=== PATIENT | male | born 1935 | race Caucasian/White ===

== ENCOUNTER 2016-06-22 11:25 | Observation (INO) | payer OTHER, MEDICARE ==
[~2016-06-22] VITALS: Ht 172.7 cm; Wt 83.9 kg
--- NOTE | 2016-06-22 11:28 | ED SYNCOPE COMPLAINT ---
History of Present Illness General Chief Complaint: Syncope and Near-Syncope Stated Complaint: ?SYNCOPE Source: patient Exam Limitations: no limitations Vital Signs & Intake/Output Vital Signs & Intake/Output Vital Signs Date Time Temp Pulse Resp B/P Pulse O2 O2 Flow FiO2 Ox Delivery Rate 06/22 1252 62 18 115/67 99 Room Air 06/22 1133 98.2 78 18 121/88 99 Room Air Allergies Coded Allergies: Penicillins (UNKNOWN 06/22/16) meperidine (From Demerol) (UNKNOWN 06/22/16) Reconcile Medications Aspirin (Ecotrin*) 81 MG TABLET.DR 1 TAB PO DAILY HEART HEALTH (Reported) Furosemide 20 MG TABLET 1 TAB PO DAILY CHF (Reported) Metoprolol Succ XL (Toprol XL) 25 MG TAB 1 TAB PO DAILY A.fib Triage Nurses Notes Reviewed? yes Timing: single episode today Precipitating Factors: SITTING IN CHAIR, DIZZINESS Loss of Consciousness: prolonged (minutes) HPI: This is an 81-year-old male with history of hypertension, A. fib, coronary disease presents to the ER after a syncopal episode while waiting in the room with his . Patient states he started to feel dizzy and then was noted by the family members to be not responding. No history of seizure disorder. He did not eat or drink anything this morning. Patient denies any chest pain or shortness of breath. Finger stick was normal in the room. Patient was ashen, very diaphoretic, left-sided fixed gaze. Past History Travel History Traveled to [place] past 21 day No Medical History Any Pertinent Medical History? see below for history Cardiovascular: AFIB, CAD, hypertension Pneumonia Vaccine: 02/12/10 Surgical History Surgical History: CABG, HERNIA, SB RESECTION Psychosocial History Who do you live with Spouse What is your primary language Albanian Tobacco Use: Never used ETOH Use: denies use Family History Hx Contributory? No Review of Systems Review of Systems Constitutional: Denies: chills, fever. EENTM: Reports: no symptoms. Respiratory: Denies: cough, short of breath. Cardiovascular: Denies: chest pain. GI: Reports: no symptoms. Genitourinary: Reports: no symptoms. Musculoskeletal: Reports: no symptoms. Skin: Reports: see HPI. Neurological/Psychological: Reports: no symptoms. All Other Systems: Reviewed and Negative Physical Exam Physical Exam General Appearance: well developed/nourished, alert, awake, anxious, moderate distress, DIAPHORETIC Head: atraumatic Eyes: Bilateral: PERRL, pale conjunctivae. Ears, Nose, Throat: normal pharynx, normal ENT inspection Neck: normal inspection, supple, full range of motion Respiratory: normal breath sounds, chest non-tender, no respiratory distress Cardiovascular: regular rate/rhythm Gastrointestinal: soft, non-tender Back: normal inspection, normal range of motion Extremities: normal inspection, normal capillary refill, normal range of motion, no edema Psychiatric: awake, alert, oriented x 3 Cranial Nerves: normal hearing, normal speech Motor/Sensory: no motor/sensory deficits Core Measures ACS in differential dx? Yes CVA/TIA Diagnosis: No Severe Sepsis Present: No Septic Shock Present: No Progress Differential Diagnosis: AMI, orthostatic syncope, pulmonary embolus, seizure Plan of Care: Orders Procedure Date/time Status Heart Healthy Diet 06/[address] in observation 06/22 1355 Active Patient Data 06/22 1348 Active Vital Signs 06/22 1308 Active Code Status 06/22 1308 Active MISTAKE 06/22 1127 Active Telemetry/Ciaio Counter Molder 06/22 1127 Active TROPONIN LEVEL 06/22 1127 Complete COMPREHENSIVE METABOLIC PANEL 06/22 1127 Complete CBC WITHOUT DIFFERENTIAL 06/22 1127 Complete EKG 06/22 1126 Active Laboratory Tests 06/22/16 1147: Anion Gap 12, Estimated GFR > 60, BUN/Creatinine Ratio 18.2, Glucose 96, Calcium 9.1, Total Bilirubin 1.3, AST 26, ALT 42, Alkaline Phosphatase 70, Troponin I < 0.01, Total Protein 6.8, Albumin 3.7, Globulin 3.1, Albumin/Globulin Ratio 1.2, CBC w Diff NO MAN DIFF REQ, RBC 5.27, MCV 87.1, MCH 29.1, RDW 13.6, MPV 8.5, Gran % 60.4, Lymphocytes % 26.3, Monocytes % 9.9 H, Eosinophils % 3.1, Basophils % 0.3, Absolute Granulocytes 4.0, Absolute Lymphocytes 1.7, Absolute Monocytes 0.6, Absolute Eosinophils 0.2, Absolute Basophils 0, PUBS MCHC 33.4 EKG, FINGER STICK, TELE MONITOR, FLUID BOLUS. LABS, ORTHOSTATICS ORDERED. PATENT FEELING MUCH BETTER AFTER OXYGEN, IV FLUID ADMINISTRATION. D/W HOSPITALIST AND CARDIOLOGY DR STALEY. WILL PLACE ON TELE FOR OBSERVATION. (JARVIS AHUMADA,DARCY) Diagnostic Imaging: Viewed by Me: Radiology Read. Discussed w/RAD: Radiology Read. CXR Impression: PATIENT: HUY CHAPMAN II PRESENT AGE: 81 PATIENT ACCOUNT NO: [id number] : 35 LOCATION: [facility] ORDERING PHYSICIAN: DARCY CONLEY MD SERVICE DATE: 06/22/16 EXAM TYPE: RAD - XRY -PORTABLE CHEST XRAY EXAMINATION: XR PORTABLE CHEST CLINICAL INFORMATION: Syncopal episodes. COMPARISON: None TECHNIQUE: Portable AP 85 degree upright view of the chest was obtained. FINDINGS: The heart is within normal limits in size. There is a stable tortuous aorta. There is no congestion or focal consolidation. Multiple broken sternal wires are again noted. Severe osteoarthritis of the left glenohumeral joint is redemonstrated. IMPRESSION: Stable chronic findings. No acute cardiopulmonary process. DICTATED BY: ESTEFANI WATSON MD DATE/TIME DICTATED:06/22/161250 MEDICAL DOCTOR:AVELINO DATE/ TIME TRANSCRIBED:06/22/161250 CONFIDENTIAL, DO NOT COPY WITHOUT APPROPRIATE AUTHORIZATION. <Electronically signed in Other Vendor System> SIGNED BY: ESTEFANI WATSON MD 06/22/161255 Initial ED EKG: AFIB Rhythm Strip: atrial fibrillation Departure Departure Time of Disposition: 1355 Disposition: STILL A PATIENT Condition: Stable Clinical Impression Primary Impression: Syncope Referrals: MICHELLE AHUMADA,KENNEDY Gordon (PCP/Family) Departure Forms: Customer Survey General Discharge Information Prescriptions: Current Visit Scripts Metoprolol Succ XL (Toprol XL) 1 TAB PO DAILY #30 TAB Observation Note Spoke With: TEA WHELAN MD Physician Advisor Notified: ELEUTERIO AHUMADA,KENNEDY [facility] Place Patient In: Non-ED OBS Care Area Rationale for Observation: My rational for observation is as follows [TELE MONITOR, SERIAL EKG, SERIAL TROPONIN, CARDIOLOGY EVALUATION, MEDICATION ADJUSTMENT, CONSIDER ECHOCARDIOGRAM] . Critical Care Note Critical Care Note Critical Care Time: 30-74 min
--- NOTE | 2016-06-22 11:31 | NUR ---
CARE OF PATIENT ASSUMED. PT WAS SITTING AT 'S BESIDE WHEN HE BECAUSE UNRESPONSIVE. PT BROUGHT TO ROOM 20, ACCUCHECK 101 MG/DL. PT NOW ALERT AND RESPONDING APPROPRIATELY TO STAFF. NS BOLUS INFUSING. WILL CONTINUE TO MONITOR. DR. CONLEY EVALUATING PATIENT.
--- NOTE | 2016-06-22 11:33 | NUR ---
PT BECAME UNRESPONSIVE. PLACED ON STRETCHER. PT BREATHING, SHAKING. ACCUCHECK- 101 MG/DL PT BROUGHT TO ROOM 20.
[2016-06-22] MEDS ORDERED: FUROSEMIDE20 M1 PO (11:41)
[2016-06-22] MEDS ORDERED: METOPROLOL TART25 M1 PO (11:41)
[2016-06-22] MEDS ORDERED: ASPIRIN EC81 M1 PO (11:42)
--- NOTE | 2016-06-22 11:49 | NUR ---
LABS DRAWN AND SENT BY THIS MST. BLUE,SST,LAV
[2016-06-22 12:10] LABS: ABSOLUTE BASOPHIL COUNT 0 /CUMM (0.0-0.2); ABSOLUTE EOSINOPHIL COUNT 0.2 /CUMM (0.0-0.7); ABSOLUTE LYMPH COUNT 1.7 /CUMM (1.2-3.4); ABSOLUTE MONOCYTE COUNT 0.6 /CUMM (0.10-0.60); BASOPHIL % 0.3 % (0.0-2.0); EOSINOPHIL % 3.1 % (0-5); GRANULOCYTE % 60.4 % (42.2-75.2); HEMATOCRIT 45.9 % (42-52); MEAN CORPUSCULAR HGB 29.1 PG (27.0-31.0); MEAN CORPUSCULAR HGB CONC 33.4 G/DL (33.0-37.0); MEAN CORPUSCULAR VOLUME 87.1 FL (80.0-94.0); MEAN PLATELET VOLUME 8.5 FL (7.4-10.4); PLATELET COUNT 186 /CUMM (130-400); RBC DISTRIBUTION WIDTH 13.6 % (11.5-14.5); RED BLOOD CELL CT 5.27 /CUMM (4.70-6.10); WHITE BLOOD CELL COUNT 6.5 /CUMM (4.8-10.8)
--- NOTE | 2016-06-22 12:54 | NUR ---
PT REPORTS FEELING BETTER. FAMILY AT BEDSIDE. ALERT AND TALKING WITHOUT DIFFICULTY
--- NOTE | 2016-06-22 12:56 | RADIOLOGY REPORT ---
EXAMINATION: XR PORTABLE CHEST CLINICAL INFORMATION: Syncopal episodes. COMPARISON: None TECHNIQUE: Portable AP 85 degree upright view of the chest was obtained. FINDINGS: The heart is within normal limits in size. There is a stable tortuous aorta. There is no congestion or focal consolidation. Multiple broken sternal wires are again noted. Severe osteoarthritis of the left glenohumeral joint is redemonstrated. IMPRESSION: Stable chronic findings. No acute cardiopulmonary process.
--- NOTE | 2016-06-22 14:07 | History & Physical ---
MARY PORRAS MDRIE 06/22/16 1406: General Information and HPI MD Statement: I have seen and personally examined HUY CHAPMAN II and documented this H&P. The patient is a 81 year old M who presented with a patient stated chief complaint of [syncope]. Source of Information: patient, family Exam Limitations: no limitations History of Present Illness: 81-year-old male with PMH atrial fibrillation, CAD sp quadruple bypass 2004, HTN , HLD, had a syncopal episode while accompanying his at the ED for a fall. His family was at bedside. His daughter reports that while in the room, he was not responsive for a few minutes, with twitches, drooling, and urine incontinence. Pt does not remember the episode, the last thing he remembered was feeling "woozy and fuzzy" possibly because he was feeling nervous about his . He also missed breakfast this morning. He reported one similar incidence when he was 6 years old when he cut his thumb. No recent episodes. As per ED note, he was diaphoretic with left sided fixed gaze. Now he reports feeling great. Denies visual changes, chest pain, palpitations, shortness of breath, abdominal pain, nausea, vomiting. He has chronic right leg swelling, which has improved. As per his daughter, he does not like to take prescribed meds. As an example, he took himself off zocor. That might be a reason why he is not on warfarin despite having atrial fibrillation. Pt lives with his , neno, and son-in-law. He sometimes walks with a cane. He denies smoking, alcohol, or drugs. Allergies/Medications Home Med list Aspirin (Ecotrin*) 81 MG TABLET.DR 1 TAB PO DAILY HEART HEALTH (Reported) Furosemide 20 MG TABLET 1 TAB PO DAILY CHF (Reported) Metoprolol Tartrate 25 MG TABLET 1 TAB PO BID AFIB (Reported) Past History Travel History Traveled to [place] past 21 day No Medical History Cardiovascular: AFIB, CAD, hypertension, hyperlipidemia Renal: ENLARGED PROSTATE Pneumonia Vaccine: 02/12/10 Surgical History Surgical History: CABG, HERNIA, SB RESECTION Past Family/Social History Psychosocial History Where do you live? Home Who Do You Live With? spouse, child Services at Home: None Smoking Status: Never Smoked ETOH Use: denies use Illicit Drug Use: denies illicit drug use Functional Ability ADLs Independent: dressing, eating, toileting, bathing. Ambulation: independent, cane Review of Systems Review of Systems Constitutional: Denies: chills, fever, weakness. EENTM: Denies: blurred vision, double vision, visual changes, nasal pain, throat pain. Cardiovascular: Reports: peripheral edema, syncope. Denies: chest pain, orthopena, palpitations. Respiratory: Denies: cough, short of breath, sputum production, wheezing. GI: Denies: abdominal pain, bloating, constipation, diarrhea. Genitourinary: Denies: dysuria. Exam & Diagnostic Data Last 24 Hrs of Vital Signs/I&O Vital Signs Date Time Temp Pulse Resp B/P Pulse O2 O2 Flow FiO2 Ox Delivery Rate 06/22 1530 73 139/81 06/22 1448 98.0 90 18 113/74 99 Room Air 06/22 1252 62 18 115/67 99 Room Air 06/22 1133 98.2 78 18 121/88 99 Room Air Intake & Output 06/22 1600 06/22 0800 06/22 0000 Intake Total 500 Output Total Balance 500 Intake, IV 500 Physical Exam General Appearance Alert, Oriented X3, Cooperative, No Acute Distress Skin chronic venous stasis change HEENT Atraumatic, EOMI, Mucous Membr. moist/pink, Pupils equally round and reactive Neck Supple, +2 Carotid Pulse wo Bruit, No LAD Cardiovascular Normal S1, Normal S2, irregularly irregular Lungs Clear to Auscultation, Normal Air Movement Abdomen Normal Bowel Sounds, Soft, No Tenderness Neurological Normal Speech, Strength at 5/5 X4 Ext, Normal Tone, Sensation Intact, Cranial Nerves 3-12 NL Extremities No Edema, right leg bigger than left, but it is chronic as per pt and his family Vascular Normal Pulses Last 24 Hrs of Labs/Lanre: Laboratory Tests 06/22/16 1147: Anion Gap 12, Estimated GFR > 60, BUN/Creatinine Ratio 18.2, Glucose 96, Calcium 9.1, Total Bilirubin 1.3, AST 26, ALT 42, Alkaline Phosphatase 70, Troponin I < 0.01, Total Protein 6.8, Albumin 3.7, Globulin 3.1, Albumin/Globulin Ratio 1.2, CBC w Diff NO MAN DIFF REQ, RBC 5.27, MCV 87.1, MCH 29.1, RDW 13.6, MPV 8.5, Gran % 60.4, Lymphocytes % 26.3, Monocytes % 9.9 H, Eosinophils % 3.1, Basophils % 0.3, Absolute Granulocytes 4.0, Absolute Lymphocytes 1.7, Absolute Monocytes 0.6, Absolute Eosinophils 0.2, Absolute Basophils 0, PUBS MCHC 33.4 Diagnostic Data EKG Results A fib, rate 78 QTc 481 CXR Results IMPRESSION: Stable chronic findings. No acute cardiopulmonary process. Assessment/Plan Assessment: 81-year-old male with PMH atrial fibrillation, CAD sp quadruple bypass 2004, HTN , HLD, had a syncopal episode (a couple minutes episode of unresponsiveness, with shaky movements, urine incontinence). Labs unremarkable. VS WNL. Pt will be observed on tele for the following problems: # Syncope/ Possible seizure episode/ Valvular heart disease * Seizure precaution * Neuro called - Dr Landaverde supervisor travel information center * Follow up EEG * Follow up head CT * Consider carotid doppler * Follow up repeat EKG and trop at 6pm * Check orthostats * Follow up repeat echocardiogram # Atrial fibrillation - Last echo Jun 2014: Moderate concentric left ventricular hypertrophy. Normal left ventricular ejection fraction visually estimated at >65 %. Mild to moderate right atrial dilatation. Mild to moderate left atrial dilatation. * Continue metoprolol 25 mg BID, aspirin 81mg * Tele monitor * Cardio consult with Dr. Carrera # Chronic right leg swelling * Continue lasix Diet: heart healthy DVT ppx: mech and pharm FULL CODE As Ranked By This Provider Problem List: 1. Syncope Core Measures/Miscellaneous Acute Coronary Syndrome ACS Diagnosis: No Cerebrovascular Accident CVA/TIA Diagnosis: No Congestive Heart Failure CHF Diagnosis: No Venous Thromboembolism VTE Risk Factors: Acute medical illness, Age > 40 VTE Prophylaxis Ordered Inpt: Mech & Pharm No Mech VTE prophylaxis d/t: No contraindications No VTE Pharm Prophylaxis d/t: No contraindications VTE Diagnosis: No VTE Type: NONE VTE Confirmed by (Test): NONE Severe Sepsis Severe Sepsis Present: No Septic Shock Septic Shock Present: No Miscellaneous Documentation Attending Case Discussed With: KOLE SIMPSON M.D Primary Care Physician: KENNEDY MARTINEZ MD Patient sees these Specialists Dr Carrera cardiology Level of Patient Care: Telemetry DICKSON ROB 06/22/161921: Resident Review Statement Resident Statement: examined this patient, discussed with international coordinator, agreed with international coordinator, discussed with family, reviewed EMR data (avail), reviewed images Other Findings: This is an 81-year-old male with PMH significant for A.fib on no AC, CAD s/p quadruple bypass, HTN, HLD who had and LOC earlier today. Per patient, he was accompanying his in the ED when he started feeling "fuzzy" and does not remeber the rest. Per family who were also present at the time of LOC episode, he became unresponsive with drooling, twitching and had urine incontinence. The patient mentions that, he was very nervous about his . He reported that he had similar episode in past whenever he became very nervous(once when he was 6 and once when he was in high school; no further episodes since then). Please see above for further details. VSS, Ph/Ex: AAO x3, NAD, HEENT: NCAT, PERRLA, EOMI, Neck: Supple, no carotid bruits, CV: Irreg. Irreg, no murmur. Lungs: CTABL. Abdomen: NL BS, NT, ND, no organomegaly. Neurology: NL Speech, CN 3-12 intact, [id number] intact, Strength at 5/5 X4 Ext, Normal Tone, Sensation Intact Ext: LE edema more prominent on the right side, pulses symmetrical . Available lab and imaging data reviewed. Problem list: * LOC: syncopal episode vs seizure like activity * A.fib not on AC * Chronic LE edema Plan: * Telemtry monitor * Cardiology and Neurology consult * EEG * Head CT * Trend trop and EKG * Echo * C/W home medications of ASA, Furosemide, metoprolol. * Cardiac diet * DVT PPX at all times. * Full code CALVIN AHUMADA,KOLE 06/22/16 2220: General Information and HPI Allergies/Medications Allergies: Coded Allergies: Penicillins (UNKNOWN 06/22/16) meperidine (From Demerol) (UNKNOWN 06/22/16) Attending MD Review Statement Attending Statement Attending MD Statement: examined this patient, discuss w/resident/PA/HARDBOARD COATING MACHINE OPERATOR, agreed w/resident/PA/HARDBOARD COATING MACHINE OPERATOR, discussed with family, reviewed EMR data (avail), discussed with nursing, amended to note Attending Assessment/Plan: Patient is an 81-year-old male with history of atrial fibrillation and coronary artery disease witha syncope episode while in the emergency room which his was being evaluated following a fall. During the episode with witnesses reported left-sided gaze and mild shaking. He was also incontinent the time. He reports vague similar episodes during his childhood but no other episodes since then. Following the episodes he was hemodynamically stable. Orthostatic vitals were negative. He has no neurologic deficit on examination. Recommendations: -Based on the telemetry service for cardiac monitoring to rule out other underlying the region other than his atrial fibrillation. -Obtain echocardiogram to rule out structural heart disease. -Reported signs raise concern for possible seizure. Obtain head CT and EEG. I agree with neurology consultation. -Continue metoprolol for rate control. Family reported that patient is not on anticoagulation due to compliance issues.
--- NOTE | 2016-06-22 15:18 | NUR ---
PT ASSIGNED ROOM 172
--- NOTE | 2016-06-22 15:29 | NUR ---
ASSUMED CARE OF PT
--- NOTE | 2016-06-22 15:30 | NUR ---
PT STOOD FOR ORTHOSTATICS AND TO VOID. HOSPITALIST IN TO SEE PT
--- NOTE | 2016-06-22 16:23 | NUR ---
REPORT CALLED TO TRACY MO ON TELE UNIT. DR Gayathri PORRAS PAGED TO CLARIFY ORDERS FOR EEG, CT AND ECHO
--- NOTE | 2016-06-22 16:29 | NUR ---
DR PORRAS CONFIRMS THAT PT IS FOR EEG, CT SCAN AND ECHO. PT SENT TO CT SCAN
--- NOTE | 2016-06-22 17:19 | CT SCAN REPORT ---
EXAMINATION: CT HEAD WITHOUT CONTRAST CLINICAL INFORMATION: Left-sided fixed days. Evaluate for stroke or mass. COMPARISON: CT head dated 03/07/2012 TECHNIQUE: Contiguous axial imaging was performed from the skull base to vertex without intravenous administration of contrast. DLP: 600.71 mGy-cm FINDINGS: There is no evidence of acute intracranial hemorrhage or territorial infarction. No abnormal mass effect or midline shift is seen. Soler to white matter differentiation is well preserved. No extra-axial fluid collections are identified. Stable dilatation of bilateral lateral ventricles. Periventricular white matter low-attenuation compatible with microvascular ischemic disease.. No acute loss of soler-white differentiation. Atherosclerotic disease with intimal calcification of the distal bilateral internal carotid arteries. The osseous structures and soft tissues are normal. The mastoid air cells and visualized portions of the paranasal sinuses are well aerated. IMPRESSION: No acute intracranial pathology. Stable chronic changes.
--- NOTE | 2016-06-22 18:00 | NUR ---
EKG AND TROPONINS DONE PRIOR TAKING PT TO TELE UNIT. REPORT CALLED TO TRACY
--- NOTE | 2016-06-22 18:01 | NUR ---
REPEAT TROP DRAWN AND SENT BY THIS MST.
[2016-06-22 18:17] VITALS: BP 150/78
[2016-06-22 21:32] VITALS: BP 136/80
[2016-06-23 08:00] VITALS: BP 150/100
--- NOTE | 2016-06-23 08:33 | PN- Housestaff ---
SABINO AHUMADA,TERRANCE 06/23/16 0832: Subjective Follow-up For: Syncope vs seizure Valvular heart disease Atrial fibrillation Chronic RLE swelling Tele-Events Since Last Visit: Atrial fibrillation/flutter, HR 60s-80s, noted 2-3 second pauses. Subjective: Patient seen and examined at bedside this AM. He previously had the EEG and was resting comfortably in bedside chair. He denies pain, pre-syncope symptoms or any complaint. Review of Systems Constitutional: Denies: chills, fever, malaise. EENTM: Denies: blurred vision, visual changes, hearing changes. Cardiovascular: Denies: chest pain, palpitations. Respiratory: Denies: cough, short of breath. Gastrointestinal: Denies: abdominal pain. Genitourinary: Denies: dysuria. Musculoskeletal: Denies: back pain. Skin: Denies: erythema. Neurological/Psychological: Denies: confusion. Hematologic/Endocrine: Denies: bruising, bleeding. Objective Last 24 Hrs of Vital Signs/I&O Vital Signs Date Time Temp Pulse Resp B/P Pulse O2 O2 Flow FiO2 Ox Delivery Rate 06/23 0927 150/94 06/23 0800 97.5 82 20 150/100 98 Room Air 06/22 2132 98.2 85 20 136/80 20 Room Air 06/22 2052 76 136/80 06/22 1944 Room Air Room Air 06/22 1817 98.1 76 18 150/78 97 Room Air 06/22 1800 98.4 74 18 122/73 98 Room Air 06/22 1530 73 139/81 06/22 1448 98.0 90 18 113/74 99 Room Air 06/22 1252 62 18 115/67 99 Room Air 06/22 1133 98.2 78 18 121/88 99 Room Air Intake & Output 06/23 1600 06/23 0800 06/23 0000 Intake Total 100 480 Output Total 300 400 Balance -200 80 Intake, Oral 100 480 Number 1 Bowel Movements Output, Urine 300 400 Patient 185 lb Weight Physical Exam General Appearance: Alert, Oriented X3, Cooperative, No Acute Distress Skin: No Significant Lesion, Chronic venous stasis changes HEENT: Atraumatic, Mucous Membr. moist/pink Neck: Supple, +2 Carotid Pulse wo Bruit Lymphatic: Cervical nl Cardiovascular: Normal S1, Normal S2, Irregularly irregular Lungs: Clear to Auscultation, Normal Air Movement Abdomen: Normal Bowel Sounds, Soft Neurological: Normal Speech, Normal Tone Extremities: No Clubbing, No Cyanosis, RLE larger than left, noted to be chronic by both patient and son who is in room. Vascular: Pulses Symmetrical Current Medications: Current Medications Sig/Graciela Start time Last Medication Dose Route Stop Time Status Admin Aspirin Buffered 81 MG DAILY 06/23 1000 AC 06/23 PO 926 Furosemide 20 MG DAILY 06/23 1000 AC 06/23 PO 926 Metoprolol Tartrate 25 MG BID 06/22 2200 AC 06/23 PO 926 Sodium Chloride 500 ML BOLUS ONE 06/22 1145 DC 06/22 IV 06/22 1244 1145 Last 24 Hrs of Lab/Lanre Results Last 24 Hrs of Labs/Mics: Laboratory Tests 06/22/16 1758: Troponin I 0.01 06/22/16 1147: Anion Gap 12, Estimated GFR > 60, BUN/Creatinine Ratio 18.2, Glucose 96, Calcium 9.1, Total Bilirubin 1.3, AST 26, ALT 42, Alkaline Phosphatase 70, Troponin I < 0.01, Total Protein 6.8, Albumin 3.7, Globulin 3.1, Albumin/Globulin Ratio 1.2, CBC w Diff NO MAN DIFF REQ, RBC 5.27, MCV 87.1, MCH 29.1, RDW 13.6, MPV 8.5, Gran % 60.4, Lymphocytes % 26.3, Monocytes % 9.9 H, Eosinophils % 3.1, Basophils % 0.3, Absolute Granulocytes 4.0, Absolute Lymphocytes 1.7, Absolute Monocytes 0.6, Absolute Eosinophils 0.2, Absolute Basophils 0, PUBS MCHC 33.4 Assessment/Plan Assessment: Mr. Epps is a pleasant 81-year-old male with PMH atrial fibrillation, CAD s/p quadruple bypass 2004, HTN and HLD who was noted to have a syncopal episode (a couple minutes episode of unresponsiveness, with shaky movements, urine incontinence). On admission, labs unremarkable. VS WNL. Pt will be observed on tele for the following problems: # Syncope/ Possible seizure episode/ Valvular heart disease * By history, consideration for vasovagal syncope * Patient noted to have pauses overnight, cardiology does not believe that this is contributor to syncope * Seizure precaution * Neuro called - Dr Landaverde supervisor bonding, f/u rec's * Follow up EEG * Head CT shows no acute intracranial pathology * Trop/ekg negative for ACS * Orthostats negative * Follow up repeat echocardiogram # Atrial fibrillation - Last echo Jun 2014: Moderate concentric left ventricular hypertrophy. Normal left ventricular ejection fraction visually estimated at >65 %. Mild to moderate right atrial dilatation. Mild to moderate left atrial dilatation. * Continue metoprolol 25 mg BID, aspirin 81mg * Tele monitor * Cardio consult with Dr. Carrera, f/u recs # Chronic right leg swelling * Continue lasix Diet: heart healthy DVT ppx: mech and pharm Problem List: 1. Syncope Pain Ratin Pain Location: n/a Pain Goal: Remain pain free Pain Plan: Mild pain pathway Tomorrow's Labs & Rationales: None. CALVIN AHUMADA,KOLE 06/23/16 0851: Attending MD Review Statement Attending Statement Attending MD Statement: examined this patient, discuss w/resident/PA/PARTICIPANT ADMINISTRATOR, agreed w/resident/PA/PARTICIPANT ADMINISTRATOR, reviewed EMR data (avail), discussed with nursing, discussed with case mgmt, amended to note Attending Assessment/Plan: Patient seen and examined. Resting comfortably and not in any acute distress. Denies any further episodes of dizziness or lightheadedness overnight. Denied chest pain or palpitations. No episodes of loss of consciousness. On telemetry monitoring overnight he had a 3 second pause and a few episodes of 2 second pauses. His rhythm is atrial flutter. He remains hemodynamically stable. On examination he is alert and oriented 3. Lungs are clear bilaterally. Heart sounds are irregular. He has no focal neurologic deficit. Problems: 1. Syncope with head trauma 2. Atrial fibrillation; not on anticoagulation due to poor compliance. 3. Rule out sick sinus syndrome as patient had pauses on telemetry monitoring overnight. 4. Coronary artery disease Plan: -Continue telemetry monitoring. Obtain echocardiogram. -Follow-up with the cardiology service, regarding need for pacemaker implantation if indicated. -Given the current cardiac findings seizure disorder appears less likely as etiology of his syncope. Size noted during the episode of syncope may be related to cerebral hypoperfusion from his arrhythmia if this is indeed the cause of the syncope. -He is on metoprolol for rate control. Follow-up with cardiology service whether the patient should continue on this regimen. -We'll extend Observation for another 24 hours pending further telemetry monitoring and obtaining echocardiogram.
--- NOTE | 2016-06-23 11:09 | Cons- Cardiology ---
General Information and HPI Consulting Request Date of Consult: 06/23/16 Requested By: KOLE SIMPSON M.D Reason for Consult: Syncope in a patient with known ischemic heart disease and chronic atrial fibrillation. Source of Information: patient, old records Exam Limitations: no limitations History of Present Illness: Huy Chapman is an 81-year-old male who I have been following since 2004. At that time, he was referred for an abnormal routine stress test. He had some vague chest discomfort at that time and was referred for cardiac catheterization , which was done on 07/05/2004. This showed severe coronary artery disease with 99% LAD, 95% proximal circumflex, and 50% distal right coronary stenosis. He was referred for bypass surgery which he had by Dr. Skelton, including a first diagonal and LAD with a sequential ALMODOVAR, and saphenous vein graft to the right PDA and first circumflex marginal coronary arteries. Subsequently he has done pretty well from an ischemic standpoint, with negative stress tests. However, he had an asymptomatic episode of atrial flutter in 05/2012 which spontaneously converted to sinus rhythm, and then presented in 12/2013 with atrial fibrillation. When he was initially in atrial flutter we put him on Xarelto but he had some bleeding and some epistaxis and stopped this medication. In fact, Huy has been off of most medications and is just taking a large amount of naturopathic medications. He has basically refused to take any other pharmacologic medications, except that I did convince him to take aspirin on a daily basis in December 2013, which he has continued to do. Subsequently he was seen routinely in May 2014 and was doing well. However, he returned in June 2014 complaining of some edema. At that time, we put him on some Lasix 20 mg daily which he has continued to take. He did have a leg ultrasound which was negative for DVT. He also continues to take the aspirin and a lot of supplements. Huy was seen in November 2015 when he was assessed for lithotripsy treatment which he apparently had. However, sometime later in December he had emergency hernia surgery at [facility] for incarcerated inguinal hernia on the right. According to his daughter he was in the hospital for a couple of weeks and then went to rehab, and is now in assisted living in [place] at [facility]. I did receive a phone call at the time he was in [facility] from a surgical PA or resident telling me that his heart rate was uncontrolled and they needed some Cardiology input, but since I do not have privileges at [facility] anymore they apparently got a Cardiology consult from the staff service there. They eventually put him on metoprolol and he is now on metoprolol 25 mg twice daily. He is also on Lasix, and still on just aspirin for anticoagulation. The patient was in the emergency department yesterday afternoon with his who was the patient. At some point he became dizzy, nauseated and had a segun syncopal episode. Apparently he was incontinent at this time. There was possible brief seizure activity. There was no documented bradycardia when he was evaluated in the emergency department, however he has been mildly bradycardic overnight with a few 2-3 second pauses. This morning he feels very well, has been ambulatory and wants to go home. He has had no chest pain, shortness of breath, palpitations. He has chronic ankle edema especially on the right which is improved. Allergies/Medications Allergies: Coded Allergies: Penicillins (UNKNOWN 06/22/16) meperidine (From Demerol) (UNKNOWN 06/22/16) Home Med List: Aspirin (Ecotrin*) 81 MG TABLET.DR 1 TAB PO DAILY HEART HEALTH (Reported) Furosemide 20 MG TABLET 1 TAB PO DAILY CHF (Reported) Metoprolol Succ XL (Toprol XL) 25 MG TAB 1 TAB PO DAILY A.fib Metoprolol Tartrate 25 MG TABLET 1 TAB PO BID AFIB (Reported) Current Medications: Current Medications Sig/Graciela Start time Last Medication Dose Route Stop Time Status Admin Aspirin Buffered 81 MG DAILY 06/23 1000 AC 06/23 PO 926 Furosemide 20 MG DAILY 06/23 1000 AC 06/23 PO 27 Metoprolol Tartrate 25 MG BID 06/22 2200 AC 06/23 PO 926 Sodium Chloride 500 ML BOLUS ONE 06/22 1145 DC 06/22 IV 06/22 1244 1145 Review of Systems Review of Systems: He has no other complaints in the review of systems at this time. Past History Travel History Traveled to [place] past 21 day No Medical History Blood Transfusion Hx: No Neurological: NONE EENT: NONE Cardiovascular: AFIB, CAD, hypertension, hyperlipidemia, QUAD BIPASS Respiratory: NONE Gastrointestinal: SML BOWEL RESECTION Hepatic: NONE Renal: ENLARGED PROSTATE Musculoskeletal: NONE Psychiatric: NONE Endocrine: NONE Blood Disorders: NONE Cancer(s): NONE INTELLIGENCE INTERN/Reproductive: NONE Surgical History Surgical History: CABG, HERNIA, SB RESECTION Psychosocial History Where Do You Live? Home Who Do You Live With? spouse, child Services at Home: None Smoking Status: Never Smoked ETOH Use: denies use Illicit Drug Use: denies illicit drug use Functional Ability ADLs Independent: dressing, eating, toileting, bathing. Ambulation: independent, cane Exam & Diagnostic Data Vital Signs and I&O Vital Signs Date Time Temp Pulse Resp B/P Pulse O2 O2 Flow FiO2 Ox Delivery Rate 06/23 09 150/94 06/23 08 97.5 82 20 150/100 98 Room Air 06/22 2132 98.2 85 20 136/80 20 Room Air 06/22 2052 76 136/80 06/22 1944 Room Air Room Air 06/22 1817 98.1 76 18 150/78 97 Room Air 06/22 1800 98.4 74 18 122/73 98 Room Air 06/22 1530 73 139/81 06/22 1448 98.0 90 18 113/74 99 Room Air 06/22 1252 62 18 115/67 99 Room Air 06/22 1133 98.2 78 18 121/88 99 Room Air Intake & Output 06/23 1600 06/23 0800 06/23 0000 06/22 1600 06/22 0800 06/22 0000 Intake Total 100 480 500 Output Total 300 400 Balance -200 80 500 Intake, IV 500 Intake, Oral 100 480 Number 1 Bowel Movements Output, Urine 300 400 Patient 185 lb Weight Physical Exam: He is well-developed well-nourished elderly man in no acute distress HEENT exam is normal Neck veins are not distended Carotids are normal Chest is clear Heart reveals irregular rhythm with normal rate and no murmurs Extremities reveal some chronic skin changes and edema especially on the right Labs/Lanre Results: Laboratory Tests 06/22 06/22 1758 1147 Chemistry Sodium (137 - 145 mmol/L) 144 Potassium (3.5 - 5.1 mmol/L) 4.2 Chloride (98 - 107 mmol/L) 108 H Carbon Dioxide (22 - 30 mmol/L) 25 Anion Gap (5 - 16) 12 BUN (9 - 20 mg/dL) 20 Creatinine (0.7 - 1.2 mg/dL) 1.1 Estimated GFR (>60 ml/min) > 60 BUN/Creatinine Ratio (7 - 25 %) 18.2 Glucose (65 - 99 mg/dL) 96 Calcium (8.4 - 10.2 mg/dL) 9.1 Total Bilirubin (0.2 - 1.3 mg/dL) 1.3 AST (17 - 59 U/L) 26 ALT (21 - 72 U/L) 42 Alkaline Phosphatase (< 127 U/L) 70 Troponin I (<0.11 ng/ml) 0.01 < 0.01 Total Protein (6.3 - 8.2 g/dL) 6.8 Albumin (3.5 - 5.0 g/dL) 3.7 Globulin (1.9 - 4.2 gm/dL) 3.1 Albumin/Globulin Ratio (1.1 - 2.2 %) 1.2 Hematology CBC w Diff NO MAN DIFF REQ WBC (4.8 - 10.8 /CUMM) 6.5 RBC (4.70 - 6.10 /CUMM) 5.27 Hgb (14.0 - 18.0 G/DL) 15.3 Hct (42 - 52 %) 45.9 MCV (80.0 - 94.0 FL) 87.1 MCH (27.0 - 31.0 PG) 29.1 RDW (11.5 - 14.5 %) 13.6 Plt Count (130 - 400 /CUMM) 186 MPV (7.4 - 10.4 FL) 8.5 Gran % (42.2 - 75.2 %) 60.4 Lymphocytes % (20.5 - 51.1 %) 26.3 Monocytes % (1.7 - 9.3 %) 9.9 H Eosinophils % (0 - 5 %) 3.1 Basophils % (0.0 - 2.0 %) 0.3 Absolute Granulocytes (1.4 - 6.5 /CUMM) 4.0 Absolute Lymphocytes (1.2 - 3.4 /CUMM) 1.7 Absolute Monocytes (0.10 - 0.60 /CUMM) 0.6 Absolute Eosinophils (0.0 - 0.7 /CUMM) 0.2 Absolute Basophils (0.0 - 0.2 /CUMM) 0 PUBS MCHC (33.0 - 37.0 G/DL) 33.4 Diagnostic Data EKG Results The EKG shows atrial fibrillation at a rate of 81 with an incomplete right bundle branch block pattern. There are some minor ST-T wave abnormalities. CXR Results PATIENT: HUY CHAPMAN II PRESENT AGE: 81 PATIENT ACCOUNT NO: [id number] : 35 LOCATION: [facility] ORDERING PHYSICIAN: DARCY CONLEY MD SERVICE DATE: 06/22/16 EXAM TYPE: RAD - XRY-PORTABLE CHEST XRAY EXAMINATION: XR PORTABLE CHEST CLINICAL INFORMATION: Syncopal episodes. COMPARISON: None TECHNIQUE: Portable AP 85 degree upright view of the chest was obtained. FINDINGS: The heart is within normal limits in size. There is a stable tortuous aorta. There is no congestion or focal consolidation. Multiple broken sternal wires are again noted. Severe osteoarthritis of the left glenohumeral joint is redemonstrated. IMPRESSION: Stable chronic findings. No acute cardiopulmonary process. DICTATED BY: ESTEFANI WATSON MD DATE/TIME DICTATED:06/22/161250 ENERGY SPECIALIST:AVELINO DATE/TIME TRANSCRIBED:06/22/161250 CONFIDENTIAL, DO NOT COPY WITHOUT APPROPRIATE AUTHORIZATION. <Electronically signed in Other Vendor System> SIGNED BY: ESTEFANI WATSON MD 1255 Assessment/Plan Assessment/Plan Huy had a syncopal episode while in the ER. By description this is a classic vasovagal episode. However a seizure is in the differential. He seems fine now. He has had some mild bradycardia overnight. He is on metoprolol. I recommend the patient can be ambulated and if stable and asymptomatic he can be discharged. He is to be evaluated by neurology in addition. I would send him home on 25 mg of long-acting metoprolol only once daily, which is half of his usual dose. If he has any further symptoms as an outpatient I will do a Holter and any further workup at that time. Copies To: MICHELLE AHUMADA,KENNEDY Gordon Consult Acknowledgment - Thank you for your consult request.
--- NOTE | 2016-06-23 11:27 | Patient Discharge Instructions ---
Discharge Instructions General Discharge Information You were seen/treated for: Syncopal episode Watch for these problems: Loss of consciousness or any change in mental status Special Instructions: -Please follow up with your PCP within a week of discharge. -Please follow up with your life scientists, Dr. Carrera within a week of discharge. -Please take your medications as instructed. -Please follow up with Neurologist, Dr. Landaverde within a week of discharge. -Please return to the hospital if your symptoms not improve/worsen. Diet Continue normal diet: Yes Recommended Diet: Heart Healthy Activity Additional ACTIVITY Info: As tolerated Acute Coronary Syndrome Inclusion Criteria At DC or during hospital stay patient has or had the following: ACS DIAGNOSIS No Discharge Core Measures Meds if any: Prescribed or Continued at Discharge Meds if any: NOT Prescribed or Continued at Discharge Congestive Heart Failure Inclusion Criteria At DC or during hospital stay patient has or had the following: CHF DIAGNOSIS No Discharge Core Measures Meds if any: Prescribed or Continued at Discharge Meds if any: NOT Prescribed or Continued at Discharge Cerebrovascular accident Inclusion Criteria At DC or during hospital stay patient has or had the following: CVA/TIA Diagnosis No Discharge Core Measures Meds if any: Prescribed or Continued at Discharge Meds if any: NOT Prescribed or Continued at Discharge Venous thromboembolism Inclusion Criteria VTE Diagnosis No VTE Type NONE VTE Confirmed by (Test) NONE Discharge Core Measures - Per Current guidelines, there needs to be overlap - treatment for the first 5 days of Warfarin therapy. - If discharged on Warfarin prior to 5 days of - overlap therapy, the patient will need to be - assessed for post discharge needs including - *Post discharge parental anticoagulation - *Warfarin and/or parental anticoagulation education - *Follow up date to check INR post discharge At least 5 days overlap therapy as Inpatient No Meds if any: Prescribed or Continued at Discharge Note: Overlap Therapy is Warfarin and Anticoagulant Meds if any: NOT Prescribed or Continued at Discharge
[2016-06-23] MEDS ORDERED: TOPROL XL25 M1 PO (11:36)
--- NOTE | 2016-06-23 15:40 | Cons- Neurology ---
General Information and HPI Consulting Request Date of Consult: 06/23/16 Requested By: KOLE SIMPSON M.D History of Present Illness: 81-year-old male who had an unusual event yesterday prompting admission to hospital He recalls little of the event with the exception that he was probably outside the hospital when he had a sense that he was "fuzzy or loss of focus. He then found himself in the bed in the hospital He believes that he was incontinent. There was no tongue biting and no history of trauma, Per hospital records he had been accompanying his at the emergency room. Hospital records indicate that he was in the emergency room when the episode happened. He was unresponsive for a few minutes and twitches drooling and incontinence. Hospital records also indicate that he reported that he was "woozy and fuzzy". There may have been one similar episode many years ago ED reported that he was diaphoretic and had a left sided fixed gaze. Patient feels asymptomatic at present Allergies/Medications Allergies: Coded Allergies: Penicillins (UNKNOWN 06/22/16) meperidine (From Demerol) (UNKNOWN 06/22/16) Home Med List: Aspirin (Ecotrin*) 81 MG TABLET.DR 1 TAB PO DAILY HEART HEALTH (Reported) Furosemide 20 MG TABLET 1 TAB PO DAILY CHF (Reported) Metoprolol Tartrate 25 MG TABLET 1 TAB PO BID AFIB (Reported) Current Medications: Current Medications Sig/Graciela Start time Last Medication Dose Route Stop Time Status Admin Aspirin Buffered 81 MG DAILY 06/23 1000 AC 06/23 PO 0927 Furosemide 20 MG DAILY 06/23 1000 AC 06/23 PO 0927 Metoprolol Succinate 25 MG DAILY 06/24 1000 AC PO Metoprolol Tartrate 12.5 MG BID 06/23 2200 AC PO 06/23 2201 Metoprolol Tartrate 25 MG BID 06/22 2200 DC 06/23 PO 0927 Review of Systems Review of Systems: Denies headache, vertigo, head trauma, weight loss, chest pain, shortness of breath, vomiting, focal weakness, paresthesia, significant swelling, recurrent falls, fevers, other episodes of incontinence Other systems negative Past History Travel History Traveled to [place] past 21 day No Medical History Blood Transfusion Hx: No Neurological: NONE EENT: NONE Cardiovascular: AFIB, CAD, hypertension, hyperlipidemia, QUAD BIPASS Respiratory: NONE Gastrointestinal: SML BOWEL RESECTION Hepatic: NONE Renal: ENLARGED PROSTATE Musculoskeletal: NONE Psychiatric: NONE Endocrine: NONE Blood Disorders: NONE Cancer(s): NONE 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 Home Who Do You Live With? spouse, child Services at Home: None Smoking Status: Never Smoked ETOH Use: denies use Illicit Drug Use: denies illicit drug use Functional Ability ADLs Independent: dressing, eating, toileting, bathing. Ambulation: independent, cane Exam & Diagnostic Data Vital Signs and I&O Vital Signs Date Time Temp Pulse Resp B/P Pulse O2 O2 Flow FiO2 Ox Delivery Rate 06/23 0927 150/94 06/23 0800 97.5 82 20 150/100 98 Room Air 06/22 2132 98.2 85 20 136/80 20 Room Air 06/22 2052 76 136/80 06/22 1944 Room Air Room Air 06/22 1817 98.1 76 18 150/78 97 Room Air 06/22 1800 98.4 74 18 122/73 98 Room Air Intake & Output 06/23 1600 06/23 0800 06/23 0000 Intake Total 400 100 480 Output Total 300 400 Balance 400 -200 80 Intake, Oral 400 100 480 Number 1 Bowel Movements Output, Urine 300 400 Patient 185 lb Weight Alert, comfortable, fund of knowledge impaired, recall impairment, attention span adequate, no dysarthria Heart sounds normal, no carotid bruit, distal pulses intact Extraocular movements full, pupils equal and reactive, fundi benign, visual plata intact, no facial weakness, palate tongue and shoulders intact, hearing grossly intact Normal tone and strength No sensory loss to light touch and position Deep tendon reflexes 1+ bilateral Coordinative functions intact Minimal imbalance when walking Last 48 Hours of Lab Results: Laboratory Tests 06/22 06/22 1758 1147 Chemistry Sodium (137 - 145 mmol/L) 144 Potassium (3.5 - 5.1 mmol/L) 4.2 Chloride (98 - 107 mmol/L) 108 H Carbon Dioxide (22 - 30 mmol/L) 25 Anion Gap (5 - 16) 12 BUN (9 - 20 mg/dL) 20 Creatinine (0.7 - 1.2 mg/dL) 1.1 Estimated GFR (>60 ml/min) > 60 BUN/Creatinine Ratio (7 - 25 %) 18.2 Glucose (65 - 99 mg/dL) 96 Calcium (8.4 - 10.2 mg/dL) 9.1 Total Bilirubin (0.2 - 1.3 mg/dL) 1.3 AST (17 - 59 U/L) 26 ALT (21 - 72 U/L) 42 Alkaline Phosphatase (< 127 U/L) 70 Troponin I (<0.11 ng/ml) 0.01 < 0.01 Total Protein (6.3 - 8.2 g/dL) 6.8 Albumin (3.5 - 5.0 g/dL) 3.7 Globulin (1.9 - 4.2 gm/dL) 3.1 Albumin/Globulin Ratio (1.1 - 2.2 %) 1.2 Hematology CBC w Diff NO MAN DIFF REQ WBC (4.8 - 10.8 /CUMM) 6.5 RBC (4.70 - 6.10 /CUMM) 5.27 Hgb (14.0 - 18.0 G/DL) 15.3 Hct (42 - 52 %) 45.9 MCV (80.0 - 94.0 FL) 87.1 MCH (27.0 - 31.0 PG) 29.1 RDW (11.5 - 14.5 %) 13.6 Plt Count (130 - 400 /CUMM) 186 MPV (7.4 - 10.4 FL) 8.5 Gran % (42.2 - 75.2 %) 60.4 Lymphocytes % (20.5 - 51.1 %) 26.3 Monocytes % (1.7 - 9.3 %) 9.9 H Eosinophils % (0 - 5 %) 3.1 Basophils % (0.0 - 2.0 %) 0.3 Absolute Granulocytes (1.4 - 6.5 /CUMM) 4.0 Absolute Lymphocytes (1.2 - 3.4 /CUMM) 1.7 Absolute Monocytes (0.10 - 0.60 /CUMM) 0.6 Absolute Eosinophils (0.0 - 0.7 /CUMM) 0.2 Absolute Basophils (0.0 - 0.2 /CUMM) 0 PUBS MCHC (33.0 - 37.0 G/DL) 33.4 CT HEAD FINDINGS: There is no evidence of acute intracranial hemorrhage or territorial infarction. No abnormal mass effect or midline shift is seen. Soler to white matter differentiation is well preserved. No extra-axial fluid collections are identified. Stable dilatation of bilateral lateral ventricles. Periventricular white matter low-attenuation compatible with microvascular ischemic disease.. No acute loss of soler-white differentiation. Atherosclerotic disease with intimal calcification of the distal bilateral internal carotid arteries. The osseous structures and soft tissues are normal. The mastoid air cells and visualized portions of the paranasal sinuses are well aerated. IMPRESSION: No acute intracranial pathology. Stable chronic changes. Assessment/Plan Assessment: Syncope versus seizure Events may have been "convulsive syncope" Recommendations: Check for orthostasis EEG Cardiac monitoring Consult Acknowledgment - Thank you for your consult request.
[2016-06-23 16:24] VITALS: BP 138/92
--- NOTE | 2016-06-23 21:59 | ELECTROENCEPHALOGRAM REPORT ---
Electroencephalogram Report Electroencephalogram Results Date of service: 06/23/16 Attending MD: KOLE SIMPSON M.D Pick Up And Delivery Driver: Silva Herman EEG Number: [id number] Test Utilizes: 21 electrode system Pertinent Hx/Physical/Neuro Findings/Clin Diagnosis: syncope vs seizure Inpatient Medications: Current Medications Sig/Graciela Start time Last Medication Dose Route Stop Time Status Admin Aspirin Buffered 81 MG DAILY 06/23 1000 AC 06/23 PO 926 Furosemide 20 MG DAILY 06/23 1000 AC 06/23 PO 09 Metoprolol Succinate 25 MG DAILY 06/24 1000 AC PO Metoprolol Tartrate 12.5 MG BID 06/23 2200 AC 06/23 PO 06/23 Metoprolol Tartrate 25 MG BID 06/22 220 DC 06/23 PO 926 Interpretation: EEG in wake state Background is 9-10 cps activity Low voltage 20-24 cps activity fronatlly Photic stim: no abnormalities No epileptiform or focal abnormalities. Impression: Normal EEG in wake state
[2016-06-24 00:10] VITALS: BP 188/90
[2016-06-24 08:04] VITALS: BP 158/90
--- NOTE | 2016-06-24 08:48 | PN- Housestaff ---
DICKSON ROB 06/24/16 0848: Subjective Follow-up For: Syncope Valvular heart disease Atrial fibrillation Chronic RLE swelling Tele-Events Since Last Visit: Atrial fibrillation/atrial flutter, rate 71-88, PVCs Subjective: Patient seen and examined. He offers no complaints. Denies chest pain, shortness of breath, nausea, vomiting, dizziness, lightheadedness, abdominal pain, urinary symptoms. No syncopal episode or other events reported. Dose of metoprolol was decreased to 25 daily. EEG done yesterday was normal. Vital signs remains stable. Review of Systems Constitutional: Denies: see HPI. Objective Last 24 Hrs of Vital Signs/I&O Vital Signs Date Time Temp Pulse Resp B/P Pulse O2 O2 Flow FiO2 Ox Delivery Rate 06/24 0925 156/70 06/24 0804 98.2 80 20 158/90 96 Room Air 06/24 0010 98.4 84 20 188/90 95 Room Air 06/23 2029 82 162/90 06/23 1624 98.0 78 20 138/92 96 Room Air Intake & Output 06/24 1600 06/24 0800 06/24 0000 Intake Total 730 Output Total 200 Balance -200 730 Intake, IV 10 Intake, Oral 720 Output, Urine 200 Physical Exam General Appearance: Alert, Oriented X3, Cooperative, No Acute Distress Skin: No Rashes, No Breakdown, No Significant Lesion HEENT: Atraumatic, PERRLA, EOMI, Mucous Membr. moist/pink Neck: Supple, No JVD, No thryomegaly, +2 Carotid Pulse wo Bruit, No LAD Lymphatic: Axillary nl, Cervical nl Cardiovascular: Irregularly irregular, no murmurs Lungs: Clear to Auscultation, Normal Air Movement Abdomen: Normal Bowel Sounds, Soft, No Tenderness, No Hepatospenomegaly, No Masses Neurological: Normal Speech, Strength at 5/5 X4 Ext, Normal Tone, Sensation Intact, Cranial Nerves 3-12 NL, Reflexes 2+ Extremities: LE edema more prominent on the the right side;stable since last Ph/ ex Vascular: Normal Pulses, Pulses Symmetrical Current Medications: Current Medications Sig/Graciela Start time Last Medication Dose Route Stop Time Status Admin Aspirin Buffered 81 MG DAILY 06/23 1000 AC 06/24 PO 923 Furosemide 20 MG DAILY 06/23 1000 AC 06/24 PO 0924 Metoprolol Succinate 25 MG DAILY 06/24 1000 AC 06/24 PO 09 Metoprolol Tartrate 12.5 MG BID 06/23 2199 DC 06/23 PO 06/23 Metoprolol Tartrate 25 MG BID 06/22 2199 DC 06/23 PO 926 Assessment/Plan Assessment: Mr. Epps is a pleasant 81-year-old male with PMH atrial fibrillation, CAD s/p quadruple bypass 2004, HTN and HLD who was noted to have a syncopal episode (a couple minutes episode of unresponsiveness, with shaky movements, urine incontinence). On admission, labs unremarkable. VS WNL. Pt will be observed on tele for the following problems: # Syncope/ Possible seizure episode/ Valvular heart disease * Seizure precaution * Neurology recommendations appreciated, consideration for convulsive syncope * Follow up EEG; wnl * Head CT shows no acute intracranial pathology * Trop/ekg negative for ACS * Orthostats negative * Follow up echocardiogram; discharge plan based on echo results. # Atrial fibrillation - Last echo Jun 2014: Moderate concentric left ventricular hypertrophy. Normal left ventricular ejection fraction visually estimated at >65 %. Mild to moderate right atrial dilatation. Mild to moderate left atrial dilatation. * Continue metoprolol 25 mg BID, aspirin 81mg * Tele monitor * Cardio consult with Dr. Carrera, f/u recs # Chronic right leg swelling * Continue lasix Diet: heart healthy DVT ppx: mech and pharm Problem List: 1. Syncope Pain Ratin Pain Location: NA Pain Goal: Remain pain free Pain Plan: Pt is pain free Tomorrow's Labs & Rationales: None ; possible DC today CALVIN AHUMADA,KOLE 06/24/16 0913: Attending MD Review Statement Attending Statement Attending MD Statement: examined this patient, discuss w/resident/PA/BEEF SPECIALIST, agreed w/resident/PA/BEEF SPECIALIST, reviewed EMR data (avail), discussed with nursing Attending Assessment/Plan: Patient seen and examined. Resting comfortably and not in any acute distress. No issues overnight. On telemetry was in A. fib a flutter with occasional PVCs. No episodes of bradycardia or sinus pauses. He is alert and oriented 3. He denies any dizziness. His EKG shows no evidence of seizures. Cardiology evaluation appreciated. On account of his bradycardia, his metoprolol dose has been decreased. Patient will be discharged home and his regimen with recommendations to follow-up with the cardiology service as an outpatient. His heading matcher and assembler will scheduled the patient for outpatient Holter monitoring. His echocardiogram is being done this morning. After being reviewed by his heading matcher and assembler patient may be discharged home today.
[2016-06-24 09:25] VITALS: BP 156/70
--- NOTE | 2016-06-24 10:23 | PN- Cardiology ---
Subjective Subjective: The patient is feeling fine. He is eager to be discharged. He remains in atrial fibrillation with a controlled ventricular response. He has been seen by neurology who will review his EEG. His echocardiogram has been done. Objective Vital Signs and I&Os Vital Signs Date Time Temp Pulse Resp B/P Pulse O2 O2 Flow FiO2 Ox Delivery Rate 06/24 924 156/70 06/24 0804 98.2 80 20 158/90 96 Room Air 06/24 0010 98.4 84 20 188/90 95 Room Air 06/23 2028 82 162/90 06/23 1624 98.0 78 20 138/92 96 Room Air Intake & Output 06/24 1600 06/24 0800 06/24 0000 06/23 1600 06/23 0800 06/23 0000 Intake Total 730 400 100 480 Output Total 200 300 400 Balance -200 730 400 -200 80 Intake, IV 10 Intake, Oral 720 400 100 480 Number 1 Bowel Movements Output, Urine 200 300 400 Patient 185 lb Weight Physical Exam: HEENT exam is normal Chest is clear Heart reveals a regular rhythm and no murmurs Extremities are unchanged Current Medications: Current Medications Sig/Graciela Start time Last Medication Dose Route Stop Time Status Admin Aspirin Buffered 81 MG DAILY 06/23 1000 AC 06/24 PO 0924 Furosemide 20 MG DAILY 06/23 1000 AC 06/24 PO 0924 Metoprolol Succinate 25 MG DAILY 06/24 1000 AC 06/24 PO 0925 Metoprolol Tartrate 12.5 MG BID 06/23 2199 DC 06/23 PO 06/23 Metoprolol Tartrate 25 MG BID 06/22 220 DC 06/23 PO 09 Results Last 48 Hrs of Labs/Mics: Laboratory Tests 06/22/16 1758: Troponin I 0.01 06/22/16 1147: Anion Gap 12, Estimated GFR > 60, BUN/Creatinine Ratio 18.2, Glucose 96, Calcium 9.1, Total Bilirubin 1.3, AST 26, ALT 42, Alkaline Phosphatase 70, Troponin I < 0.01, Total Protein 6.8, Albumin 3.7, Globulin 3.1, Albumin/Globulin Ratio 1.2, CBC w Diff NO MAN DIFF REQ, RBC 5.27, MCV 87.1, MCH 29.1, RDW 13.6, MPV 8.5, Gran % 60.4, Lymphocytes % 26.3, Monocytes % 9.9 H, Eosinophils % 3.1, Basophils % 0.3, Absolute Granulocytes 4.0, Absolute Lymphocytes 1.7, Absolute Monocytes 0.6, Absolute Eosinophils 0.2, Absolute Basophils 0, PUBS MCHC 33.4 Recent Imaging Studies: CONCLUSIONS Moderate concentric left ventricular hypertrophy. Normal left ventricular ejection fraction visually estimated at >60 Mild right atrial dilatation. Mild to moderate left atrial dilatation. Mild thickening/calcification of the mitral valve leaflets. Mild mitral regurgitation. Diffuse thickening of the aortic valve cusps with mildly reduced excursion. No aortic stenosis. Mild aortic regurgitation. Right ventricular systolic pressure estimated to be at upper limits of normal at 30-35 mmHg. Aortic root is mildly dilated. Rhett Carrera M.D. (Electronically Signed) Final Date: 24 June 2016 13:06 Assessment/Plan Assessment/Plan The patient is stable. He has not had any further episodes of dizziness or syncope. Most likely his episode was vasovagal in nature. His echocardiogram did not show any major abnormalities. He can be discharged to home at this time. Continue telemetry? Not applicable
--- NOTE | 2016-06-24 13:07 | ECHOCARDIOGRAM REPORT ---
HUY CHAPMAN Age: 81 : 1935 Gender: M Exam Date: 06/24/2016 08:46 Exam Location: 1 [address] Ht (in): 68 Wt (lb): 185 BSA: 2.03 BP: 188 / 90 Ordering Physician: NILDA PORRAS MD Referring Physician: Rhett Carrera MD Chief, SoC Technologist: Maida Michel [facility] Room Number: 172 Indications: STRUCTURAL HEART DISEASE Rhythm: Atrial fibrillation Technical Quality: Good FINDINGS Left Ventricle Normal size left ventricle. Moderate concentric left ventricular hypertrophy. Normal left ventricular ejection fraction visually estimated at >60 %. No obvious regional wall motion abnormalities. Right Ventricle The right ventricle is normal in size and function. Right Atrium Mild right atrial dilatation. Left Atrium Mild to moderate left atrial dilatation. Mitral Valve Mild thickening/calcification of the mitral valve leaflets. Mild mitral regurgitation. Aortic Valve Diffuse thickening of the aortic valve cusps with mildly reduced excursion. No aortic stenosis. Mild aortic regurgitation. Tricuspid Valve The tricuspid valve is normal in structure and function. There is mild tricuspid regurgitation. Right ventricular systolic pressure estimated to be at upper limits of normal at 30-35 mmHg. Pulmonic Valve Pulmonic valve not well visualized, grossly normal. Trace pulmonic regurgitation. Pericardium Normal pericardium without effusion. No pleural effusion. Great Vessels Aortic root is mildly dilated. CONCLUSIONS Moderate concentric left ventricular hypertrophy. Normal left ventricular ejection fraction visually estimated at >60 Mild right atrial dilatation. Mild to moderate left atrial dilatation. Mild thickening/calcification of the mitral valve leaflets. Mild mitral regurgitation. Diffuse thickening of the aortic valve cusps with mildly reduced excursion. No aortic stenosis. Mild aortic regurgitation. Right ventricular systolic pressure estimated to be at upper limits of normal at 30-35 mmHg. Aortic root is mildly dilated. Rhett Carrera M.D. (Electronically Signed) Final Date: 24 June 2016 13:06 MEASUREMENTS (Male / Female) Normal Values 2D ECHO LV Diastolic Diameter PLAX 4.2 cm 4.2 - 5.9 / 3.9 - 5.3 cm LV Systolic Diameter PLAX 2.8 cm 2.1 - 4.0 cm LV Fractional Shortening PLAX 33.3 % 25 - 46 % LV Ejection Fraction 2D Teich 62.4 % IVS Diastolic Thickness 1.5 cm LVPW Diastolic Thickness 1.4 cm LV Relative Wall Thickness 0.7 RV Internal Dim ED PLAX 2.9 cm 1.9 - 3.8 cm LVOT Diameter 2.4 cm Aortic Root Diameter 3.8 cm LA Systolic Diameter LX 4.3 cm 3.0 - 4.0 / 2.7 - 3.8 cm LA Volume 62.0 cm 18 - 58 / 22 - 52 cm Ascending Aorta Diameter 3.5 cm DOPPLER AV Peak Velocity 153.0 cm/s AV Peak Gradient 9.4 mmHg AV Mean Velocity 108.0 cm/s AV Mean Gradient 5.0 mmHg AV Velocity Time Integral 27.0 cm LVOT Peak Velocity 104.0 cm/s LVOT Peak Gradient 4.3 mmHg LVOT Mean Velocity 64.4 cm/s LVOT Mean Gradient 2.0 mmHg LVOT Velocity Time Integral 16.8 cm LVOT Stroke Volume 76.0 cm AV Area Cont Eq vti 2.8 cm AV Area Cont Eq pk 3.1 cm MV Peak Velocity 107.0 cm/s MV Peak Gradient 4.6 mmHg MV Mean Velocity 51.0 cm/s MV Mean Gradient 1.0 mmHg Mitral E Point Velocity 92.3 cm/s MV PHT Velocity 112.0 cm/s MV Deceleration Crosby 864.0 cm/s MV Pressure Half Time 38.9 ms MV Area PHT 5.7 cm MV Deceleration Time 195.0 ms TR Peak Velocity 272.0 cm/s TR Peak Gradient 29.6 mmHg Right Atrial Pressure 5.0 mmHg Pulmonary Artery Systolic Pressu 34.6 mmHg Right Ventricular Systolic Press 34.6 mmHg PV Peak Velocity 110.1 cm/s PV Peak Gradient 4.8 mmHg PV Mean Velocity 66.8 cm/s PV Mean Gradient 2.0 mmHg PV Velocity Time Integral 15.9 cm LV E' Lateral Velocity 18.4 cm/s Mitral E to LV E' Lateral Ratio 5.0 LV E' Septal Velocity 6.5 cm/s Mitral E to LV E' Septal Ratio 14.1
--- NOTE | 2016-06-25 04:15 | Discharge Summary ---
Visit Information Visit Dates Admission Date: 06/22/16 Discharge Date: 06/24/16 Hospital Course Course Attending Physician: KOLE SIMPSON M.D Primary Care Physician: RHETT MARTINEZ MD Hospital Course: Mr. Epps is a pleasant 81-year-old male with PMH atrial fibrillation, CAD s/p quadruple bypass 2004, HTN and HLD who was noted to have a syncopal episode (a couple minutes episode of unresponsiveness, with shaky movements, urine incontinence). Pt was stressed out about his being worked up in the ED for a fall. On admission, labs unremarkable. VS WNL. Workup included CT head, EEG, and echocardiogram which was unrevealing. Likely cause of syncope is vasovagal, and he might have experienced "convulsive syncope ". While he was monitored on telemetry, bradycardia was noted, and his metoprolol dose was decreased from 25 mg bid to 25 mg daily. He will follow up with PCP and rules examiner for outpatient holter. Results of workup included below. Allergies: Coded Allergies: Penicillins (UNKNOWN 06/22/16) meperidine (From Demerol) (UNKNOWN 06/22/16) Significant Procedures: EEG Interpretation: EEG in wake state Background is 9-10 cps activity Low voltage 20-24 cps activity fronatlly Photic stim: no abnormalities No epileptiform or focal abnormalities. Impression: Normal EEG in wake state ECHO FINDINGS Left Ventricle Normal size left ventricle. Moderate concentric left ventricular hypertrophy. Normal left ventricular ejection fraction visually estimated at >60 %. No obvious regional wall motion abnormalities. Right Ventricle The right ventricle is normal in size and function. Right Atrium Mild right atrial dilatation. Left Atrium Mild to moderate left atrial dilatation. Mitral Valve Mild thickening/calcification of the mitral valve leaflets. Mild mitral regurgitation. Aortic Valve Diffuse thickening of the aortic valve cusps with mildly reduced excursion. No aortic stenosis. Mild aortic regurgitation. Tricuspid Valve The tricuspid valve is normal in structure and function. There is mild tricuspid regurgitation. Right ventricular systolic pressure estimated to be at upper limits of normal at 30-35 mmHg. Pulmonic Valve Pulmonic valve not well visualized, grossly normal. Trace pulmonic regurgitation. Pericardium Normal pericardium without effusion. No pleural effusion. Great Vessels Aortic root is mildly dilated. CONCLUSIONS Moderate concentric left ventricular hypertrophy. Normal left ventricular ejection fraction visually estimated at >60 Mild right atrial dilatation. Mild to moderate left atrial dilatation. Mild thickening/calcification of the mitral valve leaflets. Mild mitral regurgitation. Diffuse thickening of the aortic valve cusps with mildly reduced excursion. No aortic stenosis. Mild aortic regurgitation. Right ventricular systolic pressure estimated to be at upper limits of normal at 30-35 mmHg. Aortic root is mildly dilated. Rhett Carrera M.D. (Electronically Signed) Final Date: 24 June 2016 13:06 EXAMINATION: CT HEAD WITHOUT CONTRAST CLINICAL INFORMATION: Left-sided fixed days. Evaluate for stroke or mass. COMPARISON: CT head dated 03/07/2012 TECHNIQUE: Contiguous axial imaging was performed from the skull base to vertex without intravenous administration of contrast. DLP: 600.71 mGy-cm FINDINGS: There is no evidence of acute intracranial hemorrhage or territorial infarction. No abnormal mass effect or midline shift is seen. Soler to white matter differentiation is well preserved. No extra-axial fluid collections are identified. Stable dilatation of bilateral lateral ventricles. Periventricular white matter low-attenuation compatible with microvascular ischemic disease.. No acute loss of soler-white differentiation. Atherosclerotic disease with intimal calcification of the distal bilateral internal carotid arteries. The osseous structures and soft tissues are normal. The mastoid air cells and visualized portions of the paranasal sinuses are well aerated. IMPRESSION: No acute intracranial pathology. Stable chronic changes. DICTATED BY: REBECA CULLEN MD DATE/TIME DICTATED:06/22/161700 EXAMINATION: XR PORTABLE CHEST CLINICAL INFORMATION: Syncopal episodes. COMPARISON: None TECHNIQUE: Portable AP 85 degree upright view of the chest was obtained. FINDINGS: The heart is within normal limits in size. There is a stable tortuous aorta. There is no congestion or focal consolidation. Multiple broken sternal wires are again noted. Severe osteoarthritis of the left glenohumeral joint is redemonstrated. IMPRESSION: Stable chronic findings. No acute cardiopulmonary process. DICTATED BY: ESTEFANI WATSON MD DATE/TIME DICTATED:06/22/161250 Disposition Summary Disposition Principal Diagnosis: Vasovagal syncope Additional Diagnosis: Bradycardia, atrial fibrillation Discharge Disposition: home or self care Discharge Instructions General Discharge Information Code Status: Full Code Patient's Diet: Heart healthy Patient's Activity: As tolerated Follow-Up Instructions/Appts: You were seen/treated for: Syncopal episode Watch for these problems: Loss of consciousness or any change in mental status Special Instructions: -Please follow up with your PCP within a week of discharge. -Please follow up with your rules examiner, Dr. Carrera within a week of discharge. -Please take your medications as instructed. -Please follow up with Neurologist, Dr. Landaverde within a week of discharge. -Please return to the hospital if your symptoms not improve/worsen. Medications at Discharge Discharge Medications: Stop taking the following medications: Metoprolol Tartrate (Metoprolol Tartrate) 25 MG TABLET ORAL TWICE DAILY Qty = 180 Continue taking these medications: Furosemide (Furosemide) 20 MG TABLET 1 Tablet ORAL DAILY Qty = 90 Comments: Last Taken:06/24/16 Time:1000 Aspirin (Ecotrin*) 81 MG TABLET.DR 1 Tablet ORAL DAILY Comments: Last Taken:06/24/16 Time:1000 Start taking the following new medications: Metoprolol Succ XL (Toprol XL) 25 MG TAB 1 Tablet ORAL DAILY Qty = 30 No Refills Comments: Last Taken:06/24/16 Time:1000 Copies To: TANIA SIMPSON M.D, MD,PARISH Sepulveda; MICHELLE AHUMADA,RHETT Gordon; LUÍS AHUMADA, RHETT Stephens Attending MD Review Statement Documenting Attending: KOLE SIMPSON M.D Other Findings: I have reviewed the discharge summary
== END 2016-06-24 13:45 ==
LOC: ENRESERVTM → ENRESERVDT → ERH 11:25 → ERHI 13:48 → 1NO 13:48 → ERHI 17:46 → 1NO 18:07
PROVIDERS: Emergency Medicine; ADMIT Internal Medicine
DX: R55 Syncope and collapse (principal); I48.91 Unspecified atrial fibrillation; I25.810 Atherosclerosis of coronary artery bypass graft(s) without angina pectoris; I10 Essential (primary) hypertension; E78.5 Hyperlipidemia, unspecified; R00.1 Bradycardia, unspecified
CPT/HCPCS: 2000; 93005; 93010; 93306; 95816; G0378; J7040

== ENCOUNTER → 2016-11-15 | Day surgery (SDC) | payer OTHER, MEDICARE ==
[~2016-11-15] VITALS: Ht 172.7 cm; Wt 87.5 kg
[~2016-11-15] MED LIST: ASPIRIN EC81 M1 PO; B-12 5,000 MCG1 EACH SL; BETA SITOSTEROL PO; D3-20002000 UNIT PO; FUROSEMIDE20 M1 PO; GINKGO BILOBA60 M1 PO; KEFLEX500 M1 PO; LION'S MANE PO; M.V.I.-1250 ML PO; METOPROLOL TART25 M1 PO; RED YEAST RICE600 M1 PO; STINGING NETTLE PO; TOPROL XL25 M1 PO; VITAMIN C1000 M4 PO; ZOFRAN ODT4 M1 SL
--- NOTE | 2016-11-15 12:32 | Operative Report ---
Operative/Inv Procedure Report Surgery Date: 11/15/16 Name of Procedure: laser TURP Pre-Operative Diagnosis: hematuria-retention: bph Post-Operative Diagnosis: same Estimated Blood Loss: less than 50ml Surgeon/Dump Grounds Checker: LAZARUS LIVINGSTON MD Anesthesia: laryngeal mask airway Drains: 20fr florian Complications: none Operative/Procedure Note Note: The patient was taken to the operating room and placed on the OR table in supine position. Timeout was performed, with the patient awake, in order to confirm the patient's correct identity, procedure, laterality, antibiotics, and other pertinent hermelinda-operative information. After adequate anesthesia and antibiotics , the indwelling florian was removed. The patient was then draped and prepped in the usual surgical fashion. He was positioned comfortably and securely in Yellow-Fin stirrups. A lubricated 22 Khmer cystoscope sheath with 30 angle lens was inserted under direct visualization. On entering the prostatic urethra, the prostate gland was noted to have significantly obstructing bilateral prostate lobes, and a small- moderate sized middle lobe. The veru-montanum was noted to be normal. Upon entering the bladder, through a narrowed bladder neck, the bladder was noted to be trabeculated with multiple cellules. There was no evidence of bladder tumor, nor stones. Both ureteral orifices were noted to be in their orthotopic position with clear reflux bilaterally. The bladder was drained, via the cystoscope, and the cystoscope was removed. A 26 Khmer laser resectoscope sheath was then inserted into the penis, with a 30 angle lens, under direct visualization. Maintaining the cystoscope at the level of the veru-montanum, the diode laser fiber was then inserted through the scope and visualized directly in front of the laser resectoscope sheath, in proper orientation. Photo-vaporization of the left lobe was performed in order to open a wide prostatic urethral channel on the left side. The resection proceeded from the 2-6 o'clock position, obliterating the glandular tissue, but not reaching or penetrating the capsule. Laser TURP was performed in a sweeping manner in order to get good vaporization of the prostate lobe, and good hemostasis. The resection of the left apical lobe was haulted at the level of the vera montanum, so as to preserve the external sphincter. Once the left lobe was resected in a satisfactory manner, the right lobe of the prostate was then photo vaporized in the same manner from the 10:00 to the 6 o'clock position. Once again the resection of the right lobe was haulted at the level of the veru- montanum. The middle lobe was then photo vaporized, with the diode laser, in order to further open the prostatic channel adequately. Once hemostasis and an open channel was confirmed, the resectoscope was then reinserted into the bladder. The bladder was again thoroughly and systematically surveyed in order to confirm no evidence of injury to the bladder or orifices. The bladder was copiously irrigated in order to us to ensure no foreign body was in the bladder. The bladder was left full and the resectoscope was then removed under direct visualization again confirming good hemostasis. The patient was noted to have mild spontaneous drainage upon removal of the resectoscope. All sponge, needle, and instrument count were correct at the end of the case. A 20 Khmer Florian catheter was then inserted and drained clear fluid prior to inflating the 10 mL balloon. The Florian catheter was attached to a drainage bag. The patient tolerated the procedure well and was taken to the recovery room in satisfactory condition, with Rx for antibiotics, and pain-meds. Findings: regrowth of prosate post TURP yrs ago: with friable mucosa Discharge Disposition: PACU CC: LAZARUS LIVINGSTON MD
== END ==
LOC: STS 11-08 07:00
DX: N40.1 Benign prostatic hyperplasia with lower urinary tract symptoms (principal); R33.8 Other retention of urine; R31.9 Hematuria, unspecified; R39.12 Poor urinary stream; N32.89 Other specified disorders of bladder; I25.10 Atherosclerotic heart disease of native coronary artery without angina pectoris; I48.91 Unspecified atrial fibrillation

== ENCOUNTER → 2016-11-27 | Day surgery (SDC) | payer OTHER, MEDICARE ==
[~2016-11-27] VITALS: Ht 172.7 cm; Wt 87.5 kg
--- NOTE | 2016-11-27 11:20 | Operative Report ---
Operative/Inv Procedure Report Surgery Date: 11/27/16 Name of Procedure: LEFT RENAL ESWL: CYSTOSCOPY Pre-Operative Diagnosis: LEFT 9MM UPJ STONE: RETENTION Post-Operative Diagnosis: SAME Estimated Blood Loss: scant Surgeon/Forge Hand: LAZARUS LIVINGSTON MD Anesthesia: moderate sedation Drains: NONE Complications: NONE Operative Indication: left 9mm UPJ stone:retention Operative/Procedure Note Note: The patient was taken to the operating room and placed on the ESWL table in supine position. Timeout was performed, with the patient awake, in order to confirm correct patients identity, procedure, laterality, anesthesia, and other pertinent perioperative information. After adequate anesthesia and antibiotics, the patient was then positioned so that the LEFT Flank was exposed over the ESWL table's cut-out, overlying the dome of the shockwave generator. Fluroscopy, as well as renal US, was used to locate the stone, and LEFT stent. Using fluoroscopy with AP, and oblique views, the position of the left renal stone was confirmed and optimized in the crosshairs. The stone was approximately 9 mm in size, and was faintly visible on fluroscopy. Renal ultrasound was also performed on the left side, confirming the presence of the left stone, and no hydronephrosis, with normal parenchyma, and no solid tumor. Flurosocpy was used in an AP and oblique views to maximize the position of the stone for ESWL. After optimized positioning, ESWL was initiated at low power levels. After noting the patient's tolerance to the shockwaves, the power was maximized. The renal stone was noted to bounce/move with each shockwave with real-time renal US visualization. Toward the end of the procedure, the composition of the left stones had changed significantly, indicating the breaking of the left renal stone. A total of 2500 shockwaves were delivered to the stone. The patient was then placed in a frog-leg position, draped and prepped in the usual surgical fashion. The old 18 Gabonese Yanes catheter was removed without difficulty prior to draping and prepping the patient. A well lubricated, 22 Gabonese cystoscope sheath with 30 angle lens was inserted without difficulty. The prostate was noted to be open. On entering the bladder the bladder was noted to be free of tumor, and free of stone, with moderate trabeculation.. Both ureteral orifices were in their ortotopic positions. It was then drained via the cystoscope, and the cystoscope was removed without difficulty. The patient the procedures well. The patient was awakened, then taken to recovery in satisfactory condition via stretcher. The pt. was dischared with pain meds, diet orders, and intructions to catch fragments with straining the urine. The patient was given requisition to have follow-up renal ultrasound and KUB in 2-4 weeks, prior to follow-up visit in my office. Findings: OPEN PROSTATE: 9mm left renal pelvis stone-poor shattered Discharge Disposition: Same Day Admissions CC: MIKI AHUMADA,LAZARUS
== END ==
LOC: STS 02:11
DX: N20.0 Calculus of kidney (principal); R33.9 Retention of urine, unspecified; N32.89 Other specified disorders of bladder; I48.91 Unspecified atrial fibrillation; Z79.82 Long term (current) use of aspirin; N42.89 Other specified disorders of prostate
CPT/HCPCS: J2405

== ENCOUNTER 2017-06-07 15:38 | Inpatient (IN) | payer OTHER, MEDICARE ==
[~2017-06-07] VITALS: Ht 172.7 cm; Wt 81.2 kg
[~2017-06-07 15:38] MED LIST changes: +OXYBUTYNIN CHLOR5 M2 PO
--- NOTE | 2017-06-07 15:40 | ED MVC/FALL/TRAUMA COMPLAINT ---
History of Present Illness General Chief Complaint: Fall Stated Complaint: FALL WITH HEAD STRIKE Source: patient, old records, EMS Exam Limitations: no limitations Vital Signs & Intake/Output Vital Signs & Intake/Output Vital Signs Date Time Temp Pulse Resp B/P B/P Pulse O2 O2 Flow FiO2 Mean Ox Delivery Rate 06/08 0809 76 114/66 06/08 0726 99.0 100 20 120/80 95 Room Air 06/08 0013 Room Air 06/07 2325 98.4 120 24 140/96 95 06/07 2241 99.3 94 18 100/66 99 Room Air 06/07 2135 98.8 119 18 148/84 95 Room Air 06/07 1827 98.4 117 18 165/97 96 Room Air 06/07 1544 Room Air 06/07 1542 125 18 138/87 97 Room Air ED Intake and Output 06/08 0000 06/07 1200 Intake Total 180 Output Total Balance 180 Intake, Oral 180 Allergies Coded Allergies: Penicillins (HIVES - PER PT'S FAMILY 11/04/16) meperidine (From Demerol) (NAUSEA / VOMITING 11/07/16) Reconcile Medications Ascorbic Acid (Vitamin C) 1,000 MG TABLET 2,000 MG PO BID IMMUNITY (Reported) Aspirin (Ecotrin*) 81 MG TABLET.DR 1 TAB PO DAILY HEART HEALTH (Reported) Cholecalciferol (Vitamin D3) (D3-2000) 2,000 UNIT CAPSULE 5,000 IU PO DAILY SUPPLEMENT (Reported) Cyanocobalamin/Cobamamide (B-12 5,000 Mcg Sublingual Tab) 5,000 MCG-100 MCG TAB.SUBL 5,000 MCG SL BID SUPPLEMENT (Reported) Furosemide 20 MG TABLET 0.5 TAB PO DAILY CHF (Reported) [LION'S NATHALIE] TAB 300 MG PO BID HEALTH SUPPLEMENT (Reported) Metoprolol Succ XL (Toprol XL) 25 MG TAB 1 TAB PO DAILY A.fib Mvi, Adult No.2 Without Vit K (M.v.i.-12) 200-600/10 VIAL 1 TAB PO DAILY VITAMIN SUPPORT (Reported) Oxybutynin Chloride 5 MG TABLET 1 TAB PO BID BLADDER (Reported) Red Yeast Rice 600 MG CAPSULE 2 TAB PO BID HEALTH SUPPLEMENT (Reported) Triage Nurses Notes Reviewed? yes Onset: Abrupt Duration: hour(s): (1), constant Timing: recent history Severity: moderate Severity Numbers: 1 Injuries/Fall Location: head Method of Injury: direct blow, fall Loss of Consciousness: no loss of consciousness No Modifying Factors: none Associated Symptoms: denies HPI: 82-year-old male history of A. fib not on any anticoagulation coronary artery disease presents the ER status post mechanical fall. Patient states that he was attempting to get up off of the toilet when he fell forward striking his head against the molding against the shower. He recalls the entire event there is no loss of consciousness. He denies any prodromal dizziness lightheadedness chest pain palpitation prior to the fall. On arrival patient denies any complaints however noted to have a small hematoma to the right scalp. He denies headache vision changes neck or back pain no arm or leg injury no chest pain abdominal pain nausea vomiting. No modifying factors or associated symptoms otherwise. (Selvin Rangel) Past History Medical History Any Pertinent Medical History? see below for history Neurological: NONE EENT: NONE Cardiovascular: AFIB, CAD, hypertension, hyperlipidemia, syncope, QUAD BIPASS Respiratory: NONE Gastrointestinal: SML BOWEL RESECTION HERNIA Hepatic: NONE Renal: benign prost hyperplasia, hematuria, KIDNEY STONES Musculoskeletal: SCOLIOSIS ARTHRITIS Psychiatric: NONE Endocrine: NONE Blood Disorders: NONE Cancer(s): NONE APPLIQUE SEWER/Reproductive: NONE History of MRSA: No History of VRE: No History of CDIFF: No Surgical History Surgical History: CABG, HERNIA, SB RESECTION Psychosocial History Who do you live with Spouse Services at Home None What is your primary language Tunisian Family History Hx Contributory? No (Selvin Rangel) Review of Systems Review of Systems Constitutional: Reports: see HPI. Comments Review of systems: See HPI, All other systems negative. Constitutional, no chills no fever, HEENT: no sore throat no congestion Cardiovascular: No chest pain Skin: no rashes, no change in skin Respiratory: No dyspnea no cough no sputum GI: No nausea no vomiting, no diarrhea : No dysuria Muscle skeletal: No joint pain, no back pain, no neck pain, Neurologic: headache Psych: No stress Heme/endocrine: No bruising Immunology: No lymphadenopathy (Selvin Rangel) Physical Exam Physical Exam General Appearance: well developed/nourished, alert, awake Comments: Well-developed well-nourished person in no acute distress HEENT: Normal EENT exam; PERRL, EOMI, no nystagmus. small 2cm hematoma note dto the right frontal scalp, skin is intact, no surrounding ecchymosis, no abrasions or laceraations. moist mucous membranes. no entrapment, no periorbital erythema Neck: Supple, nontender normal range of motion Back: Nontender, no CVA tenderness. Full range of motion Cardiovascular: Regular rate and rhythms no murmurs rub Respiratory: Chest nontender.There were no bony deformities, no asymmetry. No respiratory distress. Patient speaking in full complete sentences. Breath sounds clear to auscultation bilaterally: NO W/R/R Abdomen: Soft, nontender nondistended Extremity: No edema, full range of motion of extremities, normal and equal pulses bilaterally, 5 out of 5 strength noted to bilateral upper and lower extremities Neuro: Alert oriented x3, motor sensory normal, cranial nerves II through XII grossly intact. There were no obvious focal neurologic abnormalities. Skin: No appreciable rash on exposed skin, skin is warm and dry. Psych: Mood and affect is normal, memory and judgment is normal. Core Measures ACS in differential dx? No CVA/TIA Diagnosis No Sepsis Present: No Sepsis Focused Exam Completed? No (Sherry OCAMPO,Selvin) Progress Differential Diagnosis: C/T/L spine injury, ext injury, ICH, pelvis injury, spinal cord injury Plan of Care: Orders Procedure Date/time Status Heart Healthy Diet 06/08 L Active Regular Diet 06/08 B Complete TROPONIN LEVEL 06/08 0638 Complete PHOSPHORUS 06/08 0638 Complete MAGNESIUM 06/08 0638 Complete CBC WITHOUT DIFFERENTIAL 06/08 0600 Complete BASIC ELECTROLYTES PLUS BUN&CR 06/08 0600 Complete EKG 06/08 0600 Active PT Evaluate & Treat 06/08 UNK Active Therapeutic Activities 06/08 UNK Complete Therapeutic Exercise 06/08 UNK Complete PT EVAL LOW COMPLEX 20 MIN 06/08 UNK Complete Lab Add-on Test 06/08 UNK Active Occupational Tx Eval & Treat 06/08 UNK Active MISTAKE 06/08 UNK Active Vital Signs 06/07 235 Complete Teach/Educate 06/07 235 Active Pain Treatment and Response 06/07 235 Active Nutritional Intake, Monitor 06/07 235 Active Isolation 06/07 2359 Active Intake & Output 06/07 235 Complete Patient Care Conference 06/07 2359 Active Activity/Ambulation 06/07 2359 Active Intake & Output 02/02 2235 Active Pathway - chart 06/07 2117 Active Patient Data 06/07 2007 Active Misc Message 06/07 1918 Active ED Holding Orders 06/07 1918 Active Admit to inpatient 06/07 1918 Active Vital Signs 06/07 1918 Active Code Status 06/07 1918 Active Add-on Test (ER Only) 06/07 1821 Active CULTURE,URINE 06/07 1800 Active URINALYSIS 06/07 1723 Complete TROPONIN LEVEL 06/07 1723 Complete COMPREHENSIVE METABOLIC PANEL 06/07 1723 Complete CBC WITHOUT DIFFERENTIAL 06/07 1723 Complete EKG 06/07 1723 Active Pathway - chart 06/07 UNK Active House Staff 06/07 UNK Active VTE Mechanical Prophylaxis 06/07 UNK Active Current Medications Sig/Graciela Start time Last Medication Dose Stop Time Status Admin Aspirin Buffered 81 MG DAILY 06/08 1000 AC 06/08 (Ecotrin) 0808 Ceftriaxone Sodium 1,000 MG DAILY 06/08 1000 CAN (Rocephin) Cholecalciferol 2,000 IU DAILY 06/08 1000 AC 06/08 (Vitamin D) 0809 Furosemide 10 MG DAILY 06/08 1000 AC 06/08 (Lasix) 0809 Metoprolol Succinate 25 MG DAILY 06/08 1000 AC 06/08 (Toprol XL) 0809 Multivitamins 1 TAB DAILY 06/08 1000 AC 06/08 (Theragran Vitamins) 0808 Melatonin 5 MG AT BEDTIME 06/08 0130 AC (Melatonin) Oxybutynin Chloride 5 MG BID 06/07 2359 AC 06/08 (Ditropan) 0808 Guaifenesin 10 ML Q4P PRN 06/07 2315 AC 06/08 (Robitussin) 0044 Heparin Sodium 5,000 UNIT Q8 06/07 2200 AC 06/08 (Porcine) 0650 Acetaminophen 650 MG Q6P PRN 06/07 2115 AC (Tylenol) Laboratory Tests 06/08/17 0730: Troponin I Cancelled 06/08/17 0639: CBC w Diff NO MAN DIFF REQ, RBC 4.59 L, MCV 84.8, MCH 28.2, MCHC 33.2, RDW 14.0 , MPV 8.3, Gran % 56.6, Lymphocytes % 26.8, Monocytes % 12.4 H, Eosinophils % 3.8, Basophils % 0.4, Absolute Granulocytes 2.9, Absolute Lymphocytes 1.4, Absolute Monocytes 0.6, Absolute Eosinophils 0.2, Absolute Basophils 0 06/08/17 0638: Anion Gap 13, Estimated GFR > 60, BUN/Creatinine Ratio 16.7, Phosphorus 2.8, Magnesium 1.8, Troponin I < 0.01 06/07/17 1800: Urine Color YEL, Urine Clarity HAZY H, Urine pH 6.0, Ur Specific [place] 1.025, Urine Protein 30 H, Urine Ketones NEG, Urine Nitrite POS H, Urine Bilirubin NEG, Urine Urobilinogen 0.2, Ur Leukocyte Esterase SMALL H, Ur Microscopic SEDIMENT EXAMINED, Urine RBC 3-5, Urine WBC 50-75 H, Ur Epithelial Cells FEW, Hyaline Casts RARE H, Urine Mucus FEW, Urine Hemoglobin TRACE-INTACT H, Urine Glucose NEG 06/07/17 1755: Anion Gap 14, Estimated GFR > 60, BUN/Creatinine Ratio 16.0, Glucose 92, Calcium 9.1, Total Bilirubin 0.8, AST 28, ALT 33, Alkaline Phosphatase 101, Troponin I < 0.01, Total Protein 7.2, Albumin 4.1, Globulin 3.1, Albumin/Globulin Ratio 1.3, CBC w Diff NO MAN DIFF REQ, RBC 5.14, MCV 84.6, MCH 28.0, MCHC 33.1, RDW 13.8, MPV 7.8, Gran % 66.4, Lymphocytes % 19.9 L, Monocytes % 11.5 H, Eosinophils % 2.1, Basophils % 0.1, Absolute Granulocytes 3.5, Absolute Lymphocytes 1.1 L, Absolute Monocytes 0.6, Absolute Eosinophils 0.1, Absolute Basophils 0 Microbiology 06/07 1800 URINE ROUT: Urine Culture - RES CAT scan ordered patient declining anything for pain when offered a repeat evaluation the patient's daughter is now at bedside she states that he is been very unstable with his walker over the past week. He's been having frequent near falls and she does not feel comfortable taking him home he just finished a course of physical therapy at home and was doing better up until 1 physical therapy ended. Patient was attempted to ambulate here in the emergency room and was not successful. Case discussed with dr li who agrees iw plan. i d/w the pt and his family plan of care which they are in agreemenent with admisison for rehab placement Diagnostic Imaging: Viewed by Me: CT Scan. Discussed w/RAD: CT Scan. Radiology Impression: PATIENT: HUY CHAPMAN PRESENT AGE: 82 PATIENT ACCOUNT NO: [id number] : 35 LOCATION: [facility] ORDERING PHYSICIAN: Selvin OCAMPO SERVICE DATE: 06/07/171648 EXAM TYPE: CAT - CT HEAD WO IV CONTRAST EXAMINATION: CT HEAD WITHOUT CONTRAST CLINICAL INFORMATION: Fall and hit head. Assess for intracranial hemorrhage. COMPARISON: CT scan of the head 11/04/2016. TECHNIQUE: Contiguous axial imaging was performed from the skull base to vertex without intravenous administration of contrast. DLP: 644.54 mGy-cm FINDINGS: There is no evidence of acute intracranial hemorrhage or territorial infarction. No abnormal mass effect or midline shift is seen. Soler to white matter differentiation is well preserved. No extra-axial fluid collections are identified. There is commensurate prominence of the ventricles and sulci consistent with moderate to severe diffuse volume loss. There are areas of low attenuation in the periventricular and subcortical white matter, consistent with chronic microvascular ischemic changes. There are relatively extensive atheromatous calcifications of the bilateral cavernous internal carotid arteries. There have been bilateral lens extractions. There are no acute osseous or soft tissue abnormalities. The mastoid air cells are well-aerated. There is relatively extensive mucoperiosteal thickening now seen in the bilateral sphenoid sinuses. IMPRESSION: 1. There are no acute bleeds or territorial infarcts. 2. There is diffuse volume loss and there are chronic microvascular ischemic changes. 3. There is now mucoperiosteal thickening in the ethmoid sinuses bilaterally. DICTATED BY: Oren Molina MD DATE/TIME DICTATED:06/23 LEATHER SCRUBBER:AVELINO DATE/TIME TRANSCRIBED:06/07/171644 CONFIDENTIAL, DO NOT COPY WITHOUT APPROPRIATE AUTHORIZATION. <Electronically signed in Other Vendor System> SIGNED BY: Oren Molina MD 06/07/171651 Initial ED EKG: AFIB, RBBB, no ST T wave changes Prior EKG: unchanged (03/2017) (Sherry OCAMPO,Selvin) Departure Departure Time of Disposition: 1911 Disposition: STILL A PATIENT Condition: Stable Clinical Impression Primary Impression: Gait instability Secondary Impressions: Fall Minor head injury Qualifiers: Encounter type: initial encounter Qualified Code: S00.90XA - Unspecified superficial injury of unspecified part of head, initial encounter Scalp hematoma Qualifiers: Encounter type: initial encounter Qualified Code: S00.03XA - Contusion of scalp, initial encounter Referrals: Pelon AHUMADA,Rhett Gordon (PCP/Family) Additional Instructions: rest, tylenol for pain. ice pack as needed. follow up with your pmd, return with any concerns Departure Forms: Customer Survey General Discharge Information Admission Note Spoke With: Parish Singer MD Documentation of Exam: Documentation of any treatments & extenuating circumstances including Concerns Regarding Discharge (functional status, medication knowledge or non-compliance, living conditions, etc.) that warrant an admission rather than observation: CASE MANAGEMENT, PT CONSULT, PT HAS HAD SEVERAL NEAR FALLS GAIT IS NOT AT BASELINE WITH HIS ROLLING WALKER. PREMATURE DISCHARGE WOULD BE MEDICALLY HARMFUL (Sherry OCAMPO,Selvin) PA/FIELD HANDYMAN Co-Sign Statement Statement: ED Attending supervision documentation- [X] I saw and evaluated the patient. I have also reviewed all the pertinent lab results and diagnostic results. I agree with the findings and the plan of care as documented in the PA's/FIELD HANDYMAN's documentation. [X] I have reviewed the ED Record and agree with the PA's/FIELD HANDYMAN's documentation. [] Additions or exceptions (if any) to the PAs/FIELD HANDYMAN's note and plan are summarized below: [] (Monet AHUMADA,Marlyn)
--- NOTE | 2017-06-07 16:52 | CT SCAN REPORT ---
EXAMINATION: CT HEAD WITHOUT CONTRAST CLINICAL INFORMATION: Fall and hit head. Assess for intracranial hemorrhage. COMPARISON: CT scan of the head 11/04/2016. TECHNIQUE: Contiguous axial imaging was performed from the skull base to vertex without intravenous administration of contrast. DLP: 644.54 mGy-cm FINDINGS: There is no evidence of acute intracranial hemorrhage or territorial infarction. No abnormal mass effect or midline shift is seen. Soler to white matter differentiation is well preserved. No extra-axial fluid collections are identified. There is commensurate prominence of the ventricles and sulci consistent with moderate to severe diffuse volume loss. There are areas of low attenuation in the periventricular and subcortical white matter, consistent with chronic microvascular ischemic changes. There are relatively extensive atheromatous calcifications of the bilateral cavernous internal carotid arteries. There have been bilateral lens extractions. There are no acute osseous or soft tissue abnormalities. The mastoid air cells are well-aerated. There is relatively extensive mucoperiosteal thickening now seen in the bilateral sphenoid sinuses. IMPRESSION: 1. There are no acute bleeds or territorial infarcts. 2. There is diffuse volume loss and there are chronic microvascular ischemic changes. 3. There is now mucoperiosteal thickening in the ethmoid sinuses bilaterally.
[2017-06-07 18:25] LABS: ABSOLUTE BASOPHIL COUNT 0 /CUMM (0.0-0.2); ABSOLUTE EOSINOPHIL COUNT 0.1 /CUMM (0.0-0.7); ABSOLUTE GRANULOCYTE CT 3.5 /CUMM (1.4-6.5); ABSOLUTE LYMPH COUNT 1.1 /CUMM (1.2-3.4); ABSOLUTE MONOCYTE COUNT 0.6 /CUMM (0.10-0.60); BASOPHIL % 0.1 % (0.0-2.0); EOSINOPHIL % 2.1 % (0-5); GRANULOCYTE % 66.4 % (42.2-75.2); HEMATOCRIT 43.5 % (42-52); MEAN CORPUSCULAR HGB CONC 33.1 G/DL (33.0-37.0); MEAN CORPUSCULAR VOLUME 84.6 FL (80.0-94.0); MEAN PLATELET VOLUME 7.8 FL (7.4-10.4); PLATELET COUNT 232 /CUMM (130-400); RBC DISTRIBUTION WIDTH 13.8 % (11.5-14.5); RED BLOOD CELL CT 5.14 /CUMM (4.70-6.10); WHITE BLOOD CELL COUNT 5.3 /CUMM (4.8-10.8)
--- NOTE | 2017-06-07 21:25 | History & Physical ---
General Information and HPI Allergies/Medications Allergies: Coded Allergies: Penicillins (HIVES - PER PT'S FAMILY 11/04/16) meperidine (From Demerol) (NAUSEA / VOMITING 11/07/16) Home Med list Ascorbic Acid (Vitamin C) 1,000 MG TABLET 2,000 MG PO BID IMMUNITY (Reported) Aspirin (Ecotrin*) 81 MG TABLET.DR 1 TAB PO DAILY HEART HEALTH (Reported) Cholecalciferol (Vitamin D3) (D3-2000) 2,000 UNIT CAPSULE 5,000 IU PO DAILY SUPPLEMENT (Reported) Cyanocobalamin/Cobamamide (B-12 5,000 Mcg Sublingual Tab) 5,000 MCG-100 MCG TAB.SUBL 5,000 MCG SL BID SUPPLEMENT (Reported) Furosemide 20 MG TABLET 0.5 TAB PO DAILY CHF (Reported) [LION'S NATHALIE] TAB 300 MG PO BID HEALTH SUPPLEMENT (Reported) Metoprolol Succ XL (Toprol XL) 25 MG TAB 1 TAB PO DAILY A.fib Mvi, Adult No.2 Without Vit K (M.v.i.-12) 200-600/10 VIAL 1 TAB PO DAILY VITAMIN SUPPORT (Reported) Oxybutynin Chloride 5 MG TABLET 1 TAB PO BID BLADDER (Reported) Red Yeast Rice 600 MG CAPSULE 2 TAB PO BID HEALTH SUPPLEMENT (Reported) Past History Travel History Traveled to [place] past 21 day No Medical History Neurological: NONE EENT: NONE Cardiovascular: AFIB, CAD, hypertension, hyperlipidemia, syncope, QUAD BIPASS Respiratory: NONE Gastrointestinal: SML BOWEL RESECTION HERNIA Hepatic: NONE Renal: benign prost hyperplasia, hematuria, KIDNEY STONES Musculoskeletal: SCOLIOSIS ARTHRITIS Psychiatric: NONE Endocrine: NONE Blood Disorders: NONE Cancer(s): NONE 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 spouse, child Services at Home: None ETOH Use: occasional use Functional Ability ADLs Independent: dressing, eating, toileting, bathing. Ambulation: independent, cane Core Measures/Misc (01/20) Cerebrovascular Accident CVA/TIA Diagnosis: No Sepsis (View protocol) Sepsis Present: No
--- NOTE | 2017-06-07 23:04 | History & Physical ---
Chico Figueroa MD 06/07/17 8996: General Information and HPI MD Statement: I have seen and personally examined HUY CHAPMAN and documented this H&P. The patient is a 82 year old M who presented with a patient stated chief complaint of [mechanical fall]. Source of Information: patient, family Exam Limitations: no limitations History of Present Illness: Patient is an 82-year-old male with a PMH significant for A. fib not on anticoagulation, HTN, HLD, syncope, recurrent falls, CAD status post CABG who presented to the ED after a mechanical fall after attempting to stand up from the commode. Patient states that his right leg gave out, he has had issues with falls since March when he fell and believes he injured his right leg. He hit his head but did not lose consciousness. He currently reports a mild headache but this began after the head strike. Patient endorses a mild nonproductive cough and has multiple sick contacts at home. Patient denies any associated chest pain, shortness of breath, lightheadedness, palpitations, diaphoresis. Patient normally walks with a walker, he stated that he did not while standing up from the commode. Allergies/Medications Allergies: Coded Allergies: Penicillins (HIVES - PER PT'S FAMILY 11/04/16) meperidine (From Demerol) (NAUSEA / VOMITING 11/07/16) Home Med list Ascorbic Acid (Vitamin C) 1,000 MG TABLET 2,000 MG PO BID IMMUNITY (Reported) Aspirin (Ecotrin*) 81 MG TABLET.DR 1 TAB PO DAILY HEART HEALTH (Reported) Cholecalciferol (Vitamin D3) (D3-2000) 2,000 UNIT CAPSULE 5,000 IU PO DAILY SUPPLEMENT (Reported) Cyanocobalamin/Cobamamide (B-12 5,000 Mcg Sublingual Tab) 5,000 MCG-100 MCG TAB.SUBL 5,000 MCG SL BID SUPPLEMENT (Reported) Furosemide 20 MG TABLET 0.5 TAB PO DAILY CHF (Reported) [LION'S NATHALIE] TAB 300 MG PO BID HEALTH SUPPLEMENT (Reported) Metoprolol Succ XL (Toprol XL) 25 MG TAB 1 TAB PO DAILY A.fib Mvi, Adult No.2 Without Vit K (M.v.i.-12) 200-600/10 VIAL 1 TAB PO DAILY VITAMIN SUPPORT (Reported) Oxybutynin Chloride 5 MG TABLET 1 TAB PO BID BLADDER (Reported) Red Yeast Rice 600 MG CAPSULE 2 TAB PO BID HEALTH SUPPLEMENT (Reported) Past History Travel History Traveled to [place] past 21 day No Medical History Neurological: NONE EENT: NONE Cardiovascular: AFIB, CAD, hypertension, hyperlipidemia, syncope, QUAD BIPASS Respiratory: NONE Gastrointestinal: SML BOWEL RESECTION HERNIA Hepatic: NONE Renal: benign prost hyperplasia, hematuria, KIDNEY STONES Musculoskeletal: SCOLIOSIS ARTHRITIS Psychiatric: NONE Endocrine: NONE Blood Disorders: NONE Cancer(s): NONE 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 spouse, child Services at Home: None Primary Language: Estonian Smoking Status: Never Smoked ETOH Use: occasional use Illicit Drug Use: denies illicit drug use Functional Ability ADLs Independent: dressing, eating, toileting, bathing. Ambulation: cane, walker Review of Systems Review of Systems Constitutional: Denies: chills, diaphoresis, fever. EENTM: Denies: blurred vision, double vision, visual changes. Cardiovascular: Denies: chest pain, orthopena, palpitations. Respiratory: Reports: cough. GI: Reports: no symptoms. Genitourinary: Reports: no symptoms. Musculoskeletal: Reports: no symptoms. Skin: Reports: no symptoms. Neurological/Psychological: Reports: headache. Exam & Diagnostic Data Last 24 Hrs of Vital Signs/I&O Vital Signs Date Time Temp Pulse Resp B/P B/P Pulse O2 O2 Flow FiO2 Mean Ox Delivery Rate 06/08 0809 76 114/66 06/08 0726 99.0 100 20 120/80 95 Room Air 06/08 0013 Room Air 06/07 2325 98.4 120 24 140/96 95 06/07 2241 99.3 94 18 100/66 99 Room Air 06/07 2135 98.8 119 18 148/84 95 Room Air 06/07 1827 98.4 117 18 165/97 96 Room Air 06/07 1544 Room Air 06/07 1542 125 18 138/87 97 Room Air Intake & Output 06/08 1600 / 0800 06/08 0000 Intake Total 50 180 Output Total 400 Balance -350 180 Intake, IV 0 Intake, Oral 50 180 Output, Urine 400 Patient 179 lb Weight Weight Reported by Patient Measurement Method Physical Exam General Appearance Alert, Oriented X3, Cooperative, No Acute Distress Skin Temp/Moisture Exam: Warm/Dry HEENT ecchyhmosis on the R lateral forehead with mild swelling, no active bleeding Neck Supple, No JVD Cardiovascular Normal S1, Normal S2, irregularly irregular rhythm Lungs Clear to Auscultation, Normal Air Movement Abdomen Normal Bowel Sounds, Soft, No Tenderness Neurological Normal Speech, Strength at 5/5 X4 Ext, Normal Tone, Sensation Intact, Cranial Nerves 3-12 NL Extremities No Clubbing, No Cyanosis, No Edema Last 24 Hrs of Labs/Lanre: Laboratory Tests 06/08/17 0730: Troponin I Cancelled 06/08/17 0639: CBC w Diff NO MAN DIFF REQ, RBC 4.59 L, MCV 84.8, MCH 28.2, MCHC 33.2, RDW 14.0 , MPV 8.3, Gran % 56.6, Lymphocytes % 26.8, Monocytes % 12.4 H, Eosinophils % 3.8, Basophils % 0.4, Absolute Granulocytes 2.9, Absolute Lymphocytes 1.4, Absolute Monocytes 0.6, Absolute Eosinophils 0.2, Absolute Basophils 0 06/08/17 0638: Anion Gap 13, Estimated GFR > 60, BUN/Creatinine Ratio 16.7, Troponin I < 0.01 06/07/17 1800: Urine Color YEL, Urine Clarity HAZY H, Urine pH 6.0, Ur Specific [place] 1.025, Urine Protein 30 H, Urine Ketones NEG, Urine Nitrite POS H, Urine Bilirubin NEG, Urine Urobilinogen 0.2, Ur Leukocyte Esterase SMALL H, Ur Microscopic SEDIMENT EXAMINED, Urine RBC 3-5, Urine WBC 50-75 H, Ur Epithelial Cells FEW, Hyaline Casts RARE H, Urine Mucus FEW, Urine Hemoglobin TRACE-INTACT H, Urine Glucose NEG 06/07/17 1755: Anion Gap 14, Estimated GFR > 60, BUN/Creatinine Ratio 16.0, Glucose 92, Calcium 9.1, Total Bilirubin 0.8, AST 28, ALT 33, Alkaline Phosphatase 101, Troponin I < 0.01, Total Protein 7.2, Albumin 4.1, Globulin 3.1, Albumin/Globulin Ratio 1.3, CBC w Diff NO MAN DIFF REQ, RBC 5.14, MCV 84.6, MCH 28.0, MCHC 33.1, RDW 13.8, MPV 7.8, Gran % 66.4, Lymphocytes % 19.9 L, Monocytes % 11.5 H, Eosinophils % 2.1, Basophils % 0.1, Absolute Granulocytes 3.5, Absolute Lymphocytes 1.1 L, Absolute Monocytes 0.6, Absolute Eosinophils 0.1, Absolute Basophils 0 Microbiology 06/07 1800 URINE ROUT: Urine Culture - RES Diagnostic Data EKG Results afib Other Results CT head 1. There are no acute bleeds or territorial infarcts. 2. There is diffuse volume loss and there are chronic microvascular ischemic changes. 3. There is now mucoperiosteal thickening in the ethmoid sinuses bilaterally. Assessment/Plan Assessment: Patient is an 82-year-old male with a PMH significant for A. fib not on anticoagulation, HTN, HLD, syncope, recurrent falls, CAD status post CABG who presented to the ED after a mechanical fall after attempting to stand up from the commode. He denies any assocated symptoms and states that his right leg simply gave out. He had a head strike with no loss of consciousness and no subsequent neurological symptoms. Problem list #Status post mechanical fall #History of A. fib, HTN, CAD, HLD Plan -Admit to telemetry -Continuous telemetry monitoring -Follow-up orthostatic vital signs -Trend troponin EKG -Cardiology consult -PT and OT consultation to assess safety of discharge plan -Mucinex for cough -Continue home medications including metoprolol succinate, Lasix, aspirin, oxybutynin As Ranked By This Provider Problem List: 1. Fall 2. Gait instability Core Measures/Misc (01/20) Acute Coronary Syndrome ACS Diagnosis: No Congestive Heart Failure Congestive Heart Failure Diagnosis No Cerebrovascular Accident CVA/TIA Diagnosis: No VTE (View Protocol) VTE Risk Factors Age>40 No Mechanical VTE Prophylaxis d/t N/A MechProphylax Ordered No VTE Pharm Prophylaxis d/t NA PharmProphylax ordered Sepsis (View protocol) Sepsis Present: No Anastasia Wolfe MD 06/07/17 4645: Resident Review Statement Resident Statement: examined this patient, discussed with paralegal internship, agreed with paralegal internship, discussed with family, reviewed EMR data (avail), reviewed images, amended to note Other Findings: Patient is a 82-year-old male with a past medical history of recurrent falls, atrial fibrillation not on anticoagulation likely due to recurrent falls, CAD, hypertension, who presents with status post mechanical fall while attempting to get off the toilet. Patient says his right knee gave out and he fell forward striking his head against the molding of the shower. He usually walks with a walker but was not using it at the time. She denies any loss of consciousness, dizziness lightheadedness chest pain palpitations or blurry vision prior to after the fall. A small hematoma was noticed on the right scalp in the ED but patient denies bleeding from any orifice. He does report a cough for the past week with positive sick contacts but no fever or chills. His siderographist is Dr. Rhett Carrera. Caxwix03.4, pulse rate 117, respiratory rate 18, blood pressure 165/97, saturating 96% on room air LabsWBC 5.3, hemoglobin 14.4, hematocrit 43.5, platelets 232, sodium 143, potassium 4.1, BUN 10, creatinine 1.0, glucose 92 UA positive nitrite and leukocyte esterase Head CTno acute bleeds or infarct, diffuse volume loss and chronic microvascular ischemic changes, mucoperiosteal thickening in the ethmoid sinus bilaterally EKGatrial flutter rate 89, QTc 458, no ST changes. Examsmall bump on the right frontal scalp, no carotid bruit, heart rate irregularly irregular, no murmurs, or lung sounds diminished throughout, no focal neurological deficits, strength 5/5 in all extremities, no edema, gait not assessed Assessment 1. Mechanical fall 2. Atrial flutter not on anticoagulation 3. History of recurrent falls 4. Hypertension 5. Possible deconditioning 6. Chronic bacteriuria 7. Sinus congestion Plan Admit to the telemetry unit Cardiology evaluation in the morning Trend EKG and troponins Physical therapy Adequate pain control Mucinex Heart healthy diet FC DVT ppx with heparin Parish Singer 06/08/17 0610: Attending MD Review Statement Attending Statement Attending MD Statement: examined this patient, discuss w/resident/PA/BEHAVIORAL CONSULTANT, agreed w/resident/PA/BEHAVIORAL CONSULTANT, discussed with family, reviewed EMR data (avail), reviewed images, amended to note Attending Assessment/Plan: CC: Fall PMH: A. fib, CAD S/P CABG, HLD, history of syncope Patient was brought in ER through EMS after a fall at home and bathroom. According to patient he was getting off from toilet, right leg gave out and he toppled and fell. He hit his head on the right side, denies loss of consciousness. Patient did not notice any dizziness, presyncopal episodes, palpitations, chest pain before or after the fall, no seizure-like activity, no neurological weakness after the fall. He was in his 8 week of home physical therapy, has been working on more upper body exercises according to the patient. According to family patient has been more slow and sluggish for the therapy in last few days. Approximately 5 days back patient had upper respiratory infection with nasal congestion, cold, currently improving, no fever or chills, no cough or congestion, no chest pain. Family is concerned about his safety at home given his unsteady gait. Vitals: Temperature 98.4, pulse 125, RR 18, blood pressure 138/87, saturating 97 % on room air On exam: A O 3, cooperative, no acute distress, neck supple, JVD normal, no lymphadenopathy, mucosa moist, no focal neurological deficit, no dependent edema , no obvious skin rashes or inflammation, small bruise on right congregational, CVS: S1- S2, is regular. RS: Clear to auscultate bilaterally. Abdomen: Soft, NT, ND, bowel sounds present. Labs: CBC, BMP, LFT, troponin unremarkable UA positive for protein nitrites and small leukocyte esterase CT head: 1. There are no acute bleeds or territorial infarcts. 2. There is diffuse volume loss and there are chronic microvascular ischemic changes. 3. There is now mucoperiosteal thickening in the ethmoid sinuses bilaterally. ECG: ? Flutter Assessment and plan 82-year-old male with multiple comorbidities and multiple falls in the past with unsteady gait, currently on physical therapy at home presented in ER after what appears to be mechanical fall in his right lower extremity gave out. Right leg has been problematic for him. He has similar complaints in March for which he was admitted and then discharged [facility]. Currently examination unremarkable but patient could not ambulate in ER. His unsafe to discharge, secondary to gait instability. He needs further PT evaluation and probable short-term rehabilitation for recurrent falls and unsteady gait. At the same time patient uses oxybutynin which might be one of the causes. ECG shows a flutter, rate controlled, we will monitor on telemetry for short duration, obtain cardiology opinion. Even though UA shows leukocyte Estrace and nitrites positive, patient does not have any symptoms. We will watch off antibiotics. + Mechanical fall + ? A flutter + History of A. fib, CAD S/P CABG, HLD, history of syncope - Admit to telemetry - Continuous telemetry monitoring - Orthostatic vitals - Cardiology consult in the a.m. - OT PT evaluation - Continue vitamin D supplementation - Continue rest of his home medications
[2017-06-07 23:25] VITALS: BP 140/96
--- NOTE | 2017-06-08 06:11 | Admission Certification ---
Admission Certification Certification Statement - As attending physician, I certify that at the time of - admission, based on clinical presentation, severity of - symptoms, need for further diagnostic testing and - therapeutic interventions, and risk of adverse outcomes - without in-hospital treatment, in my clinical assessment, - this patient requires an acute hospital stay for a minimum - of two nights or longer. I have also considered psychsocial - factors such as support system, advanced age, financial - issues, cognitive issues, and failed out-patient treatments, - past re-admission history, safety of patient, and lack of - compliance as applicable. Specific rationale supporting this admission is: Accidental fall, physical deconditioning, gait instability
--- NOTE | 2017-06-08 06:34 | PN- Housestaff ---
See Addendum Subjective Follow-up For: Mechanical fall, Aflutter, recurrent falls, deconditioning Complaints: no complaints Tele-Events Since Last Visit: [id number] Subjective: Pt seen and examined Review of Systems Constitutional: Reports: no symptoms. Objective Last 24 Hrs of Vital Signs/I&O Vital Signs Date Time Temp Pulse Resp B/P B/P Pulse O2 O2 Flow FiO2 Mean Ox Delivery Rate 06/08 0809 76 114/66 06/08 0726 99.0 100 20 120/80 95 Room Air 06/08 0013 Room Air 06/07 2325 98.4 120 24 140/96 95 06/07 2241 99.3 94 18 100/66 99 Room Air 06/07 2135 98.8 119 18 148/84 95 Room Air 06/07 1827 98.4 117 18 165/97 96 Room Air 06/07 1544 Room Air 06/07 1542 125 18 138/87 97 Room Air Intake & Output 06/08 1600 06/08 0800 06/08 0000 Intake Total 50 180 Output Total 400 Balance -350 180 Intake, IV 0 Intake, Oral 50 180 Output, Urine 400 Patient 179 lb Weight Weight Reported by Patient Measurement Method Physical Exam General Appearance: Alert, Oriented X3, Cooperative, No Acute Distress HEENT: PERRLA, EOMI, Mucous Membr. moist/pink Cardiovascular: irregularly irregular HR Lungs: diminished lung sounds Abdomen: Soft, No Tenderness Extremities: No Edema, Normal Pulses Current Medications: Current Medications Sig/Graciela Start time Last Medication Dose Route Stop Time Status Admin Acetaminophen 650 MG Q6P PRN 06/07 2115 AC PO Aspirin Buffered 81 MG DAILY 06/08 1000 AC 06/08 PO 0808 Ceftriaxone Sodium 1,000 MG DAILY 06/08 1000 CAN IV Cholecalciferol 2,000 IU DAILY 06/08 1000 AC 06/08 PO 0809 Furosemide 10 MG DAILY 06/08 1000 AC 06/08 PO 0809 Guaifenesin 10 ML .STK-MED ONE 06/08 0042 DC PO 06/08 0043 Guaifenesin 10 ML Q4P PRN 06/07 2315 AC 06/08 PO 0044 Heparin Sodium 5,000 UNIT Q8 06/07 2200 AC 06/08 (Porcine) SC 0650 Melatonin 5 MG AT BEDTIME 06/08 2199 DC PO Melatonin 5 MG AT BEDTIME 06/08 0130 AC PO Metoprolol Succinate 25 MG DAILY 06/08 1000 AC 06/08 PO 0809 Multivitamins 1 TAB DAILY 06/08 1000 AC 06/08 PO 0808 Oxybutynin Chloride 5 MG BID 06/07 2359 06/08 PO 0808 Last 24 Hrs of Lab/Alnre Results Last 24 Hrs of Labs/Mics: Laboratory Tests 06/08/17 0730: Troponin I Cancelled 06/08/17 0639: CBC w Diff NO MAN DIFF REQ, RBC 4.59 L, MCV 84.8, MCH 28.2, MCHC 33.2, RDW 14.0 , MPV 8.3, Gran % 56.6, Lymphocytes % 26.8, Monocytes % 12.4 H, Eosinophils % 3.8, Basophils % 0.4, Absolute Granulocytes 2.9, Absolute Lymphocytes 1.4, Absolute Monocytes 0.6, Absolute Eosinophils 0.2, Absolute Basophils 0 06/08/17 0638: Anion Gap 13, Estimated GFR > 60, BUN/Creatinine Ratio 16.7, Troponin I < 0.01 06/07/17 1800: Urine Color YEL, Urine Clarity HAZY H, Urine pH 6.0, Ur Specific [place] 1.025, Urine Protein 30 H, Urine Ketones NEG, Urine Nitrite POS H, Urine Bilirubin NEG, Urine Urobilinogen 0.2, Ur Leukocyte Esterase SMALL H, Ur Microscopic SEDIMENT EXAMINED, Urine RBC 3-5, Urine WBC 50-75 H, Ur Epithelial Cells FEW, Hyaline Casts RARE H, Urine Mucus FEW, Urine Hemoglobin TRACE-INTACT H, Urine Glucose NEG 06/07/17 1755: Anion Gap 14, Estimated GFR > 60, BUN/Creatinine Ratio 16.0, Glucose 92, Calcium 9.1, Total Bilirubin 0.8, AST 28, ALT 33, Alkaline Phosphatase 101, Troponin I < 0.01, Total Protein 7.2, Albumin 4.1, Globulin 3.1, Albumin/Globulin Ratio 1.3, CBC w Diff NO MAN DIFF REQ, RBC 5.14, MCV 84.6, MCH 28.0, MCHC 33.1, RDW 13.8, MPV 7.8, Gran % 66.4, Lymphocytes % 19.9 L, Monocytes % 11.5 H, Eosinophils % 2.1, Basophils % 0.1, Absolute Granulocytes 3.5, Absolute Lymphocytes 1.1 L, Absolute Monocytes 0.6, Absolute Eosinophils 0.1, Absolute Basophils 0 Microbiology 06/07 1800 URINE ROUT: Urine Culture - RES Lines/Diet/Fluids Lines: peripheral lines Assessment/Plan Assessment: Patient is a 82-year-old male with a past medical history of recurrent falls, atrial fibrillation not on anticoagulation likely due to recurrent falls, CAD, hypertension, who presents with status post mechanical fall while attempting to get off the toilet. Patient says his right knee gave out and he fell forward striking his head against the molding of the shower. He usually walks with a walker but was not using it at the time. She denies any loss of consciousness, dizziness lightheadedness chest pain palpitations or blurry vision prior to after the fall. A small hematoma was noticed on the right scalp in the ED but patient denies bleeding from any orifice. He does report a cough for the past week with positive sick contacts but no fever or chills. His temperature regulator is Dr. Rhett Carrera. Assessment 1. Mechanical fall 2. Atrial flutter not on anticoagulation likely due to recurrent falls 3. History of recurrent falls 4. Hypertension 5. Possible deconditioning 6. Chronic bacteriuria 7. Sinus congestion Plan Continue to monitor on the telemetry unit F/u Cardiology note EKG and troponins neg x 2 Physical therapy ordered F/u orthostats, mag, phos Adequate pain control Mucinex for cough Heart healthy diet FC DVT ppx with heparin/ALPS Problem List: 1. Fall 2. Minor head injury Pain Ratin Pain Location: head Pain Goal: Remain pain free Pain Plan: curent plan Tomorrow's Labs & Rationales: cbc, bep DVT/Prophylaxis: pharmacological
[2017-06-08 07:26] VITALS: BP 120/80
[2017-06-08 08:44] LABS: ABSOLUTE BASOPHIL COUNT 0 /CUMM (0.0-0.2); ABSOLUTE EOSINOPHIL COUNT 0.2 /CUMM (0.0-0.7); ABSOLUTE GRANULOCYTE CT 2.9 /CUMM (1.4-6.5); ABSOLUTE LYMPH COUNT 1.4 /CUMM (1.2-3.4); ABSOLUTE MONOCYTE COUNT 0.6 /CUMM (0.10-0.60); BASOPHIL % 0.4 % (0.0-2.0); EOSINOPHIL % 3.8 % (0-5); GRANULOCYTE % 56.6 % (42.2-75.2); HEMATOCRIT 38.9 % (42-52); MEAN CORPUSCULAR HGB 28.2 PG (27.0-31.0); MEAN CORPUSCULAR HGB CONC 33.2 G/DL (33.0-37.0); MEAN CORPUSCULAR VOLUME 84.8 FL (80.0-94.0); MEAN PLATELET VOLUME 8.3 FL (7.4-10.4); PLATELET COUNT 210 /CUMM (130-400); RED BLOOD CELL CT 4.59 /CUMM (4.70-6.10); WHITE BLOOD CELL COUNT 5.1 /CUMM (4.8-10.8)
--- NOTE | 2017-06-08 09:51 | Cons- Cardiology ---
General Information and HPI Consulting Request Date of Consult: 06/08/17 Requested By: Parish Singer MD History of Present Illness: This patient is an 82 year old male with history of hypertension, coronary artery disease, atrial fibrillation and multiple falls. Yesterday, the patient was arising from the toilet when his right leg gave way under him and he fell striking his right head against the shower. The patient denies any pre-monitory symptoms of lightheadedness or palpitations. He claims to have been alert through the whole event. He also denies chest pain, pressure, tightness, shortness of breath or lightheadedness at any other time. He typically walks with a walker. It should be noted that this patient is not on chronic anticoagulation for his atrial fibrillation due to multiple prior falls. The patient has noted a cough and his urinalysis is nitrite and leukocyte esterase positive with copious white cells. Allergies/Medications Allergies: Coded Allergies: Penicillins (HIVES - PER PT'S FAMILY 11/04/16) meperidine (From Demerol) (NAUSEA / VOMITING 11/07/16) Home Med List: Ascorbic Acid (Vitamin C) 1,000 MG TABLET 2,000 MG PO BID IMMUNITY (Reported) Aspirin (Ecotrin*) 81 MG TABLET.DR 1 TAB PO DAILY HEART HEALTH (Reported) Cholecalciferol (Vitamin D3) (D3-2000) 2,000 UNIT CAPSULE 5,000 IU PO DAILY SUPPLEMENT (Reported) Cyanocobalamin/Cobamamide (B-12 5,000 Mcg Sublingual Tab) 5,000 MCG-100 MCG TAB.SUBL 5,000 MCG SL BID SUPPLEMENT (Reported) Furosemide 20 MG TABLET 0.5 TAB PO DAILY CHF (Reported) [LION'S NATHALIE] TAB 300 MG PO BID HEALTH SUPPLEMENT (Reported) Metoprolol Succ XL (Toprol XL) 25 MG TAB 1 TAB PO DAILY A.fib Mvi, Adult No.2 Without Vit K (M.v.i.-12) 200-600/10 VIAL 1 TAB PO DAILY VITAMIN SUPPORT (Reported) Oxybutynin Chloride 5 MG TABLET 1 TAB PO BID BLADDER (Reported) Red Yeast Rice 600 MG CAPSULE 2 TAB PO BID HEALTH SUPPLEMENT (Reported) Review of Systems Review of Systems: cough Past History Travel History Traveled to [place] past 21 day No Medical History Neurological: NONE EENT: NONE Cardiovascular: AFIB, CAD, hypertension, hyperlipidemia, syncope, QUAD BIPASS Respiratory: NONE Gastrointestinal: SML BOWEL RESECTION HERNIA Hepatic: NONE Renal: benign prost hyperplasia, hematuria, KIDNEY STONES Musculoskeletal: SCOLIOSIS ARTHRITIS Psychiatric: NONE Endocrine: NONE Blood Disorders: NONE Cancer(s): NONE STONER HAND/Reproductive: NONE Surgical History Surgical History: CABG, HERNIA, SB RESECTION Psychosocial History Where Do You Live? Home Who Do You Live With? spouse, child Services at Home: None Smoking Status: Never Smoked ETOH Use: occasional use Functional Ability ADLs Independent: dressing, eating, toileting, bathing. Ambulation: independent, cane Exam & Diagnostic Data Vital Signs and I&O Vital Signs Date Time Temp Pulse Resp B/P B/P Pulse O2 O2 Flow FiO2 Mean Ox Delivery Rate 06/08 0809 76 114/66 06/08 0726 99.0 100 20 120/80 95 Room Air 06/08 0013 Room Air 06/07 2325 98.4 120 24 140/96 95 06/07 2241 99.3 94 18 100/66 99 Room Air 06/07 2135 98.8 119 18 148/84 95 Room Air 06/07 1827 98.4 117 18 165/97 96 Room Air 06/07 1544 Room Air 06/07 1542 125 18 138/87 97 Room Air Intake & Output 06/08 1600 06/08 0800 06/08 0000 06/07 1600 06/07 0800 06/07 0000 Intake Total 50 180 Output Total 400 Balance -350 180 Intake, IV 0 Intake, Oral 50 180 Output, Urine 400 Patient 179 lb Weight Weight Reported by Patient Measurement Method Physical Exam: General: WD/WN male in NAD; alert and oriented x 3 HEENT: small hematoma of the right scalp, PERRL, EOMI Neck: no JVD, no carotid bruit Heart: irregularly irregular Lungs: clear bilaterally Abdomen: soft, NT, +ve bowel sounds Extremities: no edema Assessment/Plan Assessment/Plan * This patient appears to have had a mechanical fall verses a fall elicited by weakness and lightheadedness upon arising. The patient does not appear clinically dry and was not orthostatic and therefore I suspect that his fall was related to weakness in the setting of a UTI. I have a low suspicion of any malignant dysrhythmia. * This patient has atrial flutter with controlled heart rate. Stop Lasix and continue Metoprolol. This patient is not a good candidate for chronic anticoagulation but continuing aspirin is reasonable. Consult Acknowledgment - Thank you for your consult request.
[2017-06-08 14:15] VITALS: BP 122/62
[2017-06-08 23:13] VITALS: BP 122/80
[2017-06-09 06:34] VITALS: BP 128/68
[2017-06-09 07:55] LABS: ABSOLUTE BASOPHIL COUNT 0 /CUMM (0.0-0.2); ABSOLUTE EOSINOPHIL COUNT 0.2 /CUMM (0.0-0.7); ABSOLUTE GRANULOCYTE CT 3.9 /CUMM (1.4-6.5); ABSOLUTE LYMPH COUNT 1.9 /CUMM (1.2-3.4); ABSOLUTE MONOCYTE COUNT 0.6 /CUMM (0.10-0.60); BASOPHIL % 0.5 % (0.0-2.0); EOSINOPHIL % 3.2 % (0-5); GRANULOCYTE % 59.2 % (42.2-75.2); HEMATOCRIT 40.5 % (42-52); MEAN CORPUSCULAR HGB 28.2 PG (27.0-31.0); MEAN CORPUSCULAR HGB CONC 33.2 G/DL (33.0-37.0); MEAN CORPUSCULAR VOLUME 84.9 FL (80.0-94.0); MEAN PLATELET VOLUME 8.3 FL (7.4-10.4); PLATELET COUNT 233 /CUMM (130-400); RBC DISTRIBUTION WIDTH 13.7 % (11.5-14.5); RED BLOOD CELL CT 4.77 /CUMM (4.70-6.10); WHITE BLOOD CELL COUNT 6.6 /CUMM (4.8-10.8)
--- NOTE | 2017-06-09 10:12 | PN- Cardiology ---
Subjective Subjective: * Patient feels tired today from poor sleep last evening. No chest discomfort, shortness of breath, lightheadedness or palpitations. * atrial flutter with controlled heart rate. Objective Vital Signs and I&Os Vital Signs Date Time Temp Pulse Resp B/P B/P Pulse O2 O2 Flow FiO2 Mean Ox Delivery Rate 06/09 0802 88 128/68 02/ 0634 97.9 88 18 128/68 98 Room Air 06/08 2313 98.8 97 18 122/80 95 Room Air 06/08 1415 98.4 87 20 122/62 96 Room Air Intake & Output 06/09 1600 06/09 0800 06/09 0000 06/08 1600 06/08 0800 06/08 0000 Intake Total 60 30 600 50 180 Output Total 275 175 425 400 Balance -215 -145 175 -350 180 Intake, IV 0 Intake, Oral 60 30 600 50 180 Output, Urine 275 175 425 400 Patient 179 lb Weight Weight Reported by Patient Measurement Method Physical Exam: General: WD/WN male in NAD; alert and oriented x 3 HEENT: small hematoma of the right scalp, PERRL, EOMI Neck: no JVD, no carotid bruit Heart: irregularly irregular Lungs: clear bilaterally Abdomen: soft, NT, +ve bowel sounds Extremities: no edema Assessment/Plan Assessment/Plan * This patient appears to have had a mechanical fall verses a fall elicited by weakness and lightheadedness upon arising. The patient does not appear clinically dry and was not orthostatic and therefore I suspect that his fall was related to weakness in the setting of a UTI. I have a low suspicion of any malignant dysrhythmia and none noted on telemetry. * This patient has atrial flutter with controlled heart rate. Lasix has been stopped. Continue Metoprolol. This patient is not a good candidate for chronic anticoagulation but continuing aspirin is reasonable. Continue telemetry? Yes
[2017-06-09 14:50] VITALS: BP 130/67
--- NOTE | 2017-06-09 15:18 | PN- Att Addend ---
Attending Addendum Attending Brief Note Patient seen and examined. Resting comfortably and not in acute distress. No issues overnight. No events on telemetry monitoring. He is in atrial fibrillation with controlled ventricular response. He denies chest pain or shortness of breath. Denies palpitations. He reports unsteady gait when ambulating attributed to lower extremity weakness. Vital Signs Date Time Temp Pulse Resp B/P B/P Pulse O2 O2 Flow FiO2 Mean Ox Delivery Rate 06/09 1450 99.3 79 20 130/67 95 Room Air 06/09 0802 88 128/68 02/ 0634 97.9 88 18 128/68 98 Room Air 06/08 2313 98.8 97 18 122/80 95 Room Air General appearance: Not in acute distress. Heart: S1-S2 regular Lungs: Clear bilaterally Abdomen: Soft, nontender with normal bowel sounds Extremities: No pedal edema Skin: Intact with no rashes. Neurologic: Power is 5/5 bilateral upper extremity and 4/5 bilateral lower extremities. Problems: 1. Fall; likely mechanical. Patient has history of recurrent falls. 2. Chronic atrial fibrillation: Not on anticoagulation. 3. Hypertension. Plan: -PT follow-up for safe discharge planning. Patient will likely benefit from short-term rehabilitation. He is currently declining this. Recommend reevaluation by the physical therapy service. -His diuretic therapy was discontinued by the cardiology service. Blood pressure is stable. Continue to monitor this. Please reconcile this with his discharge medication list.
[2017-06-09 18:56] VITALS: BP 106/64
[2017-06-09 22:07] VITALS: BP 108/70
[2017-06-10 06:29] VITALS: BP 120/74
--- NOTE | 2017-06-10 07:37 | PN- Housestaff ---
Carri AHUMADA,Aster 06/10/17 0737: Subjective Follow-up For: Mechanical fall Complaints: no complaints Tele-Events Since Last Visit: Atrial fibrillation Subjective: Patient was seen and examined at bedside. He was lying in his bed comfortably. No overnight events. Patient was evaluated with physical therapy and suggested STR but the patient wishes to go home. Explained him the risk of recurrent fall and why he needs a short-term rehabilitation. Patient is frustrated about the plan. Denies chest pain, chest pressure, nausea, vomiting, dizziness. Review of Systems Constitutional: Reports: no symptoms. Cardiovascular: Reports: no symptoms. Respiratory: Reports: no symptoms. Gastrointestinal: Reports: no symptoms. Genitourinary: Reports: no symptoms. Musculoskeletal: Reports: no symptoms. Objective Last 24 Hrs of Vital Signs/I&O Vital Signs Date Time Temp Pulse Resp B/P B/P Pulse O2 O2 Flow FiO2 Mean Ox Delivery Rate 06/10 1359 98.5 64 20 112/70 99 Room Air 06/10 1047 Room Air 06/10 0820 59 120/74 06/10 0629 98.0 59 12 120/74 99 Room Air / 0000 Room Air 06/09 2207 98.3 58 18 108/70 97 /04 1856 108 106/64 02/ 1450 99.3 79 20 130/67 95 Room Air Intake & Output 06/10 1600 06/10 0800 06/10 0000 Intake Total 110 720 Output Total 250 350 Balance -140 370 Intake, IV 10 Intake, Oral 100 720 Number 1 0 Bowel Movements Output, Urine 250 350 Physical Exam General Appearance: Alert, Oriented X3, Cooperative, No Acute Distress Cardiovascular: Normal S1, Normal S2, No Murmurs Lungs: Normal Air Movement Abdomen: Soft, No Tenderness, No Hepatospenomegaly Neurological: STRENGTH 4 X 5 IN ALL 4 LIMBS. Extremities: No Edema Current Medications: Current Medications Sig/Graciela Start time Last Medication Dose Route Stop Time Status Admin Acetaminophen 650 MG Q6P PRN 06/07 2114 AC PO Aspirin Buffered 81 MG DAILY 06/08 1000 AC 06/10 PO 0820 Budesonide/ 2 PUF BID 06/09 1445 CAN Formoterol Fumarate INH Cholecalciferol 2,000 IU DAILY 06/08 1000 AC 06/10 PO 0820 Guaifenesin 10 ML Q4P PRN 06/07 2315 AC 06/08 PO 0044 Heparin Sodium 5,000 UNIT Q8 06/07 2200 AC 06/10 (Porcine) SC 0551 Melatonin 5 MG AT BEDTIME 06/08 0130 AC 06/09 PO 205 Metoprolol Succinate 25 MG DAILY 06/08 1000 AC 06/10 PO 0820 Multivitamins 1 TAB DAILY 06/08 1000 AC 06/10 PO 0821 Oxybutynin Chloride 5 MG BID 06/07 2359 AC 06/10 PO 0820 Assessment/Plan Assessment: Patient is a 82-year-old male with a past medical history of recurrent falls, atrial fibrillation not on anticoagulation likely due to recurrent falls, CAD, hypertension, who presents with status post mechanical fall while attempting to get off the toilet. Patient says his right knee gave out and he fell forward striking his head against the molding of the shower. He usually walks with a walker but was not using it at the time. She denies any loss of consciousness, dizziness lightheadedness chest pain palpitations or blurry vision prior to after the fall. A small hematoma was noticed on the right scalp in the ED but patient denies bleeding from any orifice. He does report a cough for the past week with positive sick contacts but no fever or chills. His encephalographer is Dr. Rhett Carrera. Assessment 1. Mechanical fall 2. Atrial flutter not on anticoagulation likely due to recurrent falls 3. History of recurrent falls 4. Hypertension 5. Possible deconditioning 6. Chronic bacteriuria 7. Sinus congestion Plan Patient was admitted for mechanical fall. Head CT on admission negative. Patient has atrial flutter not on any anticoagulation due to recurrent falls in the past. Patient was evaluated by physical therapy and suggested short-term rehabilitation. Though the patient is not happy about the decision he agreed to go to short-term rehabilitation today. Patient urine grows gram-positive cocci which is coagulase staph most likely contaminant. He is also asymptomatic. Continue to monitor on the telemetry unit, and for possible discharge today. Heart healthy diet FC DVT ppx with heparin/ALPS Problem List: 1. Gait instability 2. Fall Pain Ratin Pain Location: NONE Pain Goal: Remain pain free Pain Plan: TYLENOL Tomorrow's Labs & Rationales: NONE Salena Weinstein MD 06/10/17 1433: Attending MD Review Statement Attending Statement Attending MD Statement: examined this patient, discuss w/resident/PA/GRAIN TRIMMER, agreed w/resident/PA/GRAIN TRIMMER, reviewed EMR data (avail), discussed with nursing, discussed with case mgmt, amended to note Attending Assessment/Plan: Patient seen and examined. Resting comfortably and not in acute distress. No issues overnight. He was seen by physical therapy service and recommendations are for [facility]. Patient is now agreeable with this plan. He will be discharged today once a bed is available. The cardiology service is recommending holding the steroid therapy for now. He is clinically euvolemic. Should be monitored closely at the [facility]entiary facility to determine if he will require this medication in the future.
--- NOTE | 2017-06-10 09:51 | Patient Discharge Instructions ---
Discharge Instructions General Discharge Information You were seen/treated for: Mechanical fall Watch for these problems: in case of chest pain, chest pressure, fall, loss of consciousness, altered sensation please go to the nearest ER Special Instructions: Please follow-up with your primary care provider within 1-2 weeks of discharge Please follow-up with the fast food supervisor within 1-2 weeks of discharge. We have stopped your Lasix medication. Please follow-up with your primary care provider regarding restarting Lasix and checking your vitamin B12 level and also vitamin B12 dosage. Please check your daily weight, respiratory rate To restart your Lasix medication. Diet Continue normal diet: No Recommended Diet: Heart Healthy Activity Full Activity/No Limits: No Activity Self Limited: Yes Acute Coronary Syndrome Inclusion Criteria At DC or during hospital stay patient has or had the following: ACS DIAGNOSIS No Discharge Core Measures Meds if any: Prescribed or Continued at Discharge Meds if any: NOT Prescribed or Continued at Discharge Congestive Heart Failure Inclusion Criteria At DC or during hospital stay patient has or had the following: CHF DIAGNOSIS No Discharge Core Measures Meds if any: Prescribed or Continued at Discharge Meds if any: NOT Prescribed or Continued at Discharge Cerebrovascular accident Inclusion Criteria At DC or during hospital stay patient has or had the following: CVA/TIA Diagnosis No Discharge Core Measures Meds if any: Prescribed or Continued at Discharge Meds if any: NOT Prescribed or Continued at Discharge Venous thromboembolism Inclusion Criteria VTE Diagnosis No VTE Type NONE VTE Confirmed by (Test) NONE Discharge Core Measures - Per Current guidelines, there needs to be overlap - treatment for the first 5 days of Warfarin therapy. - If discharged on Warfarin prior to 5 days of - overlap therapy, the patient will need to be - assessed for post discharge needs including - *Post discharge parental anticoagulation - *Warfarin and/or parental anticoagulation education - *Follow up date to check INR post discharge At least 5 days overlap therapy as Inpatient No Meds if any: Prescribed or Continued at Discharge Note: Overlap Therapy is Warfarin and Anticoagulant Meds if any: NOT Prescribed or Continued at Discharge
--- NOTE | 2017-06-10 12:42 | Discharge Summary ---
Visit Information Visit Dates Admission Date: 06/07/17 Discharge Date: 06/10/17 Hospital Course Course Attending Physician: Salena Weinstein MD Primary Care Physician: Rhett Bird MD Hospital Course: 82-year-old male with past medical history of atrial fibrillation not on anti- correlation, hypertension, hyperlipidemia, recurrent falls, coronary artery disease status post CABG, who presented to the emergency department after sustaining a mechanical fall and his sour inclusive. He also sustained a head injury on the right side during the incident, but did not lose his consciousness. Prior to the incident, he denies having any chest pain, palpitation, weakness, drowsiness, nausea, vomiting, straining, and no confusion after the incident/head injury either. He did not have any abnormal movement of his limbs, urinary or bowel incontinence, numbness/tingling/weakness of any part of his body after the incident. His head CT scan was negative for any bleed or acute pathology, and he was admitted in the telemetry floor for further monitoring. He did not show any signs of focal neurologic deficit since his admission. He worked with physical therapist, and was suggested to be discharged to a short-term rehabilitation requiring further physical therapy. The patient does have asymptomatic bacteriuria, but does not appear to be septic or any other reasons that needs antibiotic therapy. Of orthostatic status vitals were negative in the hospital. He has been eating and drinking well. His fall is likely due to mechanical reasons, as opposed to any cardiac/neurologic/ UTI. His diuretic medication has been helpful upon discharge, and this needs to be followed up with his calcine furnace loader/PCP after discharge. Allergies: Coded Allergies: Penicillins (HIVES - PER PT'S FAMILY 11/04/16) meperidine (From Demerol) (NAUSEA / VOMITING 11/07/16) Significant Procedures: CAT scan of the head done on 06/07/2017: FINDINGS: There is no evidence of acute intracranial hemorrhage or territorial infarction. No abnormal mass effect or midline shift is seen. Soler to white matter differentiation is well preserved. No extra-axial fluid collections are identified. There is commensurate prominence of the ventricles and sulci consistent with moderate to severe diffuse volume loss. There are areas of low attenuation in the periventricular and subcortical white matter, consistent with chronic microvascular ischemic changes. There are relatively extensive atheromatous calcifications of the bilateral cavernous internal carotid arteries. There have been bilateral lens extractions. There are no acute osseous or soft tissue abnormalities. The mastoid air cells are well-aerated. There is relatively extensive mucoperiosteal thickening now seen in the bilateral sphenoid sinuses. IMPRESSION: 1. There are no acute bleeds or territorial infarcts. 2. There is diffuse volume loss and there are chronic microvascular ischemic changes. 3. There is now mucoperiosteal thickening in the ethmoid sinuses bilaterally. DICTATED BY: Oren Molina MD DATE/TIME DICTATED:06/07/171644 INSPECTOR RAW QUARTZ:AVELINO DATE/TIME TRANSCRIBED:06/07/171644 Disposition Summary Disposition Principal Diagnosis: Mechanical fall injury Additional Diagnosis: atrial fibrillation not on anti-correlation, hypertension, hyperlipidemia, recurrent falls, coronary artery disease status post CABG Discharge Disposition: SNF Discharge Instructions General Discharge Information Code Status: Full Code Patient's Diet: Heart healthy diet. Patient's Activity: As tolerated, will require further physical therapy. Follow-Up Instructions/Appts: Please follow-up with your primary care provider within 1-2 weeks of discharge Please follow-up with the calcine furnace loader within 1-2 weeks of discharge. We have stopped your Lasix medication. Please follow-up with your primary care provider/calcine furnace loader regarding restarting Lasix and checking your vitamin B12 level and also vitamin B12 supplementation dosage. Medications at Discharge Discharge Medications: Stop taking the following medications: Furosemide (Furosemide) 20 MG TABLET ORAL DAILY Qty = 90 Continue taking these medications: Aspirin (Ecotrin*) 81 MG TABLET. 1 Tablet ORAL DAILY Comments: Last Taken: 03/12/17 Time: 10AM Metoprolol Succ XL (Toprol XL) 25 MG TAB 1 Tablet ORAL DAILY Qty = 30 Comments: Last Taken: 03/12/17 Time: 1000 Ascorbic Acid (Vitamin C) 1,000 MG TABLET 2,000 Milligram ORAL TWICE DAILY Comments: Last Taken: 03/12/17 Time: 10AM Cyanocobalamin/Cobamamide (B-12 5,000 Mcg Sublingual Tab) 5,000 MCG-100 MCG TAB.SUBL 5,000 Microgram SUBLINGUAL TWICE DAILY Comments: NOT GIVEN IN HOSPITAL Cholecalciferol (Vitamin D3) (D3) 2,000 UNIT CAPSULE 5,000 International Unit ORAL DAILY Comments: Last Taken: 03/12/17 Time: 10AM [ON'S NATHALIE] TAB 300 Milligram ORAL TWICE DAILY Comments: NOT GIVEN IN HOSPITAL Mvi, Adult No.2 Without Vit K (M.v.i.-12) 200-600/10 VIAL 1 Tablet ORAL DAILY Comments: Last Taken: 03/12/17 Time: 10AM Red Yeast Rice (Red Yeast Rice) 600 MG CAPSULE 2 Tablet ORAL TWICE DAILY Comments: NOT GIVEN IN HOSPITAL Oxybutynin Chloride (Oxybutynin Chloride) 5 MG TABLET 1 Tablet ORAL TWICE DAILY Qty = 180 Comments: Last Taken: 03/12/17 Time: 10AM Copies To: Pelon AHUMADA,Rhett Fuentes MD PHD,Rhett Gama
[2017-06-10 13:59] VITALS: BP 112/70
[2017-06-10 14:33] VITALS: BP 112/70
== END 2017-06-10 15:48 | DRG 92 ==
LOC: ERH 15:38 → 1NO 19:19 → ERHI 19:19 → ENRESERV 22:12 → ENTRNSPT 22:43 → 1NO 22:59 → CMPTRNSPT 06-08 07:09 → 1NO 06-08 07:09
PROVIDERS: Physician Assistant Medical; Student in an Organized Health Care Education/Training Program
DX: R26.81 Unsteadiness on feet (principal); I48.92 Unspecified atrial flutter; I48.2 Chronic atrial fibrillation; R82.71 Bacteriuria; Z95.1 Presence of aortocoronary bypass graft; E78.5 Hyperlipidemia, unspecified; I10 Essential (primary) hypertension; I25.10 Atherosclerotic heart disease of native coronary artery without angina pectoris; Z91.81 History of falling; W19.XXXA Unspecified fall, initial encounter; N40.0 Benign prostatic hyperplasia without lower urinary tract symptoms; S00.03XA Contusion of scalp, initial encounter
CPT/HCPCS: 1NSP; 87184; 36415; 81001; 82436; 87086; 87147; 93005; 93010; 97110-GO; 97116-GO; 97161-GP; 97165-GO; 97530-GO; J1644

== ENCOUNTER 2017-07-05 20:19 | Inpatient (IN) | payer OTHER, MEDICARE ==
[~2017-07-05] VITALS: Ht 170.2 cm; Wt 85.5 kg
--- NOTE | 2017-07-05 20:28 | ED AMS/SEIZURE/WEAK/DIZZY ---
History of Present Illness General Chief Complaint: General Adult Stated Complaint: CONFUSION/UTI S/S Source: patient, old records Exam Limitations: no limitations Vital Signs & Intake/Output Vital Signs & Intake/Output Vital Signs Date Time Temp Pulse Resp B/P B/P Pulse O2 O2 Flow FiO2 Mean Ox Delivery Rate 07/08 0956 148/70 07/08 0630 98.5 69 20 140/68 96 / 2217 98.3 62 20 116/72 97 03/ 1426 97.7 64 18 114/56 98 Room Air ED Intake and Output 07/08 0000 07/07 1200 Intake Total 950 Output Total 1100 250 Balance -150 -250 Intake, IV 270 Intake, Oral 680 Output, Urine 1100 250 Patient 85.077 kg 83.603 kg Weight Weight Bed scale Measurement Method Allergies Coded Allergies: Penicillins (HIVES - PER PT'S FAMILY 11/04/16) meperidine (From Demerol) (NAUSEA / VOMITING 11/07/16) Reconcile Medications Ascorbic Acid (Vitamin C) 1,000 MG TABLET 2,000 MG PO BID IMMUNITY (Reported) Aspirin (Ecotrin*) 81 MG TABLET.DR 1 TAB PO DAILY HEART HEALTH (Reported) Cholecalciferol (Vitamin D3) (Vitamin D) 5,000 UNIT TABLET 1 TAB PO DAILY SUPPLEMENT (Reported) Cyanocobalamin/Cobamamide (B-12 5,000 Mcg Sublingual Tab) 5,000 MCG-100 MCG TAB.SUBL 5,000 MCG SL DAILY SUPPLEMENT (Reported) Fesoterodine Fumarate (Toviaz) 8 MG TAB.ER.24H 1 TAB PO DAILY BLADDER ( Reported) Furosemide 20 MG TABLET 0.5 TAB PO EOD DIURETIC (Reported) [LION'S NATHALIE] TAB 300 MG PO BID HEALTH SUPPLEMENT (Reported) Metoprolol Succ XL (Toprol XL) 25 MG TAB 1 TAB PO DAILY A.fib Mvi, Adult No.2 Without Vit K (M.v.i.-12) 200-600/10 VIAL 1 TAB PO DAILY VITAMIN SUPPORT (Reported) Nitrofurantoin Monohyd/M-Cryst (Nitrofurantoin Armstrong-Mcr 100 MG) (Unknown Strength) CAPSULE (Unknown Dose) PO BID UNKNOWN (Reported) Oxybutynin Chloride 5 MG TABLET 1 TAB PO BID BLADDER (Reported) Red Yeast Rice 600 MG CAPSULE 1 TAB PO BID HEALTH SUPPLEMENT (Reported) Triage Nurses Notes Reviewed? yes HPI: 82M PMH A. fib not on anticoagulation, HTN, HLD, syncope, recurrent falls, CAD status post CABG sent in by family for altered mental status. At baseline patient is usually conversant, alert, and cooperative. Today he is confused, giving one word answers, with psychomotor retardation. He gives minimal history and is holding his arms out. No family at bedside. No other complaints. Past History Travel History Traveled to [place] past 21 day No Medical History Any Pertinent Medical History? 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 No Review of Systems Review of Systems Constitutional: Reports: no symptoms. EENTM: Reports: no symptoms. Respiratory: Reports: no symptoms. Cardiovascular: Reports: no symptoms. GI: Reports: no symptoms. Genitourinary: Reports: no symptoms. Musculoskeletal: Reports: no symptoms. Skin: Reports: no symptoms. Neurological/Psychological: Reports: no symptoms. Hematologic/Endocrine: Reports: no symptoms. Immunologic/Allergic: Reports: no symptoms. All Other Systems: Reviewed and Negative Physical Exam Physical Exam General Appearance: well developed/nourished, lethargic Head: atraumatic, normal appearance Eyes: Bilateral: normal appearance, PERRL, EOMI. Ears, Nose, Throat: normal pharynx, hearing grossly normal Neck: normal inspection, supple, full range of motion Respiratory: normal breath sounds, chest non-tender, no respiratory distress Cardiovascular: regular rate/rhythm Gastrointestinal: soft, non-tender Back: normal inspection, normal range of motion Extremities: normal range of motion Neurologic/Psych: awake, alert, oriented x 3, normal mood/affect Skin: intact, normal color, warm/dry Core Measures ACS in differential dx? No CVA/TIA Diagnosis No Sepsis Present: No Sepsis Focused Exam Completed? No Progress Differential Diagnosis: arrythmia, alcohol intoxication, anemia, benign positional vertigo, CVA/stroke, dehydration, drug intoxication, encephalitis, electrolyte imbalance, GI bleed, hypoglycemia, hypoxia, intracranial Hem., intracranial mass/tumor, labrynthitis, meningitis, Meniere's disease, migraine DE DIOS, multiple sclerosis, pneumonia, postural hypotension, presyncope, post- traumatic vertigo, sepsis, seizure disorder, subarachnoid Hem., UTI/pyelo, vertebrobasilar insuff Plan of Care: Orders Procedure Date/time Status Change service to 07/08 722 Active MRI-RT HIP W/O & W JAVIER 07/08 06 Active MAGNESIUM 07/08 06 Complete CBC WITHOUT DIFFERENTIAL 07/08 599 Complete BASIC ELECTROLYTES PLUS BUN&CR 07/08 06 Complete Yanes, Insertion/Removal/Asses 07/08 0333 Active BLOOD CULTURE 07/08 0025 Active MISSING MEDICATION FORM 07/08 UNK Active ECHOCARDIOGRAM 07/08 UNK Active Regular Diet 07/07 L Active BLOOD CULTURE 07/07 1858 Active Drains/Tubes 07/07 1344 Active URINE COLLECTION FROM OR 07/07 1000 Active MISSING MEDICATION FORM 07/07 UNK Active Current Medications Sig/Graciela Start time Last Medication Dose Stop Time Status Admin Ceftriaxone Sodium 1,000 MG DAILY 07/06 1000 AC 07/08 (Rocephin) 0956 Cholecalciferol 1,000 IU DAILY 07/06 1000 AC 07/08 (Vitamin D) 0956 Furosemide 10 MG Q48 07/06 1000 AC 07/08 (Lasix) 0956 Metoprolol Succinate 25 MG DAILY 07/06 1000 AC 07/08 (Toprol XL) 0956 Multivitamins 1 TAB DAILY 07/06 1000 AC 07/08 (Theragran Vitamins) 0956 Oxybutynin Chloride 5 MG BID 07/06 0400 AC 07/08 (Ditropan) 0956 Acetaminophen 650 MG Q6P PRN 07/06 0245 AC (Tylenol) Laboratory Tests 07/08/17 0620: Anion Gap 10, Estimated GFR > 60, BUN/Creatinine Ratio 16.4, Magnesium 1.7, CBC w Diff NO MAN DIFF REQ, RBC 4.17 L, MCV 86.4, MCH 28.9, MCHC 33.4, RDW 14.0, MPV 8.7, Gran % 76.6 H, Lymphocytes % 12.0 L, Monocytes % 9.5 H, Eosinophils % 1.6, Basophils % 0.3, Absolute Granulocytes 7.3 H, Absolute Lymphocytes 1.1 L, Absolute Monocytes 0.9 H, Absolute Eosinophils 0.2, Absolute Basophils 0 Microbiology 07/08 0010 BLOOD: Blood Culture - RECD 07/07 1934 BLOOD: Blood Culture - RECD 07/07 1857 BLOOD: Blood Culture - CAN Cancelled: Cancelled via OE: Error Initial ED EKG: NSR, inverted T-waves in lateral leads Departure Departure Disposition: STILL A PATIENT Condition: Stable Clinical Impression Primary Impression: UTI (urinary tract infection) Secondary Impressions: ADRYAN (acute kidney injury), Metabolic encephalopathy Referrals: Pelon AHUMADA,Rhett Gordon (PCP/Family) Departure Forms: Customer Survey General Discharge Information Admission Note Spoke With: Parish Singer MD Documentation of Exam: Documentation of any treatments & extenuating circumstances including Concerns Regarding Discharge (functional status, medication knowledge or non-compliance, living conditions, etc.) that warrant an admission rather than observation: UTI with encephalopathy and ADRYAN, will require IV antibiotics, cultures, urology consult, IV hydration
[2017-07-05 21:23] LABS: ABSOLUTE BASOPHIL COUNT 0.1 /CUMM (0.0-0.2); ABSOLUTE EOSINOPHIL COUNT 0 /CUMM (0.0-0.7); ABSOLUTE GRANULOCYTE CT 11.9 /CUMM (1.4-6.5); ABSOLUTE MONOCYTE COUNT 1.4 /CUMM (0.10-0.60); BASOPHIL % 0.5 % (0.0-2.0); EOSINOPHIL % 0.3 % (0-5); HEMATOCRIT 41.5 % (42-52); MEAN CORPUSCULAR HGB 27.8 PG (27.0-31.0); MEAN CORPUSCULAR HGB CONC 32.3 G/DL (33.0-37.0); MEAN CORPUSCULAR VOLUME 86.1 FL (80.0-94.0); PLATELET COUNT 222 /CUMM (130-400); RBC DISTRIBUTION WIDTH 14.3 % (11.5-14.5); RED BLOOD CELL CT 4.82 /CUMM (4.70-6.10); WHITE BLOOD CELL COUNT 14.4 /CUMM (4.8-10.8)
[2017-07-05] MEDS ORDERED: VITAMIN D5000 UNIT PO (21:40)
[2017-07-05] MEDS ORDERED: TOVIAZ8 M1 PO (21:41)
[2017-07-05] MEDS ORDERED: NITROFURANTOIN100 M6 PO (21:42)
[2017-07-05] MEDS ORDERED: FUROSEMIDE20 M1 PO (21:43)
--- NOTE | 2017-07-05 21:52 | CT SCAN REPORT ---
EXAMINATION: CT HEAD WITHOUT CONTRAST CLINICAL INFORMATION: Acute confusion. Altered mental status. COMPARISON: 06/07/2017. TECHNIQUE: Contiguous axial images of the brain were obtained without IV contrast. DLP: 621 mGy-cm. FINDINGS: There are no pathologic extra-axial fluid collections. The lateral, third, fourth ventricles are markedly dilated, though stable and concordant with the appearance of the sulci. There is no evidence for acute intraparenchymal hemorrhage or infarct. There is neither mass nor mass effect. There is no shift of midline structures. The paranasal sinuses and mastoid air cells are clear. There are no osseous lesions. IMPRESSION: No evidence for acute intracranial injury. Stable ventriculomegaly indicative of cerebral atrophy.
--- NOTE | 2017-07-05 23:04 | History & Physical ---
[facility] 8944: General Information and HPI MD Statement: I have seen and personally examined HUY CHAPMAN and documented this H&P. The patient is a 82 year old M who presented with a patient stated chief complaint of [disorientation]. Source of Information: patient, family Exam Limitations: poor historian History of Present Illness: 82-year-old gentleman with past medical history of hypertension, A. fib not on anticoagulation, HLD, syncope, recurrent falls, CAD status post CABG came to [facility] with complaints of confusion since this afternoon. Patient is a poor historian and collateral information was obtained from his daughter over the phone. According to her he was in his usual state of health until yesterday afternoon following which he was appearing more confused and there was periods of hallucination. She called his primary care physician who suggested to bring her to [facility] ER. Patient denies dysuria, fever, chills, abdominal pain, groin pain, CVA tenderness, chest pain, shortness of breath, palpitation, fall, loss of consciousness. He endorses blood in urine. Apparently patient saw his primary care physician yesterday as a follow-up [patient was recently admitted in June for fall] and complained of dysuria and hence was started on nitrofurantoin. Patient saw his urologist last week who did a renal ultrasound and found to have moderate left-sided hydroureteronephrosis obstructing 0.9 cm calcification in the proximal left ureter. Dr. Paige has planned lithotripsy next Saturday. Hence his aspirin was stopped since yesterday. Also, his primary care physician changed Lasix 10 mg daily to 10 mg every other day. Patient didn't have his Lasix today. Patient has been seen by Dr. Paige for hematuria since 2015. He underwent TURP, lithotripsy in November 2016. Patient also has history of nephrolithiasis. Patient says he was recently treated for UTI in March 2017. Patient has grown coag negative staph aureus which is sensitive only to vancomycin, nitrofurantoin. Allergies/Medications Allergies: Coded Allergies: Penicillins (HIVES - PER PT'S FAMILY 11/04/16) meperidine (From Demerol) (NAUSEA / VOMITING 11/07/16) Home Med list Ascorbic Acid (Vitamin C) 1,000 MG TABLET 2,000 MG PO BID IMMUNITY (Reported) Aspirin (Ecotrin*) 81 MG TABLET.DR 1 TAB PO DAILY HEART HEALTH (Reported) Cholecalciferol (Vitamin D3) (Vitamin D) 5,000 UNIT TABLET 1 TAB PO DAILY SUPPLEMENT (Reported) Cyanocobalamin/Cobamamide (B-12 5,000 Mcg Sublingual Tab) 5,000 MCG-100 MCG TAB.SUBL 5,000 MCG SL DAILY SUPPLEMENT (Reported) Fesoterodine Fumarate (Toviaz) 8 MG TAB.ER.24H 1 TAB PO DAILY BLADDER ( Reported) Furosemide 20 MG TABLET 0.5 TAB PO EOD DIURETIC (Reported) [LION'S NATHALIE] TAB 300 MG PO BID HEALTH SUPPLEMENT (Reported) Metoprolol Succ XL (Toprol XL) 25 MG TAB 1 TAB PO DAILY A.fib Mvi, Adult No.2 Without Vit K (M.v.i.-12) 200-600/10 VIAL 1 TAB PO DAILY VITAMIN SUPPORT (Reported) Nitrofurantoin Monohyd/M-Cryst (Nitrofurantoin [place]-Mcr 100 MG) (Unknown Strength) CAPSULE (Unknown Dose) PO BID UNKNOWN (Reported) Oxybutynin Chloride 5 MG TABLET 1 TAB PO BID BLADDER (Reported) Red Yeast Rice 600 MG CAPSULE 1 TAB PO BID HEALTH SUPPLEMENT (Reported) Compliance With Home Meds: GOOD Past History Travel History Traveled to [place] past 21 day No Medical History Neurological: NONE EENT: NONE Cardiovascular: AFIB, CAD, hypertension, hyperlipidemia, syncope, QUAD BIPASS Respiratory: NONE Gastrointestinal: SML BOWEL RESECTION HERNIA Hepatic: NONE Renal: benign prost hyperplasia, hematuria, KIDNEY STONES Musculoskeletal: SCOLIOSIS ARTHRITIS Psychiatric: NONE Endocrine: NONE Blood Disorders: NONE Cancer(s): NONE 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 Home Who Do You Live With? spouse, child Services at Home: None Primary Language: Dutch Smoking Status: Never Smoked ETOH Use: occasional use Illicit Drug Use: denies illicit drug use Functional Ability ADLs Independent: dressing, eating, toileting, bathing. Ambulation: cane, walker IADLs Needs Assist: shopping, housework, finances, food prep, telephone, transportation, medication admin. Review of Systems Review of Systems Constitutional: Reports: no symptoms. Cardiovascular: Reports: no symptoms. Respiratory: Reports: no symptoms. GI: Reports: no symptoms. Genitourinary: Reports: no symptoms, dysuria. Musculoskeletal: Reports: no symptoms. Skin: Reports: no symptoms. Exam & Diagnostic Data Last 24 Hrs of Vital Signs/I&O Vital Signs Date Time Temp Pulse Resp B/P B/P Pulse O2 O2 Flow FiO2 Mean Ox Delivery Rate 07/06 0017 100.1 118 20 116/82 94 07/05 2358 Room Air 07/05 2248 100.5 118 18 157/89 95 Room Air Room Air 07/05 202 99.9 119 18 146/86 96 Room Air Intake & Output 07/06 0800 07/06 0000 07/05 1600 Intake Total Output Total Balance Patient 180 lb Weight Weight Reported by Patient Measurement Method Physical Exam General Appearance Alert, Oriented X3, Cooperative, No Acute Distress Skin No Rashes, No Breakdown HEENT Atraumatic, PERRLA, EOMI Cardiovascular Regular Rate, Normal S1, Normal S2, No Murmurs Lungs Clear to Auscultation, Normal Air Movement Abdomen Normal Bowel Sounds, Soft, No Tenderness, No Hepatospenomegaly Neurological Normal Gait, Normal Speech, Strength at 5/5 X4 Ext, Normal Tone Extremities No Edema, Normal Pulses, No Tenderness/Swelling Vascular Normal Pulses, Pulses Symmetrical Last 24 Hrs of Labs/Lanre: Laboratory Tests 07/05/172113: Anion Gap 11, Estimated GFR 45 L, BUN/Creatinine Ratio 16.7, Glucose 110 H, Lactic Acid 1.4, Calcium 9.3, Total Bilirubin 1.2, AST 15 L, ALT 19 L, Alkaline Phosphatase 71, Troponin I < 0.01, Total Protein 6.7, Albumin 3.6, Globulin 3.1, Albumin/Globulin Ratio 1.2, CBC w Diff NO MAN DIFF REQ, RBC 4.82, MCV 86.1, MCH 27.8, MCHC 32.3 L, RDW 14.3, MPV 8.0, Gran % 83.0 H, Lymphocytes % 6.8 L, Monocytes % 9.4 H, Eosinophils % 0.3, Basophils % 0.5, Absolute Granulocytes 11.9 H, Absolute Lymphocytes 1.0 L, Absolute Monocytes 1.4 H, Absolute Eosinophils 0, Absolute Basophils 0.1 07/05/172037: Urine Color YEL, Urine Clarity TURBD H, Urine pH 6.0, Ur Specific [place] >= 1.030, Urine Protein 100 H, Urine Ketones NEG, Urine Nitrite POS H, Urine Bilirubin NEG, Urine Urobilinogen 0.2, Ur Leukocyte Esterase LARGE H, Ur Microscopic SEDIMENT EXAMINED, Urine RBC >75 H, Urine WBC PACKD H, Ur Epithelial Cells FEW, Urine Bacteria FEW H, Urine Mucus FEW, Urine Hemoglobin LARGE H, Urine Glucose NEG Microbiology 07/05 2236 NASOPHARYN: Influenza Virus A & B Rapid Smear - COMP 07/05 2208 BLOOD: Blood Culture - RECD 07/05 2113 BLOOD: Blood Culture - RECD 07/05 2037 URINE ROUT: Urine Culture - RECD Diagnostic Data EKG Results T wave inversion V4 V5 V6 which is new compared to the previous EKG. Normal sinus rhythm heart rate [address] IMPRESSION: No evidence for acute intracranial injury. Stable ventriculomegaly indicative of cerebral atrophy. Assessment/Plan Assessment: Patient is an 82-year-old male with a PMH significant for A. fib not on anticoagulation, HTN, HLD, syncope, recurrent falls, CAD status post CABG who presented to the ED with complaints of confusion and hallucinations since this afternoon. Patient is admitted to telemetry due to EKG changes. Admission vitals Temperature 97.9, pulse rate 119, respiratory rate 18, blood pressure 146/86, saturating at 96 room at Admission labs WBC 14.4, hemoglobin 13.4, platelet count 222, sodium 139, potassium 4, BUN 25, creatinine 1.5, glucose 110, lactic acid 1.4 Urine analysis-nitrate positive, leuko esterase large with packed WBC Head CT Negative Renal ultrasound-June 2017 1. Interval development of moderate left-sided hydroureteronephrosis. In reviewing prior KUB, findings are likely related to an obstructing 0.9 cm calcification in the proximal left ureter. 2. Nonobstructing lower pole left renal calcification. 3. No definite right renal calculi. 4. Enlarged bladder with large post void residual. This is most likely related to an enlarged heterogeneous prostate gland with prominent median lobe extension into the bladder base. However, close clinical correlation is requested. Cystoscopic correlation may be warranted to exclude a bladder mass CT abdomen and pelvis ED treatment Ceftriaxone, acetaminophen Assessment and plan 1. Confusion-patient sudden onset confusion associated with positive UA and renal ultrasound done a week ago showing left-sided hydroureteronephrosis with obstructing 0.9 cm renal calculi, so this confusion can be a secondary due to urinary tract infection. We will take, CT abdomen and pelvis to rule out any persistent hydronephrosis/obstructive nephrolithiasis. Other differentials of confusion- CVA/medication use. Head CT was negative for any intracranial bleed. Patient meets sepsis criteria. We will treat the patient with ceftriaxone and vancomycin [patient had coagulase-negative staph infection in the past which was sensitive to vancomycin, nitrofurantoin]. Gentle IV hydration. Patient has multiple history of hematuria/renal stones in the past. Apparently patient was seen by Dr. Paige last week who did a renal ultrasound which showed obstructive left renal stone and left hydroureteronephrosis and has planned for lithotripsy next Saturday. We will send blood and urine culture. Patient has been admitted in telemetry because of EKG changes. Troponins are negative. We will get cardiology and urology consult in a.m. bladder scan in the a.m. to rule out any obstruction secondary to renal stone/prostate. 2. Acute kidney injury This looks most likely secondary due to dehydration [prerenal]. We will treat with gentle IV hydration. 3. Chronic medical condition-hypertension, hyperlipidemia, atrial fibrillation, coronary artery disease-patient is off aspirin secondary due to lithotripsy planned next Saturday. We will continue the same and touch base with Dr. Paige in the a.m. We will continue metoprolol, Toviaz. Code-full code Diet-heart healthy diet DVT prophylaxis-heparin subcutaneous As Ranked By This Provider Problem List: 1. ADRYAN (acute kidney injury) 2. UTI (urinary tract infection) Core Measures/Misc (01/20) Acute Coronary Syndrome ACS Diagnosis: No Congestive Heart Failure Congestive Heart Failure Diagnosis No Cerebrovascular Accident CVA/TIA Diagnosis: No VTE (View Protocol) VTE Risk Factors Age>40 No Mechanical VTE Prophylaxis d/t Other No VTE Pharm Prophylaxis d/t Other Sepsis (View protocol) Sepsis Present: Yes Alka AHUMADA,Ange 07/06/17 0105: Resident Review Statement Resident Statement: examined this patient, discussed with senior insight manager international, agreed with senior insight manager international, discussed with family, reviewed EMR data (avail), discussed with nursing , discussed with case mgmt, reviewed images, amended to note Other Findings: Patient is a 82 YO M with PMH significant Nephrolithiasis, BPH s/p TURP, Lithotripsy follows , Asymptomatic pyuria, A.fib not on anticoagulation due to recurrent falls, gait instability, HFpEF, HTN, HLD sent to the ER after found to be confused with elevated temparature. Patient has extensive history of multiple admissions in the past due to nephrolithiasis, BPH requiring TURP, multiple falls. Last admission with Dr. Paige being February 2017 for removal of the catheter after lithotripsy for ureteral stone. Last week patient came to ER with gross hematuria, seen by Dr. Paige. He underwent ultrasound with evidence of recurrent nephrolithiasis and residual in bladder scan. He was scheduled for a procedure next week for removal of the stones for which is aspirin was held. He went to PCP yesterday for a follow-up. He was given Lasix every other day 10 mg and probably nitrofurantoin. He was found to be tachycardic in the clinic visit. During the interview in the ER patient is alert oriented 3. Reports he had some hematuria this morning. Denies any burning, pain with urination. They do report that he had fever and he had decreased input of fluid. Vital signs at presentation MAXIMUM TEMPERATURE 100.5, heart rate 118, blood pressure 140/80 mmHg, on room air Physical examination Alert oriented 3, no acute distress, HEENT PERRLA, dry mucous membranes. Chest bibasilar fine crackles.. Heart blunt S1, normal S2, abdomen normal bowel sounds nontender, no CVA tenderness, lower extremities 1-2+ edema right greater than left, pulses 2+, chronic venous stasis changes on the right side, strength episode in all 4 extremities. Labs White count of 14, H&H 13/41, sodium 139, BUN/creatinine 21/1.5, glucose 110, lactic acid 1.4, troponin less than 0.01 UA is positive with leukocyte esterase white count greater than 75. Imaging Head CT No acute intracranial pathology. Stable ventriculomegaly with cerebral atrophy CT abdomen and pelvis without IV contrast EKG Sinus tachycardia with heart rate 120, diffuse precordial T-wave inversions which could correlate with a early repolarization versus ACS Assessment Patient is a 82-year-old male with significant past history of multiple episodes of nephrolithiasis, BPH status post TURP, asymptomatic pyuria, recent evidence of recurrent nephrolithiasis presented with abrupt change in mental status with elevated temperature. Vital signs at admission it show elevation in temperature 100.5, tachycardia of 120, saturating well on room air. Labs consistent with white count of 14 point, creatinine 1.5, normal lactic acid levels. Physcial exam is significant for crackles on ausculatation, leg edmea, blunt S1. UA is showing evidence on 5 white count and leukocyte esterase positive. Imaging studies pending. EKG did show T-wave inversions (possibly rate related). At this point it is more consistent with acute urinary tract infection resulting in altered mentation, tachycardia, positive UA correlating with recurrent nephrolithiasis as possible source. Plan Admit to telemetry floor Possible Pylenonephritis in the setting of left ureterohydronephrosis Patient grew coag negative staph.aureus which was resistant to many organisms. Started on IV ceftriaxone with a single dose of vancomycin. follow up cultures. Hold aspirin for anticipated procedure by . CT abdomen and pelvis without IV contrast pending. Ultrasound did show left sided ureterohydronephrosis. ADRYAN Cr 1.5 (normal baseline 0.9). Could be secondary to infection and dehydration. Continue IV hydration and recheck BMP Chronic medical conditions A. fib, CAD S/P CABG, HLD - continue home medications DVT prophylaxis heparin SC Code status full code aPrish Singer 07/06/17 0228: Attending MD Review Statement Attending Statement Attending MD Statement: examined this patient, discuss w/resident/PA/COUNSELING AIDE, agreed w/resident/PA/COUNSELING AIDE, reviewed EMR data (avail), reviewed images, amended to note Attending Assessment/Plan: CC: confusion PMH: A. fib, CAD S/P CABG, HLD, history of syncope, BPH, s/p TURP Patient was brought in ER from home through EMS for confusion and hallucination. According to patient's daughter patient was hallucinating, picking things that were not there. Similar symptoms happened to him recently when he had UTI. According to patient's daughter it was apparently all right until yesterday, was seen by primary care physician yesterday when he had heart rate of 120s otherwise no symptoms and exam unremarkable. Last week patient followed up with Dr. Paige who obtained renal ultrasound which showed stone for which he planed procedure on Saturday. Today patient complains of small hematuria otherwise denies any urinary burning, irritation, flank pain, suprapubic pain, fever or chills at home. It's unclear why patient saw urologist last week, whether it was secondary to symptoms or regular follow-up. Also his Lasix dose was decreased for dehydration and aspirin on hold for expected procedure. Vitals: T max 100.5, pulse 118, RR 18, blood pressure 157/89, saturating 95% on room air On exam: A O 3, cooperative, no acute distress, neck supple, JVD normal, no lymphadenopathy, mucosa dry, no focal neurological deficit, trace leg edema, no obvious skin rashes or inflammation CVS: S1-S2, irregular. RS: Fine basilar crackles. Abdomen: Soft, NT, ND, bowel sounds present, no CVA tenderness. CT head: No evidence for acute intracranial injury. Stable ventriculomegaly indicative of cerebral atrophy. Assessment and plan 82-year-old male with recurrent falls, A. fib, CAD S/P CABG, HLD, BPH S/P TURP, history of nephrolithiasis presented in ER for hallucination and confusion for one day duration. Patient also had hematuria today. Recently he was investigated with renal ultrasound on July 03 which showed moderate sized hydroureteronephrosis, obstructing 0.9 cm left ureteric calculus. He also had enlarged bladder with large post void residual urine, cystoscopy correlation warranted for bladder mass. According to claims history patient was also prescribed antibiotics today (unclear who prescribed). On exam patient appears dehydrated otherwise unremarkable. He is found to have significant leukocytosis with left shift, creatinine increased from 0.9 to 1.5 as compared to June 08. urine shows nitrites and leukocyte esterase. He appears to have UTI which may be precipitating confusion and hallucination in this elderly gentleman. Pyelonephritis should be ruled out with CT scan. He is also found to have T-wave inversions in V4 to V6, probably related to related changes. He does not have any chest pain, palpitations but has tachycardia. + Cystitis , rule out pyelonephritis, left hydroureternephrosis. + ADRYAN : Probably secondary to dehydration and sepsis but obstruction should be ruled out as previous renal ultrasound shows distended bladder + T wave inversion in lateral leads: probably repolarization abnormality Secondary to tachycardia + Hx of A. fib, CAD S/P CABG, HLD, history of syncope, BPH, s/p TURP - Admit to telemetry - Continuous telemetry monitoring - Serial troponin ECGs - Continue IV ceftriaxone - give 1 dose of IV vancomycin - CT abdomen and pelvis without IV contrast - Continue IV fluids - Consult urology - Repeat labs in a.m. - Bladder scan to rule out obstruction - Cardiology consult in a.m. - Hold asp for now for expected urological procedure
[2017-07-06 00:17] VITALS: BP 116/82
--- NOTE | 2017-07-06 02:31 | Admission Certification ---
Admission Certification Certification Statement - As attending physician, I certify that at the time of - admission, based on clinical presentation, severity of - symptoms, need for further diagnostic testing and - therapeutic interventions, and risk of adverse outcomes - without in-hospital treatment, in my clinical assessment, - this patient requires an acute hospital stay for a minimum - of two nights or longer. I have also considered psychsocial - factors such as support system, advanced age, financial - issues, cognitive issues, and failed out-patient treatments, - past re-admission history, safety of patient, and lack of - compliance as applicable. Specific rationale supporting this admission is: Hallucination, confusion, UTI, left hydronephrosis
--- NOTE | 2017-07-06 03:22 | PN- Housestaff ---
Subjective Follow-up For: Left ureterohydronephrosis Tele-Events Since Last Visit: Remianed in high 115's - sinus tachycardia Subjective: Seen and examined Patient remians in his bed, trying to pull his socks off telling that he wants to shower. He denies any acute chest pain, reports he feels fine however very poor historian. Review of Systems Constitutional: Reports: see HPI. Objective Last 24 Hrs of Vital Signs/I&O Vital Signs Date Time Temp Pulse Resp B/P B/P Pulse O2 O2 Flow FiO2 Mean Ox Delivery Rate 07/06 0017 100.1 118 20 116/82 94 07/05 2358 Room Air 07/05 2248 100.5 118 18 157/89 95 Room Air Room Air 07/06 2023 99.9 119 18 146/86 96 Room Air Intake & Output 07/06 0800 07/06 0000 07/05 1600 Intake Total Output Total Balance Patient 81.647 kg Weight Weight Reported by Patient Measurement Method Physical Exam General Appearance: Alert, Oriented X3, Cooperative Skin: No Rashes Skin Temp/Moisture Exam: Warm/Dry HEENT: Atraumatic, PERRLA, EOMI Neck: Supple, mild JVD Cardiovascular: Normal S2, muffled S1 Lungs: Normal Air Movement, crackles bilaterally Abdomen: Normal Bowel Sounds, Soft, No Tenderness Neurological: Strength at 5/5 X4 Ext, Normal Tone Extremities: No Clubbing, No Cyanosis, 2+ edema present Vascular: Normal Pulses Current Medications: Current Medications Sig/Graciela Start time Last Medication Dose Route Stop Time Status Admin Acetaminophen 650 MG Q6P PRN 07/06 0245 AC PO Acetaminophen 0 .STK-MED ONE 07/05 2319 DC IV Acetaminophen 1,000 MG ONCE ONE 07/05 2315 DC 07/05 N/A 1 UNIT IV 07/05 2329 2324 Ceftriaxone Sodium 1,000 MG DAILY 07/06 1000 AC IV Ceftriaxone Sodium 0 .STK-MED ONE 07/058 DC .ROUTE Ceftriaxone Sodium 1,000 MG ONCE ONE 07/05 2129 DC 07/05 IV 07/05 2130 221 Cholecalciferol 1,000 IU DAILY 07/06 1000 AC PO Furosemide 10 MG Q48 07/06 1000 AC PO Heparin Sodium 5,000 UNIT Q8 07/06 0400 AC (Porcine) SC Ketorolac 15 MG Q6P PRN 07/06 0245 AC Tromethamine IV 07/11 0244 Metoprolol Succinate 25 MG DAILY 07/06 1000 AC PO Multivitamins 1 TAB DAILY 07/06 1000 AC PO Oxybutynin Chloride 5 MG BID 07/06 0400 AC 07/06 PO 0320 Sodium Chloride 1,000 ML Q13H 07/06 0115 AC 07/06 IV 07/07 0014 0145 Vancomycin HCl 1,000 MG ONCE ONE 07/06 0100 DC 07/06 Dextrose/Water 250 ML IV 07/06 0159 0320 Last 24 Hrs of Lab/Lanre Results Last 24 Hrs of Labs/Mics: Laboratory Tests 07/06/17 0140: Lactic Acid 1.9 07/05/172113: Anion Gap 11, Estimated GFR 45 L, BUN/Creatinine Ratio 16.7, Glucose 110 H, Lactic Acid 1.4, Calcium 9.3, Total Bilirubin 1.2, AST 15 L, ALT 19 L, Alkaline Phosphatase 71, Troponin I < 0.01, Total Protein 6.7, Albumin 3.6, Globulin 3.1, Albumin/Globulin Ratio 1.2, CBC w Diff NO MAN DIFF REQ, RBC 4.82, MCV 86.1, MCH 27.8, MCHC 32.3 L, RDW 14.3, MPV 8.0, Gran % 83.0 H, Lymphocytes % 6.8 L, Monocytes % 9.4 H, Eosinophils % 0.3, Basophils % 0.5, Absolute Granulocytes 11.9 H, Absolute Lymphocytes 1.0 L, Absolute Monocytes 1.4 H, Absolute Eosinophils 0, Absolute Basophils 0.1 07/05/172037: Urine Color YEL, Urine Clarity TURBD H, Urine pH 6.0, Ur Specific [place] >= 1.030, Urine Protein 100 H, Urine Ketones NEG, Urine Nitrite POS H, Urine Bilirubin NEG, Urine Urobilinogen 0.2, Ur Leukocyte Esterase LARGE H, Ur Microscopic SEDIMENT EXAMINED, Urine RBC >75 H, Urine WBC PACKD H, Ur Epithelial Cells FEW, Urine Bacteria FEW H, Urine Mucus FEW, Urine Hemoglobin LARGE H, Urine Glucose NEG Microbiology 07/05 2236 NASOPHARYN: Influenza Virus A & B Rapid Smear - COMP 07/05 2208 BLOOD: Blood Culture - RECD 07/05 2113 BLOOD: Blood Culture - RECD 07/05 2037 URINE ROUT: Urine Culture - RECD Orders Radiology Findings: Renal ultrasound 07/03/17 IMPRESSION: 1. Interval development of moderate left-sided hydroureteronephrosis. In reviewing prior KUB, findings are likely related to an obstructing 0.9 cm calcification in the proximal left ureter. 2. Nonobstructing lower pole left renal calcification. 3. No definite right renal calculi. 4. Enlarged bladder with large post void residual. This is most likely related to an enlarged heterogeneous prostate gland with prominent median lobe extension into the bladder base. However, close clinical correlation is requested. Cystoscopic correlation may be warranted to exclude a bladder mass. Assessment/Plan Assessment: Patient is a 82-year-old male with significant past history of multiple episodes of nephrolithiasis, BPH status post TURP, asymptomatic pyuria, recent evidence of recurrent nephrolithiasis presented with abrupt change in mental status with elevated temperature. Vital signs at admission it show elevation in temperature 100.5, tachycardia of 120, saturating well on room air. Labs consistent with white count of 14 point, creatinine 1.5, normal lactic acid levels. UA is showing evidence on 5 white count and leukocyte esterase positive. Imaging studies pending. EKG did show T-wave inversions (possibly rate related). Renal ultrasound on 07/03/17 consistent with left ureterohydronephrosis with 0.9cm calcification. Nonobstructing lower pole renal calcification. Post voidal residual volume. At this point it is more consistent with acute urinary tract infection resulting in altered mentation, tachycardia, positive UA correlating with recurrent nephrolithiasis as possible source. Plan Admit to telemetry floor Possible Pylenonephritis in the setting of left ureterohydronephrosis Patient grew coag negative staph.aureus which was resistant to many organisms. Started on IV ceftriaxone with a single dose of vancomycin. follow up cultures. Hold aspirin for anticipated procedure by . CT abdomen and pelvis without IV contrast pending. Ultrasound did show left sided ureterohydronephrosis. Bladder scan to measure postvoidal residual volume. ADRYAN Cr 1.5 (normal baseline 0.9). Could be secondary to infection and dehydration. Continue IV hydration and recheck BMP Chronic medical conditions A. fib, CAD S/P CABG, HLD - continue home medications DVT prophylaxis heparin SC Code status full code Problem List: 1. ADRYAN (acute kidney injury) 2. Gait instability 3. Hematuria 4. UTI (urinary tract infection) Pain Ratin Pain Location: abdomen Pain Goal: Pain 4 or less Pain Plan: tylenol prn Tomorrow's Labs & Rationales: cbc to monitor white count bep to monitor Cr level.
[2017-07-06 06:55] VITALS: BP 112/64
[2017-07-06 08:49] LABS: ABSOLUTE BASOPHIL COUNT 0 /CUMM (0.0-0.2); ABSOLUTE EOSINOPHIL COUNT 0 /CUMM (0.0-0.7); ABSOLUTE GRANULOCYTE CT 12.8 /CUMM (1.4-6.5); ABSOLUTE MONOCYTE COUNT 1.6 /CUMM (0.10-0.60); BASOPHIL % 0 % (0.0-2.0); EOSINOPHIL % 0.1 % (0-5); HEMATOCRIT 37.9 % (42-52); MEAN CORPUSCULAR HGB 28.7 PG (27.0-31.0); MEAN CORPUSCULAR HGB CONC 33.2 G/DL (33.0-37.0); MEAN CORPUSCULAR VOLUME 86.3 FL (80.0-94.0); MEAN PLATELET VOLUME 8.9 FL (7.4-10.4); PLATELET COUNT 191 /CUMM (130-400); RBC DISTRIBUTION WIDTH 14.4 % (11.5-14.5); WHITE BLOOD CELL COUNT 15.4 /CUMM (4.8-10.8)
--- NOTE | 2017-07-06 10:09 | PN- Att Addend ---
Attending Addendum Attending Brief Note Patient seen and examined. Lying comfortably in bed and not in any acute distress. Denies shortness of breath or chest pain. Does admit to productive cough. T-max of 100.5 overnight. Vital Signs Date Time Temp Pulse Resp B/P B/P Pulse O2 O2 Flow FiO2 Mean Ox Delivery Rate 07/06 0655 99.0 118 18 112/64 96 Room Air 07/06 0636 118 116/82 07/06 0017 100.1 118 20 116/82 94 07/05 2358 Room Air 07/05 2248 100.5 118 18 157/89 95 Room Air Room Air 07/06 2023 99.9 119 18 146/86 96 Room Air General appearance: Not in any distress. Alert and oriented 3 conversant appropriately Heart: S1-S2 irregular Lungs: Adequate entry bilaterally, no added sounds. Abdomen: Soft, nontender with normal bowel sounds Extremities: No pedal edema Skin: Intact with no rashes. Laboratory Tests 07/06/17 0610: Anion Gap 11, Estimated GFR 49 L, BUN/Creatinine Ratio 17.9, Lactic Acid 1.9, CBC w Diff Pending, WBC Pending, RBC Pending, Hgb Pending, Hct Pending, MCV Pending, MCH Pending, MCHC Pending, RDW Pending, Plt Count Pending, MPV Pending, Gran % Pending, Lymphocytes % Pending, Monocytes % Pending, Eosinophils % Pending, Basophils % Pending, Absolute Granulocytes Pending, Absolute Lymphocytes Pending, Absolute Monocytes Pending, Absolute Eosinophils Pending, Absolute Basophils Pending 07/06/17 0140: Lactic Acid 1.9 07/05/17 2114: Anion Gap 11, Estimated GFR 45 L, BUN/Creatinine Ratio 16.7, Glucose 110 H, Lactic Acid 1.4, Calcium 9.3, Total Bilirubin 1.2, AST 15 L, ALT 19 L, Alkaline Phosphatase 71, Troponin I < 0.01, Total Protein 6.7, Albumin 3.6, Globulin 3.1, Albumin/Globulin Ratio 1.2, CBC w Diff NO MAN DIFF REQ, RBC 4.82, MCV 86.1, MCH 27.8, MCHC 32.3 L, RDW 14.3, MPV 8.0, Gran % 83.0 H, Lymphocytes % 6.8 L, Monocytes % 9.4 H, Eosinophils % 0.3, Basophils % 0.5, Absolute Granulocytes 11.9 H, Absolute Lymphocytes 1.0 L, Absolute Monocytes 1.4 H, Absolute Eosinophils 0, Absolute Basophils 0.1 07/05/172037: Urine Color YEL, Urine Clarity TURBD H, Urine pH 6.0, Ur Specific [place] >= 1.030, Urine Protein 100 H, Urine Ketones NEG, Urine Nitrite POS H, Urine Bilirubin NEG, Urine Urobilinogen 0.2, Ur Leukocyte Esterase LARGE H, Ur Microscopic SEDIMENT EXAMINED, Urine RBC >75 H, Urine WBC PACKD H, Ur Epithelial Cells FEW, Urine Bacteria FEW H, Urine Mucus FEW, Urine Hemoglobin LARGE H, Urine Glucose NEG Microbiology 07/05 2236 NASOPHARYN: Influenza Virus A & B Rapid Smear - COMP 07/05 2208 BLOOD: Blood Culture - RECD 07/05 2113 BLOOD: Blood Culture - RECD 07/05 2037 URINE ROUT: Urine Culture - RECD Problems: 1. Urinary tract infection. 2. Abnormal EKG. 3. Atrial fibrillation. 4. Coronary artery disease Plan: -Continue antibiotic therapy with ceftriaxone. He grew coagulase-negative staph aureus back in June. He was also given a dose of vancomycin on admission. Recommend ID consultation for antibiotic stewardship. -Given his recent history of nephrolithiasis it is prudent to obtain a CT scan to rule out obstructive disease and pyelonephritis. -Obtain cardiology consultation on account of his abnormal EKG. Currently he denies any cardiac symptoms. He is hemodynamically stable. Repeat EKG this morning. Check second set of cardiac enzymes. -During his last admission his diuretic was discontinued. It appears this has been resumed in the outpatient setting and also dose of 10 mg every other day.
[2017-07-06 10:42] LABS: GRANULOCYTE % 83.1 % (42.2-75.2)
[2017-07-06 15:26] VITALS: BP 118/70
--- NOTE | 2017-07-06 16:18 | Cons- Infect Disease ---
General Information and HPI Consulting Request Date of Consult: 07/06/17 Requested By: Parish Singer MD Reason for Consult: abx advice Source of Information: patient, family, primary team Exam Limitations: clinical condition History of Present Illness: 82-year-old gentleman with past medical history of hypertension, A. fib not on anticoagulation, HLD, syncope, recurrent falls, CAD status post CABG, nephrolithiasis presented to [facility] on 07/05 with difficulty voiding and blood in the urine; noted by the family to have increased confusion. Patient denies dysuria, fever, chills, abdominal pain, groin pain, CVA tenderness, chest pain, shortness of breath, palpitation, fall, loss of consciousness. Per patient he voided only once previous day. Dry cough reported. Patient saw his urologist last week who did a renal ultrasound and found to have moderate left-sided hydroureteronephrosis obstructing 0.9 cm calcification in the proximal left ureter. Dr. Paige has planned lithotripsy next Saturday. Hence his aspirin was stopped since yesterday. Patient has been seen by Dr. Paige for hematuria since 2015. He underwent TURP, lithotripsy in November 2016. Patient was treated for UTI in March 2017. Allergies/Medications Allergies: Coded Allergies: Penicillins (HIVES - PER PT'S FAMILY 11/04/16) meperidine (From Demerol) (NAUSEA / VOMITING 11/07/16) Home Med List: Ascorbic Acid (Vitamin C) 1,000 MG TABLET 2,000 MG PO BID IMMUNITY (Reported) Aspirin (Ecotrin*) 81 MG TABLET.DR 1 TAB PO DAILY HEART HEALTH (Reported) Cholecalciferol (Vitamin D3) (Vitamin D) 5,000 UNIT TABLET 1 TAB PO DAILY SUPPLEMENT (Reported) Cyanocobalamin/Cobamamide (B-12 5,000 Mcg Sublingual Tab) 5,000 MCG-100 MCG TAB.SUBL 5,000 MCG SL DAILY SUPPLEMENT (Reported) Fesoterodine Fumarate (Toviaz) 8 MG TAB.ER.24H 1 TAB PO DAILY BLADDER ( Reported) Furosemide 20 MG TABLET 0.5 TAB PO EOD DIURETIC (Reported) [LION'S NATHALIE] TAB 300 MG PO BID HEALTH SUPPLEMENT (Reported) Metoprolol Succ XL (Toprol XL) 25 MG TAB 1 TAB PO DAILY A.fib Mvi, Adult No.2 Without Vit K (M.v.i.-12) 200-600/10 VIAL 1 TAB PO DAILY VITAMIN SUPPORT (Reported) Nitrofurantoin Monohyd/M-Cryst (Nitrofurantoin [place]-Mcr 100 MG) (Unknown Strength) CAPSULE (Unknown Dose) PO BID UNKNOWN (Reported) Oxybutynin Chloride 5 MG TABLET 1 TAB PO BID BLADDER (Reported) Red Yeast Rice 600 MG CAPSULE 1 TAB PO BID HEALTH SUPPLEMENT (Reported) Current Medications: Current Medications Sig/Graciela Start time Last Medication Dose Route Stop Time Status Admin Acetaminophen 650 MG Q6P PRN 07/06 0245 AC PO Acetaminophen 0 .STK-MED ONE 07/05 2319 DC IV Acetaminophen 1,000 MG ONCE ONE 07/05 2315 DC 07/05 N/A 1 UNIT IV 07/05 2329 2324 Ceftriaxone Sodium 1,000 MG DAILY 07/06 1000 AC 07/06 IV 0804 Ceftriaxone Sodium 0 .STK-MED ONE 07/05 2208 DC .ROUTE Ceftriaxone Sodium 1,000 MG ONCE ONE 07/05 2130 DC 07/05 IV 07/05 2131 2217 Cholecalciferol 1,000 IU DAILY 07/06 1000 AC 07/06 PO 0804 Furosemide 10 MG Q48 07/06 1000 AC 07/06 PO 0804 Heparin Sodium 5,000 UNIT Q8 07/06 0400 AC 07/06 (Porcine) SC 1446 Ketorolac 15 MG Q6P PRN 07/06 0245 AC Tromethamine IV 07/11 0244 Metoprolol Succinate 25 MG DAILY 07/06 1000 AC 07/06 PO 0636 Multivitamins 1 TAB DAILY 07/06 1000 AC 07/06 PO 0804 Oxybutynin Chloride 5 MG BID 07/06 0400 AC 07/06 PO 0320 Sodium Chloride 1,000 ML Q13H 07/06 0115 AC 07/06 IV 07/07 0014 1151 Vancomycin HCl 1,000 MG ONCE ONE 07/06 0100 DC 07/06 Dextrose/Water 250 ML IV 07/06 0159 0320 Past History Travel History Traveled to [place] past 21 day No Medical History Blood Transfusion Hx: No Neurological: NONE EENT: NONE Cardiovascular: AFIB, CAD, hypertension, hyperlipidemia, syncope, QUAD BIPASS Respiratory: NONE Gastrointestinal: SML BOWEL RESECTION HERNIA Hepatic: NONE Renal: benign prost hyperplasia, hematuria, KIDNEY STONES Musculoskeletal: SCOLIOSIS ARTHRITIS Psychiatric: NONE Endocrine: NONE Blood Disorders: NONE Cancer(s): NONE 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 Home Who Do You Live With? spouse, child Services at Home: Home Health Aide Primary Language: Uzbek Smoking Status: Never Smoked ETOH Use: occasional use Illicit Drug Use: denies illicit drug use Functional Ability ADLs Independent: dressing, eating, toileting, bathing. Ambulation: cane, walker IADLs Needs Assist: shopping, housework, finances, food prep, telephone, transportation, medication admin. ECHO Results (as available) EF% 60 Review of Systems Comments 12 points reviewed as noted, otherwise negative. Exam & Diagnostic Data Last 24 Hrs of Vital Signs/I&O Vital Signs Date Time Temp Pulse Resp B/P B/P Pulse O2 O2 Flow FiO2 Mean Ox Delivery Rate 07/06 1526 98.7 64 18 118/70 93 07/06 0655 99.0 118 18 112/64 96 Room Air 07/06 0636 118 116/82 07/06 0017 100.1 118 20 116/82 94 / 2358 Room Air 07/05 2248 100.5 118 18 157/89 95 Room Air Room Air 07/05 2024 99.9 119 18 146/86 96 Room Air Intake & Output 07/06 1600 07/06 0800 07/06 0000 Intake Total 1100 850 Output Total 400 350 Balance 700 500 Intake, IV 800 650 Intake, Oral 300 200 Output, Urine 400 350 Patient 172 lb 180 lb Weight Weight Bed scale Reported by Patient Measurement Method Physical Exam Other Physical Findings: General appearance: Not in any distress. T max 100.5F Neuro: Alert and oriented 3 conversant appropriately Heart: S1-S2 irregular Lungs: Adequate entry bilaterally, no added sounds. Abdomen: Soft, nontender with normal bowel sounds Extremities: No pedal edema Skin: Intact with no rashes. Last 24 Hours of Lab Results: Laboratory Tests 07/06 07/06 07/06 1430 0610 0140 Chemistry Sodium (137 - 145 mmol/L) 140 Potassium (3.5 - 5.1 mmol/L) 3.8 Chloride (98 - 107 mmol/L) 107 Carbon Dioxide (22 - 30 mmol/L) 23 Anion Gap (5 - 16) 11 BUN (9 - 20 mg/dL) 25 H Creatinine (0.7 - 1.2 mg/dL) 1.4 H Estimated GFR (>60 ml/min) 49 L BUN/Creatinine Ratio (7 - 25 %) 17.9 Lactic Acid (0.7 - 2.1 mmol/L) 1.9 1.9 Troponin I Pending Hematology CBC w Diff NO MAN DIFF REQ WBC (4.8 - 10.8 /CUMM) 15.4 H RBC (4.70 - 6.10 /CUMM) 4.40 L Hgb (14.0 - 18.0 G/DL) 12.6 L Hct (42 - 52 %) 37.9 L MCV (80.0 - 94.0 FL) 86.3 MCH (27.0 - 31.0 PG) 28.7 MCHC (33.0 - 37.0 G/DL) 33.2 RDW (11.5 - 14.5 %) 14.4 Plt Count (130 - 400 /CUMM) 191 MPV (7.4 - 10.4 FL) 8.9 Gran % (42.2 - 75.2 %) 83.1 H Lymphocytes % (20.5 - 51.1 %) 6.6 L Monocytes % (1.7 - 9.3 %) 10.2 H Eosinophils % (0 - 5 %) 0.1 Basophils % (0.0 - 2.0 %) 0 Absolute Granulocytes (1.4 - 6.5 /CUMM) 12.8 H Absolute Lymphocytes (1.2 - 3.4 /CUMM) 1.0 L Absolute Monocytes (0.10 - 0.60 /CUMM) 1.6 H Absolute Eosinophils (0.0 - 0.7 /CUMM) 0 Absolute Basophils (0.0 - 0.2 /CUMM) 0 07/05 Chemistry Sodium (137 - 145 mmol/L) 139 Potassium (3.5 - 5.1 mmol/L) 4.0 Chloride (98 - 107 mmol/L) 106 Carbon Dioxide (22 - 30 mmol/L) 22 Anion Gap (5 - 16) 11 BUN (9 - 20 mg/dL) 25 H Creatinine (0.7 - 1.2 mg/dL) 1.5 H Estimated GFR (>60 ml/min) 45 L BUN/Creatinine Ratio (7 - 25 %) 16.7 Glucose (65 - 99 mg/dL) 110 H Lactic Acid (0.7 - 2.1 mmol/L) 1.4 Calcium (8.4 - 10.2 mg/dL) 9.3 Total Bilirubin (0.2 - 1.3 mg/dL) 1.2 AST (17 - 59 U/L) 15 L ALT (21 - 72 U/L) 19 L Alkaline Phosphatase (< 127 U/L) 71 Troponin I (<0.11 ng/ml) < 0.01 Total Protein (6.3 - 8.2 g/dL) 6.7 Albumin (3.5 - 5.0 g/dL) 3.6 Globulin (1.9 - 4.2 gm/dL) 3.1 Albumin/Globulin Ratio (1.1 - 2.2 %) 1.2 Hematology CBC w Diff NO MAN DIFF REQ WBC (4.8 - 10.8 /CUMM) 14.4 H RBC (4.70 - 6.10 /CUMM) 4.82 Hgb (14.0 - 18.0 G/DL) 13.4 L Hct (42 - 52 %) 41.5 L MCV (80.0 - 94.0 FL) 86.1 MCH (27.0 - 31.0 PG) 27.8 MCHC (33.0 - 37.0 G/DL) 32.3 L RDW (11.5 - 14.5 %) 14.3 Plt Count (130 - 400 /CUMM) 222 MPV (7.4 - 10.4 FL) 8.0 Gran % (42.2 - 75.2 %) 83.0 H Lymphocytes % (20.5 - 51.1 %) 6.8 L Monocytes % (1.7 - 9.3 %) 9.4 H Eosinophils % (0 - 5 %) 0.3 Basophils % (0.0 - 2.0 %) 0.5 Absolute Granulocytes (1.4 - 6.5 /CUMM) 11.9 H Absolute Lymphocytes (1.2 - 3.4 /CUMM) 1.0 L Absolute Monocytes (0.10 - 0.60 /CUMM) 1.4 H Absolute Eosinophils (0.0 - 0.7 /CUMM) 0 Absolute Basophils (0.0 - 0.2 /CUMM) 0.1 Urines Urine Color (YEL,AMB,STR) YEL Urine Clarity (CLEAR) TURBD H Urine pH (5.0 - 8.0) 6.0 Ur Specific [place] (1.001 - 1.035) >= 1.030 Urine Protein (NEG,<30 MG/DL) 100 H Urine Ketones (NEG) NEG Urine Nitrite (NEG) POS H Urine Bilirubin (NEG) NEG Urine Urobilinogen (0.1 - 1.0 EU/dl) 0.2 Ur Leukocyte Esterase (NEG) LARGE H Ur Microscopic SEDIMENT EXAMINED Urine RBC (0 - 5 /HPF) >75 H Urine WBC (0 - 2 /HPF) PACKD H Ur Epithelial Cells (NONE,FEW) FEW Urine Bacteria (NEG/NONE) FEW H Urine Mucus (FEW,NONE) FEW Urine Hemoglobin (NEG) LARGE H Urine Glucose (N MG/DL) NEG Last 24 Hours of Lanre Results: SPEC #: [id number] REYES: 07/05/17 STATUS: RES RECD: 07/05/[address]: Ino AHUMADA,Siddhartha SOURCE: URINE ROUT ENTR: 07/05/[address]: Pelon AHUMADA,Rhett Gordon SPDESC: URIN CLEAN ORDERED: URINE CULTURE Procedure Result > URINE CULTURE Preliminary 07/06/17 NO GROWTH AFTER 1 DAY Diagnostic Data Recent Imaging Findings: SERVICE DATE: 07/05/17 EXAM TYPE: CAT - CT HEAD WO IV CONTRAST EXAMINATION: CT HEAD WITHOUT CONTRAST CLINICAL INFORMATION: Acute confusion. Altered mental status. COMPARISON: 06/07/2017. TECHNIQUE: Contiguous axial images of the brain were obtained without IV contrast. DLP: 621 mGy-cm. FINDINGS: There are no pathologic extra-axial fluid collections. The lateral, third, fourth ventricles are markedly dilated, though stable and concordant with the appearance of the sulci. There is no evidence for acute intraparenchymal hemorrhage or infarct. There is neither mass nor mass effect. There is no shift of midline structures. The paranasal sinuses and mastoid air cells are clear. There are no osseous lesions. IMPRESSION: No evidence for acute intracranial injury. Stable ventriculomegaly indicative of cerebral atrophy. DICTATED BY: Jonathan Phillips MD DATE/TIME DICTATED:07/05/172146 [employer]HA[employer] EMISSIONS INSPECTOR:AVELINO DATE/TIME TRANSCRIBED:07/05/172146 CONFIDENTIAL, DO NOT COPY WITHOUT APPROPRIATE AUTHORIZATION. COMPARISON: KUB 07/03/2017. CT abdomen and pelvis 08/14/2015. TECHNIQUE: Real-time imaging of the kidneys and bladder. FINDINGS: RIGHT KIDNEY: 10.5 x 5.0 x 4.8 cm (SAG x AP x TRV). The kidney is normal in size, contour, and echogenicity. Renal cortical thickness is normal. No calculi or focal parenchymal lesions. No hydronephrosis. LEFT KIDNEY: 11.7 x 6.7 x 5.6 cm (SAG x AP x TRV). The kidney is normal in size, contour, and echogenicity. Renal cortical thickness is normal. No focal parenchymal lesions. There is moderate hydronephrosis seen with dilatation of the calyces and the renal pelvis. In addition, in the lower pole of the left kidney, a 0.7 x 0.5 x 0.4 cm echogenic shadowing calcification is seen. This is found to be radiopaque on prior KUB from 07/03/2017. In addition, a 0.9 cm calcification is seen on prior KUB at the level of the left L3 transverse process, suspicious for an obstructing proximal left ureteral calcification. BLADDER: Well distended and normal. Bilateral ureteral jets are demonstrated. Prevoid bladder volume is 628 mL. Postvoid bladder volume is 436 mL. ADDITIONAL FINDINGS: Prostate gland is enlarged and only seen in outline, measuring approximately 6.0 x 5.9 x 7.5 cm. In region of the median lobe of the prostate gland, a 2.3 x 1.9 x 2.8 cm lobulated masslike area is also seen impressing upon the bladder base, most likely representing prostatic hypertrophy. A bladder mass is felt to be less likely. Noncontrast enhanced CT of the abdomen and pelvis from 08/14/2015 had also shown a markedly enlarged prostate gland. IMPRESSION: 1. Interval development of moderate left-sided hydroureteronephrosis. In reviewing prior KUB, findings are likely related to an obstructing 0.9 cm calcification in the proximal left ureter. 2. Nonobstructing lower pole left renal calcification. 3. No definite right renal calculi. 4. Enlarged bladder with large post void residual. This is most likely related to an enlarged heterogeneous prostate gland with prominent median lobe extension into the bladder base. However, close clinical correlation is requested. Cystoscopic correlation may be warranted to exclude a bladder mass. DICTATED BY: Rosalia Costa MD DATE/TIME DICTATED:07/04/17733 EXHAUST EMISSIONS INSPECTOR:AVELINO DATE/TIME TRANSCRIBED:07/04/17733 Assessment/Plan Assessment/Plan Impression: 82-year-old gentleman with past medical history of hypertension, A. fib not on anticoagulation, HLD, syncope, recurrent falls, CAD status post CABG came to [facility] on 07/05 w/ MSC. Eval UTI; UC NGTD, UA w/ significant pyuria; BC pnd Eval urinary retention; BPH/question bladder mass Recent US reveakled moderate left-sided hydroureteronephrosis. []related to an obstructing 0.9 cm calcification in the proximal left ureter. Leukocytosis Suggestion: 1. F/U urology recom; consider Yanes cath if PVR elevated. repeat UA/UC in am. 2. Ceftriaxone 1 gm daily empirically. Call if spiking fever 3. CXR eval pneumonia if resp sx. 4. Trend BMP/CBC. Consult Acknowledgment - Thank you for your consult request.
--- NOTE | 2017-07-06 16:19 | CT SCAN REPORT ---
EXAMINATION: CT ABDOMEN AND PELVIS WITHOUT CONTRAST CLINICAL INFORMATION: Rule out pyelonephrosis/hydronephrosis. Acute kidney injury. COMPARISON: CT abdomen 08/14/2015. TECHNIQUE: Multidetector volumetric imaging was performed from the superior aspect of the liver through the pubic symphysis. Sagittal and coronal reformatted images were obtained on the technologist's workstation. DLP: 918 mGy-cm FINDINGS: LUNG BASES: Mild subsegmental atelectasis at the lung bases. No pleural effusion. LIVER, GALLBLADDER, AND BILIARY TREE: The liver is normal in size, shape, and attenuation. No focal hepatic lesion or biliary ductal dilatation is present. Cholelithiasis without evidence of cholecystitis. PANCREAS: Unremarkable. SPLEEN: Unremarkable. ADRENAL GLANDS: Unremarkable. KIDNEYS AND URETERS: There is left-sided hydronephrosis extending to a 1 cm ureteral calculus at the L3-L4 level. The calculus measures 1400 Hounsfield units, and is not consistent with a uric acid composition. There are a couple other subcentimeter nonobstructing left renal calculi. No suspicious renal mass. Asymmetric left perinephric stranding. BLADDER: Unremarkable. GASTROINTESTINAL TRACT: Bowel gas pattern is nonobstructive. No evidence of acute bowel inflammation. The appendix is normal. There are a few scattered clonic diverticula. ABDOMINAL WALL: Surgical materials in the left inguinal region. LYMPH NODES: No adenopathy. VASCULAR: Diffuse atherosclerotic calcification including coronary artery calcification. PELVIC VISCERA: Prominent prostatomegaly. Seminal vesicles are unremarkable. No free pelvic fluid. OSSEOUS STRUCTURES: There is an age-indeterminate nondisplaced fracture of the right femoral neck. Multilevel degenerative changes of the spine, including grade 2 anterolisthesis of L4 on L5. Convex leftward lumbar scoliosis. Sternotomy wires. IMPRESSION: 1. An obstructing left ureteral 1 cm calculus at the L3-L4 level with proximal hydroureteronephrosis. Cannot exclude an infected obstructed left genitourinary system. Please correlate with urinalysis. 2. A couple other subcentimeter nonobstructing calculi in the left kidney. 3. Age-indeterminate nondisplaced right femoral neck fracture. Please correlate for any corresponding clinical symptoms. 4. Significant prostatomegaly. 5. Other findings as above.
--- NOTE | 2017-07-06 18:39 | Event Note ---
Event Note Event Note: S: Findings from: CAT - CT ABD & PELVIS W/O IV CONTRAST An obstructing left ureteral 1 cm calculus at the L3-L4 level with proximal hydroureteronephrosis. B: Patient is a 82-year-old male with significant past history of multiple episodes of nephrolithiasis, BPH status post TURP, asymptomatic pyuria, recent evidence of recurrent nephrolithiasis presented with abrupt change in mental status, currently on telemetry being treated for acute UTI. A/R: Urology was consulted this morning and recommended imaging studies. Upon confirmation of findings (mentioned above) it was recommended by Dr Peter that the patient is to be taken to the OR. This was to place a stent at approximately 5 PM. Patient was updated and daughter updated. 6.40 PM: Spoke with Dr Peter, who mentioned that the placement of a was not successful due to BPH. He recommends IR guided nephrostomy. States that this can wait till the a.m. and keep a close eye on the patient overnight. Will sign out to the PM team. Attending notified.
--- NOTE | 2017-07-06 19:04 | Operative Report ---
Operative/Inv Procedure Report Surgery Date: 07/06/17 Name of Procedure: Cystoscopy and attempted left ureteral stent placement Pre-Operative Diagnosis: UTI, left [place], left ureteral calculus, suspected urosepsis. Post-Operative Diagnosis: Same Estimated Blood Loss: scant Surgeon/Shadowgraph Scale Operator: Parish Singer MD Anesthesia: moderate sedation Drains: 20 Grenadian Yanes catheter with 10 mL in the balloon Operative Indication: Patient presented with altered mental status. Was found to have an elevated white count and significant pyuria. CT scan revealed left hydronephrosis with a 1 cm proximal left ureteral calculus. I reviewed options at length with the patient, and he was agreeable undergo left double-J stent placement. He was made aware of the complications/indications thereof including but not inclusive of , heart attack, stroke, hemorrhage requiring transfusion, definite need for further procedures, as this will not resolve the stone. He is aware the plan is to unobstruct the left kidney allow normal function, and resolution of his suspected urinary tract infection. Patient was agreeable to undergo the procedure. Operative/Procedure Note Note: After uneventful administration of intravenous sedation with close anesthetic monitoring patient was placed in the lithotomy position and prepped and draped in a sterile fashion. At this point a 22 Grenadian cystoscope was passed per urethra and into the bladder urethra was noted to be normal. The prostate showed evidence of previous resection, with nodular regrowth. I was able to get into the bladder. Thorough inspection of the bladder did not reveal any mucosal lesions or stones. The left orifice was identified and was cannulated with an open-ended catheter. I was unable to pass a guidewire up into the kidney. There appeared to be significant J hooking likely related to his BPH. Despite various attempts at maneuvers, I was unable to pass a guidewire up into the ureter. And was never able to approach the left ureteral calculus. At this point the procedure was terminated, and a 20 Gren[place] Yanes catheter was passed per urethra and into the bladder. 10 mL were placed in the balloon. The patient was awakened and returned to recovery room in good condition. I discussed the situation with the house resident, and recommended the patient undergo a left nephrostomy placement shortly. Findings: J hooking of his distal left ureter, preventing passage of a Glidewire for attempted stenting. He is large proximal left ureteral calculus was evident on fluoroscopy, but was never approached. Discharge Disposition: PACU CC: Lucrecia AHUMADA,Juan A Paige MD,Esa
--- NOTE | 2017-07-06 21:07 | Cons- Urology ---
General Information and HPI Consulting Request Date of Consult: 07/06/17 Requested By: Parish Singer MD Reason for Consult: Left hydronephrosis from left ureteral calculus, with urosepsis. Source of Information: patient, family, old records Exam Limitations: no limitations History of Present Illness: Patient is an 83-year-old gentleman with a history of kidney stones and BPH. He is known to Dr. Paige, having been seen recently and found to have left hydronephrosis from a 1 cm proximal left ureteral calculus. He presented to the emergency room yesterday complaining of disorientation. Denies any flank pain or fever/chills at the time. He had recently had dysuria, and started on nitrofurantoin by his primary physician. Upon presentation to the emergency room, he was found to have an elevated white count with significant pyuria. CT scan confirmed left hydronephrosis from a large proximal left ureteral calculus. Therefore, I was consulted. Allergies/Medications Allergies: Coded Allergies: Penicillins (HIVES - PER PT'S FAMILY 11/04/16) meperidine (From Demerol) (NAUSEA / VOMITING 11/07/16) Home Med List: Ascorbic Acid (Vitamin C) 1,000 MG TABLET 2,000 MG PO BID IMMUNITY (Reported) Aspirin (Ecotrin*) 81 MG TABLET.DR 1 TAB PO DAILY HEART HEALTH (Reported) Cholecalciferol (Vitamin D3) (Vitamin D) 5,000 UNIT TABLET 1 TAB PO DAILY SUPPLEMENT (Reported) Cyanocobalamin/Cobamamide (B-12 5,000 Mcg Sublingual Tab) 5,000 MCG-100 MCG TAB.SUBL 5,000 MCG SL DAILY SUPPLEMENT (Reported) Fesoterodine Fumarate (Toviaz) 8 MG TAB.ER.24H 1 TAB PO DAILY BLADDER ( Reported) Furosemide 20 MG TABLET 0.5 TAB PO EOD DIURETIC (Reported) [LION'S NATHALIE] TAB 300 MG PO BID HEALTH SUPPLEMENT (Reported) Metoprolol Succ XL (Toprol XL) 25 MG TAB 1 TAB PO DAILY A.fib Mvi, Adult No.2 Without Vit K (M.v.i.-12) 200-600/10 VIAL 1 TAB PO DAILY VITAMIN SUPPORT (Reported) Nitrofurantoin Monohyd/M-Cryst (Nitrofurantoin [place]-Mcr 100 MG) (Unknown Strength) CAPSULE (Unknown Dose) PO BID UNKNOWN (Reported) Oxybutynin Chloride 5 MG TABLET 1 TAB PO BID BLADDER (Reported) Red Yeast Rice 600 MG CAPSULE 1 TAB PO BID HEALTH SUPPLEMENT (Reported) Current Medications: Current Medications Sig/Graciela Start time Last Medication Dose Route Stop Time Status Admin Acetaminophen 650 MG Q6P PRN 07/06 0245 AC PO Acetaminophen 0 .STK-MED ONE 07/05 2319 DC IV Acetaminophen 1,000 MG ONCE ONE 07/05 2315 DC 07/05 N/A 1 UNIT IV 07/05 2329 2324 Ceftriaxone Sodium 1,000 MG DAILY 07/06 1000 AC 07/06 IV 0804 Ceftriaxone Sodium 0 .STK-MED ONE 07/05 2208 DC .ROUTE Ceftriaxone Sodium 1,000 MG ONCE ONE 07/05 2130 DC 07/05 IV 07/05 2131 2217 Cholecalciferol 1,000 IU DAILY 07/06 1000 AC 07/06 PO 0804 Furosemide 10 MG Q48 07/06 1000 AC 07/06 PO 0804 Heparin Sodium 5,000 UNIT Q8 07/06 0400 AC 07/06 (Porcine) SC 1446 Ketorolac 15 MG Q6P PRN 07/06 0245 AC Tromethamine IV 07/11 0244 Metoprolol Succinate 25 MG DAILY 07/06 1000 AC 07/06 PO 0636 Multivitamins 1 TAB DAILY 07/06 1000 AC 07/06 PO 0804 Oxybutynin Chloride 5 MG BID 07/06 0400 AC 07/06 PO 0320 Sodium Chloride 1,000 ML Q13H 07/06 0115 AC 07/06 IV 07/07 0014 1151 Vancomycin HCl 1,000 MG ONCE ONE 07/06 0100 DC 07/06 Dextrose/Water 250 ML IV 07/06 0159 0320 Past History Medical History Blood Transfusion Hx: No Neurological: NONE EENT: NONE Cardiovascular: AFIB, CAD, hypertension, hyperlipidemia, syncope, QUAD BIPASS Respiratory: NONE Gastrointestinal: SML BOWEL RESECTION HERNIA Hepatic: NONE Renal: benign prost hyperplasia, hematuria, KIDNEY STONES Musculoskeletal: SCOLIOSIS ARTHRITIS Psychiatric: NONE Endocrine: NONE Blood Disorders: NONE Cancer(s): NONE GRIPS/Reproductive: NONE Surgical History Pertinent Surgical History: CABG, HERNIA, SB RESECTION Family History Relations & Conditions If Any: Relation not specified for: *No pertinent family history Psychosocial History Where Do You Live? Home Who Do You Live With? spouse, child Services at Home: Home Health Aide Primary Language: Berm[place]ian Smoking Status: Never Smoked ETOH Use: occasional use Illicit Drug Use: denies illicit drug use Functional Ability ADLs Independent: dressing, eating, toileting, bathing. Ambulation: cane, walker IADLs Needs Assist: shopping, housework, finances, food prep, telephone, transportation, medication admin. Review of Systems Review of Systems: See HPI Review of Systems Constitutional: Denies: no symptoms. EENTM: Denies: no symptoms. Genitourinary: Reports: dysuria. Exam & Diagnostic Data Vital Signs and I&O Vital Signs Date Time Temp Pulse Resp B/P B/P Pulse O2 O2 Flow FiO2 Mean Ox Delivery Rate 07/06 1526 98.7 64 18 118/70 93 07/06 0655 99.0 118 18 112/64 96 Room Air 07/06 0636 118 116/82 07/06 0017 100.1 118 20 116/82 94 /02 2358 Room Air 07/05 2248 100.5 118 18 157/89 95 Room Air Room Air Intake & Output 07/06 1600 07/06 0800 07/06 0000 07/05 1600 07/05 0800 07/05 0000 Intake Total 1100 850 Output Total 400 350 Balance 700 500 Intake, IV 800 650 Intake, Oral 300 200 Output, Urine 400 350 Patient 172 lb 180 lb Weight Weight Bed scale Reported by Patient Measurement Method Physical Exam General Appearance: well developed/nourished, no apparent distress, alert, awake , comfortable Head: normal appearance Other Physical Findings: On exam, his abdomen is soft and nontender. No palpable masses. No CVA tenderness. His bladder is not distended. Last 24 Hours of Labs: Laboratory Tests 07/06 07/06 07/06 1430 0610 0140 Chemistry Sodium (137 - 145 mmol/L) 140 Potassium (3.5 - 5.1 mmol/L) 3.8 Chloride (98 - 107 mmol/L) 107 Carbon Dioxide (22 - 30 mmol/L) 23 Anion Gap (5 - 16) 11 BUN (9 - 20 mg/dL) 25 H Creatinine (0.7 - 1.2 mg/dL) 1.4 H Estimated GFR (>60 ml/min) 49 L BUN/Creatinine Ratio (7 - 25 %) 17.9 Lactic Acid (0.7 - 2.1 mmol/L) 1.9 1.9 Troponin I (<0.11 ng/ml) < 0.01 Hematology CBC w Diff NO MAN DIFF REQ WBC (4.8 - 10.8 /CUMM) 15.4 H RBC (4.70 - 6.10 /CUMM) 4.40 L Hgb (14.0 - 18.0 G/DL) 12.6 L Hct (42 - 52 %) 37.9 L MCV (80.0 - 94.0 FL) 86.3 MCH (27.0 - 31.0 PG) 28.7 MCHC (33.0 - 37.0 G/DL) 33.2 RDW (11.5 - 14.5 %) 14.4 Plt Count (130 - 400 /CUMM) 191 MPV (7.4 - 10.4 FL) 8.9 Gran % (42.2 - 75.2 %) 83.1 H Lymphocytes % (20.5 - 51.1 %) 6.6 L Monocytes % (1.7 - 9.3 %) 10.2 H Eosinophils % (0 - 5 %) 0.1 Basophils % (0.0 - 2.0 %) 0 Absolute Granulocytes (1.4 - 6.5 /CUMM) 12.8 H Absolute Lymphocytes (1.2 - 3.4 /CUMM) 1.0 L Absolute Monocytes (0.10 - 0.60 /CUMM) 1.6 H Absolute Eosinophils (0.0 - 0.7 /CUMM) 0 Absolute Basophils (0.0 - 0.2 /CUMM) 0 03/02 2114 Chemistry Sodium (137 - 145 mmol/L) 139 Potassium (3.5 - 5.1 mmol/L) 4.0 Chloride (98 - 107 mmol/L) 106 Carbon Dioxide (22 - 30 mmol/L) 22 Anion Gap (5 - 16) 11 BUN (9 - 20 mg/dL) 25 H Creatinine (0.7 - 1.2 mg/dL) 1.5 H Estimated GFR (>60 ml/min) 45 L BUN/Creatinine Ratio (7 - 25 %) 16.7 Glucose (65 - 99 mg/dL) 110 H Lactic Acid (0.7 - 2.1 mmol/L) 1.4 Calcium (8.4 - 10.2 mg/dL) 9.3 Total Bilirubin (0.2 - 1.3 mg/dL) 1.2 AST (17 - 59 U/L) 15 L ALT (21 - 72 U/L) 19 L Alkaline Phosphatase (< 127 U/L) 71 Troponin I (<0.11 ng/ml) < 0.01 Total Protein (6.3 - 8.2 g/dL) 6.7 Albumin (3.5 - 5.0 g/dL) 3.6 Globulin (1.9 - 4.2 gm/dL) 3.1 Albumin/Globulin Ratio (1.1 - 2.2 %) 1.2 Hematology CBC w Diff NO MAN DIFF REQ WBC (4.8 - 10.8 /CUMM) 14.4 H RBC (4.70 - 6.10 /CUMM) 4.82 Hgb (14.0 - 18.0 G/DL) 13.4 L Hct (42 - 52 %) 41.5 L MCV (80.0 - 94.0 FL) 86.1 MCH (27.0 - 31.0 PG) 27.8 MCHC (33.0 - 37.0 G/DL) 32.3 L RDW (11.5 - 14.5 %) 14.3 Plt Count (130 - 400 /CUMM) 222 MPV (7.4 - 10.4 FL) 8.0 Gran % (42.2 - 75.2 %) 83.0 H Lymphocytes % (20.5 - 51.1 %) 6.8 L Monocytes % (1.7 - 9.3 %) 9.4 H Eosinophils % (0 - 5 %) 0.3 Basophils % (0.0 - 2.0 %) 0.5 Absolute Granulocytes (1.4 - 6.5 /CUMM) 11.9 H Absolute Lymphocytes (1.2 - 3.4 /CUMM) 1.0 L Absolute Monocytes (0.10 - 0.60 /CUMM) 1.4 H Absolute Eosinophils (0.0 - 0.7 /CUMM) 0 Absolute Basophils (0.0 - 0.2 /CUMM) 0.[address] scan, which reveals left hydronephrosis secondary to a large left proximal ureteral calculus. Assessment/Plan Assessment/Plan I discussed the situation at length with the patient, and with the house staff. He appears to have urosepsis with significant pyuria and a large left proximal ureteral calculus. Reviewed the alternatives, and I recommended he undergo stent placement. We reviewed the risks/benefits thereof and the certain need for further procedures to resolve his stone. He is aware that the procedure today will only unobstruct the kidney, allowing his hydronephrosis and urinary tract infection to resolve. He will need further procedures to take care of his stone. We reviewed this at length, and he verbalized good understanding of the situation, prior to signing consent. Consult Acknowledgment - Thank you for your consult request.
--- NOTE | 2017-07-06 22:42 | RADIOLOGY REPORT ---
EXAMINATION: XR ABDOMEN CLINICAL INDICATION: Intraoperative fluoroscopic image Findings and impression: Single intraoperative fluoroscopic images submitted.
[2017-07-06 23:00] VITALS: BP 114/62
[2017-07-07 06:00] VITALS: BP 136/78
[2017-07-07 08:26] LABS: PT 12.6 SEC (9.4-12.5); PTT 28 SEC (25-37)
--- NOTE | 2017-07-07 08:38 | PN- Housestaff ---
Subjective Follow-up For: Sepsis of urologic origin s/p nephrostomy tube ADRYAN Subjective: No complaints or acute events overnight. He denies right hip pain, SOB, palpitations, CP Review of Systems Constitutional: Reports: see HPI. Objective Last 24 Hrs of Vital Signs/I&O Vital Signs Date Time Temp Pulse Resp B/P B/P Pulse O2 O2 Flow FiO2 Mean Ox Delivery Rate 07/07 0814 58 136/78 07/07 0600 98.3 58 20 136/78 96 07/06 2300 97.9 70 20 114/62 96 07/06 1526 98.7 64 18 118/70 93 Intake & Output 07/07 1600 07/07 0800 07/07 0000 Intake Total 400 Output Total 250 100 Balance -250 300 Intake, IV 200 Intake, Oral 200 Output, Urine 250 100 Patient 184 lb 187 lb Weight Weight Bed scale Bed scale Measurement Method Physical Exam General Appearance: Alert, Oriented X3, Cooperative, No Acute Distress Cardiovascular: Regular Rate, Normal S1, Normal S2, No Murmurs Lungs: Clear to Auscultation, Normal Air Movement Abdomen: Normal Bowel Sounds, Soft, No Tenderness Extremities: No Edema, full ROM of RLE at hip and knee Current Medications: Current Medications Sig/Graciela Start time Last Medication Dose Route Stop Time Status Admin Acetaminophen 650 MG Q6P PRN 07/06 0245 AC PO Ceftriaxone Sodium 1,000 MG DAILY 07/06 1000 AC 07/07 IV 0814 Cholecalciferol 1,000 IU DAILY 07/06 1000 AC 07/06 PO 0804 Fentanyl Citrate 0 .STK-MED ONE 07/07 0831 DC .ROUTE Fentanyl Citrate 100 MCG .STK-MED ONE 07/06 1732 DC IM 07/06 1733 Furosemide 10 MG Q48 07/06 1000 AC 07/06 PO 0804 Heparin Sodium 5,000 UNIT Q8 07/06 0400 DC 07/06 (Porcine) SC 07/07 0005 2143 Ketorolac 15 MG Q6P PRN 07/06 0245 DC Tromethamine IV 07/11 0244 Lidocaine 0 .STK-MED ONE 07/07 0853 DC .ROUTE Metoprolol Succinate 25 MG DAILY 07/06 1000 AC 07/07 PO 0814 Midazolam HCl 0 .STK-MED ONE 07/07 0931 DC .ROUTE Multivitamins 1 TAB DAILY 07/06 1000 AC 07/06 PO 0804 Oxybutynin Chloride 5 MG BID 07/06 0400 AC 07/07 PO 0814 Sodium Chloride 1,000 ML Q13H 07/06 0115 DC 07/06 IV 07/07 0014 1151 Vancomycin HCl 1,250 MG ONCE ONE 07/07 0500 DC 07/07 Dextrose/Water 250 ML IV 07/07 0559 0648 Last 24 Hrs of Lab/Lanre Results Last 24 Hrs of Labs/Mics: Laboratory Tests 07/07/17 0640: Anion Gap 12, Estimated GFR 58 L, BUN/Creatinine Ratio 20.8, PT 12.6 H, INR 1.15, APTT 28, CBC w Diff NO MAN DIFF REQ, RBC 3.96 L, MCV 85.5, MCH 28.7, MCHC 33.6, RDW 14.4, MPV 9.3, Gran % 81.3 H, Lymphocytes % 9.3 L, Monocytes % 8.3, Eosinophils % 1.1, Basophils % 0, Absolute Granulocytes 9.9 H, Absolute Lymphocytes 1.1 L, Absolute Monocytes 1.0 H, Absolute Eosinophils 0.1, Absolute Basophils 0 07/07/17 0230: Random Vancomycin < 5.0 07/06/17 1430: Troponin I < 0.01 Microbiology 07/07 1000 URINE OR: Urine Culture - RECD 07/07 1000 URINE ROUT: Urine Culture - CAN Cancelled: STEAM HAND ERROR 07/06 1830 URINE ROUT: Urine Culture - RES Assessment/Plan Assessment: 82-year-old male with significant past history of multiple episodes of nephrolithiasis, BPH status post TURP, asymptomatic pyuria, recent evidence of recurrent nephrolithiasis presented with abrupt change in mental status with elevated temperature Problem list: ADRYAN Sepsis of urologic origin s/p nephrostomy tube POD 0 Right femoral fracture Patient reported he had a fall back in June and receives weekly home physical therapy. He reports he was picking something up off the floor and fell on his right side. He denies LOC, SOB, CP, pain. He normally ambulates with a rollator and able to perform ADLs. He lives at home with his sister. Plan: * Ortho recommendations appreciated * Urology recommendations appreciated * Cardiology recommendations appreciated * ID recommendations appreciated * Monitor renal function * Monitor and replete potassium as needed * Gram-positive cocci in clusters 2 * Repeat blood cultures 2 * Administer vancomycin 1.5 gm x 1 dose * Urine cultures sent from OR * Keep tube open to gravity bag * Ortho consulted-Dr. Euceda * X-ray hip-3 views: AP neutral, lateral rotation R hip, cross table-R lateral * MRI R hip Problem List: 1. UTI (urinary tract infection) 2. ADRYAN (acute kidney injury) Pain Ratin Pain Location: NA Pain Goal: Remain pain free Pain Plan: NA Tomorrow's Labs & Rationales: CBC for white count BEP for renal function and potassium
[2017-07-07 08:51] LABS: ABSOLUTE BASOPHIL COUNT 0 /CUMM (0.0-0.2); ABSOLUTE EOSINOPHIL COUNT 0.1 /CUMM (0.0-0.7); ABSOLUTE GRANULOCYTE CT 9.9 /CUMM (1.4-6.5); ABSOLUTE LYMPH COUNT 1.1 /CUMM (1.2-3.4); BASOPHIL % 0 % (0.0-2.0); EOSINOPHIL % 1.1 % (0-5); GRANULOCYTE % 81.3 % (42.2-75.2); HEMATOCRIT 33.9 % (42-52); MEAN CORPUSCULAR HGB 28.7 PG (27.0-31.0); MEAN CORPUSCULAR HGB CONC 33.6 G/DL (33.0-37.0); MEAN CORPUSCULAR VOLUME 85.5 FL (80.0-94.0); MEAN PLATELET VOLUME 9.3 FL (7.4-10.4); RBC DISTRIBUTION WIDTH 14.4 % (11.5-14.5); RED BLOOD CELL CT 3.96 /CUMM (4.70-6.10); WHITE BLOOD CELL COUNT 12.2 /CUMM (4.8-10.8)
--- NOTE | 2017-07-07 09:31 | Event Note ---
Event Note Event Note: Lab called for blood culture positive for gram-positive cocci in cluster x3 tubes. Vancomycin random level was obtained which was less than 5. Patient received 1 dose of vancomycin 1 g yesterday. Will dose vancomycin 1250 mg based on pharmacy recommendation. Patient is scheduled for IR stent placement today. Spoke with Dr. Estevez overnight who recommended keeping patient nothing by mouth after midnight, discontinue antiplatelet, NSAIDs and heparin subcutaneous. All of the orders were placed by the morning team. Patient was evaluated by myself, he is alert oriented 3, consentable, able to have the procedure on prone position if needed. Confirmed orders with the nurse. We'll sign off to the morning team. We'll continue to follow. Mara Anderson MD was made aware.
[2017-07-07 10:05] LABS: PLATELET COUNT 165 /CUMM (130-400)
--- NOTE | 2017-07-07 10:34 | PN- Att Addend ---
Attending Addendum Attending Brief Note Patient seen and examined. Lying comfortably in bed and not in any acute distress. Events from yesterday noted. Ureteral stent placement by the neurology service was unsuccessful and have recommended place nephrostomy tube today. I did discuss this with the patient this morning. I did explain the need for the procedure as recommended by the urology service. He verbalized understanding. He is scheduled to undergo nephrostomy tube placement today by the IR service. He has been afebrile. T-max yesterday was 100.1 in the very early hours. White cell count is trending downwards. Blood pressure is stable. On telemetry he remains in atrial fibrillation with no overnight events. Vital Signs Date Time Temp Pulse Resp B/P B/P Pulse O2 O2 Flow FiO2 Mean Ox Delivery Rate 07/07 0814 58 136/78 07/07 0600 98.3 58 20 136/78 96 07/06 2300 97.9 70 20 114/62 96 07/06 1526 98.7 64 18 118/70 93 General appearance: Not in any acute distress. Heart: S1-S2 irregular Lungs: Clear to auscultation bilaterally. Abdomen: Nondistended, soft, nontender with normal bowel sounds. Extremities: No pedal edema. Neurologic: Alert and oriented 3 with no focal deficits. Laboratory Tests 07/07/17 0640: Anion Gap 12, Estimated GFR 58 L, BUN/Creatinine Ratio 20.8, PT 12.6 H, INR 1.15, APTT 28, CBC w Diff NO MAN DIFF REQ, RBC 3.96 L, MCV 85.5, MCH 28.7, MCHC 33.6, RDW 14.4, MPV 9.3, Gran % 81.3 H, Lymphocytes % 9.3 L, Monocytes % 8.3, Eosinophils % 1.1, Basophils % 0, Absolute Granulocytes 9.9 H, Absolute Lymphocytes 1.1 L, Absolute Monocytes 1.0 H, Absolute Eosinophils 0.1, Absolute Basophils 0 07/07/17 0230: Random Vancomycin < 5.0 07/06/17 1430: Troponin I < 0.01 Microbiology 07/07 1025 URINE ROUT: Urine Culture - ORD 07/06 1830 URINE ROUT: Urine Culture - RES Problems: 1. Sepsis secondary to gram-positive cocci bacteremia. 2. Acute kidney injury secondary to obstructive uropathy obstructing left ureteral calculus. Failed placement of ureteral stent yesterday. 3. Atrial fibrillation. 4. Abnormal EKG on presentation 5. Coronary artery disease. 6. Age-indeterminate right femoral neck fracture noted on CT scan on admission. Plan: -Continue antibiotic therapy with vancomycin. Follow-up culture identification and sensitivity. Patient is currently afebrile. White cell count is trending down. Patient is also ceftriaxone. Urine cultures are showing no growth. Follow-up with the ID service regarding need to continue ceftriaxone. -Left nephrostomy tube is been placed by urology service. interventional radiology service today as recommended by the on-call urology service. -Awaiting cardiology consultation. Please notify the on-call service. -Continue metoprolol for rate control. -Continue Lasix every other day to prevent volume overload. -Follow-up with the orthopedic service regarding the significance of the age- indeterminate right femoral neck fracture noted incidentally on CT of the abdomen. Patient denies any right hip pain. He has no tenderness with motion actively or passively. He denies any falls.
--- NOTE | 2017-07-07 11:41 | ULTRASOUND REPORT ---
EXAMINATION: Ultrasound and fluoroscopic guided placement of left-sided nephrostomy tube. CLINICAL INFORMATION: 82-year-old male with obstructing calculus within the proximal left ureter. There is resulting hydronephrosis of the left kidney. Unsuccessful ureteral stent placement yesterday. Request made for left-sided percutaneous nephrostomy tube. COMPARISON: CT abdomen pelvis 07/05/2017 and renal ultrasound 07/03/2017 INTERVENTIONAL RADIOLOGIST: Shubham Estevez M.D. SEDATION: During the procedure, divided doses of fentanyl and versed were administered by a dedicated radiology nurse under my direct supervision. A total dose of 0.5 mg Versed and 50 mcg fentanyl was utilized. Total sedation time was 30 minutes. 1% local lidocaine was also administered. FLUOROSCOPY TIME: 2.5 minutes DOSE AREA PRODUCT: 10.1 Gy-cm2 (fernandes-centimeter squared) Contrast: 10 mL Omnipaque TECHNIQUE: Informed consent was obtained from the patient prior to the procedure. During this process, the procedure and potential alternatives were explained along with the intended outcome and benefits. The risks of the procedure including the possibility of an unsuccessful procedure, as well as the risk of not doing the procedure were discussed. The patient was given the opportunity to ask questions regarding the procedure and appear competent he decisions. A signed consent form was document this discussion was placed in the medical record. Following informed consent, the patient was placed prone on the fluoroscopic table. A time out procedure was performed. The back and flank were prepped and draped in usual sterile fashion. The skin was anesthetized with 1% lidocaine. Under direct sonographic guidance, a posterior lower-pole calyx was accessed using a Greb set needle. Urine flowed out of the needle. Contrast injection verified proper positioning. Microwire was advanced through the needle and coiled within the proximal ureter. The coaxial catheter was advanced over the microwire and the wire and inner portion of the catheter removed. Contrast injection once again verified positioning. An 035 wire was advanced through the catheter and into the proximal ureter, just proximal to the stone. The catheter was removed and an 8.5 Martiniquais pigtail nephrostomy tube was advanced over the wire after serial dilatation. The pigtail was properly positioned within the renal pelvis. Contrast injection verified optimal positioning. The drainage catheter was flushed with normal saline and sutured to the skin. A StatLock device and sterile dressing were placed. The nephrostomy tube was attached to a bag for drainage via gravity. The patient tolerated the procedure well and was discharged from the department in good condition with instructions. There were no complications. FINDINGS: 1. Initial image demonstrated the approximately 1 cm calculus within the proximal left ureter, just lateral to the third lumbar vertebral body. 2. Moderate hydronephrosis of the left kidney and proximal left ureter. 3. Contrast injection at the level of the ureteral calculus allowed for some flow of contrast distal to the calculus. The distal left ureter is normal in caliber. Contrast flowed into the bladder without delay. IMPRESSION: Successful placement of 8.5 Martiniquais pigtail catheter into the left kidney via a posterior lower pole calyx. Sign out given to Dr. Jorge Marx
--- NOTE | 2017-07-07 14:02 | PN- Infect Dx ---
Subjective Subjective: No fever; resting comfortable; nausea post large lunch. Yanes patent. Mildly hematuric cloudy urine L PCN. Review of Systems Comments: 12 points reviewed as noted, otherwise negative. Objective Last 24 Hrs of Vital Signs/I&O Vital Signs Date Time Temp Pulse Resp B/P B/P Pulse O2 O2 Flow FiO2 Mean Ox Delivery Rate 07/07 0814 58 136/78 07/07 0600 98.3 58 20 136/78 96 07/06 2300 97.9 70 20 114/62 96 07/06 1526 98.7 64 18 118/70 93 Intake & Output 07/07 1600 07/07 0800 07/07 0000 Intake Total 400 Output Total 250 100 Balance -250 300 Intake, IV 200 Intake, Oral 200 Output, Urine 250 100 Patient 184 lb 187 lb Weight Weight Bed scale Bed scale Measurement Method Physical Exam Other Physical Findings: General appearance: Not in any distress. T max 100.5F Neuro: Alert and oriented 3 conversant appropriately Heart: S1-S2 irregular Lungs: Adequate entry bilaterally, no added sounds. Abdomen: Soft, nontender with normal bowel sounds Extremities: No pedal edema Skin: Intact with no rashes. Results Last 24 Hours of Lab Results: Laboratory Tests 07/07 07/07 07/06 0640 0230 1430 Chemistry Sodium (137 - 145 mmol/L) 143 Potassium (3.5 - 5.1 mmol/L) 3.8 Chloride (98 - 107 mmol/L) 113 H Carbon Dioxide (22 - 30 mmol/L) 18 L Anion Gap (5 - 16) 12 BUN (9 - 20 mg/dL) 25 H Creatinine (0.7 - 1.2 mg/dL) 1.2 Estimated GFR (>60 ml/min) 58 L BUN/Creatinine Ratio (7 - 25 %) 20.8 Troponin I (<0.11 ng/ml) < 0.01 Coagulation PT (9.4 - 12.5 SEC) 12.6 H INR (0.90 - 1.17) 1.15 APTT (25 - 37 SEC) 28 Hematology CBC w Diff NO MAN DIFF REQ WBC (4.8 - 10.8 /CUMM) 12.2 H RBC (4.70 - 6.10 /CUMM) 3.96 L Hgb (14.0 - 18.0 G/DL) 11.4 L Hct (42 - 52 %) 33.9 L MCV (80.0 - 94.0 FL) 85.5 MCH (27.0 - 31.0 PG) 28.7 MCHC (33.0 - 37.0 G/DL) 33.6 RDW (11.5 - 14.5 %) 14.4 Plt Count (130 - 400 /CUMM) 165 MPV (7.4 - 10.4 FL) 9.3 Gran % (42.2 - 75.2 %) 81.3 H Lymphocytes % (20.5 - 51.1 %) 9.3 L Monocytes % (1.7 - 9.3 %) 8.3 Eosinophils % (0 - 5 %) 1.1 Basophils % (0.0 - 2.0 %) 0 Absolute Granulocytes (1.4 - 6.5 /CUMM) 9.9 H Absolute Lymphocytes (1.2 - 3.4 /CUMM) 1.1 L Absolute Monocytes (0.10 - 0.60 /CUMM) 1.0 H Absolute Eosinophils (0.0 - 0.7 /CUMM) 0.1 Absolute Basophils (0.0 - 0.2 /CUMM) 0 Toxicology Random Vancomycin (ug/ml) < 5.0 Last 24 Hours of Lanre Results: SPEC #: [id number] REYES: 07/05/17 STATUS: RES RECD: 07/05/[address]: Siddhartha Mckinnon MD SOURCE: BLOOD ENTR: 07/05/[address] [facility] DR: Pelon AHUMADA,Rhett Gordon SPDESC: 1ST/VENOUS ORDERED: BLOOD CULTURE Procedure Result > BLOOD CULTURE REPORT Preliminary 07/07/17 GRAM STAIN SUGGESTIVE OF: GRAM POSITIVE COCCI IN CLUSTERS Called to/Readback by NEY AT 2331 07/06/17 LAB.SHANNON by LAB.SVCY 07/07/1721 Recent Imaging Studies: IR note today IMPRESSION: Successful placement of 8.5 Danish pigtail catheter into the left kidney via a posterior lower pole calyx. Sign out given to Dr. Jorge Marx DICTATED BY: Shubham Estevez MD DATE/TIME DICTATED:07/07/171123 Assessment/Plan ID Impression: 82-year-old gentleman with past medical history of hypertension, A. fib not on anticoagulation, HLD, syncope, recurrent falls, CAD status post CABG came to [place] [facility] on 07/05 w/ MSC. Eval UTI; UC NGTD, UA w/ significant pyuria; BC 2x2 GPC in clusters (S. aureus vs SCN) Eval urinary retention; BPH/question bladder mass Recent US reveakled moderate left-sided hydroureteronephrosis. []related to an obstructing 0.9 cm calcification in the proximal left ureter; now s/p L PCN tube placement Leukocytosis; WBC trending down Suggestion: 1. F/U urology recom; obtain UA/UC from L PCN tube. 2. Ceftriaxone 1 gm daily empirically D #2. 3. BC x2 today; then give vancomycin 1.5 gm x 1 pending BC results. 4. Trend BMP/CBC.
[2017-07-07 14:26] VITALS: BP 114/56
--- NOTE | 2017-07-07 16:59 | RADIOLOGY REPORT ---
EXAMINATION: XR HIP, RIGHT CLINICAL INFORMATION: Suspicion for a fracture COMPARISON: None TECHNIQUE: Frontal oblique and axial views of the right hip. FINDINGS: Radiodense line through the femoral head, raising concern for possible subtle incomplete fracture versus bony overlap. Femoral trochanters are intact. Adjacent pubic rami are normal, mild degenerative arthritis of the acetabulum. IMPRESSION: 1. Subtle radiodense line through the RIGHT femoral head raise concern for possible incomplete mild compression fracture, correlate with the area of tenderness, MRI could be utilized for confirmation, alternatively follow-up x-ray in 3 days. 2. Underlying DJD.
--- NOTE | 2017-07-07 19:00 | Cons- Orthopedic ---
General Information and HPI Consulting Request Date of Consult: 07/07/17 Requested By: Parish Singer MD Reason for Consult: Right femoral neck fracture. Source of Information: patient, medical records. Exam Limitations: no limitations History of Present Illness: I was asked to evaluate this 82-year-old male for a possible right femoral neck fracture. The patient to my understanding has been admitted for pyelonephritis. He underwent an abdominal CT scan I believe last week which made no comment of any osseous abnormalities. He underwent another abdominal CT scan as part of placement of a nephrostomy tube. The radiologist commented that there was an age indeterminant right femoral neck fracture. This prompted a call for orthopedic consultation. The patient reports that he did sustain a trip and fall in March,. He ordinarily uses a walker for assistance with ambulation. He indicates that he did have right hip and thigh pain for about 1 month after that fall and that the pain eventually resolved. He states that he has not had any right hip or thigh or groin or buttocks pain in quite some time. He never sought medical attention for these symptoms. The patient states that currently that at the current time there is no pain. Patient denies any prior significant injuries or symptoms or problems otherwise involving the right hip in the past. Allergies/Medications Allergies: Coded Allergies: Penicillins (HIVES - PER PT'S FAMILY 11/04/16) meperidine (From Demerol) (NAUSEA / VOMITING 11/07/16) Home Med List: Ascorbic Acid (Vitamin C) 1,000 MG TABLET 2,000 MG PO BID IMMUNITY (Reported) Aspirin (Ecotrin*) 81 MG TABLET.DR 1 TAB PO DAILY HEART HEALTH (Reported) Cholecalciferol (Vitamin D3) (Vitamin D) 5,000 UNIT TABLET 1 TAB PO DAILY SUPPLEMENT (Reported) Cyanocobalamin/Cobamamide (B-12 5,000 Mcg Sublingual Tab) 5,000 MCG-100 MCG TAB.SUBL 5,000 MCG SL DAILY SUPPLEMENT (Reported) Fesoterodine Fumarate (Toviaz) 8 MG TAB.ER.24H 1 TAB PO DAILY BLADDER ( Reported) Furosemide 20 MG TABLET 0.5 TAB PO EOD DIURETIC (Reported) [LION'S NATHALIE] TAB 300 MG PO BID HEALTH SUPPLEMENT (Reported) Metoprolol Succ XL (Toprol XL) 25 MG TAB 1 TAB PO DAILY A.fib Mvi, Adult No.2 Without Vit K (M.v.i.-12) 200-600/10 VIAL 1 TAB PO DAILY VITAMIN SUPPORT (Reported) Nitrofurantoin Monohyd/M-Cryst (Nitrofurantoin [place]-Mcr 100 MG) (Unknown Strength) CAPSULE (Unknown Dose) PO BID UNKNOWN (Reported) Oxybutynin Chloride 5 MG TABLET 1 TAB PO BID BLADDER (Reported) Red Yeast Rice 600 MG CAPSULE 1 TAB PO BID HEALTH SUPPLEMENT (Reported) Current Medications: Current Medications Sig/Graciela Start time Last Medication Dose Route Stop Time Status Admin Acetaminophen 650 MG Q6P PRN 07/06 0245 AC PO Ceftriaxone Sodium 1,000 MG DAILY 07/06 1000 AC 07/07 IV 0814 Cholecalciferol 1,000 IU DAILY 07/06 1000 AC 07/06 PO 0804 Fentanyl Citrate 0 .STK-MED ONE 07/07 0931 DC .ROUTE Furosemide 10 MG Q48 07/06 1000 AC 07/06 PO 0804 Heparin Sodium 5,000 UNIT Q8 07/06 0400 DC 07/06 (Porcine) SC 07/07 0005 2143 Ketorolac 15 MG Q6P PRN 07/06 0245 DC Tromethamine IV 07/11 0244 Lidocaine 0 .STK-MED ONE 07/07 0853 DC .ROUTE Metoprolol Succinate 25 MG DAILY 07/06 1000 AC 07/07 PO 0814 Midazolam HCl 0 .STK-MED ONE 07/07 0931 DC .ROUTE Multivitamins 1 TAB DAILY 07/06 1000 AC 07/06 PO 0804 Oxybutynin Chloride 5 MG BID 07/06 0400 AC 07/07 PO 0814 Sodium Chloride 1,000 ML Q13H 07/06 0115 DC 07/06 IV 07/07 0014 1151 Vancomycin HCl 1,250 MG ONCE ONE 07/07 0500 DC 07/07 Dextrose/Water 250 ML IV 07/07 0559 0623 Past History Medical History Blood Transfusion Hx: No Neurological: NONE EENT: NONE Cardiovascular: AFIB, CAD, hypertension, hyperlipidemia, syncope, QUAD BIPASS Respiratory: NONE Gastrointestinal: SML BOWEL RESECTION HERNIA Hepatic: NONE Renal: benign prost hyperplasia, hematuria, KIDNEY STONES Musculoskeletal: SCOLIOSIS ARTHRITIS Psychiatric: NONE Endocrine: NONE Blood Disorders: NONE Cancer(s): NONE 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 Home Who Do You Live With? spouse, child Services at Home: Home Health Aide Primary Language: Welsh Smoking Status: Never Smoked ETOH Use: occasional use Illicit Drug Use: denies illicit drug use Functional Ability ADLs Independent: dressing, eating, toileting, bathing. Ambulation: cane, walker IADLs Needs Assist: shopping, housework, finances, food prep, telephone, transportation, medication admin. Exam & Diagnostic Data Vital Signs and I&O Vital Signs Date Time Temp Pulse Resp B/P B/P Pulse O2 O2 Flow FiO2 Mean Ox Delivery Rate 07/07 1426 97.7 64 18 114/56 98 Room Air 07/07 0814 58 136/78 07/07 0600 98.3 58 20 136/78 96 07/06 2300 97.9 70 20 114/62 96 Intake & Output 07/07 1600 07/07 0800 / 0000 07/06 1600 07/06 0800 07/06 0000 Intake Total 620 228 5411 850 Output Total 650 250 100 400 350 Balance -110 -250 300 700 500 Intake, IV 200 800 650 Intake, Oral 540 200 300 200 Output, Urine 650 250 100 400 350 Patient 184 lb 187 lb 172 lb 180 lb Weight Weight Bed scale Bed scale Bed scale Reported by Patient Measurement Method Physical Exam: The patient is a pleasant, cooperative, seemingly well-nourished well-developed healthy-appearing white male looking his reported age in no apparent distress lying comfortably in an upright position in his bed. He seems to be awake and alert and oriented 3. Speech is normal. Affect is appropriate. Gait is not assessed today. The patient is assessed in his bed. He is returned to a lying position fully supine. Visualization of the bilateral lower extremities shows no rotational deformity of the right lower extremity. I appreciated no meaningful right lower extremity shortening either. Visual inspection of the right hip girdle and thigh and buttocks shows no areas of swelling or ecchymosis or erythema or muscle atrophy or gross deformity. The skin is intact and in good condition. No tenderness to palpation about the right hip girdle and upper thigh and buttocks. Motion in the right hip is quite good and without pain actively or passively for hip flexion and extension and rotation of the hip in both flexion and in extension and also for hip abduction and adduction. No crepitus felt with right hip motion. Further distally motion from the knee to the toes is well maintained and without pain or crepitus or instability. Motor and sensory function are grossly intact distally. DP and PT pulses 1+. Capillary refill is brisk. Last 24 Hours of Labs: Laboratory Tests 07/07 07/07 0640 0230 Chemistry Sodium (137 - 145 mmol/L) 143 Potassium (3.5 - 5.1 mmol/L) 3.8 Chloride (98 - 107 mmol/L) 113 H Carbon Dioxide (22 - 30 mmol/L) 18 L Anion Gap (5 - 16) 12 BUN (9 - 20 mg/dL) 25 H Creatinine (0.7 - 1.2 mg/dL) 1.2 Estimated GFR (>60 ml/min) 58 L BUN/Creatinine Ratio (7 - 25 %) 20.8 Coagulation PT (9.4 - 12.5 SEC) 12.6 H INR (0.90 - 1.17) 1.15 APTT (25 - 37 SEC) 28 Hematology CBC w Diff NO MAN DIFF REQ WBC (4.8 - 10.8 /CUMM) 12.2 H RBC (4.70 - 6.10 /CUMM) 3.96 L Hgb (14.0 - 18.0 G/DL) 11.4 L Hct (42 - 52 %) 33.9 L MCV (80.0 - 94.0 FL) 85.5 MCH (27.0 - 31.0 PG) 28.7 MCHC (33.0 - 37.0 G/DL) 33.6 RDW (11.5 - 14.5 %) 14.4 Plt Count (130 - 400 /CUMM) 165 MPV (7.4 - 10.4 FL) 9.3 Gran % (42.2 - 75.2 %) 81.3 H Lymphocytes % (20.5 - 51.1 %) 9.3 L Monocytes % (1.7 - 9.3 %) 8.3 Eosinophils % (0 - 5 %) 1.1 Basophils % (0.0 - 2.0 %) 0 Absolute Granulocytes (1.4 - 6.5 /CUMM) 9.9 H Absolute Lymphocytes (1.2 - 3.4 /CUMM) 1.1 L Absolute Monocytes (0.10 - 0.60 /CUMM) 1.0 H Absolute Eosinophils (0.0 - 0.7 /CUMM) 0.1 Absolute Basophils (0.0 - 0.2 /CUMM) 0 Toxicology Random Vancomycin (ug/ml) < 5.0 Imaging Results: Review of the patient's CT scans over the past week do show irregularity of the femoral neck. There does appear to be an age indeterminate fracture running across the femoral neck but this is not certain. Review of subsequent x-rays of the patient's right hip ordered by myself earlier today (AP view in neutral, AP view in internal rotation, cross table lateral view) are also suspicious for a possible femoral neck fracture. A fracture line seems to be very barely visible. There does appear to be some callus formation and irregularity noted at the superior femoral neck. My overall impression for the x-ray is that of a likely healed or nearly completely healed femoral neck fracture. No osteonecrosis of the femoral head identified. Assessment/Plan Assessment/Plan Assessment: Subacute stable right femoral neck fracture without any residual clinical symptoms. X-rays suggestive for a likely nearly completely healed nondisplaced stable right femoral neck fracture. Plan: For definitive decision making I did recommend that we get an MRI of the right hip to confirm my suspicion of a nearly completely healed nondisplaced right femoral neck fracture. I believe that this can be performed tomorrow as the MRI unit is expected to be here. We will determine definitive weightbearing status recommendations after the MRI though I do suspect that the patient will be allowed to weight-bear as tolerated on the right lower extremity continuing to use his walker for assistance with ambulation. Consult Acknowledgment - Thank you for your consult request.
--- NOTE | 2017-07-07 20:44 | Cons- Cardiology ---
General Information and HPI Consulting Request Date of Consult: 07/07/17 Requested By: Parish Singer MD Reason for Consult: Atrial flutter History of Present Illness: The patient is an 82-year-old male with history of hypertension, coronary artery disease, atrial fibrillation/flutter, and multiple falls. He is not anticoagulated because of frequent falls. He presented to the emergency department with complaint of confusion and dysuria. He was found to have urosepsis with large left proximal ureteral calculus. He underwent cystoscopy and an unsuccessful attempt at left ureteral stent placement. Blood culture was positive for gram-positive cocci. He is noted to have an age-indeterminate right femoral neck fracture. His infrastructure security architect is Dr. Rhett Carrera. No chest pain. No shortness of breath. No palpitations. No syncope. No orthopnea. I am consulted for assistance with cardiac management. Allergies/Medications Allergies: Coded Allergies: Penicillins (HIVES - PER PT'S FAMILY 11/04/16) meperidine (From Demerol) (NAUSEA / VOMITING 11/07/16) Home Med List: Ascorbic Acid (Vitamin C) 1,000 MG TABLET 2,000 MG PO BID IMMUNITY (Reported) Aspirin (Ecotrin*) 81 MG TABLET.DR 1 TAB PO DAILY HEART HEALTH (Reported) Cholecalciferol (Vitamin D3) (Vitamin D) 5,000 UNIT TABLET 1 TAB PO DAILY SUPPLEMENT (Reported) Cyanocobalamin/Cobamamide (B-12 5,000 Mcg Sublingual Tab) 5,000 MCG-100 MCG TAB.SUBL 5,000 MCG SL DAILY SUPPLEMENT (Reported) Fesoterodine Fumarate (Toviaz) 8 MG TAB.ER.24H 1 TAB PO DAILY BLADDER ( Reported) Furosemide 20 MG TABLET 0.5 TAB PO EOD DIURETIC (Reported) [LION'S NATHALIE] TAB 300 MG PO BID HEALTH SUPPLEMENT (Reported) Metoprolol Succ XL (Toprol XL) 25 MG TAB 1 TAB PO DAILY A.fib Mvi, Adult No.2 Without Vit K (M.v.i.-12) 200-600/10 VIAL 1 TAB PO DAILY VITAMIN SUPPORT (Reported) Nitrofurantoin Monohyd/M-Cryst (Nitrofurantoin [place]-Mcr 100 MG) (Unknown Strength) CAPSULE (Unknown Dose) PO BID UNKNOWN (Reported) Oxybutynin Chloride 5 MG TABLET 1 TAB PO BID BLADDER (Reported) Red Yeast Rice 600 MG CAPSULE 1 TAB PO BID HEALTH SUPPLEMENT (Reported) Current Medications: Current Medications Sig/Graciela Start time Last Medication Dose Route Stop Time Status Admin Acetaminophen 650 MG Q6P PRN 07/06 0245 AC PO Ceftriaxone Sodium 1,000 MG DAILY 07/06 1000 AC 07/07 IV 0814 Cholecalciferol 1,000 IU DAILY 07/06 1000 AC 07/06 PO 0804 Fentanyl Citrate 0 .STK-MED ONE 07/07 0931 DC .ROUTE Furosemide 10 MG Q48 07/06 1000 AC 07/06 PO 0804 Heparin Sodium 5,000 UNIT Q8 07/06 0400 DC 07/06 (Porcine) SC 07/07 0005 2143 Lidocaine 0 .STK-MED ONE 07/07 0853 DC .ROUTE Metoprolol Succinate 25 MG DAILY 07/06 1000 AC 07/07 PO 0814 Midazolam HCl 0 .STK-MED ONE 07/07 0931 DC .ROUTE Multivitamins 1 TAB DAILY 07/06 1000 AC 07/06 PO 0804 Oxybutynin Chloride 5 MG BID 07/06 0400 AC 07/07 PO 2038 Sodium Chloride 1,000 ML Q13H 07/06 0115 DC 07/06 IV / 0014 1151 Vancomycin HCl 250 MG ONCE ONE 07/07 1900 DC 07/07 Dextrose/Water 100 ML IV 07/07 1959 2059 Vancomycin HCl 1,250 MG ONCE ONE 07/07 0500 DC 07/07 Dextrose/Water 250 ML IV 07/07 0559 0623 Review of Systems Review of Systems: No rash. No tremor. No melena. No hemoptysis. All other systems were reviewed, and were noted to be negative. 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 Home Who Do You Live With? spouse, child Services at Home: Home Health Aide Primary Language: Irish Smoking Status: Never Smoked ETOH Use: occasional use Illicit Drug Use: denies illicit drug use Functional Ability ADLs Independent: dressing, eating, toileting, bathing. Ambulation: cane, walker IADLs Needs Assist: shopping, housework, finances, food prep, telephone, transportation, medication admin. ECHO Results (as available) EF% 60 Exam & Diagnostic Data Vital Signs and I&O Vital Signs Date Time Temp Pulse Resp B/P B/P Pulse O2 O2 Flow FiO2 Mean Ox Delivery Rate 07/07 1426 97.7 64 18 114/56 98 Room Air 07/07 0814 58 136/78 07/07 0600 98.3 58 20 136/78 96 07/06 2300 97.9 70 20 114/62 96 Intake & Output 07/07 1600 07/07 0800 07/07 0000 07/06 1600 07/06 0800 07/06 0000 Intake Total 264 206 8851 850 Output Total 650 250 100 400 350 Balance -110 -250 300 700 500 Intake, IV 200 800 650 Intake, Oral 540 200 300 200 Output, Urine 650 250 100 400 350 Patient 184 lb 187 lb 172 lb 180 lb Weight Weight Bed scale Bed scale Bed scale Reported by Patient Measurement Method Physical Exam: Gen: The patient is in no acute distress HEENT: Normal nose, ears, and oropharynx. Pupils equal bilaterally. Conjunctiva normal. Neck: Supple with no JVD, no masses, and no thyromegaly Lungs: Clear to auscultation with normal respiratory effort Heart: irreg irreg, S1, S2, 1/6 systolic murmur. No peripheral edema, 2+ pulses in the lower extremities bilaterally Abdomen: Soft, nontender, no masses. No hepatomegaly. No splenomegaly Extremities: No clubbing or cyanosis. Normal muscle strength in the upper and lower extremities Skin: Normal skin turgor with no skin ulcers or lesions noted. Neuro: Cranial nerves intact. Sensation intact Psych: Alert and oriented x 3 with appropriate affect Labs/Lanre Results: Laboratory Tests 07/07 07/07 07/06 0640 0230 1430 Chemistry Sodium (137 - 145 mmol/L) 143 Potassium (3.5 - 5.1 mmol/L) 3.8 Chloride (98 - 107 mmol/L) 113 H Carbon Dioxide (22 - 30 mmol/L) 18 L Anion Gap (5 - 16) 12 BUN (9 - 20 mg/dL) 25 H Creatinine (0.7 - 1.2 mg/dL) 1.2 Estimated GFR (>60 ml/min) 58 L BUN/Creatinine Ratio (7 - 25 %) 20.8 Troponin I (<0.11 ng/ml) < 0.01 Coagulation PT (9.4 - 12.5 SEC) 12.6 H INR (0.90 - 1.17) 1.15 APTT (25 - 37 SEC) 28 Hematology CBC w Diff NO MAN DIFF REQ WBC (4.8 - 10.8 /CUMM) 12.2 H RBC (4.70 - 6.10 /CUMM) 3.96 L Hgb (14.0 - 18.0 G/DL) 11.4 L Hct (42 - 52 %) 33.9 L MCV (80.0 - 94.0 FL) 85.5 MCH (27.0 - 31.0 PG) 28.7 MCHC (33.0 - 37.0 G/DL) 33.6 RDW (11.5 - 14.5 %) 14.4 Plt Count (130 - 400 /CUMM) 165 MPV (7.4 - 10.4 FL) 9.3 Gran % (42.2 - 75.2 %) 81.3 H Lymphocytes % (20.5 - 51.1 %) 9.3 L Monocytes % (1.7 - 9.3 %) 8.3 Eosinophils % (0 - 5 %) 1.1 Basophils % (0.0 - 2.0 %) 0 Absolute Granulocytes (1.4 - 6.5 /CUMM) 9.9 H Absolute Lymphocytes (1.2 - 3.4 /CUMM) 1.1 L Absolute Monocytes (0.10 - 0.60 /CUMM) 1.0 H Absolute Eosinophils (0.0 - 0.7 /CUMM) 0.1 Absolute Basophils (0.0 - 0.2 /CUMM) 0 Toxicology Random Vancomycin (ug/ml) < 5.0 07/06 03/ 0610 0140 Chemistry Sodium (137 - 145 mmol/L) 140 Potassium (3.5 - 5.1 mmol/L) 3.8 Chloride (98 - 107 mmol/L) 107 Carbon Dioxide (22 - 30 mmol/L) 23 Anion Gap (5 - 16) 11 BUN (9 - 20 mg/dL) 25 H Creatinine (0.7 - 1.2 mg/dL) 1.4 H Estimated GFR (>60 ml/min) 49 L BUN/Creatinine Ratio (7 - 25 %) 17.9 Lactic Acid (0.7 - 2.1 mmol/L) 1.9 1.9 Hematology CBC w Diff NO MAN DIFF REQ WBC (4.8 - 10.8 /CUMM) 15.4 H RBC (4.70 - 6.10 /CUMM) 4.40 L Hgb (14.0 - 18.0 G/DL) 12.6 L Hct (42 - 52 %) 37.9 L MCV (80.0 - 94.0 FL) 86.3 MCH (27.0 - 31.0 PG) 28.7 MCHC (33.0 - 37.0 G/DL) 33.2 RDW (11.5 - 14.5 %) 14.4 Plt Count (130 - 400 /CUMM) 191 MPV (7.4 - 10.4 FL) 8.9 Gran % (42.2 - 75.2 %) 83.1 H Lymphocytes % (20.5 - 51.1 %) 6.6 L Monocytes % (1.7 - 9.3 %) 10.2 H Eosinophils % (0 - 5 %) 0.1 Basophils % (0.0 - 2.0 %) 0 Absolute Granulocytes (1.4 - 6.5 /CUMM) 12.8 H Absolute Lymphocytes (1.2 - 3.4 /CUMM) 1.0 L Absolute Monocytes (0.10 - 0.60 /CUMM) 1.6 H Absolute Eosinophils (0.0 - 0.7 /CUMM) 0 Absolute Basophils (0.0 - 0.2 /CUMM) 0 Diagnostic Data EKG Results EKG tracing is independently reviewed, and reveals atrial flutter with 4-1 block. Ventricular rate 61. Right bundle branch block Other Results CT scan of the abdomen and pelvis 07/06/17: 1. An obstructing left ureteral 1 cm calculus at the L3-L4 level with proximal hydroureteronephrosis. Cannot exclude an infected obstructed left genitourinary system. Please correlate with urinalysis. 2. A couple other subcentimeter nonobstructing calculi in the left kidney. 3. Age-indeterminate nondisplaced right femoral neck fracture. Please correlate for any corresponding clinical symptoms. 4. Significant prostatomegaly. 5. Other findings as above. Echocardiogram 06/24/16: Moderate concentric left ventricular hypertrophy. Normal left ventricular ejection fraction visually estimated at >60 Mild right atrial dilatation. Mild to moderate left atrial dilatation. Mild thickening/calcification of the mitral valve leaflets. Mild mitral regurgitation. Diffuse thickening of the aortic valve cusps with mildly reduced excursion. No aortic stenosis. Mild aortic regurgitation. Right ventricular systolic pressure estimated to be at upper limits of normal at 30-35 mmHg. Aortic root is mildly dilated. Assessment/Plan Assessment/Plan 82-year-old male with history of coronary artery disease, hypertension, atrial flutter, and multiple falls presenting with sepsis of urinary origin secondary to ureteral calculus. He is status post unsuccessful ureteral stent placement followed by nephrostomy tube placement. He is noted to have an age- indeterminate right femoral neck fracture. Blood cultures positive for gram- positive cocci in clusters. He is currently in atrial flutter with rate under control. Recommendations: * Continue metoprolol for rate control * Continue current dose of Lasix, 10 mg every 48 hours * Antibiotics as per ID * Echocardiogram Consult Acknowledgment - Thank you for your consult request.
[2017-07-07 22:17] VITALS: BP 116/72
[2017-07-08 06:30] VITALS: BP 140/68
--- NOTE | 2017-07-08 06:57 | PN- Housestaff ---
Oscar AHUMADA,Jaimie 07/08/17 0657: Subjective Follow-up For: Sepsis of urologic origin s/p nephrostomy tube ADRYAN Tele-Events Since Last Visit: Atrial flutter 6163, QRS 0.08, no acute events Subjective: The patient was seen and examined at bedside, afebrile and he denies any complaints including hip pain, shortness of breath, fever, chills, dysuria Review of Systems Constitutional: Reports: chills, fever, malaise, weakness. Cardiovascular: Reports: chest pain, edema, orthopena, palpitations, syncope. Respiratory: Reports: cough, hemoptysis, orthopnea, short of breath, sputum production. Gastrointestinal: Reports: bloating, constipation, diarrhea, nausea, vomiting. Genitourinary: Reports: frequency, hematuria, hesitation, nocturia. Musculoskeletal: Denies: no symptoms. Objective Last 24 Hrs of Vital Signs/I&O Vital Signs Date Time Temp Pulse Resp B/P B/P Pulse O2 O2 Flow FiO2 Mean Ox Delivery Rate 07/08 1409 99.0 68 20 134/72 96 Room Air 07/08 0956 148/70 07/08 0630 98.5 69 20 140/68 96 03/04 2217 98.3 62 20 116/72 97 Intake & Output / 1600 /05 0800 / 0000 Intake Total 0 410 Output Total 550 600 450 Balance -550 -600 -40 Intake, IV 0 270 Intake, Oral 0 140 Output, Urine 550 600 450 Patient 188 lb Weight Physical Exam General Appearance: Alert, Cooperative, oriented X2 HEENT: Atraumatic, PERRLA, EOMI, Mucous Membr. moist/pink Neck: Supple, No JVD Cardiovascular: Normal S1, Normal S2, No Murmurs Lungs: Clear to Auscultation Abdomen: Normal Bowel Sounds, Soft, No Tenderness, nephrostomy tube in place, no discharge or tenderness, skin around is normal Neurological: Normal Speech, Strength at 5/5 X4 Ext, Normal Tone, Sensation Intact Extremities: No Clubbing, No Cyanosis, No Edema Assessment/Plan Assessment: 82-year-old male with significant past history of multiple episodes of nephrolithiasis, BPH status post TURP, asymptomatic pyuria, recent evidence of recurrent nephrolithiasis presented with abrupt change in mental status with elevated temperature Problem list: ADRYAN Sepsis of urologic origin s/p nephrostomy tube POD 1 Acute nondisplaced fracture of the right femoral neck Prostate enlargment Patient reported he had a fall back in June and receives weekly home physical therapy. He reports he was picking something up off the floor and fell on his right side. He denies LOC, SOB, CP, pain. He normally ambulates with a rollator and able to perform ADLs. He lives at home with his sister. Urine culture from the nephrostomy tube on 0 30 4 grew gram-positive cocci for further identification Urine culture through the Yanes from on 0 3/0 3 grew coagulase-negative staph for further identification of the sensitivity and susceptibility Plan: * Continue to monitor on telemetry * Follow-up on pending blood culture * Monitor renal function * Monitor and replete potassium as needed * Was given vancomycin 1.5 gm x 1 dose yesterday, will follow ID recommendation regarding antibiotics * Keep tube open to gravity bag * Follow-up on MRI R hip: Acute, nondisplaced fracture of the right femoral neck.Mild right hip osteoarthritis with small joint effusion. Prostatomegaly * Urology, cardiology, ID, orho recommendations appreciated Full code DVT prophylaxis with subcutaneous heparin Regular diet Problem List: 1. ADRYAN (acute kidney injury) 2. 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 - "Acute, nondisplaced fracture of the right femoral neck. " Will f/u on orhto recommendations.
[2017-07-08 08:11] LABS: ABSOLUTE BASOPHIL COUNT 0 /CUMM (0.0-0.2); ABSOLUTE EOSINOPHIL COUNT 0.2 /CUMM (0.0-0.7); ABSOLUTE GRANULOCYTE CT 7.3 /CUMM (1.4-6.5); ABSOLUTE LYMPH COUNT 1.1 /CUMM (1.2-3.4); ABSOLUTE MONOCYTE COUNT 0.9 /CUMM (0.10-0.60); BASOPHIL % 0.3 % (0.0-2.0); EOSINOPHIL % 1.6 % (0-5); GRANULOCYTE % 76.6 % (42.2-75.2); MEAN CORPUSCULAR HGB 28.9 PG (27.0-31.0); MEAN CORPUSCULAR HGB CONC 33.4 G/DL (33.0-37.0); MEAN CORPUSCULAR VOLUME 86.4 FL (80.0-94.0); MEAN PLATELET VOLUME 8.7 FL (7.4-10.4); PLATELET COUNT 200 /CUMM (130-400); RED BLOOD CELL CT 4.17 /CUMM (4.70-6.10); WHITE BLOOD CELL COUNT 9.5 /CUMM (4.8-10.8)
[2017-07-08 14:09] VITALS: BP 134/72
--- NOTE | 2017-07-08 14:27 | MRI REPORT ---
EXAMINATION: MR HIP WITHOUT CONTRAST, RIGHT CLINICAL INFORMATION: Subacute right femoral head fracture. COMPARISON: CT abdomen/pelvis 07/05/2017. CT images of the hip from 03/09/2017. TECHNIQUE: MRI of the hip without contrast was obtained using routine sequences. FINDINGS: ACETABULAR LABRUM: Limited evaluation of the labrum due to patient motion. ARTICULAR CARTILAGE/BONE: There is a nondisplaced, subcapital fracture of the right femoral neck with surrounding bone marrow edema. This fracture is new compared to CT images through the hip obtained on 03/09/2017. Motion artifact limits evaluation of articular cartilage. There is apparent chondral thinning of the femoroacetabular joint, and findings including chondral loss and subchondral edema along the superior rim of the acetabulum. No acetabular fracture. MUSCLES/TENDONS: Mild soft tissue edema both superficial and deep to the iliotibial band. The iliopsoas, proximal hamstring and gluteus tendons are intact. JOINT FLUID/BURSA: Small right hip joint effusion. No trochanteric bursitis. INTRAPELVIC STRUCTURES: The prostate is markedly enlarged and heterogenous. Urinary bladder is decompressed by a Yanes catheter. No pelvic free fluid. Multilevel disc degeneration and facet arthropathy of the visualized lumbosacral spine, better visualized on prior CT of the abdomen/pelvis from 07/05/2017. Mild soft tissue edema and fat within the right inguinal canal. IMPRESSION: 1. Acute, nondisplaced fracture of the right femoral neck. 2. Mild right hip osteoarthritis with small joint effusion. 3. Prostatomegaly. Tiburcio Soto M.D. Fellow, Musculoskeletal Radiology I personally reviewed the images and, if necessary, edited the report. I agree with report as now presented. -Wyatt Ayala M.D.
--- NOTE | 2017-07-08 15:59 | PN- Infect Dx ---
Subjective Subjective: Afebrile without complaints Objective Last 24 Hrs of Vital Signs/I&O Vital Signs Date Time Temp Pulse Resp B/P B/P Pulse O2 O2 Flow FiO2 Mean Ox Delivery Rate 07/08 1409 99.0 68 20 134/72 96 Room Air 07/08 0956 148/70 07/08 0630 98.5 69 20 140/68 96 07/07 2217 98.3 62 20 116/72 97 Intake & Output 07/08 1600 07/08 0800 07/08 0000 Intake Total 0 410 Output Total 550 600 450 Balance -550 -600 -40 Intake, IV 0 270 Intake, Oral 0 140 Output, Urine 550 600 450 Patient 188 lb Weight Physical Exam Other Physical Findings: He is awake and alert, mildly confused, but in no acute distress Lungs are clear Heart regular rhythm with no murmur Back no CVA tenderness; left percutaneous nephrostomy in place Yanes catheter remains in place Results Last 24 Hours of Lab Results: Laboratory Tests 07/09 619 Chemistry Sodium (137 - 145 mmol/L) 143 Potassium (3.5 - 5.1 mmol/L) 3.5 Chloride (98 - 107 mmol/L) 111 H Carbon Dioxide (22 - 30 mmol/L) 23 Anion Gap (5 - 16) 10 BUN (9 - 20 mg/dL) 18 Creatinine (0.7 - 1.2 mg/dL) 1.1 Estimated GFR (>60 ml/min) > 60 BUN/Creatinine Ratio (7 - 25 %) 16.4 Magnesium (1.6 - 2.3 mg/dL) 1.7 Hematology CBC w Diff NO MAN DIFF REQ WBC (4.8 - 10.8 /CUMM) 9.5 RBC (4.70 - 6.10 /CUMM) 4.17 L Hgb (14.0 - 18.0 G/DL) 12.1 L Hct (42 - 52 %) 36.0 L MCV (80.0 - 94.0 FL) 86.4 MCH (27.0 - 31.0 PG) 28.9 MCHC (33.0 - 37.0 G/DL) 33.4 RDW (11.5 - 14.5 %) 14.0 Plt Count (130 - 400 /CUMM) 200 MPV (7.4 - 10.4 FL) 8.7 Gran % (42.2 - 75.2 %) 76.6 H Lymphocytes % (20.5 - 51.1 %) 12.0 L Monocytes % (1.7 - 9.3 %) 9.5 H Eosinophils % (0 - 5 %) 1.6 Basophils % (0.0 - 2.0 %) 0.3 Absolute Granulocytes (1.4 - 6.5 /CUMM) 7.3 H Absolute Lymphocytes (1.2 - 3.4 /CUMM) 1.1 L Absolute Monocytes (0.10 - 0.60 /CUMM) 0.9 H Absolute Eosinophils (0.0 - 0.7 /CUMM) 0.2 Absolute Basophils (0.0 - 0.2 /CUMM) 0 Last 24 Hours of Lanre Results: Blood cultures July 05 positive for coag-negative Staph Urine culture July 06 approximately 20,000 colonies of coag-negative Staph Urine culture from the left kidney from the left nephrostomy July 07 light growth of gram-positive cocci Recent Imaging Studies: MRI of the right hip July 08 reveals an acute, nondisplaced fracture of the right femoral neck Assessment/Plan ID Impression: Stable, with temperatures and white blood cell count now normal, on Vancomycin and Ceftriaxone Day 3 of treatment for presumed sepsis of urologic origin, with coag-negative Staph isolated from both blood cultures and the urine culture, status post percutaneous left nephrostomy yesterday, after an unsuccessful attempt at left ureteral stent placement, for an obstructing left ureteral calculus with proximal hydroureteronephrosis. The right hip fracture is confirmed on MRI and he has been evaluated by Orthopedics. Suggestion: 1. Remove Yanes catheter if okay with Urology 2. Discontinue Ceftriaxone 3. Continue Vancomycin 1 g IV every 24 hours
--- NOTE | 2017-07-08 17:56 | PN- Cardiology ---
Subjective Subjective: Feeling well. No chest pain. No palpitations. No diaphoresis. No nausea or vomiting. No lightheadedness or dizziness. Objective Vital Signs and I&Os Vital Signs Date Time Temp Pulse Resp B/P B/P Pulse O2 O2 Flow FiO2 Mean Ox Delivery Rate 07/08 1409 99.0 68 20 134/72 96 Room Air 07/08 0956 148/70 03/ 0630 98.5 69 20 140/68 96 07/07 2217 98.3 62 20 116/72 97 Intake & Output 07/08 1600 07/08 0800 07/08 0000 07/07 1600 07/07 0800 07/07 0000 Intake Total 0 410 540 400 Output Total 550 600 450 650 250 100 Balance -550 -600 -40 -110 -250 300 Intake, IV 0 270 200 Intake, Oral 0 140 540 200 Output, Urine 550 600 450 650 250 100 Patient 188 lb 184 lb 187 lb Weight Weight Bed scale Bed scale Measurement Method Physical Exam: Gen: The patient is in no acute distress HEENT: Normal nose, ears, and oropharynx. Pupils equal bilaterally. Conjunctiva normal. Neck: Supple with no JVD, no masses, and no thyromegaly Lungs: Clear to auscultation with normal respiratory effort Heart: irreg irreg, S1, S2, 1/6 systolic murmur. No peripheral edema, 2+ pulses in the lower extremities bilaterally Abdomen: Soft, nontender, no masses. No hepatomegaly. No splenomegaly Extremities: No clubbing or cyanosis. Normal muscle strength in the upper and lower extremities Skin: Normal skin turgor with no skin ulcers or lesions noted. Neuro: Cranial nerves intact. Sensation intact Current Medications: Current Medications Sig/Graciela Start time Last Medication Dose Route Stop Time Status Admin Acetaminophen 650 MG Q6P PRN 07/06 0245 AC PO Ceftriaxone Sodium 1,000 MG DAILY 07/06 1000 DC 07/08 IV 0956 Cholecalciferol 1,000 IU DAILY 07/06 1000 AC 07/08 PO 0956 Furosemide 10 MG Q48 07/06 1000 AC 07/08 PO 0956 Metoprolol Succinate 25 MG DAILY 07/06 1000 AC 07/08 PO 0956 Multivitamins 1 TAB DAILY 07/06 1000 AC 07/08 PO 0956 Oxybutynin Chloride 5 MG BID 07/06 0400 AC 07/08 PO 0956 Patient Medication 1 ED ONE ONE 07/08 1415 DC Teaching ED 07/08 1416 Vancomycin HCl 1,000 MG 1700 07/08 1700 AC 07/08 Dextrose/Water 250 ML IV 1745 Vancomycin HCl 250 MG ONCE ONE 07/07 190 DC 07/07 Dextrose/Water 100 ML IV 07/07 Results Last 48 Hrs of Labs/Mics: Laboratory Tests 07/08/17 0620: Anion Gap 10, Estimated GFR > 60, BUN/Creatinine Ratio 16.4, Magnesium 1.7, CBC w Diff NO MAN DIFF REQ, RBC 4.17 L, MCV 86.4, MCH 28.9, MCHC 33.4, RDW 14.0, MPV 8.7, Gran % 76.6 H, Lymphocytes % 12.0 L, Monocytes % 9.5 H, Eosinophils % 1.6, Basophils % 0.3, Absolute Granulocytes 7.3 H, Absolute Lymphocytes 1.1 L, Absolute Monocytes 0.9 H, Absolute Eosinophils 0.2, Absolute Basophils 0 07/07/17 0640: Anion Gap 12, Estimated GFR 58 L, BUN/Creatinine Ratio 20.8, PT 12.6 H, INR 1.15, APTT 28, CBC w Diff NO MAN DIFF REQ, RBC 3.96 L, MCV 85.5, MCH 28.7, MCHC 33.6, RDW 14.4, MPV 9.3, Gran % 81.3 H, Lymphocytes % 9.3 L, Monocytes % 8.3, Eosinophils % 1.1, Basophils % 0, Absolute Granulocytes 9.9 H, Absolute Lymphocytes 1.1 L, Absolute Monocytes 1.0 H, Absolute Eosinophils 0.1, Absolute Basophils 0 07/07/17 0230: Random Vancomycin < 5.0 Assessment/Plan Assessment/Plan Assessment: 1. Coronary artery disease 2. Hypertension 3. Atrial flutter 4. Sepsis of urological origin, with blood cultures positive for coag negative staph 5. Right femoral neck fracture Plan: * Echocardiogram pending * Continue metoprolol * Antibiotics as per ID Continue telemetry? Yes
--- NOTE | 2017-07-08 18:55 | PN- Orthopedic ---
Surgical Brief Attending Note Brief Attending Note: Patient orthopedically clinically unchanged. No complaints of pain. Clinical examination and bed unremarkable for the right hip. The patient underwent an MRI of the right hip today which shows a new nondisplaced subcapital femoral neck fracture as compared to a prior CT scan of the abdomen including pelvis and hips study in early March,. Impression: subacute; likely at least mid staged to advanced staged healing right femoral neck fracture. I would not characterize this as an acute fracture, even though the radiologist has characterized this as an acute fracture referencing the fact that this was not present on a CT scan visualizing the hip in early March, when the injury reported by the patient resulting in right hip pain following a fall occurred in late March,. It is my impression that the patient did sustain a fracture in late March, and is clinically improving with a healing fracture that has remained stable over the past couple of months. Plan: The patient should be mobilized out of bed with physical therapy using a walker, toe-touch weightbearing on the right lower extremity. He does not require any other therapy for the right hip other than gait training for protected weightbearing on the right lower extremity. He should follow-up with Dr. Euceda in 1 month to undergo repeat x-rays of the right hip to check on his gait ability and to check on his right hip symptoms and motion and function and to check on fracture healing activity at his nondisplaced right femoral neck fracture with additional time.
--- NOTE | 2017-07-08 19:12 | ECHOCARDIOGRAM REPORT ---
HUY CHAPMAN Age: 82 : 1935 Gender: M Exam Date: 07/08/2017 09:57 Exam Location: [address] Ht (in): 67 Wt (lb): 187 BSA: 2.03 BP: 140 / 68 Ordering Physician: Lenny Phelps MD Referring Physician: Lenny Phelps MD Technologist: Roque Zeng [facility] Room Number: [id number] Indications: SVT Rhythm: Atrial flutter Technical Quality: Fair FINDINGS Left Ventricle Normal size left ventricle. Mild concentric left ventricular hypertrophy. Normal left ventricular ejection fraction visually estimated at >55%. Normal left ventricular wall motion. Right Ventricle Normal right ventricular size and function. Right Atrium Normal right atrial size. Left Atrium Normal left atrial size. Mitral Valve Mitral valve thickened. Aortic Valve Diffuse thickening (sclerosis) of the aortic valve cusps without reduced excursion. Mild aortic regurgitation. No aortic stenosis. Tricuspid Valve Tricuspid valve not well visualized, grossly normal. Mild tricuspid regurgitation. Right ventricular systolic pressure estimated to be elevated at 46 mmHg. Pulmonic Valve Pulmonic valve not well visualized, grossly normal. Trace pulmonic regurgitation. Pericardium No pericardial effusion. Great Vessels Normal size aortic root. Calcified plaque is noted in the ascending aorta. CONCLUSIONS Normal size left ventricle. Mild concentric left ventricular hypertrophy. Normal left ventricular ejection fraction visually estimated at > 55%. Mild aortic regurgitation. Mild tricuspid regurgitation. Right ventricular systolic pressure estimated to be elevated at 46 mmHg. Trace pulmonic regurgitation. Alexander Maza M.D. (Electronically Signed) Final Date: 08 July 2017 19:11 MEASUREMENTS (Male / Female) Normal Values 2D ECHO LV Diastolic Diameter PLAX 4.8 cm 4.2 - 5.9 / 3.9 - 5.3 cm LV Systolic Diameter PLAX 3.3 cm 2.1 - 4.0 cm LV Fractional Shortening PLAX 31.3 % 25 - 46 % LV Ejection Fraction 2D Teich 59.0 % IVS Diastolic Thickness 1.3 cm LVPW Diastolic Thickness 1.3 cm LV Relative Wall Thickness 0.5 RV Internal Dim ED PLAX 3.6 cm 1.9 - 3.8 cm LVOT Diameter 2.4 cm Aortic Root Diameter 3.7 cm LA Systolic Diameter LX 3.4 cm 3.0 - 4.0 / 2.7 - 3.8 cm LA Volume 48.0 cm 18 - 58 / 22 - 52 cm Ascending Aorta Diameter 3.3 cm DOPPLER AV Peak Velocity 160.0 cm/s AV Peak Gradient 10.2 mmHg AV Mean Velocity 107.0 cm/s AV Mean Gradient 5.0 mmHg AV Velocity Time Integral 33.6 cm AI Deceleration [place] 110.0 cm/s AI Peak Velocity 321.0 cm/s AI Pressure Half Time 854.0 ms AI Peak Gradient 41.2 mmHg LVOT Peak Velocity 70.7 cm/s LVOT Peak Gradient 2.0 mmHg LVOT Mean Velocity 48.5 cm/s LVOT Mean Gradient 1.0 mmHg LVOT Velocity Time Integral 15.7 cm LVOT Stroke Volume 71.0 cm AV Area Cont Eq vti 2.1 cm AV Area Cont Eq pk 2.0 cm MV Peak Velocity 128.0 cm/s MV Peak Gradient 6.6 mmHg MV Mean Velocity 68.1 cm/s MV Mean Gradient 2.0 mmHg Mitral E Point Velocity 111.0 cm/s Mitral A Point Velocity 51.8 cm/s Mitral E to A Ratio 2.1 MV PHT Velocity 132.0 cm/s MV Deceleration [place] 1181.0 cm/s MV Pressure Half Time 33.5 ms MV Area PHT 6.6 cm MV Deceleration Time 194.0 ms TR Peak Velocity 303.0 cm/s TR Peak Gradient 36.7 mmHg Right Atrial Pressure 10.0 mmHg Pulmonary Artery Systolic Pressu 46.7 mmHg Right Ventricular Systolic Press 46.7 mmHg PV Peak Velocity 97.9 cm/s PV Peak Gradient 3.8 mmHg PV Mean Velocity 68.0 cm/s PV Mean Gradient 2.0 mmHg PV Velocity Time Integral 20.3 cm LV E' Lateral Velocity 19.4 cm/s Mitral E to LV E' Lateral Ratio 5.7 LV E' Septal Velocity 10.1 cm/s Mitral E to LV E' Septal Ratio 11.0
[2017-07-08 22:03] VITALS: BP 138/70
[2017-07-09 06:00] VITALS: BP 148/78
--- NOTE | 2017-07-09 07:14 | PN- Housestaff ---
Oscar AHUMADA,Jaimie 07/09/17 0714: Subjective Follow-up For: Sepsis of urologic origin s/p nephrostomy tube ADRYAN Tele-Events Since Last Visit: Atrial flutter, 6993, QRS 0.08, PVC no acute Subjective: Patient was seen and examined at bedside, he is afebrile and denies any complaints, Yanes catheter still in place with DC'd tomorrow at 6 AM as per urology recommendation Review of Systems Constitutional: Reports: no symptoms. Cardiovascular: Reports: no symptoms. Respiratory: Reports: no symptoms. Gastrointestinal: Reports: no symptoms. Genitourinary: Reports: no symptoms. Musculoskeletal: Reports: no symptoms. Skin: Reports: no symptoms. Objective Last 24 Hrs of Vital Signs/I&O Vital Signs Date Time Temp Pulse Resp B/P B/P Pulse O2 O2 Flow FiO2 Mean Ox Delivery Rate 07/09 06 98.6 69 20 148/78 97 / 2203 98.9 91 20 138/70 96 / 1409 99.0 68 20 134/72 96 Room Air Intake & Output 07/09 1600 07/09 0800 03/ 0000 Intake Total 400 930 Output Total 1025 1475 Balance -625 -545 Intake, IV 280 Intake, Oral 400 650 Number 1 Bowel Movements Output, Urine 1025 1475 Patient 184 lb Weight Physical Exam General Appearance: Alert, Cooperative, No Acute Distress HEENT: Atraumatic, PERRLA, EOMI, Mucous Membr. moist/pink Neck: Supple, No JVD Cardiovascular: Normal S1, Normal S2, No Murmurs Lungs: Clear to Auscultation Abdomen: Normal Bowel Sounds, Soft, No Tenderness Neurological: Normal Speech, Strength at 5/5 X4 Ext, Normal Tone, Sensation Intact Extremities: No Clubbing, No Cyanosis, No Edema Vascular: Normal Pulses Assessment/Plan Assessment: 82-year-old male with significant past history of multiple episodes of nephrolithiasis, BPH status post TURP, asymptomatic pyuria, recent evidence of recurrent nephrolithiasis presented with abrupt change in mental status with elevated temperature Problem list: ADRYAN Sepsis of urologic origin s/p nephrostomy tube POD 1 Acute nondisplaced fracture of the right femoral neck Prostate enlargment Plan * Discontinue telemetry * blood culture grew coag negative staph, same as urine culture from nephrostomy tube * Monitor renal function * Monitor and replete potassium as needed * Continue vancomycin 1 g daily (day 3) * Continue metoprolol XL 25 mg daily * Keep tube open to gravity bag * MRI showed healing femoral neck fracture, * Mobilize with PT with walker * Follow-up with Dr. Tinsley in 1 month * Start finasteride 5 mg p.o. daily * Start Flomax 0.4 mg daily * Will DC the Yanes catheter tomorrow morning as per urology recommendation * Urology, cardiology, ID, orho recommendations appreciated Full code DVT prophylaxis with subcutaneous heparin Regular diet Problem List: 1. UTI (urinary tract infection) Pain Ratin Pain Location: N/A Pain Goal: Remain pain free Pain Plan: per pathway Tomorrow's Labs & Rationales: cbc bep DVT/Prophylaxis: mechanical, pharmacological Eldon Randall 07/09/17 1352: Attending MD Review Statement Attending Statement Attending MD Statement: examined this patient, discuss w/resident/PA/NICKER, agreed w/resident/PA/NICKER, reviewed EMR data (avail), discussed with nursing, discussed with case mgmt Attending Assessment/Plan: Will d/w urology about BPH and starting meds for it. d/w pt the care plan. reviewed blood cultures and urine cultures - DRY TRANSFER MAN- will cont on abx per ID.
--- NOTE | 2017-07-09 08:00 | Patient Discharge Instructions ---
See Addendum Discharge Instructions General Discharge Information Special Instructions: follow-up with Dr. Euceda in 1 month to undergo repeat x-rays of the right hip to check on his gait ability and to check on his right hip symptoms and motion and function and to check on fracture healing activity at his nondisplaced right femoral neck fracture with additional time. Acute Coronary Syndrome Inclusion Criteria At DC or during hospital stay patient has or had the following: ACS DIAGNOSIS No Discharge Core Measures Meds if any: Prescribed or Continued at Discharge Meds if any: NOT Prescribed or Continued at Discharge Congestive Heart Failure Inclusion Criteria At DC or during hospital stay patient has or had the following: CHF DIAGNOSIS No Discharge Core Measures Meds if any: Prescribed or Continued at Discharge Meds if any: NOT Prescribed or Continued at Discharge Cerebrovascular accident Inclusion Criteria At DC or during hospital stay patient has or had the following: CVA/TIA Diagnosis No Discharge Core Measures Meds if any: Prescribed or Continued at Discharge Meds if any: NOT Prescribed or Continued at Discharge Venous thromboembolism Inclusion Criteria VTE Diagnosis No VTE Type NONE VTE Confirmed by (Test) NONE Discharge Core Measures - Per Current guidelines, there needs to be overlap - treatment for the first 5 days of Warfarin therapy. - If discharged on Warfarin prior to 5 days of - overlap therapy, the patient will need to be - assessed for post discharge needs including - *Post discharge parental anticoagulation - *Warfarin and/or parental anticoagulation education - *Follow up date to check INR post discharge At least 5 days overlap therapy as Inpatient No Meds if any: Prescribed or Continued at Discharge Note: Overlap Therapy is Warfarin and Anticoagulant Meds if any: NOT Prescribed or Continued at Discharge
[2017-07-09 10:28] LABS: ABSOLUTE BASOPHIL COUNT 0 /CUMM (0.0-0.2); ABSOLUTE EOSINOPHIL COUNT 0.2 /CUMM (0.0-0.7); ABSOLUTE GRANULOCYTE CT 7.3 /CUMM (1.4-6.5); ABSOLUTE LYMPH COUNT 1.2 /CUMM (1.2-3.4); ABSOLUTE MONOCYTE COUNT 0.8 /CUMM (0.10-0.60); BASOPHIL % 0.3 % (0.0-2.0); EOSINOPHIL % 1.8 % (0-5); GRANULOCYTE % 77.5 % (42.2-75.2); HEMATOCRIT 38.5 % (42-52); MEAN CORPUSCULAR HGB 28.2 PG (27.0-31.0); MEAN CORPUSCULAR HGB CONC 32.5 G/DL (33.0-37.0); MEAN CORPUSCULAR VOLUME 86.6 FL (80.0-94.0); MEAN PLATELET VOLUME 8.4 FL (7.4-10.4); PLATELET COUNT 255 /CUMM (130-400); RBC DISTRIBUTION WIDTH 14.1 % (11.5-14.5); RED BLOOD CELL CT 4.45 /CUMM (4.70-6.10); WHITE BLOOD CELL COUNT 9.4 /CUMM (4.8-10.8)
--- NOTE | 2017-07-09 11:13 | RADIOLOGY REPORT ---
EXAMINATION: XR MODIFIED BARIUM SWALLOW CLINICAL INFORMATION: Choking while eating. Presumptive diagnosis of aspiration risk. COMPARISON: None. TECHNIQUE: A modified barium swallow was performed with speech pathologist in attendance. Pur?e, honey thick, nectar thick, thin, bread, and cracker consistencies were given to the patient and the swallowing mechanism was observed fluoroscopically with several spot films taken using the last image hold feature. FLUOROSCOPY TIME: 2 minutes and 17 seconds. FINDINGS: With all consistencies, the oropharyngeal phase of swallowing is normal. Mildly disordered with premature passage of contrast into the hypopharynx prior to the initiation of a swallow. There is prominent pooling of contrast in the valleculae noted with puree consistency and smaller degree of pooling with honey and nectar, solid and cracker consistency boluses. With thin liquid barium, transient silent penetration of contrast is seen without segun aspiration. IMPRESSION: 1. Mildly disordered oropharyngeal phase of swallowing with premature spillage of contrast into the hypopharynx. 2. Pooling of contrast noted in the valleculae with multiple substances, most prominent with puree consistency. 3. Transient silent penetration of contrast is seen with thin liquid barium. No segun aspiration noted. 4. Speech pathologist assessment issued separately.
--- NOTE | 2017-07-09 12:21 | PN- Infect Dx ---
Subjective Subjective: Afebrile without complaints Objective Last 24 Hrs of Vital Signs/I&O Vital Signs Date Time Temp Pulse Resp B/P B/P Pulse O2 O2 Flow FiO2 Mean Ox Delivery Rate 07/09 06 98.6 69 20 148/78 97 07/08 2203 98.9 91 20 138/70 96 /05 1409 99.0 68 20 134/72 96 Room Air Intake & Output 07/09 1600 07/09 0800 07/09 0000 Intake Total 400 930 Output Total 1025 1475 Balance -625 -545 Intake, IV 280 Intake, Oral 400 650 Number 1 Bowel Movements Output, Urine 1025 1475 Patient 184 lb Weight Physical Exam Other Physical Findings: He appears comfortable in no acute distress Lungs are clear Heart regular rhythm with no murmur Back no CVA tenderness; left percutaneous nephrostomy tube in place with 925 mL output yesterday and 625 mL overnight Results Last 24 Hours of Lab Results: Laboratory Tests 07/09 07/09 0859 0645 Chemistry Sodium (137 - 145 mmol/L) 142 Potassium (3.5 - 5.1 mmol/L) 3.4 L Chloride (98 - 107 mmol/L) 109 H Carbon Dioxide (22 - 30 mmol/L) 22 Anion Gap (5 - 16) 11 BUN (9 - 20 mg/dL) 17 Creatinine (0.7 - 1.2 mg/dL) 0.9 Estimated GFR (>60 ml/min) > 60 BUN/Creatinine Ratio (7 - 25 %) 18.9 Hematology CBC w Diff NO MAN DIFF REQ WBC (4.8 - 10.8 /CUMM) 9.4 RBC (4.70 - 6.10 /CUMM) 4.45 L Hgb (14.0 - 18.0 G/DL) 12.5 L Hct (42 - 52 %) 38.5 L MCV (80.0 - 94.0 FL) 86.6 MCH (27.0 - 31.0 PG) 28.2 MCHC (33.0 - 37.0 G/DL) 32.5 L RDW (11.5 - 14.5 %) 14.1 Plt Count (130 - 400 /CUMM) 255 MPV (7.4 - 10.4 FL) 8.4 Gran % (42.2 - 75.2 %) 77.5 H Lymphocytes % (20.5 - 51.1 %) 12.3 L Monocytes % (1.7 - 9.3 %) 8.1 Eosinophils % (0 - 5 %) 1.8 Basophils % (0.0 - 2.0 %) 0.3 Absolute Granulocytes (1.4 - 6.5 /CUMM) 7.3 H Absolute Lymphocytes (1.2 - 3.4 /CUMM) 1.2 Absolute Monocytes (0.10 - 0.60 /CUMM) 0.8 H Absolute Eosinophils (0.0 - 0.7 /CUMM) 0.2 Absolute Basophils (0.0 - 0.2 /CUMM) 0 Last 24 Hours of [place] Results: Urine culture July 07 from the OR positive for possibly 2 types of coag-negative Staph Urine culture July 06 approximately 20,000 colonies of coag-negative Staph to Tetracycline, Nitrofurantoin and Vancomycin Blood cultures July 07 and July 08 negative Recent Imaging Studies: Modified barium swallow July 09 reveals a mildly disordered oropharyngeal phase of swallowing, with premature spillage of contrast into the hypopharynx Assessment/Plan ID Impression: Stable, with temperatures and white blood cell count remaining normal, on Vancomycin Day 4 of treatment for presumed sepsis of urologic origin, with coag- negative Staph isolated from both blood cultures and urine cultures, status post percutaneous left nephrostomy 2 days ago, after an unsuccessful attempt at left ureteral stent placement, for an obstructing left ureteral calculus with proximal hydroureteronephrosis. Suggestion: 1. Remove Yanes catheter per Urology 2. Urology follow-up regarding further management of his stone 3. Continue Vancomycin until discharge, at which point can change to Doxycycline 100 mg po every 12 hours to complete a 2 week course of treatment
--- NOTE | 2017-07-09 12:55 | PN- Cardiology ---
Subjective Subjective: Feeling well. No chest pain. No palpitations. No diaphoresis. No nausea or vomiting. No lightheadedness or dizziness. Objective Vital Signs and I&Os Vital Signs Date Time Temp Pulse Resp B/P B/P Pulse O2 O2 Flow FiO2 Mean Ox Delivery Rate 07/09 1223 138/76 07/09 0600 98.6 69 20 148/78 97 / 2203 98.9 91 20 138/70 96 03/ 1409 99.0 68 20 134/72 96 Room Air Intake & Output 07/09 1600 07/09 0800 07/09 0000 07/08 1600 07/08 0800 07/08 0000 Intake Total 400 930 0 410 Output Total 1025 1475 550 600 450 Balance -625 -545 -550 -600 -40 Intake, IV 280 0 270 Intake, Oral 400 650 0 140 Number 1 Bowel Movements Output, Urine 1025 1475 550 600 450 Patient 184 lb 188 lb Weight Physical Exam: Gen: The patient is in no acute distress HEENT: Normal nose, ears, and oropharynx. Pupils equal bilaterally. Conjunctiva normal. Neck: Supple with no JVD, no masses, and no thyromegaly Lungs: Clear to auscultation with normal respiratory effort Heart: irreg irreg, S1, S2, 1/6 systolic murmur. No peripheral edema, 2+ pulses in the lower extremities bilaterally Abdomen: Soft, nontender, no masses. No hepatomegaly. No splenomegaly Extremities: No clubbing or cyanosis. Normal muscle strength in the upper and lower extremities Skin: Normal skin turgor with no skin ulcers or lesions noted. Neuro: Cranial nerves intact. Sensation intact Current Medications: Current Medications Sig/Graciela Start time Last Medication Dose Route Stop Time Status Admin Acetaminophen 650 MG Q6P PRN 07/06 0245 AC PO Ceftriaxone Sodium 1,000 MG DAILY 07/06 1000 DC 07/08 IV 0956 Cholecalciferol 1,000 IU DAILY 07/06 1000 AC 07/09 PO 0847 Finasteride 5 MG DAILY 07/09 1045 AC 07/09 PO 1223 Furosemide 10 MG Q48 07/06 1000 AC 07/08 PO 0956 Metoprolol Succinate 25 MG DAILY 07/06 1000 AC 07/09 PO 0849 Multivitamins 1 TAB DAILY 07/06 1000 AC 07/09 PO 0847 Oxybutynin Chloride 5 MG BID 07/06 0400 AC 07/09 PO 0815 Patient Medication 1 ED ONE ONE 07/08 1415 PR Teaching ED 07/08 1416 Tamsulosin HCl 0.4 MG DAILY 07/09 1045 07/09 PO 1223 Vancomycin HCl 1,000 MG 1700 07/08 1700 07/08 Dextrose/Water 250 ML IV 1745 Results Last 48 Hrs of Labs/Mics: Laboratory Tests 07/09/17 0859: CBC w Diff NO MAN DIFF REQ, RBC 4.45 L, MCV 86.6, MCH 28.2, MCHC 32.5 L, RDW 14.1, MPV 8.4, Gran % 77.5 H, Lymphocytes % 12.3 L, Monocytes % 8.1, Eosinophils % 1.8, Basophils % 0.3, Absolute Granulocytes 7.3 H, Absolute Lymphocytes 1.2, Absolute Monocytes 0.8 H, Absolute Eosinophils 0.2, Absolute Basophils 0 07/09/17 0645: Anion Gap 11, Estimated GFR > 60, BUN/Creatinine Ratio 18.9 07/08/17 0620: Anion Gap 10, Estimated GFR > 60, BUN/Creatinine Ratio 16.4, Magnesium 1.7, CBC w Diff NO MAN DIFF REQ, RBC 4.17 L, MCV 86.4, MCH 28.9, MCHC 33.4, RDW 14.0, MPV 8.7, Gran % 76.6 H, Lymphocytes % 12.0 L, Monocytes % 9.5 H, Eosinophils % 1.6, Basophils % 0.3, Absolute Granulocytes 7.3 H, Absolute Lymphocytes 1.1 L, Absolute Monocytes 0.9 H, Absolute Eosinophils 0.2, Absolute Basophils 0 Recent Imaging Studies: Echocardiogram: Normal size left ventricle. Mild concentric left ventricular hypertrophy. Normal left ventricular ejection fraction visually estimated at > 55%. Mild aortic regurgitation. Mild tricuspid regurgitation. Right ventricular systolic pressure estimated to be elevated at 46 mmHg. Trace pulmonic regurgitation. Assessment/Plan Assessment/Plan Assessment: 1. Coronary artery disease 2. Hypertension 3. Atrial flutter 4. Sepsis of urological origin, with blood cultures positive for coag negative staph 5. Right femoral neck fracture Plan: * Echocardiogram reveals normal left ventricular function with mild pulmonary hypertension * Continue metoprolol for rate control * The patient is off anticoagulants because of frequent falls * Antibiotics as per ID Continue telemetry? No
[2017-07-09 14:12] VITALS: BP 134/80
--- NOTE | 2017-07-09 15:52 | Discharge Summary ---
Visit Information Visit Dates Admission Date: 07/05/17 Discharge Date: 07/12/17 Hospital Course Course Attending Physician: Prakash AHUMADA,Eldon Gama Primary Care Physician: Rhett Bird MD Hospital Course: 82-year-old gentleman with past medical history of hypertension, A. fib not on anticoagulation, HLD, syncope, recurrent falls, CAD status post CABG came to [facility] with complaints of confusion since this afternoon. Patient is a poor historian and collateral information was obtained from his daughter over the phone. According to her he was in his usual state of health until the day before admission when he was appearing more confused and there was periods of hallucination. She called his primary care physician who suggested to bring him to [facility]. -Of note Patient saw his urologist last week who did a renal ultrasound and found to have moderate left-sided hydroureteronephrosis obstructing 0.9 cm calcification in the proximal left ureter. Dr. Paige has planned lithotripsy next Saturday. Hence his aspirin was stopped since yesterday. Also, his primary care physician changed Lasix 10 mg daily to 10 mg every other day -Patient has been seen by Dr. Paige for hematuria since 2015. He underwent TURP, lithotripsy in November 2016. Patient also has history of nephrolithiasis. Patient says he was recently treated for UTI in March 2017. Patient has grown coag negative staph aureus which is sensitive only to vancomycin, nitrofurantoin. ED course: -Admission vitals:Temperature 97.9, pulse rate 119, respiratory rate 18, blood pressure 146/86, saturating at 96 room -Admission labs:WBC 14.4, hemoglobin 13.4, platelet count 222, sodium 139, potassium 4, BUN 25, creatinine 1.5, glucose 110, lactic acid 1.4 -Urine analysis-nitrate positive, leuko esterase large with packed WBC -Head CT:Negative Renal ultrasound-June 2017 1. Interval development of moderate left-sided hydroureteronephrosis. In reviewing prior KUB, findings are likely related to an obstructing 0.9 cm calcification in the proximal left ureter. 2. Nonobstructing lower pole left renal calcification. 3. No definite right renal calculi. 4. Enlarged bladder with large post void residual. This is most likely related to an enlarged heterogeneous prostate gland with prominent median lobe extension into the bladder base. However, close clinical correlation is requested. Cystoscopic correlation may be warranted to exclude a bladder mass CT abdomen and pelvis: 1. An obstructing left ureteral 1 cm calculus at the L3-L4 level with proximal hydroureteronephrosis. Cannot exclude an infected obstructed left genitourinary system. Please correlate with urinalysis. 2. A couple other subcentimeter nonobstructing calculi in the left kidney. 3. Age-indeterminate nondisplaced right femoral neck fracture. Please correlate for any corresponding clinical symptoms. 4. Significant prostatomegaly. 5. Other findings as above. Right hip MRI: 1. Acute, nondisplaced fracture of the right femoral neck. 2. Mild right hip osteoarthritis with small joint effusion. 3. Prostatomegaly ED treatment Ceftriaxone, acetaminophen Patient was admitted to telemetry unit for treatment of Sepsis of urologic origin: The patient was found to have an obstructing 0.9 cm left ureteral stone, on 07/21 there was an attempt to place a stent however it failed and the patient had to be taken on 07/07/17 to have IR guided nephrostomy. Blood culture and urine culture from nephrostomy grew coag negative staph. Patient was initially treated with IV ceftriaxone and vancomycin and then subsequently IV ceftriaxone was discontinued after 3 days. On 07/11 patient was taken back to OR and had a succesful left ureter sotne removal with stent placement and nephrostomy removal. Urology reccomended the patient to keep the florian for 2-3 more days in order to keep the bladder decompressed. Infectious disease final reccomendation was that on discharge day, the ABX should be switched from Vanco to to Doxycycline 100 mg po bid to complete a 14 days course. Acute nondisplaced fracture of the right femoral neck: It was accidentally discovered in CT abdomen and pelvis, the patient denied any complaints MRI showed:Acute, nondisplaced fracture of the right femoral neck Ortho consult recommended that The patient should be mobilized out of bed with physical therapy using a walker, toe-touch weightbearing on the right lower extremity. He does not require any other therapy for the right hip other than gait training for protected weightbearing on the right lower extremity. He should follow-up with Dr. Euceda in 1 month to undergo repeat x-rays of the right hip to check on his gait ability and to check on his right hip symptoms and motion and function and to check on fracture healing activity at his nondisplaced right femoral neck fracture with additional time. ADRYAN: Admission his creatinine was 1.5, BUN 25, most likely was due to obstructing ureteral stone Improved, creatinine on the day of discharge was 0.9, BUN 17 Prostate enlargment: CT abdomen and pelvis showed:Significant prostatomegaly. The patient was started on finasteride 5 mg p.o. daily and Tamsulosin 0.4 mg daily as per urology recommendation. Will need to follow-up outpatient with his urologist Chronic medical conditions: Patient was kept on his home meds Full code DVT prophylaxis with subcutaneous heparin Regular diet Allergies: Coded Allergies: Penicillins (HIVES - PER PT'S FAMILY 11/04/16) meperidine (From Demerol) (NAUSEA / VOMITING 11/07/16) Disposition Summary Disposition Principal Diagnosis: Sepsis of urological origin Obstructing left ureteral stone Additional Diagnosis: Acute nondisplaced fracture of the right femoral neck Discharge Disposition: SNF Discharge Instructions General Discharge Information Code Status: Full Code Patient's Diet: heart healthy diet Patient's Activity: As tolerated Follow-Up Instructions/Appts: Please follow-up with the PCP within a week of discharge Please follow-up with urologist within a week of discharge Please follow-up with orthopedic in 1 months of discharge Please take the medication as advised Medications at Discharge Discharge Medications: Continue taking these medications: Aspirin (Ecotrin*) 81 MG TABLET. 1 Tablet ORAL DAILY Comments: Last Taken: 06/10/17 Time: 10AM Metoprolol Succ XL (Toprol XL) 25 MG TAB 1 Tablet ORAL DAILY Qty = 30 Comments: Last Taken: 06/10/17 Time: 1000 Ascorbic Acid (Vitamin C) 1,000 MG TABLET 2,000 Milligram ORAL TWICE DAILY Comments: NOT TAKEN Cyanocobalamin/Cobamamide (B-12 5,000 Mcg Sublingual Tab) 5,000 MCG-100 MCG TAB.SUBL 5,000 Microgram SUBLINGUAL DAILY Comments: NOT GIVEN IN HOSPITAL [[facility]] TAB 300 Milligram ORAL TWICE DAILY Comments: NOT GIVEN IN HOSPITAL Mvi, Adult No.2 Without Vit K (M.v.i.-12) 200-600/10 VIAL 1 Tablet ORAL DAILY Comments: Last Taken: 06/10/17 Time: 10AM Red Yeast Rice (Red Yeast Rice) 600 MG CAPSULE 1 Tablet ORAL TWICE DAILY Comments: NOT GIVEN IN HOSPITAL Oxybutynin Chloride (Oxybutynin Chloride) 5 MG TABLET 1 Tablet ORAL TWICE DAILY Qty = 180 Comments: Last Taken: 06/10/17 Time: 10AM Cholecalciferol (Vitamin D3) (Vitamin D) 5,000 UNIT TABLET 1 Tablet ORAL DAILY Fesoterodine Fumarate (Toviaz) 8 MG TAB.ER.24H 1 Tablet ORAL DAILY Nitrofurantoin Monohyd/M-Cryst (Nitrofurantoin Wythe-Mcr 100 MG) (Unknown Strength) CAPSULE Unknown Dose ORAL TWICE DAILY Qty = 14 Furosemide (Furosemide) 20 MG TABLET 0.5 Tablet ORAL Every other day Qty = 90 Start taking the following new medications: Tamsulosin HCl (Flomax) 0.4 MG CAP.ER.24H 0.4 Milligram ORAL DAILY Qty = 30 No Refills Finasteride (Finasteride) 5 MG TABLET 5 Milligram ORAL DAILY Qty = 30 No Refills Doxycycline Hyclate (Doxycycline Hyclate) 100 MG TABLET 1 Tablet ORAL TWICE DAILY Qty = 14 No Refills Copies To: Pelon AHUMADA,Rhett Gordon Attending MD Review Statement Documenting Attending: Prakash AHUMADA,Eldon Gama
[2017-07-09] MEDS ORDERED: FLOMAX0.4 M1 PO (16:29)
[2017-07-09] MEDS ORDERED: FINASTERIDE5 M1 PO (16:31)
[2017-07-09 22:25] VITALS: BP 126/72
[2017-07-10 07:15] VITALS: BP 154/84
[2017-07-10 08:10] LABS: ABSOLUTE BASOPHIL COUNT 0 /CUMM (0.0-0.2); ABSOLUTE EOSINOPHIL COUNT 0.3 /CUMM (0.0-0.7); ABSOLUTE GRANULOCYTE CT 8.9 /CUMM (1.4-6.5); ABSOLUTE LYMPH COUNT 1.4 /CUMM (1.2-3.4); BASOPHIL % 0.3 % (0.0-2.0); EOSINOPHIL % 2.4 % (0-5); GRANULOCYTE % 76.8 % (42.2-75.2); HEMATOCRIT 38.8 % (42-52); MEAN CORPUSCULAR HGB 28.5 PG (27.0-31.0); MEAN CORPUSCULAR HGB CONC 32.8 G/DL (33.0-37.0); MEAN CORPUSCULAR VOLUME 86.8 FL (80.0-94.0); MEAN PLATELET VOLUME 8.7 FL (7.4-10.4); PLATELET COUNT 241 /CUMM (130-400); RBC DISTRIBUTION WIDTH 13.6 % (11.5-14.5); RED BLOOD CELL CT 4.47 /CUMM (4.70-6.10); WHITE BLOOD CELL COUNT 11.6 /CUMM (4.8-10.8)
--- NOTE | 2017-07-10 09:56 | PN- Housestaff ---
Oscar AHUMADA,Jaimie 07/10/17 0956: Subjective Follow-up For: Sepsis of urologic origin s/p nephrostomy tube ADRYAN Tele-Events Since Last Visit: off Telemetry Subjective: Patient was seen and examined at bedside, he is afebrile and denies any complaints, Florian catheter was discontinued in the morning as per urology recommendation, patient does not report any difficulty voiding, hesitancy or dysuria Review of Systems Constitutional: Reports: see HPI. Objective Last 24 Hrs of Vital Signs/I&O Vital Signs Date Time Temp Pulse Resp B/P B/P Pulse O2 O2 Flow FiO2 Mean Ox Delivery Rate 07/10 1442 99.8 68 20 122/62 94 Room Air 07/10 0950 99.6 74 22 154/84 07/10 0800 98 Room Air Room Air 07/10 0715 99.6 74 22 154/84 93 / 2225 98.5 90 22 126/72 97 Intake & Output 07/10 1600 07/10 0800 07/10 0000 Intake Total 500 100 320 Output Total 850 400 600 Balance -350 -300 -280 Intake, Oral 500 100 320 Number 2 Bowel Movements Output, Urine 850 400 600 Patient 186 lb 186 lb Weight Physical Exam General Appearance: Alert, Cooperative, No Acute Distress HEENT: Atraumatic, PERRLA, EOMI, Mucous Membr. moist/pink Cardiovascular: Normal S1, Normal S2, No Murmurs Lungs: Clear to Auscultation Abdomen: Normal Bowel Sounds, Soft, No Tenderness, nephrostomy tube in place , normal skin surrounding it Neurological: Normal Speech, Strength at 5/5 X4 Ext, Normal Tone, Sensation Intact, Cranial Nerves 3-12 NL Extremities: No Clubbing, No Cyanosis, No Edema, Normal Pulses Assessment/Plan Assessment: 82-year-old male with significant past history of multiple episodes of nephrolithiasis, BPH status post TURP, asymptomatic pyuria, recent evidence of recurrent nephrolithiasis presented with abrupt change in mental status with elevated temperature Problem list: ADRYAN Sepsis of urologic origin s/p nephrostomy tube POD 1 Acute nondisplaced fracture of the right femoral neck Prostate enlargment Plan * Discontinue telemetry * blood culture grew coag negative staph, same as urine culture from nephrostomy tube * Monitor renal function * Monitor and replete potassium as needed * Continue vancomycin 1 g daily (day 4) * Continue metoprolol XL 25 mg daily * Keep tube open to gravity bag * MRI showed healing femoral neck fracture, * Mobilize with PT with walker * Follow-up with Dr. Tinsley in 1 month * Continue finasteride 5 mg p.o. daily * Continue Flomax 0.4 mg daily * Florian catheter was DC'D this morning as per urology recommendation * Patient will be made n.p.o. at midnight for another trial in the morning to remove the stone by Dr. Paige * Urology, cardiology, ID, orho recommendations appreciated Full code DVT prophylaxis with subcutaneous heparin Regular diet Problem List: 1. ADRYAN (acute kidney injury) 2. Kidney stone Pain Ratin Pain Location: n/a Pain Goal: Remain pain free Pain Plan: pathway Tomorrow's Labs & Rationales: cbc bep DVT/Prophylaxis: mechanical, pharmacological Eldon Randall 07/10/17 1521: Attending MD Review Statement Attending Statement Attending MD Statement: examined this patient, discuss w/resident/PA/FIRER KILN, agreed w/resident/PA/FIRER KILN, reviewed EMR data (avail), discussed with nursing, discussed with case mgmt Attending Assessment/Plan: d/w pt the care plan . pts florian was removed and he was able to urinate by himself and we will cont to check for residual . Dr Paige planning to take pt to OR tomorrow to address the stone.
[2017-07-10 14:42] VITALS: BP 122/62
[2017-07-10 22:47] VITALS: BP 122/80
--- NOTE | 2017-07-11 07:15 | PN- Housestaff ---
Oscar AHUMADA,Jaimie 07/11/17 0715: Subjective Follow-up For: Sepsis of urologic origin s/p nephrostomy tube ADRYAN Tele-Events Since Last Visit: off tele Subjective: Patient was seen and examined at bedside, afebrile and he denies any complaints except for dry mouth because he is n.p.o. for surgery Review of Systems Constitutional: Reports: see HPI. Objective Last 24 Hrs of Vital Signs/I&O Vital Signs Date Time Temp Pulse Resp B/P B/P Pulse O2 O2 Flow FiO2 Mean Ox Delivery Rate 07/11 0848 69 128/76 07/11 0848 69 128/76 07/11 0742 99.2 69 18 128/76 96 Room Air 07/10 2247 99.8 98 20 122/80 93 07/10 1442 99.8 68 20 122/62 94 Room Air Intake & Output 07/11 1600 07/11 0800 07/11 0000 Intake Total 540 Output Total 100 100 Balance -100 440 Intake, Oral 540 Output, Urine 100 100 Patient 180 lb 182 lb Weight Physical Exam General Appearance: Alert, Cooperative, No Acute Distress HEENT: Atraumatic, PERRLA, EOMI, Mucous Membr. moist/pink Neck: Supple, No JVD Cardiovascular: Normal S1, Normal S2, No Murmurs Lungs: Clear to Auscultation Abdomen: Normal Bowel Sounds, Soft, No Tenderness, nephrostomy tube inplace , no leakage, normal skin around it Neurological: Normal Speech, Strength at 5/5 X4 Ext, Normal Tone, Sensation Intact Extremities: No Clubbing, No Cyanosis, No Edema Assessment/Plan Assessment: 82-year-old male with significant past history of multiple episodes of nephrolithiasis, BPH status post TURP, asymptomatic pyuria, recent evidence of recurrent nephrolithiasis presented with abrupt change in mental status with elevated temperature Problem list: ADRYAN Sepsis of urologic origin s/p nephrostomy tube POD 4 Acute nondisplaced fracture of the right femoral neck Prostate enlargment Plan * Discontinue telemetry * blood culture grew coag negative staph, same as urine culture from nephrostomy tube * Monitor renal function * Monitor and replete potassium as needed * Continue vancomycin 1 g daily (day 5) * Continue metoprolol XL 25 mg daily * Keep tube open to gravity bag * MRI showed healing femoral neck fracture, no rule for surgery as per ortho * Mobilize with PT with walker * Follow-up with Dr. Tinsley in 1 month * Continue finasteride 5 mg p.o. daily * Continue Flomax 0.4 mg daily * Patient will be going today for second trial to remove ureteral stone * Urology, cardiology, ID, orho recommendations appreciated Full code DVT prophylaxis with subcutaneous heparin Regular diet Problem List: 1. Kidney stone 2. ADRYAN (acute kidney injury) Pain Ratin Pain Location: N/A Pain Goal: Remain pain free Pain Plan: Pathway Tomorrow's Labs & Rationales: CBC BEP DVT/Prophylaxis: mechanical, pharmacological Jonathan Hernadez MD 07/11/17 2213: Attending MD Review Statement Attending Statement Attending MD Statement: examined this patient, discuss w/resident/PA/NET UI DEVELOPER, agreed w/resident/PA/NET UI DEVELOPER, reviewed EMR data (avail), discussed with case mgmt, amended to note Attending Assessment/Plan: The patient was seen and discussed with house staff. Went to OR today for stone extraction by Dr. Paige (await operative note). Transferred to [facility]. Cardiology/Urology/ID input appreciated. Continuing on Vanco.
[2017-07-11 07:42] VITALS: BP 128/76
--- NOTE | 2017-07-11 12:02 | PN- Cardiology ---
Subjective Subjective: The patient complains of dry mouth secondary to being n.p.o. No chest pain. No shortness of breath. No diaphoresis. No palpitations. No nausea or vomiting. Objective Vital Signs and I&Os Vital Signs Date Time Temp Pulse Resp B/P B/P Pulse O2 O2 Flow FiO2 Mean Ox Delivery Rate 07/12 847 69 128/76 07/11 0848 69 128/76 07/11 0742 99.2 69 18 128/76 96 Room Air 07/10 2247 99.8 98 20 122/80 93 07/10 1442 99.8 68 20 122/62 94 Room Air Intake & Output 07/11 1600 07/11 0800 07/11 0000 07/10 1600 07/10 0807/10 0000 Intake Total 540 500 100 320 Output Total 100 100 850 400 600 Balance -100 440 -350 -300 -280 Intake, Oral 540 500 100 320 Number 2 Bowel Movements Output, Urine 100 100 850 400 600 Patient 180 lb 182 lb 186 lb 186 lb Weight Physical Exam: Gen: The patient is in no acute distress HEENT: Normal nose, ears, and oropharynx. Pupils equal bilaterally. Conjunctiva normal. Neck: Supple with no JVD, no masses, and no thyromegaly Lungs: Clear to auscultation with normal respiratory effort Heart: irreg irreg, S1, S2, 1/6 systolic murmur. No peripheral edema, 2+ pulses in the lower extremities bilaterally Abdomen: Soft, nontender, no masses. No hepatomegaly. No splenomegaly Extremities: No clubbing or cyanosis. Normal muscle strength in the upper and lower extremities Skin: Normal skin turgor with no skin ulcers or lesions noted. Current Medications: Current Medications Sig/Graciela Start time Last Medication Dose Route Stop Time Status Admin Acetaminophen 650 MG Q6P PRN 07/06 0245 AC PO Cholecalciferol 1,000 IU DAILY 07/06 1000 AC 07/10 PO 0950 Finasteride 5 MG DAILY 07/09 1045 AC 07/11 PO 0848 Furosemide 10 MG Q48 07/06 1000 AC 07/10 PO 0950 Heparin Sodium 5,000 UNIT Q8 07/09 1400 AC 07/11 (Porcine) SC 0602 Metoprolol Succinate 25 MG DAILY 07/06 1000 AC 07/11 PO 0848 Multivitamins 1 TAB DAILY 07/06 1000 AC 07/10 PO 0950 Oxybutynin Chloride 5 MG BID 07/06 0400 AC 07/11 PO 0847 Tamsulosin HCl 0.4 MG DAILY 07/09 1045 AC 07/11 PO 0848 Vancomycin HCl 1,000 MG 1700 07/08 1700 07/10 Dextrose/Water 250 ML IV 1745 Results Last 48 Hrs of Labs/Mics: Laboratory Tests 07/10/17 0707: Anion Gap 10, Estimated GFR > 60, BUN/Creatinine Ratio 16.3, CBC w Diff NO MAN DIFF REQ, RBC 4.47 L, MCV 86.8, MCH 28.5, MCHC 32.8 L, RDW 13.6, MPV 8.7, Gran % 76.8 H, Lymphocytes % 11.8 L, Monocytes % 8.7, Eosinophils % 2.4, Basophils % 0.3, Absolute Granulocytes 8.9 H, Absolute Lymphocytes 1.4, Absolute Monocytes 1.0 H, Absolute Eosinophils 0.3, Absolute Basophils 0 Assessment/Plan Assessment/Plan Assessment: 1. Coronary artery disease 2. Hypertension 3. Atrial flutter 4. Sepsis of urological origin, with blood cultures positive for coag negative staph 5. Right femoral neck fracture 6. Normal left LV function on echocardiogram Plan: * Continue metoprolol * Antibiotics as per the medical service * Going to OR today for removal of ureteral stone Continue telemetry? Yes
[2017-07-11 15:22] VITALS: BP 104/60
--- NOTE | 2017-07-11 16:55 | RADIOLOGY REPORT ---
EXAMINATION: INTRAOPERATIVE FLUOROSCOPY DURING LEFT URETEROSCOPY CLINICAL INDICATION: Obstructing calculus in the proximal left ureter. TECHNIQUE: The procedure was performed by Dr. Paige in the operating room. FLUOROSCOPY TIME: 6 minutes 14 seconds. Number of images: 3 FINDINGS: Contrast material seen throughout the colon. There is a partially imaged left nephrostomy catheter. Fluoroscopic images demonstrate placement of a wire followed by a ureteral stent. IMPRESSION: Intraoperative fluoroscopy was utilized by Dr. Paige during left ureteroscopy. Please refer to the operative report for a detailed description of the procedure and the real-time findings made and acted upon by the surgeon.
[2017-07-11 22:46] VITALS: BP 121/69
[2017-07-12 06:40] VITALS: BP 116/62
--- NOTE | 2017-07-12 07:11 | PN- Housestaff ---
Chiki AHUMADA,[facility] 07/12/17 0710: Subjective Follow-up For: Sepsis of urologic origin s/p nephrostomy tube ADRYAN Subjective: Patient was seen and examined at bedside. He is comfortable, offers no complaints. No active issues overnight. Review of Systems Constitutional: Reports: no symptoms. Objective Last 24 Hrs of Vital Signs/I&O Vital Signs Date Time Temp Pulse Resp B/P B/P Pulse O2 O2 Flow FiO2 Mean Ox Delivery Rate 07/12 1444 98.9 61 18 114/68 94 Room Air 07/12 1002 84 112/62 07/12 1001 84 112/62 07/12 0640 98.2 56 20 116/62 96 07/11 2246 98.4 74 20 121/69 95 Room Air 07/11 1633 97 Room Air Intake & Output 07/12 1600 07/12 0800 07/12 0000 Intake Total 720 890 Output Total 700 700 275 Balance 20 -700 615 Intake, IV 290 Intake, Oral 720 600 Number 1 1 Bowel Movements Output, Urine 700 700 275 Patient 189 lb Weight Physical Exam General Appearance: Alert, Oriented X3, Cooperative, No Acute Distress Skin: No Rashes, No Breakdown Skin Temp/Moisture Exam: Warm/Dry Sepsis Skin Exam (color): Normal for Ethnicity HEENT: Atraumatic Cardiovascular: Normal S1, Normal S2, No Murmurs Lungs: Clear to Auscultation, Normal Air Movement Abdomen: Soft, No Tenderness Neurological: Normal Speech Extremities: No Edema Assessment/Plan Assessment: 82-year-old male with significant past history of multiple episodes of nephrolithiasis, BPH status post TURP, asymptomatic pyuria, recent evidence of recurrent nephrolithiasis presented with abrupt change in mental status with elevated temperature Problem list: ADRYAN - resolved Sepsis of urologic origin Acute nondisplaced fracture of the right femoral neck Plan * blood culture grew coag negative staph, same as urine culture from nephrostomy tube * discontinue vancomycin. He is stable to be discharged. He can be switched to PO Doxycycline to complete a total course of 2 weeks. * Continue metoprolol XL 25 mg daily * He went repeat surgery with Dr Paige. Had a successful stent placement and removal of the nephrostomy tube. * MRI showed healing femoral neck fracture, no rule for surgery as per ortho * Mobilize with PT with walker * Follow-up with Dr. Tinsley in 1 month * Continue finasteride 5 mg p.o. daily * Continue Flomax 0.4 mg daily * Urology, cardiology, ID, orho recommendations appreciated Full code DVT prophylaxis with subcutaneous heparin Regular diet Problem List: 1. UTI (urinary tract infection) Pain Ratin Pain Location: none Pain Goal: Remain pain free Pain Plan: none Tomorrow's Labs & Rationales: none Nerissa Prasad 07/12/17 1116: Attending MD Review Statement Attending Statement Attending MD Statement: examined this patient, discuss w/resident/PA/SAND FILLER, agreed w/resident/PA/SAND FILLER, discussed with family, reviewed EMR data (avail), discussed with nursing, discussed with case mgmt, reviewed images, amended to note Attending Assessment/Plan: Patient seen/examined bedside. Patient denes any new complaints. Patient had urteral stent placed with removal of nephrostomy tube. Patinet is on antibiotic regime as per ID. PT recomend STR. Patient can be discharged if ok with urology. Cardiology followed. gi/dvt prophyalxis
[2017-07-12 08:10] LABS: ABSOLUTE BASOPHIL COUNT 0 /CUMM (0.0-0.2); ABSOLUTE EOSINOPHIL COUNT 0.2 /CUMM (0.0-0.7); ABSOLUTE LYMPH COUNT 1.3 /CUMM (1.2-3.4); BASOPHIL % 0.3 % (0.0-2.0); EOSINOPHIL % 2.1 % (0-5); RBC DISTRIBUTION WIDTH 13.9 % (11.5-14.5)
[2017-07-12 08:36] LABS: ABSOLUTE GRANULOCYTE CT 7.7 /CUMM (1.4-6.5); ABSOLUTE MONOCYTE COUNT 0.7 /CUMM (0.10-0.60); GRANULOCYTE % 77.4 % (42.2-75.2); HEMATOCRIT 34.5 % (42-52); MEAN CORPUSCULAR HGB 27.8 PG (27.0-31.0); MEAN CORPUSCULAR HGB CONC 31.9 G/DL (33.0-37.0); MEAN CORPUSCULAR VOLUME 87.2 FL (80.0-94.0); MEAN PLATELET VOLUME 8.2 FL (7.4-10.4); PLATELET COUNT 307 /CUMM (130-400); RED BLOOD CELL CT 3.96 /CUMM (4.70-6.10)
[2017-07-12 14:44] VITALS: BP 114/68
[2017-07-12] MEDS ORDERED: DOXYCYCLINE HY100 M4 PO (14:56)
--- NOTE | 2017-07-12 15:26 | PN- Infect Dx ---
Subjective Subjective: Afebrile without complaints Objective Last 24 Hrs of Vital Signs/I&O Vital Signs Date Time Temp Pulse Resp B/P B/P Pulse O2 O2 Flow FiO2 Mean Ox Delivery Rate 07/12 1444 98.9 61 18 114/68 94 Room Air 07/12 1002 84 112/62 07/12 1001 84 112/62 07/12 0640 98.2 56 20 116/62 96 07/11 2246 98.4 74 20 121/69 95 Room Air 07/11 1633 97 Room Air 07/11 1522 98.8 60 18 104/60 98 Nasal 2.0L Cannula Intake & Output 07/12 1600 07/12 0800 07/12 0000 Intake Total 890 Output Total 700 700 275 Balance -700 -700 615 Intake, IV 290 Intake, Oral 600 Number 1 1 Bowel Movements Output, Urine 700 700 275 Patient 189 lb Weight Physical Exam Other Physical Findings: He appears comfortable in no acute distress Lungs are clear Heart regular rhythm with no murmur Back no CVA tenderness Yanes catheter in place Results Last 24 Hours of Lab Results: Laboratory Tests 07/12 06 Chemistry Sodium (137 - 145 mmol/L) 141 Potassium (3.5 - 5.1 mmol/L) 4.0 Chloride (98 - 107 mmol/L) 106 Carbon Dioxide (22 - 30 mmol/L) 26 Anion Gap (5 - 16) 9 BUN (9 - 20 mg/dL) 17 Creatinine (0.7 - 1.2 mg/dL) 0.9 Estimated GFR (>60 ml/min) > 60 BUN/Creatinine Ratio (7 - 25 %) 18.9 Hematology CBC w Diff NO MAN DIFF REQ WBC (4.8 - 10.8 /CUMM) 10.0 RBC (4.70 - 6.10 /CUMM) 3.96 L Hgb (14.0 - 18.0 G/DL) 11.0 L Hct (42 - 52 %) 34.5 L MCV (80.0 - 94.0 FL) 87.2 MCH (27.0 - 31.0 PG) 27.8 MCHC (33.0 - 37.0 G/DL) 31.9 L RDW (11.5 - 14.5 %) 13.9 Plt Count (130 - 400 /CUMM) 307 MPV (7.4 - 10.4 FL) 8.2 Gran % (42.2 - 75.2 %) 77.4 H Lymphocytes % (20.5 - 51.1 %) 12.8 L Monocytes % (1.7 - 9.3 %) 7.4 Eosinophils % (0 - 5 %) 2.1 Basophils % (0.0 - 2.0 %) 0.3 Absolute Granulocytes (1.4 - 6.5 /CUMM) 7.7 H Absolute Lymphocytes (1.2 - 3.4 /CUMM) 1.3 Absolute Monocytes (0.10 - 0.60 /CUMM) 0.7 H Absolute Eosinophils (0.0 - 0.7 /CUMM) 0.2 Absolute Basophils (0.0 - 0.2 /CUMM) 0 Last 24 Hours of Lanre Results: No new cultures Assessment/Plan ID Impression: Stable, status post presumed cystoscopy, removal of the left ureteral stone and placement of a left ureteral stent, with removal of the left percutaneous nephrostomy, yesterday. He remains afebrile with white blood cell count normal on Vancomycin Day 7 of treatment for presumed sepsis of urologic origin, with coag-negative Staph isolated from both the blood and urine cultures. Suggestion: 1. Further management with regard to his Yanes catheter per Urology 2. Continue Vancomycin, with change to Doxycycline 100 mg po every 12 hours upon discharge to complete a 2 week course of antibiotics
[2017-07-12 16:26] VITALS: BP 114/68
== END 2017-07-12 17:13 | DRG 853 ==
LOC: ERH 20:19 → 1NO 22:18 → ERHI 22:18 → 1NO 23:51 → ENTRNSPT 07-06 19:24 → EDTRNSPTSTS 07-06 19:40 → EDTRNSPT 07-06 19:40 → CMPTRNSPT 07-06 20:03 → 1NO 07-08 08:20 → 2NB 07-11 12:16 → ENTRNSPT 07-11 14:40 → EDTRNSPTSTS 07-11 14:53 → CMPTRNSPT 07-11 15:27 → 2NB 07-12 07:37
PROVIDERS: Internal Medicine; Internal Medicine Adolescent Medicine; Student in an Organized Health Care Education/Training Program
PROC: 0TJB8ZZ Inspection of Bladder, Via Natural or Artificial Opening Endoscopic (ICD-10-PCS; principal; 2017-07-06)
PROC: 0T9130Z Drainage of Left Kidney with Drainage Device, Percutaneous Approach (ICD-10-PCS; 2017-07-07)
PROC: BT1FZZZ Fluoroscopy of Left Kidney, Ureter and Bladder (ICD-10-PCS; 2017-07-11)
PROC: 0T778DZ Dilation of Left Ureter with Intraluminal Device, Via Natural or Artificial Opening Endoscopic (ICD-10-PCS; 2017-07-11)
PROC: 0TP5X0Z Removal of Drainage Device from Kidney, External Approach (ICD-10-PCS; 2017-07-11)
PROC: 0TC78ZZ Extirpation of Matter from Left Ureter, Via Natural or Artificial Opening Endoscopic (ICD-10-PCS; 2017-07-11)
DX: A41.1 Sepsis due to other specified staphylococcus (principal); S72.001A Fracture of unspecified part of neck of right femur, initial encounter for closed fracture; N17.9 Acute kidney failure, unspecified; I11.0 Hypertensive heart disease with heart failure; I50.32 Chronic diastolic (congestive) heart failure; I48.92 Unspecified atrial flutter; N13.6 Pyonephrosis; N13.8 Other obstructive and reflux uropathy; I27.20 Pulmonary hypertension, unspecified; I48.2 Chronic atrial fibrillation; E86.0 Dehydration; M41.9 Scoliosis, unspecified; Z95.1 Presence of aortocoronary bypass graft; I25.10 Atherosclerotic heart disease of native coronary artery without angina pectoris; E78.5 Hyperlipidemia, unspecified; N40.1 Benign prostatic hyperplasia with lower urinary tract symptoms; R33.8 Other retention of urine; W19.XXXA Unspecified fall, initial encounter; Z91.81 History of falling
CPT/HCPCS: 1NSP; 2NBP; 75615; 87184; 36415; 36592; 70140; 73502-RT; 74018; 74176; 74230; 76775; 81001; 82436; 87040; 87086; 87147; 87804; 87804-59; 93005; 93010; 93306; 96374; 97110-GO; 97116-GO; 97161-GP; 97530-GO; C1769; C2617; J0131; J0696; J1644; J3370; J7060; Q9968

== ENCOUNTER 2017-07-19 09:26 | Inpatient (IN) | payer OTHER, MEDICARE ==
[~2017-07-19] VITALS: Ht 167.6 cm; Wt 80.0 kg
[~2017-07-19 09:26] MED LIST changes: +DOXYCYCLINE HY100 M4 PO; +FINASTERIDE5 M1 PO; +FLOMAX0.4 M1 PO; +NITROFURANTOIN100 M6 PO; +TOVIAZ8 M1 PO; +VITAMIN D5000 UNIT PO
--- NOTE | 2017-07-19 09:33 | ED GI/GU/ABDOMINAL COMPLAINT ---
History of Present Illness General Chief Complaint: Male Genitourinary Problems Stated Complaint: BIBA FOR HEMATURIA Source: patient Exam Limitations: no limitations Vital Signs & Intake/Output Vital Signs & Intake/Output Vital Signs Date Time Temp Pulse Resp B/P B/P Pulse O2 O2 Flow FiO2 Mean Ox Delivery Rate 07/19 1703 116 07/19 1448 97.9 114 20 130/70 95 Room Air 07/19 1406 97.5 116 20 131/81 96 07/19 1220 112 20 156/91 96 Room Air 07/19 1025 97.1 119 20 131/87 96 Room Air 07/19 0929 96.8 115 20 138/79 96 Room Air Allergies Coded Allergies: Penicillins (HIVES - PER PT'S FAMILY 11/04/16) meperidine (From Demerol) (NAUSEA / VOMITING 11/07/16) Reconcile Medications Ascorbic Acid (Vitamin C) 1,000 MG TABLET 2,000 MG PO BID IMMUNITY (Reported) Aspirin (Ecotrin*) 81 MG TABLET.DR 1 TAB PO DAILY HEART HEALTH (Reported) Cholecalciferol (Vitamin D3) (Vitamin D) 5,000 UNIT TABLET 1 TAB PO DAILY SUPPLEMENT (Reported) Cyanocobalamin/Cobamamide (B-12 5,000 Mcg Sublingual Tab) 5,000 MCG-100 MCG TAB.SUBL 5,000 MCG SL DAILY SUPPLEMENT (Reported) Doxycycline Hyclate 100 MG TABLET 1 TAB PO BID UTI Fesoterodine Fumarate (Toviaz) 8 MG TAB.ER.24H 1 TAB PO DAILY BLADDER ( Reported) Finasteride 5 MG TABLET 5 MG PO DAILY BPH Furosemide 20 MG TABLET 0.5 TAB PO EOD DIURETIC (Reported) [LION'S NATHALIE] TAB 300 MG PO BID HEALTH SUPPLEMENT (Reported) Metoprolol Succ XL (Toprol XL) 25 MG TAB 1 TAB PO DAILY A.fib Mvi, Adult No.2 Without Vit K (M.v.i.-12) 200-600/10 VIAL 1 TAB PO DAILY VITAMIN SUPPORT (Reported) Nitrofurantoin Monohyd/M-Cryst (Nitrofurantoin [place]-Mcr 100 MG) (Unknown Strength) CAPSULE (Unknown Dose) PO BID UNKNOWN (Reported) Oxybutynin Chloride 5 MG TABLET 1 TAB PO BID BLADDER (Reported) Red Yeast Rice 600 MG CAPSULE 1 TAB PO BID HEALTH SUPPLEMENT (Reported) Tamsulosin HCl (Flomax) 0.4 MG CAP.ER.24H 0.4 MG PO DAILY BPH Triage Nurses Notes Reviewed? yes Onset: Abrupt Duration: unknown duration Timing: recent history No Modifying Factors: none HPI: 82-year-old male comes into the emergency room with blood in Yanes catheter. Patient is coming from assisted. Patient has some gross blood in his Yanes catheter. He has no complaints. Some baseline dementia. There was report that the patient had a low blood pressure at the facility however his blood pressure was normal with ambulance and normal here in the emergency room. (Kojo Prajapati) Past History Travel History Traveled to [place] past 21 day No Medical History Any Pertinent Medical History? 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 No (Kojo Prajapati) Review of Systems Review of Systems Constitutional: Reports: no symptoms. EENTM: Reports: no symptoms. Respiratory: Reports: no symptoms. Cardiovascular: Reports: no symptoms. GI: Reports: no symptoms. Genitourinary: Reports: see HPI. Musculoskeletal: Reports: no symptoms. Skin: Reports: no symptoms. Neurological/Psychological: Reports: no symptoms. Hematologic/Endocrine: Reports: see HPI. Immunologic/Allergic: Reports: no symptoms. All Other Systems: Reviewed and Negative (Kojo Prajapati) Physical Exam Physical Exam General Appearance: well developed/nourished, alert, awake Head: atraumatic Eyes: Bilateral: normal appearance. Ears, Nose, Throat, Mouth: hearing grossly normal, moist mucous membrane Neck: normal inspection Respiratory: no respiratory distress Gastrointestinal: soft Male Genitals: blood in Yanes bag, no clots, Back: normal inspection Extremities: normal range of motion Neurologic/Psych: awake, oriented x 3 Skin: intact, normal color Core Measures ACS in differential dx? No Sepsis Present: Yes Sepsis Focused Exam Completed? No (Kojo Prajapati) ED Sepsis Exam Date of Focused Sepsis Exam: 07/19/17 Time of Focused Sepsis Exam: 1100 Sepsis Cardiac Exam: Tachycardia Sepsis Resp Exam: CTA Sepsis Cap Refill Exam: <2 Sec Sepsis Peripheral Pulse Exam: Normal Sepsis Peripheral Pulse Location: Radial Sepsis Skin Color Exam: Pale Skin Temp/Moisture Exam: Warm/Dry (Kojo Prajapati) Progress Differential Diagnosis: pyelonephritis, ureterolithiasis, urinary retention, urethritis, UTI/pyelo, sepsis Plan of Care: Orders Procedure Date/time Status CBC WITHOUT DIFFERENTIAL 07/20 0600 Active BASIC ELECTROLYTES PLUS BUN&CR 07/20 0600 Active Heart Healthy Diet 07/19 D Active Weight 07/19 1458 Active Vital Signs 07/19 1458 Active Teach/Educate 07/19 1458 Active Pain Treatment and Response 07/19 1458 Active Nutritional Intake, Monitor 07/19 1458 Active Isolation 07/19 1458 Active Intake & Output 07/19 1458 Active Patient Care Conference 07/19 1458 Active Activity/Ambulation 07/19 1458 Active Yanes, Insertion/Removal/Asses 07/19 1358 Active Pathway - chart 07/19 1328 Active House Staff 07/19 1328 Active Patient Data 07/19 1328 Active Code Status 07/19 1328 Active ED- NURSING MISC 07/19 1250 Active LACTIC ACID 07/19 1143 Complete Patient Data 07/19 1142 Active ED Holding Orders 07/19 1136 Active Admit to inpatient 07/19 1136 Active Vital Signs 07/19 1136 Active Code Status 07/19 1136 Complete CULTURE,URINE 07/19 1046 Active URINALYSIS 07/19 1046 Complete Add-on Test (ER Only) 07/19 1014 Active BLOOD CULTURE 07/19 1014 Active EKG 07/19 1014 Active Intake & Output 07/19 0942 Active TROPONIN LEVEL 07/19 0940 Complete LACTIC ACID 07/19 0940 Complete PARTIAL THROMBOPLASTIN TIME 07/19 0931 Complete PROTHROMBIN TIME 07/19 0931 Complete COMPREHENSIVE METABOLIC PANEL 07/19 0931 Complete CBC WITHOUT DIFFERENTIAL 07/19 0931 Complete VTE Mechanical Prophylaxis 07/19 UNK Active Telemetry/Lumber Planer 07/19 UNK Active Current Medications Sig/Graciela Start time Last Medication Dose Stop Time Status Admin Ceftriaxone Sodium 1,000 MG DAILY 07/20 1000 AC (Rocephin) Finasteride 5 MG DAILY 07/20 1000 AC (Proscar) Tamsulosin HCl 0.4 MG DAILY 07/20 1000 AC (Flomax) Oxybutynin Chloride 5 MG BID 07/19 2200 AC (Ditropan) Metoprolol Succinate 25 MG DAILY 07/19 1439 AC 07/19 (Toprol XL) 1703 Sodium Chloride 1,000 ML Q13H 07/19 1330 AC 07/19 (Normal Saline 0.9%) 1703 Laboratory Tests 07/19/17 1530: Lactic Acid 1.0 07/19/17 1230: Urine Color JAMISON, Urine Clarity CLDY H, Urine pH 5.5, Ur Specific [place] 1.025, Urine Protein 100 H, Urine Ketones NEG, Urine Nitrite NEG, Urine Bilirubin NEG@ICTO, Urine Urobilinogen 0.2, Ur Leukocyte Esterase MOD H, Ur Microscopic SEDIMENT EXAMINED, Urine RBC >75 H, Urine WBC > 75 H, Ur Epithelial Cells FEW, Urine Bacteria FEW H, Urine Hemoglobin LARGE H, Urine Glucose NEG 07/19/17 0940: Anion Gap 13, Estimated GFR 53 L, BUN/Creatinine Ratio 17.7, Glucose 136 H, Lactic Acid 2.2 H, Calcium 9.7, Total Bilirubin 1.7 H, AST 20, ALT 25, Alkaline Phosphatase 99, Troponin I < 0.01, Total Protein 7.1, Albumin 3.7, Globulin 3.4, Albumin/Globulin Ratio 1.1, PT 13.8 H, INR 1.26 H, APTT 26, CBC w Diff MAN DIFF ORDERED, RBC 4.67 L, MCV 87.1, MCH 28.7, MCHC 33.0, RDW 14.1, MPV 6.9 L, Gran % 91.8 H, Lymphocytes % 3.1 L, Monocytes % 4.8, Eosinophils % 0.1, Basophils % 0.2, Absolute Granulocytes 19.8 H, Absolute Lymphocytes 0.7 L , Absolute Monocytes 1.0 H, Absolute Eosinophils 0, Absolute Basophils 0, Normocytic RBCs VERIFIED, Normochromic RBCs VERIFIED Microbiology 07/19 1230 URINE ROUT: Urine Culture - RECD 07/19 1150 BLOOD: Blood Culture - RECD 07/19 1040 BLOOD: Blood Culture - RECD Initial ED EKG: none (Kojo Prajapati) Departure Departure Disposition: STILL A PATIENT Condition: Stable Clinical Impression Primary Impression: Sepsis Secondary Impressions: Acute kidney injury Referrals: Pelon AHUMADA,Rhett Gordon (PCP/Family) Departure Forms: Customer Survey General Discharge Information Admission Note Spoke With: Siddhartha Mckinnon MD Documentation of Exam: Documentation of any treatments & extenuating circumstances including Concerns Regarding Discharge (functional status, medication knowledge or non-compliance, living conditions, etc.) that warrant an admission rather than observation: Patient require IV fluids. IV antibiotics. Repeat lab work. His therapy consultation. White blood cell count increased from 10-21,000. He was reportedly hypotensive at the assisted. Medically not safe for discharge. He will require more than 3 days here in the hospital. (Kojo Prajapati) PA/NIGHT CLUB MANAGER Co-Sign Statement Statement: ED Attending supervision documentation- [X] I saw and evaluated the patient. I have also reviewed all the pertinent lab results and diagnostic results. I agree with the findings and the plan of care as documented in the PA's/NIGHT CLUB MANAGER's documentation. [] I have reviewed the ED Record and agree with the PA's/NIGHT CLUB MANAGER's documentation. [] Additions or exceptions (if any) to the PAs/NIGHT CLUB MANAGER's note and plan are summarized below: [] 82-year-old male with likely sepsis. On my evaluation the patient is confused. (Antonio Lujan DO)
[2017-07-19 09:47] LABS: ABSOLUTE BASOPHIL COUNT 0 /CUMM (0.0-0.2); ABSOLUTE EOSINOPHIL COUNT 0 /CUMM (0.0-0.7); ABSOLUTE GRANULOCYTE CT 19.8 /CUMM (1.4-6.5); ABSOLUTE LYMPH COUNT 0.7 /CUMM (1.2-3.4); BASOPHIL % 0.2 % (0.0-2.0); EOSINOPHIL % 0.1 % (0-5); GRANULOCYTE % 91.8 % (42.2-75.2); HEMATOCRIT 40.7 % (42-52); MEAN CORPUSCULAR HGB 28.7 PG (27.0-31.0); MEAN CORPUSCULAR VOLUME 87.1 FL (80.0-94.0); MEAN PLATELET VOLUME 6.9 FL (7.4-10.4); PLATELET COUNT 472 /CUMM (130-400); RBC DISTRIBUTION WIDTH 14.1 % (11.5-14.5); RED BLOOD CELL CT 4.67 /CUMM (4.70-6.10); WHITE BLOOD CELL COUNT 21.6 /CUMM (4.8-10.8)
[2017-07-19 09:59] LABS: PT 13.8 SEC (9.4-12.5); PTT 26 SEC (25-37)
--- NOTE | 2017-07-19 11:18 | RADIOLOGY REPORT ---
EXAMINATION: XR PORTABLE CHEST CLINICAL INFORMATION: Elevated WBC level. Hypotension. COMPARISON: 06/22/2016 TECHNIQUE: Portable frontal view of the chest was obtained. FINDINGS: The lungs are symmetrically expanded. The left costophrenic sulcus is excluded from the omsel-sm-pvpo. Linear opacities of minimal atelectasis in the lung bases. No evidence of pulmonary edema, focal consolidation or pleural effusion. Cardiomegaly and surgical changes from prior coronary artery bypass grafting. Multiple sternotomy wires are chronically disrupted. The atherosclerotic descending thoracic aorta is tortuous. The visualized bones are intact. IMPRESSION: 1. No evidence of pneumonia. 2. Cardiomegaly.
--- NOTE | 2017-07-19 13:25 | History & Physical ---
Jayjay Reilly MD 07/19/17 1323: General Information and HPI MD Statement: I have seen and personally examined HUY CHAPMAN and documented this H&P. The patient is a 82 year old M who presented with a patient stated chief complaint of [HEMATURIA]. Source of Information: patient, family, old records Exam Limitations: no limitations History of Present Illness: 82-year-old gentleman with past medical history of hypertension, A. fib not on anticoagulation, HLD, syncope, recurrent falls, CAD status post CABG, history of TURP (November 2016 ) history of nephrolithiasishistory of hematuria,recently admitted to the [facility](07/05/2017 -07/12/2017) and treated for hydronephrosis left-sided secondary to 1 cm stone in proximal ureter, by left- sided nephrostomy tube and later lithotripsy and stenting. He was sent from [facility] secondary to decreased urine output, weakness and lethargy, and hematuria. Most of the history is taken from Teresa the nurse taking care of patient at [facility]. According to her patient was relatively all right till saturday. His urine output since last 3 days was in the range of 500-700 cc per day. Since yesterday he started having mild hematuria. today in morning the urine was thick and having gross blood and it. It was around 100 -150 cc bloody urine per hour. Patient was also feeling lethargic, weak and according to her she was more. His vitals were blood pressure was 80/50, temperature was 99.1 and he was saturating well. She tried to hydrate him and gave around 600 cc of oral drinks, and transfer the patient to [facility] for further management. According to the nurse, there was no any history of nausea, vomiting, chills, chest pain, abdominal pain, constipation, change in the medication. Patient was continuously on doxycycline and left with only 2 pills for total duration of medication. He is due for follow-up with Dr. Paige. Past medical history Atrial fibrillation, coronary artery disease, CABG 4, hypertension, hyperlipidemia, history of syncope, history of small bowel resection, BPH, TURP 2017, nephrolithiasis, Family history -noncontributory Allergies/Medications Allergies: Coded Allergies: Penicillins (HIVES - PER PT'S FAMILY 11/04/16) meperidine (From Demerol) (NAUSEA / VOMITING 11/07/16) Home Med list Ascorbic Acid (Vitamin C) 1,000 MG TABLET 2,000 MG PO BID IMMUNITY (Reported) Aspirin (Ecotrin*) 81 MG TABLET.DR 1 TAB PO DAILY HEART HEALTH (Reported) Cholecalciferol (Vitamin D3) (Vitamin D) 5,000 UNIT TABLET 1 TAB PO DAILY SUPPLEMENT (Reported) Cyanocobalamin/Cobamamide (B-12 5,000 Mcg Sublingual Tab) 5,000 MCG-100 MCG TAB.SUBL 5,000 MCG SL DAILY SUPPLEMENT (Reported) Doxycycline Hyclate 100 MG TABLET 1 TAB PO BID UTI Fesoterodine Fumarate (Toviaz) 8 MG TAB.ER.24H 1 TAB PO DAILY BLADDER ( Reported) Finasteride 5 MG TABLET 5 MG PO DAILY BPH Furosemide 20 MG TABLET 0.5 TAB PO EOD DIURETIC (Reported) [LION'S NATHALIE] TAB 300 MG PO BID HEALTH SUPPLEMENT (Reported) Metoprolol Succ XL (Toprol XL) 25 MG TAB 1 TAB PO DAILY A.fib Mvi, Adult No.2 Without Vit K (M.v.i.-12) 200-600/10 VIAL 1 TAB PO DAILY VITAMIN SUPPORT (Reported) Nitrofurantoin Monohyd/M-Cryst (Nitrofurantoin [place]-Mcr 100 MG) (Unknown Strength) CAPSULE (Unknown Dose) PO BID UNKNOWN (Reported) Oxybutynin Chloride 5 MG TABLET 1 TAB PO BID BLADDER (Reported) Red Yeast Rice 600 MG CAPSULE 1 TAB PO BID HEALTH SUPPLEMENT (Reported) Tamsulosin HCl (Flomax) 0.4 MG CAP.ER.24H 0.4 MG PO DAILY BPH Vancomycin HCl 1 GRAM VIAL 1 GM IV DAILY UTI Past History Travel History Traveled to [place] past 21 day No Medical History Neurological: NONE EENT: NONE Cardiovascular: AFIB, CAD, hypertension, hyperlipidemia, syncope, QUAD BIPASS Respiratory: NONE Gastrointestinal: SML BOWEL RESECTION HERNIA Hepatic: NONE Renal: benign prost hyperplasia, hematuria, KIDNEY STONES Musculoskeletal: SCOLIOSIS ARTHRITIS Psychiatric: NONE Endocrine: NONE Blood Disorders: NONE Cancer(s): NONE 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 spouse, child Services at Home: Home Health Aide Primary Language: Prydeinig ETOH Use: occasional use Illicit Drug Use: denies illicit drug use Functional Ability ADLs Independent: dressing, eating, toileting, bathing. Ambulation: cane, walker IADLs Needs Assist: shopping, housework, finances, food prep, telephone, transportation, medication admin. Review of Systems Review of Systems Constitutional: Reports: no symptoms (dryness of mouth). GI: Reports: abdominal pain. Exam & Diagnostic Data Last 24 Hrs of Vital Signs/I&O Vital Signs Date Time Temp Pulse Resp B/P B/P Pulse O2 O2 Flow FiO2 Mean Ox Delivery Rate 07/19 1406 97.5 116 20 131/81 96 07/19 1220 112 20 156/91 96 Room Air 07/19 1025 97.1 119 20 131/87 96 Room Air 07/19 0929 96.8 115 20 138/79 96 Room Air Intake & Output 07/19 1600 07/19 0800 07/19 0000 Intake Total Output Total 250 Balance -250 Output, Urine 250 Patient 81.647 kg Weight Weight Reported by Patient Measurement Method Physical Exam General Appearance Alert, Oriented X3, Cooperative, No Acute Distress Skin No Rashes, No Breakdown, pale HEENT Atraumatic, PERRLA, EOMI Neck No JVD Cardiovascular Normal S1, Normal S2, irregular heart rate Lungs Clear to Auscultation, Normal Air Movement Abdomen Soft, mild tender in left sided flank,bladder is palpable, Neurological Normal Speech Extremities No Clubbing, No Cyanosis, No Edema, Normal Pulses Vascular Normal Pulses, Pulses Symmetrical Assessment/Plan Assessment: 82-year-old gentleman with past medical history of hypertension, A. fib not on anticoagulation, HLD, syncope, recurrent falls, CAD status post CABG, history of TURP (November 2016 ) history of nephrolithiasishistory of hematuria,recently admitted to the [facility](07/05/2017 -07/12/2017) and treated for hydronephrosis left-sided secondary to 1 cm stone in proximal ureter, by left- sided nephrostomy tube and later lithotripsy and stenting. He was sent from [place] facility secondary to decreased urine output, weakness and lethargy, and hematuria. ED course - Vital signs -temperature 96.8, pulse 115, respiratory 20, blood pressure 130/79, SPO2 96% on room air. EKG was showing -atrial flutter, with heart rate of 119, no new ST-T wave changes blood workup showed WBC 21.6, hemoglobin 13.4, hematocrit 40.7 platelet count 472, sodium 140, potassium 4.5, chloride 104, carbon DEXA 23, anion gap 13, BUN 23, creatinine 1.3, GFR 53, glucose 136, lactic acid 2.2, calcium 9.7, total bilirubin 1.7, AST 20, ALT 25, alkaline phosphatase 99, troponin less than 0.01, albumin 3.7, PT/INR 13.8/1.26, APTT 26, urinalysis showed cloudy urine, urine protein 100, leukocyte esterase moderate, RBC more than 75, WBC more than 75, hemoglobin large.2 sets of blood cultures and urine cultures were already sent she was given 1 L of normal saline and injection ceftazidime and vancomycin. Sepsis of urological origin - leading to hemoconcentration, lactic acidosis, ADRYAN ,leucocytosis * We will start patient on injection ceftriaxone IV 1 g daily * We will follow blood culture * We will follow urine culture * We will follow ultrasound of the kidney to rule out hydronephrosis * ID recommendation if needed in the future * We will continue IV fluids normal saline 75 cc per hour * Strict intake output charting Urinary retention secondary to Florian catheter blockage - * Florian catheter has been changed * Follow urology recommendation hematuria -Possibly secondary to trauma * We will hold aspirin * Watch for the hematuria * We will treat conservatively Hypertension - * We will hold antihypertensive for now but restart as patient become stabilized BPH/Hx of TURP * We will continue finasteride, oxybutynin, tamsulosin CODE STATUS -full code DVT prophylaxis-ALPS Diet -heart healthy diet As Ranked By This Provider Problem List: 1. Sepsis 2. ADRYAN (acute kidney injury) Core Measures/Misc (01/20) Acute Coronary Syndrome ACS Diagnosis: No Congestive Heart Failure Congestive Heart Failure Diagnosis No Cerebrovascular Accident CVA/TIA Diagnosis: No VTE (View Protocol) VTE Risk Factors Age>40 No Mechanical VTE Prophylaxis d/t N/A MechProphylax Ordered No VTE Pharm Prophylaxis d/t Bleeding (Active) Sepsis (View protocol) Sepsis Present: Yes Eldon Randall 07/19/17 1448: Attending MD Review Statement Attending Statement Attending MD Statement: examined this patient, discuss w/resident/PA/BELL TIER, agreed w/resident/PA/BELL TIER, discussed with family, reviewed EMR data (avail), discussed with nursing, discussed with case mgmt Attending Assessment/Plan: 82 yr old male send to ER from facility for hematuria and low bp. Pt was recently dced from [place] and on previous admission had needed nephrostomy done due to stone and later had stone removed by urology. On presentation in ER he was found to be hypotensive with high wbc and left shift. Pt was given broad spectrum abx in Er and was given if fluids. Sepsis secondary to UTI- on exam pt was found to have suprapubic distention which was thought to be secondary to urinary retention. Pt had florian replaced and had 1200cc output after that. Will start him on ceftriaxone. will f/u with culture results. will get urology input. will get renal ultrasound. d/w pts family at bedside the care plan.
[2017-07-19 14:48] VITALS: BP 130/70
--- NOTE | 2017-07-19 14:48 | Admission Certification ---
Admission Certification Certification Statement - As attending physician, I certify that at the time of - admission, based on clinical presentation, severity of - symptoms, need for further diagnostic testing and - therapeutic interventions, and risk of adverse outcomes - without in-hospital treatment, in my clinical assessment, - this patient requires an acute hospital stay for a minimum - of two nights or longer. I have also considered psychsocial - factors such as support system, advanced age, financial - issues, cognitive issues, and failed out-patient treatments, - past re-admission history, safety of patient, and lack of - compliance as applicable. Specific rationale supporting this admission is: sepsis secondary to UTI secondary to urinary retention.
--- NOTE | 2017-07-19 17:39 | ULTRASOUND REPORT ---
EXAMINATION: US RETROPERITONEAL COMPLETE (RENAL) CLINICAL INFORMATION: Abdominal distention.. COMPARISON: Renal ultrasound 07/03/2017. CT abdomen pelvis 07/05/2017 TECHNIQUE: Real-time imaging of the kidneys and bladder. Color Doppler exam was used. FINDINGS: RIGHT KIDNEY: 8.9 x 5.5 x 4.7 cm (SAG x AP x TRV). The kidney is normal in size, contour, and echogenicity. Renal cortical thickness is normal. No calculi or focal parenchymal lesions. No hydronephrosis. LEFT KIDNEY: 11.1 x 6.3 x 4.9 cm (SAG x AP x TRV). The kidney is normal in size, contour, and echogenicity. Renal cortical thickness is normal. There is a 0.8 cm nonobstructive stone lower pole left kidney. There is no hydronephrosis. BLADDER: The bladder is empty. Yanes catheter in place. The ureteral jets are not demonstrated bilaterally. Incidental note made of multiple small gallstones within the dependent gallbladder IMPRESSION: Nonobstructive 8 mm stone in lower pole left kidney. There is no hydronephrosis..
[2017-07-19 17:46] VITALS: BP 142/84
[2017-07-19 22:52] VITALS: BP 112/68
[2017-07-20 06:00] VITALS: BP 112/68
--- NOTE | 2017-07-20 08:37 | PN- Housestaff ---
See Addendum Subjective Follow-up For: #Sepsis of urological origin - leading to hemoconcentration, lactic acidosis, ADRYAN,lecocytosis #Urinary retention secondary to Florian catheter blockage #hematuria -Possibly secondary to trauma #Hypertension #BPH/Hx of TURP Tele-Events Since Last Visit: Kunal-patsy [id number] Subjective: No overnight event/. patient stated that he slept well overnight without feeling of CP/Fever/urinary discomforts. Florian bag clear yellow urine output. No other specific complaint. Review of Systems Constitutional: Reports: see HPI. Objective Last 24 Hrs of Vital Signs/I&O Vital Signs Date Time Temp Pulse Resp B/P B/P Pulse O2 O2 Flow FiO2 Mean Ox Delivery Rate 07/20 0821 112/64 07/20 0821 112/64 07/20 0600 99.7 102 18 112/68 93 07/20 0000 Room Air 07/19 2252 98.5 116 20 112/68 95 07/19 1746 97.8 113 20 142/84 93 07/19 1703 116 07/19 1448 97.9 114 20 130/70 95 Room Air 07/19 1406 97.5 116 20 131/81 96 07/19 1220 112 20 156/91 96 Room Air 07/19 1025 97.1 119 20 131/87 96 Room Air Intake & Output 07/20 1600 07/20 0800 07/20 0000 Intake Total 0 420 Output Total 750 1300 Balance -750 -880 Intake, IV 300 Intake, Oral 0 120 Number 0 0 Bowel Movements Output, Urine 750 1300 Patient 82.299 kg Weight Weight Bed scale Measurement Method Physical Exam General Appearance: Alert, Oriented X3, Cooperative, No Acute Distress Cardiovascular: Regular Rate Lungs: Clear to Auscultation, Normal Air Movement Abdomen: Normal Bowel Sounds, Soft, No Tenderness Neurological: Normal Speech Extremities: No Edema, Normal Pulses Current Medications: Current Medications Sig/Graciela Start time Last Medication Dose Route Stop Time Status Admin Ceftazidime 0 .STK-MED ONE 07/19 1111 DC .ROUTE Ceftazidime 1,000 MG ONCE ONE 07/19 1100 DC 07/19 IV 07/19 1101 1230 Ceftriaxone Sodium 1,000 MG DAILY 07/20 1000 AC 07/20 IV 0821 Finasteride 5 MG DAILY 07/20 1000 AC 07/20 PO 0821 Metoprolol Succinate 25 MG DAILY 07/19 1439 AC 07/20 PO 0821 Oxybutynin Chloride 5 MG BID 07/19 2200 AC 07/20 PO 0821 Sodium Chloride 1,000 ML Q13H 07/19 1330 DC 07/19 IV 1703 Sodium Chloride 1,000 ML BOLUS ONE 07/19 1300 DC 07/19 IV 07/19 1359 1254 Sodium Chloride 2,449.41 ML ONCE ONE 07/19 1100 DC 07/19 IV 07/19 1101 1030 Sodium Chloride 1,000 ML ONCE ONE 07/19 1015 DC 07/19 IV 07/19 1654 1042 Tamsulosin HCl 0.4 MG DAILY 07/20 1000 AC 07/20 PO 0821 Vancomycin HCl 0 .STK-MED ONE 07/19 1111 DC .ROUTE Vancomycin HCl 1,000 MG ONCE ONE 07/19 1100 DC 07/19 Dextrose/Water 250 ML IV 07/19 1159 1257 Last 24 Hrs of Lab/Lanre Results Last 24 Hrs of Labs/Mics: Laboratory Tests 07/20/17 0623: Sodium Pending, Potassium Pending, Chloride Pending, Carbon Dioxide Pending, Anion Gap Pending, BUN Pending, Creatinine Pending, BUN/Creatinine Ratio Pending , CBC w Diff Pending, WBC Pending, RBC Pending, Hgb Pending, Hct Pending, MCV Pending, MCH Pending, MCHC Pending, RDW Pending, Plt Count Pending, MPV Pending 07/19/17 1530: Lactic Acid 1.0 07/19/17 1230: Urine Color JAMISON, Urine Clarity CLDY H, Urine pH 5.5, Ur Specific [place] 1.025, Urine Protein 100 H, Urine Ketones NEG, Urine Nitrite NEG, Urine Bilirubin NEG@ICTO, Urine Urobilinogen 0.2, Ur Leukocyte Esterase MOD H, Ur Microscopic SEDIMENT EXAMINED, Urine RBC >75 H, Urine WBC > 75 H, Ur Epithelial Cells FEW, Urine Bacteria FEW H, Urine Hemoglobin LARGE H, Urine Glucose NEG Microbiology 07/19 1230 URINE ROUT: Urine Culture - RECD 07/19 1150 BLOOD: Blood Culture - RECD 07/19 1040 BLOOD: Blood Culture - RECD Assessment/Plan Assessment: 82-year-old gentleman with past medical history of hypertension, A. fib not on anticoagulation, HLD, syncope, recurrent falls, CAD status post CABG, history of TURP (November 2016 ) history of nephrolithiasishistory of hematuria,recently admitted to the [facility](07/05/2017 -07/12/2017) and treated for hydronephrosis left-sided secondary to 1 cm stone in proximal ureter, by left- sided nephrostomy tube and later lithotripsy and stenting. He was sent from [facility] secondary to decreased urine output, weakness and lethargy, and hematuria. ED course - Vital signs -temperature 96.8, pulse 115, respiratory 20, blood pressure 130/79, SPO2 96% on room air. EKG was showing -atrial flutter, with heart rate of 119, no new ST-T wave changes blood workup showed WBC 21.6, hemoglobin 13.4, hematocrit 40.7 platelet count 472, sodium 140, potassium 4.5, chloride 104, carbon DEXA 23, anion gap 13, BUN 23, creatinine 1.3, GFR 53, glucose 136, lactic acid 2.2, calcium 9.7, total bilirubin 1.7, AST 20, ALT 25, alkaline phosphatase 99, troponin less than 0.01, albumin 3.7, PT/INR 13.8/1.26, APTT 26, urinalysis showed cloudy urine, urine protein 100, leukocyte esterase moderate, RBC more than 75, WBC more than 75, hemoglobin large.2 sets of blood cultures and urine cultures were already sent she was given 1 L of normal saline and injection ceftazidime and vancomycin. Sepsis of urological origin - leading to hemoconcentration, lactic acidosis, ADRYAN ,lecocytosis * Per ID consult, DCed ceftriaxone and switched to Vancomycin 1g q24hr for coverage of MRSA/Enterococcus/or Coag-ve staph * Pending final blood/urine culture * Renal US showed Nonobstructive 8 mm stone in lower pole left kidney. There is no hydronephrosis. * Strict intake output charting Urinary retention secondary to Florian catheter blockage - * Florian catheter has been changed * Appreciated urology - Pending KUB - Dced oxybutinin hematuria -Possibly secondary to trauma * We will hold aspirin * Watch for the hematuria, currently output had been clear yellow urine in florian collection bag. * We will treat conservatively Hypertension - * We will hold antihypertensive for now but restart as patient become stabilized BPH/Hx of TURP * We will continue finasteride, tamsulosin. Oxybutinin held. CODE STATUS -full code DVT prophylaxis-ALPS Diet -heart healthy diet Problem List: 1. Sepsis Pain Ratin Pain Location: NA Pain Goal: Remain pain free Pain Plan: see AP Tomorrow's Labs & Rationales: CBC/BEP
[2017-07-20 09:23] LABS: ABSOLUTE BASOPHIL COUNT 0 /CUMM (0.0-0.2); ABSOLUTE EOSINOPHIL COUNT 0.4 /CUMM (0.0-0.7); ABSOLUTE GRANULOCYTE CT 10.3 /CUMM (1.4-6.5); ABSOLUTE LYMPH COUNT 1.1 /CUMM (1.2-3.4); ABSOLUTE MONOCYTE COUNT 0.9 /CUMM (0.10-0.60); BASOPHIL % 0.3 % (0.0-2.0); MEAN CORPUSCULAR HGB 28.8 PG (27.0-31.0); MEAN CORPUSCULAR HGB CONC 33.1 G/DL (33.0-37.0); MEAN PLATELET VOLUME 7.5 FL (7.4-10.4); PLATELET COUNT 377 /CUMM (130-400); RBC DISTRIBUTION WIDTH 14.1 % (11.5-14.5); RED BLOOD CELL CT 3.82 /CUMM (4.70-6.10); WHITE BLOOD CELL COUNT 12.7 /CUMM (4.8-10.8)
--- NOTE | 2017-07-20 09:59 | Cons- Urology ---
General Information and HPI Consulting Request Date of Consult: 07/20/17 Requested By: Eldon Randall MD Reason for Consult: Gross hematuria and UTI Source of Information: patient, old records Exam Limitations: no limitations History of Present Illness: This patient is followed by Dr Paige. He was admitted earlier this month with urosepsis due to a 1 cm obstructing L proximal ureteral stone. A ureteral stent was attempted but could not be placed. He then underwent L perc nephrostomy and subsequent L ureteroscopy and laser litho with L ureteral stent insertion. The L nephrostomy tube has since been removed. On 07/18/17 he was found to be in urinary retention and a florian could not be placed. Dr Paige placed the florian in the ER with cystoscopy. Residual urine was about 2 liters He was admitted yesterday with weakness, lethargy and gross hematuria. He was felt to have a UTI and has been started on abx with improvement. Cultures are pending. He does have a hx of urinary stones in the past. He also underwent a laser TURP in 11/2016 Allergies/Medications Allergies: Coded Allergies: Penicillins (HIVES - PER PT'S FAMILY 11/04/16) meperidine (From Demerol) (NAUSEA / VOMITING 11/07/16) Home Med List: Ascorbic Acid (Vitamin C) 1,000 MG TABLET 2,000 MG PO BID IMMUNITY (Reported) Aspirin (Ecotrin*) 81 MG TABLET.DR 1 TAB PO DAILY HEART HEALTH (Reported) Cholecalciferol (Vitamin D3) (Vitamin D) 5,000 UNIT TABLET 1 TAB PO DAILY SUPPLEMENT (Reported) Cyanocobalamin/Cobamamide (B-12 5,000 Mcg Sublingual Tab) 5,000 MCG-100 MCG TAB.SUBL 5,000 MCG SL DAILY SUPPLEMENT (Reported) Doxycycline Hyclate 100 MG TABLET 1 TAB PO BID UTI Fesoterodine Fumarate (Toviaz) 8 MG TAB.ER.24H 1 TAB PO DAILY BLADDER ( Reported) Finasteride 5 MG TABLET 5 MG PO DAILY BPH Furosemide 20 MG TABLET 0.5 TAB PO EOD DIURETIC (Reported) [LION'S NATHALIE] TAB 300 MG PO BID HEALTH SUPPLEMENT (Reported) Metoprolol Succ XL (Toprol XL) 25 MG TAB 1 TAB PO DAILY A.fib Mvi, Adult No.2 Without Vit K (M.v.i.-12) 200-600/10 VIAL 1 TAB PO DAILY VITAMIN SUPPORT (Reported) Nitrofurantoin Monohyd/M-Cryst (Nitrofurantoin Williamson-Mcr 100 MG) (Unknown Strength) CAPSULE (Unknown Dose) PO BID UNKNOWN (Reported) Oxybutynin Chloride 5 MG TABLET 1 TAB PO BID BLADDER (Reported) Red Yeast Rice 600 MG CAPSULE 1 TAB PO BID HEALTH SUPPLEMENT (Reported) Tamsulosin HCl (Flomax) 0.4 MG CAP.ER.24H 0.4 MG PO DAILY BPH Current Medications: Current Medications Sig/Graciela Start time Last Medication Dose Route Stop Time Status Admin Ceftazidime 0 .STK-MED ONE 07/19 1111 DC .ROUTE Ceftazidime 1,000 MG ONCE ONE 07/19 1100 DC 07/19 IV 07/19 1101 1230 Ceftriaxone Sodium 1,000 MG DAILY 07/20 1000 AC 07/20 IV 0821 Finasteride 5 MG DAILY 07/20 1000 AC 07/20 PO 0821 Metoprolol Succinate 25 MG DAILY 07/19 1439 AC 07/20 PO 0821 Oxybutynin Chloride 5 MG BID 07/19 2200 AC 07/20 PO 0821 Sodium Chloride 1,000 ML Q13H 07/19 1330 DC 07/19 IV 1703 Sodium Chloride 1,000 ML BOLUS ONE 07/19 1300 DC 07/19 IV 07/19 1359 1254 Sodium Chloride 2,449.41 ML ONCE ONE 07/19 1100 DC 07/19 IV 07/19 1101 1030 Sodium Chloride 1,000 ML ONCE ONE 07/19 1015 DC 07/19 IV 07/19 1654 1042 Tamsulosin HCl 0.4 MG DAILY 07/20 1000 AC 07/20 PO 0821 Vancomycin HCl 0 .STK-MED ONE 07/19 1111 DC .ROUTE Vancomycin HCl 1,000 MG ONCE ONE 07/19 1100 DC 07/19 Dextrose/Water 250 ML IV 07/19 1159 1257 Past History Medical History Neurological: NONE EENT: NONE Cardiovascular: AFIB, CAD, hypertension, hyperlipidemia, syncope, QUAD BIPASS Respiratory: NONE Gastrointestinal: SML BOWEL RESECTION HERNIA Hepatic: NONE Renal: benign prost hyperplasia, hematuria, KIDNEY STONES Musculoskeletal: SCOLIOSIS ARTHRITIS Psychiatric: NONE Endocrine: NONE Blood Disorders: NONE Cancer(s): NONE 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 spouse, child Services at Home: Home Health Aide Primary Language: Croatian Smoking Status: Never Smoked ETOH Use: occasional use Illicit Drug Use: denies illicit drug use Functional Ability ADLs Independent: dressing, eating, toileting, bathing. Ambulation: cane, walker IADLs Needs Assist: shopping, housework, finances, food prep, telephone, transportation, medication admin. Exam & Diagnostic Data Vital Signs and I&O Vital Signs Date Time Temp Pulse Resp B/P B/P Pulse O2 O2 Flow FiO2 Mean Ox Delivery Rate 07/20 0821 112/64 07/20 0821 112/64 07/20 0600 99.7 102 18 112/68 93 07/20 0000 Room Air 07/19 2252 98.5 116 20 112/68 95 07/19 1746 97.8 113 20 142/84 93 07/19 1703 116 07/19 1448 97.9 114 20 130/70 95 Room Air 07/19 1406 97.5 116 20 131/81 96 07/19 1220 112 20 156/91 96 Room Air 07/19 1025 97.1 119 20 131/87 96 Room Air Intake & Output 07/20 1600 07/20 0800 07/20 0000 07/19 1600 07/19 0800 07/19 0000 Intake Total 0 420 Output Total 750 1300 250 Balance -750 -880 -250 Intake, IV 300 Intake, Oral 0 120 Number 0 0 Bowel Movements Output, Urine 750 1300 250 Patient 181 lb 181 lb Weight Weight Bed scale Bed scale Measurement Method No acute distress Back: No CVA tenderness Abd: soft and non tender Genitalia: florian in place draining clear urine Laboratory Tests 07/20 07/19 07/19 0623 1530 1230 Chemistry Sodium (137 - 145 mmol/L) 144 Potassium (3.5 - 5.1 mmol/L) 4.2 Chloride (98 - 107 mmol/L) 110 H Carbon Dioxide (22 - 30 mmol/L) 22 Anion Gap (5 - 16) 12 BUN (9 - 20 mg/dL) 16 Creatinine (0.7 - 1.2 mg/dL) 1.0 Estimated GFR (>60 ml/min) > 60 BUN/Creatinine Ratio (7 - 25 %) 16.0 Lactic Acid (0.7 - 2.1 mmol/L) 1.0 Hematology CBC w Diff Pending WBC Pending RBC Pending Hgb Pending Hct Pending MCV Pending MCH Pending MCHC Pending RDW Pending Plt Count Pending MPV Pending Urines Urine Color (YEL,AMB,STR) JAMISON Urine Clarity (CLEAR) CLDY H Urine pH (5.0 - 8.0) 5.5 Ur Specific [place] (1.001 - 1.035) 1.025 Urine Protein (NEG,<30 MG/DL) 100 H Urine Ketones (NEG) NEG Urine Nitrite (NEG) NEG Urine Bilirubin (NEG) NEG@ICTO Urine Urobilinogen (0.1 - 1.0 EU/dl) 0.2 Ur Leukocyte Esterase (NEG) MOD H Ur Microscopic SEDIMENT EXAMINED Urine RBC (0 - 5 /HPF) >75 H Urine WBC (0 - 2 /HPF) > 75 H Ur Epithelial Cells (NONE,FEW) FEW Urine Bacteria (NEG/NONE) FEW H Urine Hemoglobin (NEG) LARGE H Urine Glucose (N MG/DL) NEG Renal ultrasound: 8 mm stone in lower pole of L kidney. No hydronephrosis Assessment/Plan Assessment/Plan Imp: 1. Gross hematuria, resolved. Likely due to UTI 2. L renal stone 3. Urinary retention Plan: 1. Continue flomax and finasteride 2. Would d/c oxybutynin 3. Adjust abx pending culture results 4. Would get KUB x-ray to assess remaining stone burden 5. Do not remove florian as it is difficult to place and had to be placed in the OR recently Consult Acknowledgment - Thank you for your consult request.
--- NOTE | 2017-07-20 10:37 | Cons- Infect Disease ---
General Information and HPI Consulting Request Date of Consult: 07/20/17 Requested By: Eldon Randall MD Reason for Consult: Rule out sepsis of urologic origin Source of Information: patient, family, old records History of Present Illness: This is an 82-year-old man with a history of hypertension, atrial fibrillation, not on anticoagulation, hyperlipidemia, coronary artery disease, status post CABG, BPH, status post TURP, and nephrolithiasis, hospitalized 2 weeks prior to admission with sepsis of urological origin secondary to coag-negative Staph, status post percutaneous left nephrostomy for hydronephrosis after an unsuccessful attempt at a left ureteral stent for an obstructing left ureteral calculus and proximal hydroureteronephrosis, with eventual placement of a left ureteral stent, removal of the percutaneous nephrostomy and replacement of the Yanes catheter one day prior to discharge, treated with Vancomycin during the hospitalization and discharged on Doxycycline for 1 more week, also noted on the hospitalization to have a nondisplaced subacute right femoral neck fracture, not felt by Orthopedics to require intervention, admitted on July 19 after he was sent to the emergency room because of decreased urine output, hematuria and lethargy/weakness for several days. On admission he was afebrile. Laboratory data revealed a white blood cell count of 22,000, BUN/creatinine 23 and 1.3, lactic acid 2.2, bilirubin 1.7, INR 1.26. Urinalysis greater than 75 RBCs/ greater than 75 WBCs. Chest x-ray was negative. Renal ultrasound revealed a nonobstructive 8 mm stone in the lower pole of the left kidney with no hydronephrosis. He was given Vancomycin and Ceftazidime in the emergency room and was changed to Ceftriaxone today. He has remained afebrile and presently feels well with no complaints. Allergies/Medications Allergies: Coded Allergies: Penicillins (HIVES - PER PT'S FAMILY 11/04/16) meperidine (From Demerol) (NAUSEA / VOMITING 11/07/16) Home Med List: Ascorbic Acid (Vitamin C) 1,000 MG TABLET 2,000 MG PO BID IMMUNITY (Reported) Aspirin (Ecotrin*) 81 MG TABLET.DR 1 TAB PO DAILY HEART HEALTH (Reported) Cholecalciferol (Vitamin D3) (Vitamin D) 5,000 UNIT TABLET 1 TAB PO DAILY SUPPLEMENT (Reported) Cyanocobalamin/Cobamamide (B-12 5,000 Mcg Sublingual Tab) 5,000 MCG-100 MCG TAB.SUBL 5,000 MCG SL DAILY SUPPLEMENT (Reported) Doxycycline Hyclate 100 MG TABLET 1 TAB PO BID UTI Fesoterodine Fumarate (Toviaz) 8 MG TAB.ER.24H 1 TAB PO DAILY BLADDER ( Reported) Finasteride 5 MG TABLET 5 MG PO DAILY BPH Furosemide 20 MG TABLET 0.5 TAB PO EOD DIURETIC (Reported) [LION'S NATHALIE] TAB 300 MG PO BID HEALTH SUPPLEMENT (Reported) Metoprolol Succ XL (Toprol XL) 25 MG TAB 1 TAB PO DAILY A.fib Mvi, Adult No.2 Without Vit K (M.v.i.-12) 200-600/10 VIAL 1 TAB PO DAILY VITAMIN SUPPORT (Reported) Nitrofurantoin Monohyd/M-Cryst (Nitrofurantoin [place]-Mcr 100 MG) (Unknown Strength) CAPSULE (Unknown Dose) PO BID UNKNOWN (Reported) Oxybutynin Chloride 5 MG TABLET 1 TAB PO BID BLADDER (Reported) Red Yeast Rice 600 MG CAPSULE 1 TAB PO BID HEALTH SUPPLEMENT (Reported) Tamsulosin HCl (Flomax) 0.4 MG CAP.ER.24H 0.4 MG PO DAILY BPH Past History Travel History Traveled to [place] past 21 day No Medical History Neurological: NONE EENT: NONE Cardiovascular: AFIB, CAD, hypertension, hyperlipidemia, syncope, QUAD BIPASS Respiratory: NONE Gastrointestinal: SML BOWEL RESECTION HERNIA Hepatic: NONE Renal: benign prost hyperplasia, hematuria, KIDNEY STONES Musculoskeletal: SCOLIOSIS ARTHRITIS Psychiatric: NONE Endocrine: NONE Blood Disorders: NONE Cancer(s): NONE 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 spouse, child Services at Home: Home Health Aide Primary Language: Stateless Smoking Status: Never Smoked ETOH Use: occasional use Illicit Drug Use: denies illicit drug use Functional Ability ADLs Independent: dressing, eating, toileting, bathing. Ambulation: cane, walker IADLs Needs Assist: shopping, housework, finances, food prep, telephone, transportation, medication admin. Review of Systems Review of Systems All Other Systems: Reviewed and Negative Exam & Diagnostic Data Last 24 Hrs of Vital Signs/I&O Vital Signs Date Time Temp Pulse Resp B/P B/P Pulse O2 O2 Flow FiO2 Mean Ox Delivery Rate 07/20 0821 112/64 07/20 0821 112/64 07/20 0600 99.7 102 18 112/68 93 07/20 0000 Room Air 07/19 2252 98.5 116 20 112/68 95 07/19 1746 97.8 113 20 142/84 93 07/19 1703 116 07/19 1448 97.9 114 20 130/70 95 Room Air 07/19 1406 97.5 116 20 131/81 96 07/19 1220 112 20 156/91 96 Room Air Intake & Output 07/20 1600 07/20 0800 07/20 0000 Intake Total 0 420 Output Total 750 1300 Balance -750 -880 Intake, IV 300 Intake, Oral 0 120 Number 0 0 Bowel Movements Output, Urine 750 1300 Patient 181 lb Weight Weight Bed scale Measurement Method Physical Exam Other Physical Findings: Afebrile. He is awake and alert in no acute distress. Skin reveals no rash. HEENT negative. Neck is supple with no adenopathy. Lungs are clear. Heart regular rhythm with no murmur. Abdomen is soft, nontender with positive bowel sounds. Back no CVA tenderness. Extremities no cyanosis, clubbing or edema. Neuro is without focality. Yanes catheter is in place with clear urine. Last 24 Hours of Lab Results: Laboratory Tests 07/20 07/19 07/19 0623 1530 1230 Chemistry Sodium (137 - 145 mmol/L) 144 Potassium (3.5 - 5.1 mmol/L) 4.2 Chloride (98 - 107 mmol/L) 110 H Carbon Dioxide (22 - 30 mmol/L) 22 Anion Gap (5 - 16) 12 BUN (9 - 20 mg/dL) 16 Creatinine (0.7 - 1.2 mg/dL) 1.0 Estimated GFR (>60 ml/min) > 60 BUN/Creatinine Ratio (7 - 25 %) 16.0 Lactic Acid (0.7 - 2.1 mmol/L) 1.0 Hematology CBC w Diff Pending WBC Pending RBC Pending Hgb Pending Hct Pending MCV Pending MCH Pending MCHC Pending RDW Pending Plt Count Pending MPV Pending Urines Urine Color (YEL,AMB,STR) JAMISON Urine Clarity (CLEAR) CLDY H Urine pH (5.0 - 8.0) 5.5 Ur Specific [place] (1.001 - 1.035) 1.025 Urine Protein (NEG,<30 MG/DL) 100 H Urine Ketones (NEG) NEG Urine Nitrite (NEG) NEG Urine Bilirubin (NEG) NEG@ICTO Urine Urobilinogen (0.1 - 1.0 EU/dl) 0.2 Ur Leukocyte Esterase (NEG) MOD H Ur Microscopic SEDIMENT EXAMINED Urine RBC (0 - 5 /HPF) >75 H Urine WBC (0 - 2 /HPF) > 75 H Ur Epithelial Cells (NONE,FEW) FEW Urine Bacteria (NEG/NONE) FEW H Urine Hemoglobin (NEG) LARGE H Urine Glucose (N MG/DL) NEG Last 24 Hours of Lanre Results: Blood cultures 2 July 19 negative Urine culture July 19 approximately 40,000 colonies of gram-positive cocci Diagnostic Data Recent Imaging Findings: Chest x-ray July 19 negative Renal ultrasound July 19 reveals a nonobstructive 8 mm stone in the lower pole of the left kidney with no hydronephrosis Assessment/Plan Assessment/Plan Impression: This is an 82-year-old man with multiple medical problems including BPH, status post TURP, and nephrolithiasis, hospitalized 2 weeks prior to admission with sepsis of urological origin secondary to coag-negative Staph, status post percutaneous left nephrostomy placement and eventual placement of a left ureteral stent for hydronephrosis, treated with Vancomycin for 1 week and discharged on Doxycycline for an additional week with a Yanes catheter, admitted on July 19 because of decreased urine output, hematuria and lethargy/weakness for several days, found to be afebrile with a leukocytosis and pyuria, with the urine culture again growing gram-positive cocci.. Though the positive urine culture may represent colonization secondary to the indwelling Yanes catheter his leukocytosis is of concern. It appears that he was dehydrated; therefore the leukocytosis may be, at least in part, secondary to hemoconcentration; nevertheless the possibility that the positive urine culture represents persistent or recurrent infection must be considered. This may prove to be coag-negative Staph or, possibly, other gram-positive cocci including MRSA and Enterococcus, and his antibiotics should be adjusted to cover these pathogens pending final cultures. Suggestion: 1. Follow-up final cultures 2. Discontinue Ceftriaxone 3. Resume Vancomycin 1 g IV every 24 hours pending above Consult Acknowledgment - Thank you for your consult request.
[2017-07-20 11:16] LABS: HEMATOCRIT 33.2 % (42-52)
--- NOTE | 2017-07-20 14:07 | RADIOLOGY REPORT ---
EXAMINATION: XR KIDNEYS, URETER, BLADDER CLINICAL INDICATION: Urosepsis COMPARISON: CT images of the abdomen from 07/05/2017 TECHNIQUE: AP view of the abdomen. FINDINGS: Bowel gas pattern is normal. The proximal loop of the left ureteral stent projects over the region of the mid to upper pole of the left kidney. There are no stones identified along the surface of the ureteral stent. The distal loop of the stent is in the expected region of the ureterovesical junction. At the lower pole of the left kidney, there is a cluster of calcification. The calcifications within this cluster range in size from 1 mm to 4 mm. There are vascular calcifications within the abdomen and pelvis. 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 Patient is status post coronary artery bypass graft surgery and the visualized sternotomy wires are disrupted. IMPRESSION: 1. Cluster of small calculi within the lower pole of the left kidney. 2. There are no calculi identified along the surface of the left ureteral stent.
[2017-07-20 14:34] VITALS: BP 142/70
[2017-07-20 22:33] VITALS: BP 130/100
[2017-07-21 06:00] VITALS: BP 112/80
[2017-07-21 07:41] LABS: ABSOLUTE BASOPHIL COUNT 0.1 /CUMM (0.0-0.2); ABSOLUTE EOSINOPHIL COUNT 0.4 /CUMM (0.0-0.7); ABSOLUTE GRANULOCYTE CT 7.1 /CUMM (1.4-6.5); ABSOLUTE LYMPH COUNT 1.3 /CUMM (1.2-3.4); ABSOLUTE MONOCYTE COUNT 0.8 /CUMM (0.10-0.60); BASOPHIL % 0.5 % (0.0-2.0); EOSINOPHIL % 3.7 % (0-5); GRANULOCYTE % 73.7 % (42.2-75.2); HEMATOCRIT 34.9 % (42-52); MEAN CORPUSCULAR HGB 28.7 PG (27.0-31.0); MEAN CORPUSCULAR HGB CONC 33.1 G/DL (33.0-37.0); MEAN CORPUSCULAR VOLUME 86.8 FL (80.0-94.0); MEAN PLATELET VOLUME 7.3 FL (7.4-10.4); PLATELET COUNT 385 /CUMM (130-400); RBC DISTRIBUTION WIDTH 13.8 % (11.5-14.5); RED BLOOD CELL CT 4.02 /CUMM (4.70-6.10); WHITE BLOOD CELL COUNT 9.6 /CUMM (4.8-10.8)
--- NOTE | 2017-07-21 07:55 | PN- Housestaff ---
Oscar AHUMADA,Jaimie 07/21/17 0755: Subjective Follow-up For: #Sepsis of urological origin - leading to hemoconcentration, lactic acidosis, ADRYAN,lecocytosis #Urinary retention secondary to Florian catheter blockage #hematuria -Possibly secondary to trauma #Hypertension #BPH/Hx of TURP Complaints: no complaints Tele-Events Since Last Visit: Off telemetry Subjective: Patient was seen and examined at bedside, he complains of frequent episodes of fever and sweating over the past 24 hours, denies any other complaints, currently afebrile Review of Systems Constitutional: Reports: see HPI. Objective Last 24 Hrs of Vital Signs/I&O Vital Signs Date Time Temp Pulse Resp B/P B/P Pulse O2 O2 Flow FiO2 Mean Ox Delivery Rate 07/21 0903 116/64 07/21 0903 116/64 07/21 0600 98.7 89 20 112/80 96 07/21 0000 Room Air 07/20 2233 99.5 110 26 130/100 95 07/20 1434 98.0 109 20 142/70 94 Intake & Output 07/21 1600 07/21 0800 07/21 0000 Intake Total Output Total 950 700 Balance -950 -700 Number 1 Bowel Movements Output, Urine 950 700 Patient 181 lb Weight Physical Exam General Appearance: Alert, Oriented X3, Cooperative, No Acute Distress HEENT: Atraumatic, PERRLA, EOMI, Mucous Membr. moist/pink Neck: Supple, No JVD Cardiovascular: Normal S1, Normal S2, No Murmurs Lungs: Clear to Auscultation Abdomen: Normal Bowel Sounds, Soft, No Tenderness Neurological: Normal Speech, Strength at 5/5 X4 Ext, Normal Tone, Sensation Intact Extremities: No Clubbing, No Cyanosis, No Edema Vascular: Normal Pulses Assessment/Plan Assessment: 82-year-old gentleman with past medical history of hypertension, A. fib not on anticoagulation, HLD, syncope, recurrent falls, CAD status post CABG, history of TURP (November 2016 ) history of nephrolithiasishistory of hematuria,recently admitted to the [facility](07/05/2017 -07/12/2017) and treated for hydronephrosis left-sided secondary to 1 cm stone in proximal ureter, by left- sided nephrostomy tube and later lithotripsy and stenting. He was sent from [facility] secondary to decreased urine output, weakness and lethargy, and hematuria. Sepsis of urological origin - leading to hemoconcentration, lactic acidosis, ADRYAN ,lecocytosis * Continue vancomycin 1g q24hr (day 2) urine culture from 07/19 was positive for MRSA * Blood culture from 07/19 was negative * Renal US showed Nonobstructive 8 mm stone in lower pole left kidney. There is no hydronephrosis. * Repeat KUB on 07/20 showed:Cluster of small calculi within the lower pole of the left kidney, There are no calculi identified along the surface of the left ureteral stent. * Strict intake output charting Urinary retention secondary to Florian catheter blockage - * Florian catheter has been changed, we will not remove it because it is hard to be inserted as per urology * Appreciated urology recommendation -Continue to hold oxybutinin hematuria -Possibly secondary to trauma * We will hold aspirin * Watch for the hematuria, currently output had been clear yellow urine in florian collection bag. * We will treat conservatively Hypertension - * We will hold antihypertensive for now but restart as patient become stabilized BPH/Hx of TURP * We will continue finasteride, tamsulosin. Oxybutinin held. CODE STATUS -full code DVT prophylaxis-ALPS Diet -heart healthy di Problem List: 1. Sepsis 2. Kidney stone 3. ADRYAN (acute kidney injury) Pain Ratin Pain Location: n/a Pain Goal: Remain pain free Pain Plan: PATHWAY Tomorrow's Labs & Rationales: CBC BEP Js AHUMADA,Salena 07/21/17 1224: Attending MD Review Statement Attending Statement Attending MD Statement: examined this patient, discuss w/resident/PA/TALENT ACQUISITION ASSOCIATE, agreed w/resident/PA/TALENT ACQUISITION ASSOCIATE, reviewed EMR data (avail), discussed with nursing, discussed with case mgmt, amended to note Attending Assessment/Plan: Patient seen and examined. Resting comfortably not in any acute distress. No issues overnight. On regulatory affairs analyst remains in a flutter with heart rate in the 60s to mid 110s. He is afebrile. He is hemodynamically stable. Denies chest pain or shortness of breath. Denies nausea vomiting. Denies abdominal pain. On examination heart sounds are regular. Lungs are clear to auscultation bilaterally. Abdomen soft and nontender. He has trace peripheral edema.Patient is currently growing MRSA in the urine. Continue antibiotic therapy with vancomycin as recommended by the ID service. PT consultation for bedside exercises. Follow with the ID service tomorrow for antibiotic regimen dosing and duration for discharge.
[2017-07-21 14:57] VITALS: BP 110/62
[2017-07-21 22:05] VITALS: BP 130/60
[2017-07-22 06:51] VITALS: BP 130/70
--- NOTE | 2017-07-22 07:39 | PN- Housestaff ---
Oscar AHUMADA,Jaimie 07/22/17 0739: Subjective Follow-up For: #Sepsis of urological origin - leading to hemoconcentration, lactic acidosis, ADRYAN,lecocytosis #Urinary retention secondary to Florian catheter blockage #hematuria -Possibly secondary to trauma #Hypertension #BPH/Hx of TURP Tele-Events Since Last Visit: Off Telemetry Subjective: Patient was seen and examined at bedside, no overnight events, will get PICC line today and be discharged on IV vancomycin Review of Systems Constitutional: Reports: see HPI. Objective Last 24 Hrs of Vital Signs/I&O Vital Signs Date Time Temp Pulse Resp B/P B/P Pulse O2 O2 Flow FiO2 Mean Ox Delivery Rate 07/22 1120 Room Air 07/22 1109 Room Air 07/22 1031 84 130/70 07/22 1030 84 130/70 07/22 0651 99.0 48 20 130/70 96 Room Air 07/21 2205 98.6 116 20 130/60 94 07/21 1457 98.2 120 20 110/62 96 Room Air Intake & Output 07/22 1600 07/22 0800 07/22 0000 Intake Total 240 100 390 Output Total 500 550 Balance 240 -400 -160 Intake, Oral 240 100 390 Output, Urine 500 550 Patient 176 lb Weight Physical Exam General Appearance: Alert, Oriented X3, Cooperative, No Acute Distress HEENT: Atraumatic, PERRLA, EOMI, Mucous Membr. moist/pink Cardiovascular: Normal S1, Normal S2, No Murmurs Lungs: Clear to Auscultation Abdomen: Normal Bowel Sounds, Soft, No Tenderness Neurological: Normal Speech, Strength at 5/5 X4 Ext, Normal Tone, Sensation Intact Extremities: No Clubbing, No Cyanosis, No Edema Assessment/Plan Assessment: 82-year-old gentleman with past medical history of hypertension, A. fib not on anticoagulation, HLD, syncope, recurrent falls, CAD status post CABG, history of TURP (November 2016 ) history of nephrolithiasishistory of hematuria,recently admitted to the [facility](07/05/2017 -07/12/2017) and treated for hydronephrosis left-sided secondary to 1 cm stone in proximal ureter, by left- sided nephrostomy tube and later lithotripsy and stenting. He was sent from [facility] secondary to decreased urine output, weakness and lethargy, and hematuria. Sepsis of urological origin - leading to hemoconcentration, lactic acidosis, ADRYAN ,lecocytosis * Continue vancomycin 1g q24hr (day 3) urine culture from 07/19 was positive for MRSA * Blood culture from 07/19 was negative * Renal US showed Nonobstructive 8 mm stone in lower pole left kidney. There is no hydronephrosis. * Repeat KUB on 07/20 showed:Cluster of small calculi within the lower pole of the left kidney, There are no calculi identified along the surface of the left ureteral stent. * Strict intake output charting Urinary retention secondary to Florian catheter blockage - * Florian catheter has been changed, we will not remove it because it is hard to be inserted as per urology * Appreciated urology recommendation -Continue to hold oxybutinin hematuria -Possibly secondary to trauma * We will hold aspirin * Watch for the hematuria, currently output had been clear yellow urine in florian collection bag. * We will treat conservatively Hypertension - * We will hold antihypertensive for now but restart as patient become stabilized BPH/Hx of TURP * We will continue finasteride, tamsulosin. Oxybutinin held. CODE STATUS -full code DVT prophylaxis-ALPS Diet -heart healthy di Problem List: 1. Sepsis 2. Kidney stone Pain Ratin Pain Location: N/A Pain Goal: Remain pain free Pain Plan: PATHWAY Tomorrow's Labs & Rationales: CBC BEP Eldon Randall 07/22/17 1339: Attending MD Review Statement Attending Statement Attending MD Statement: examined this patient, discuss w/resident/PA/SENIOR BUSINESS INTELLIGENCE ANALYST, agreed w/resident/PA/SENIOR BUSINESS INTELLIGENCE ANALYST, reviewed EMR data (avail), discussed with nursing, discussed with case mgmt Attending Assessment/Plan: Pt growing MRSA in urine. Currently on vancomycin. D/w ID- cont vancomycin. Get PICC line in anticipation for dc. dw pt the care plan.
[2017-07-22 08:18] LABS: ABSOLUTE BASOPHIL COUNT 0 /CUMM (0.0-0.2); ABSOLUTE EOSINOPHIL COUNT 0.2 /CUMM (0.0-0.7); ABSOLUTE GRANULOCYTE CT 6.5 /CUMM (1.4-6.5); ABSOLUTE LYMPH COUNT 1.3 /CUMM (1.2-3.4); ABSOLUTE MONOCYTE COUNT 0.8 /CUMM (0.10-0.60); BASOPHIL % 0.5 % (0.0-2.0); EOSINOPHIL % 2.5 % (0-5); GRANULOCYTE % 73.2 % (42.2-75.2); HEMATOCRIT 34.2 % (42-52); MEAN CORPUSCULAR HGB 28.8 PG (27.0-31.0); MEAN CORPUSCULAR HGB CONC 33.2 G/DL (33.0-37.0); MEAN CORPUSCULAR VOLUME 86.7 FL (80.0-94.0); MEAN PLATELET VOLUME 7.7 FL (7.4-10.4); PLATELET COUNT 348 /CUMM (130-400); RBC DISTRIBUTION WIDTH 14.2 % (11.5-14.5); RED BLOOD CELL CT 3.94 /CUMM (4.70-6.10); WHITE BLOOD CELL COUNT 8.9 /CUMM (4.8-10.8)
--- NOTE | 2017-07-22 11:09 | PN- Infect Dx ---
Subjective Subjective: Afebrile without complaints Objective Last 24 Hrs of Vital Signs/I&O Vital Signs Date Time Temp Pulse Resp B/P B/P Pulse O2 O2 Flow FiO2 Mean Ox Delivery Rate 07/22 1031 84 130/70 07/22 1030 84 130/70 07/22 0651 99.0 48 20 130/70 96 Room Air 07/21 2205 98.6 116 20 130/60 94 07/21 1457 98.2 120 20 110/62 96 Room Air Intake & Output 07/22 1600 07/22 0800 07/22 0000 Intake Total 100 390 Output Total 500 550 Balance -400 -160 Intake, Oral 100 390 Output, Urine 500 550 Patient 176 lb Weight Physical Exam Other Physical Findings: He appears comfortable in no acute distress Lungs crackles at the right base Heart regular rhythm with no murmur Abdomen is soft, nontender positive bowel sounds Back no CVA tenderness Extremities no cyanosis, clubbing or edema Yanes catheter remains in place Results Last 24 Hours of Lab Results: Laboratory Tests 07/22 0625 Chemistry Sodium (137 - 145 mmol/L) 142 Potassium (3.5 - 5.1 mmol/L) 4.1 Chloride (98 - 107 mmol/L) 107 Carbon Dioxide (22 - 30 mmol/L) 25 Anion Gap (5 - 16) 10 BUN (9 - 20 mg/dL) 17 Creatinine (0.7 - 1.2 mg/dL) 1.0 Estimated GFR (>60 ml/min) > 60 BUN/Creatinine Ratio (7 - 25 %) 17.0 Hematology CBC w Diff NO MAN DIFF REQ WBC (4.8 - 10.8 /CUMM) 8.9 RBC (4.70 - 6.10 /CUMM) 3.94 L Hgb (14.0 - 18.0 G/DL) 11.3 L Hct (42 - 52 %) 34.2 L MCV (80.0 - 94.0 FL) 86.7 MCH (27.0 - 31.0 PG) 28.8 MCHC (33.0 - 37.0 G/DL) 33.2 RDW (11.5 - 14.5 %) 14.2 Plt Count (130 - 400 /CUMM) 348 MPV (7.4 - 10.4 FL) 7.7 Gran % (42.2 - 75.2 %) 73.2 Lymphocytes % (20.5 - 51.1 %) 15.1 L Monocytes % (1.7 - 9.3 %) 8.7 Eosinophils % (0 - 5 %) 2.5 Basophils % (0.0 - 2.0 %) 0.5 Absolute Granulocytes (1.4 - 6.5 /CUMM) 6.5 Absolute Lymphocytes (1.2 - 3.4 /CUMM) 1.3 Absolute Monocytes (0.10 - 0.60 /CUMM) 0.8 H Absolute Eosinophils (0.0 - 0.7 /CUMM) 0.2 Absolute Basophils (0.0 - 0.2 /CUMM) 0 Last 24 Hours of Lanre Results: Blood cultures July 19 negative Assessment/Plan ID Impression: Improved, with temperatures and white blood cell count now normal, on Vancomycin , Day 3 of treatment for presumed sepsis of urologic origin in the setting of a Yanes catheter, status post cystoscopy, insertion of a left ureteral stent and difficult Yanes placement 8 days prior to admission. Suggestion: 1. Further management of his nephrolithiasis and Yanes catheter per Urology 2. Would proceed with placement of a PICC 3. Continue Vancomycin
--- NOTE | 2017-07-22 14:17 | Discharge Summary ---
Visit Information Visit Dates Admission Date: 07/19/17 Discharge Date: 07/22/17 Hospital Course Course Attending Physician: Prakash AHUMADA,Eldon Gama Primary Care Physician: Rhett Bird MD Hospital Course: Mr. Epps is 82-year-old male with PMH of hypertension, atrial fibrillation not on anticoagulation, hyperlipidemia, CAD status post CABG, BPH s/p TURP, and nephrolithiasis s/p percutaneous left nephrostomy and left ureteral stent associated with UTI treated with doxycycline for culture growing coagulase- negative staph aureus who presented to ED with CC of hematuria. On admission patient was afebrile 96.8, pulse 115, respiratory 20, blood pressure 130/79, SPO2 96% on room air. Lab CBC 22,000, BUN/creatinine 23 and 1.3, lactic acid 2.2, bilirubin 1.7, INR 1.26. Urinalysis greater than 75 RBCs/greater than 75 WBCs. Chest x-ray was negative. Renal ultrasound revealed a nonobstructive 8 mm stone in the lower pole of the left kidney with no hydronephrosis and x-ray kidney, ureters and bladder revealed cluster of small calculi within the lower pole of the left kidney. Patient had Yanes catheter placed in ED with cystoscopy by urologist with Residual urine was about 2 liters. Patient started on IV fluid and antibiotic vancomycin and Ceftazidime for sepsis of urological origin. Lactate trended down. ID consultation was obtained with recommendation to continue vancomycin 1 g daily and discontinue ceftazidime. Urine culture positive for MRSA. Recommendation to continue vancomycin for 2 weeks via PICC line that was placed on 07/22/17. Hematuria resolved. Will continue Flomax, finasteride and discontinue oxybutynin. Yanes catheter should not be removed as it is difficult to place and had to be placed by urologist. Allergies: Coded Allergies: Penicillins (HIVES - PER PT'S FAMILY 11/04/16) meperidine (From Demerol) (NAUSEA / VOMITING 11/07/16) Disposition Summary Disposition Principal Diagnosis: Sepsis of urological origin Additional Diagnosis: UTI MRSA Hematuria Discharge Disposition: SNF Discharge Instructions General Discharge Information Code Status: Full Code Patient's Diet: Heart healthy diet Patient's Activity: Mobilized out of bed with physical therapy using a walker, toe-touch weightbearing on the right lower extremity. Follow-Up Instructions/Appts: 1- Please follow up with PCP in 1 week of discharge 2- please follow up with urologist in 1 week of discharge 3-The patient should be mobilized out of bed with physical therapy using a walker, toe-touch weightbearing on the right lower extremity. 4-He does not require any other therapy for the right hip other than gait training for protected weightbearing on the right lower extremity. 5-He should follow-up with Dr. Euceda in 1 month to undergo repeat x-rays of the right hip to check on his gait ability and to check on his right hip symptoms and motion and function and to check on fracture healing activity at his nondisplaced right femoral neck fracture with additional time Medications at Discharge Discharge Medications: Continue taking these medications: Aspirin (Ecotrin*) 81 MG TABLET. 1 Tablet ORAL DAILY Comments: Last Taken: 06/10/17 Time: 10AM Metoprolol Succ XL (Toprol XL) 25 MG TAB 1 Tablet ORAL DAILY Qty = 30 Comments: Last Taken: 07/12/17 Time: 1000 Ascorbic Acid (Vitamin C) 1,000 MG TABLET 2,000 Milligram ORAL TWICE DAILY Comments: NOT TAKEN Cyanocobalamin/Cobamamide (B-12 5,000 Mcg Sublingual Tab) 5,000 MCG-100 MCG TAB.SUBL 5,000 Microgram SUBLINGUAL DAILY Comments: NOT GIVEN IN HOSPITAL [[facility]] TAB 300 Milligram ORAL TWICE DAILY Comments: NOT GIVEN IN HOSPITAL Mvi, Adult No.2 Without Vit K (M.v.i.-12) 200-600/10 VIAL 1 Tablet ORAL DAILY Comments: Last Taken: 07/12/17 Time: 10AM Red Yeast Rice (Red Yeast Rice) 600 MG CAPSULE 1 Tablet ORAL TWICE DAILY Comments: NOT GIVEN IN HOSPITAL Oxybutynin Chloride (Oxybutynin Chloride) 5 MG TABLET 1 Tablet ORAL TWICE DAILY Qty = 180 Comments: Last Taken: 07/12/17 Time: 10AM Cholecalciferol (Vitamin D3) (Vitamin D) 5,000 UNIT TABLET 1 Tablet ORAL DAILY Comments: Last Taken:07-12-17 Time:1045 Fesoterodine Fumarate (Toviaz) 8 MG TAB.ER.24H 1 Tablet ORAL DAILY Comments: NOT TAKEN IN HOSPITAL Nitrofurantoin Monohyd/M-Cryst (Nitrofurantoin Holmes-Mcr 100 MG) (Unknown Strength) CAPSULE Unknown Dose ORAL TWICE DAILY Qty = 14 Furosemide (Furosemide) 20 MG TABLET 0.5 Tablet ORAL Every other day Qty = 90 Comments: Last Taken:07-12-17 Time:1045 Tamsulosin HCl (Flomax) 0.4 MG CAP.ER.24H 0.4 Milligram ORAL DAILY Qty = 30 Finasteride (Finasteride) 5 MG TABLET 5 Milligram ORAL DAILY Qty = 30 Doxycycline Hyclate (Doxycycline Hyclate) 100 MG TABLET 1 Tablet ORAL TWICE DAILY Qty = 14 Start taking the following new medications: Vancomycin HCl (Vancomycin HCl) 1 GRAM VIAL 1 Gram INTRAVEN DAILY Qty = 11 No Refills Copies To: Mimi AHUMADA,Jarred Kaye; Pelon AHUMADA,Rhett Gordon; Devon AHUMADA,Denis Varghese; Royal AHUMADA, Esa
[2017-07-22] MEDS ORDERED: VANCOMYCIN HCL1 G1 IV (14:22)
[2017-07-22 14:28] VITALS: BP 150/90
--- NOTE | 2017-07-22 14:29 | Patient Discharge Instructions ---
Discharge Instructions General Discharge Information You were seen/treated for: SEPSIS DUE TO UTI HEMATUREA URINARY OBSTRUCTION Special Instructions: 1- Pplease follow up with PCP in 1 week of discharge 2- please follow up with urologist in 1 week of discharge 3-The patient should be mobilized out of bed with physical therapy using a walker, toe-touch weightbearing on the right lower extremity. 4-He does not require any other therapy for the right hip other than gait training for protected weightbearing on the right lower extremity. 5-He should follow-up with Dr. Euceda in 1 month to undergo repeat x-rays of the right hip to check on his gait ability and to check on his right hip symptoms and motion and function and to check on fracture healing activity at his nondisplaced right femoral neck fracture with additional time Acute Coronary Syndrome Inclusion Criteria At DC or during hospital stay patient has or had the following: ACS DIAGNOSIS No Discharge Core Measures Meds if any: Prescribed or Continued at Discharge Meds if any: NOT Prescribed or Continued at Discharge Congestive Heart Failure Inclusion Criteria At DC or during hospital stay patient has or had the following: CHF DIAGNOSIS No Discharge Core Measures Meds if any: Prescribed or Continued at Discharge Meds if any: NOT Prescribed or Continued at Discharge Cerebrovascular accident Inclusion Criteria At DC or during hospital stay patient has or had the following: CVA/TIA Diagnosis No Discharge Core Measures Meds if any: Prescribed or Continued at Discharge Meds if any: NOT Prescribed or Continued at Discharge Venous thromboembolism Inclusion Criteria VTE Diagnosis No VTE Type NONE VTE Confirmed by (Test) NONE Discharge Core Measures - Per Current guidelines, there needs to be overlap - treatment for the first 5 days of Warfarin therapy. - If discharged on Warfarin prior to 5 days of - overlap therapy, the patient will need to be - assessed for post discharge needs including - *Post discharge parental anticoagulation - *Warfarin and/or parental anticoagulation education - *Follow up date to check INR post discharge At least 5 days overlap therapy as Inpatient No Meds if any: Prescribed or Continued at Discharge Note: Overlap Therapy is Warfarin and Anticoagulant Meds if any: NOT Prescribed or Continued at Discharge
--- NOTE | 2017-07-22 14:46 | RADIOLOGY REPORT ---
EXAMINATION: XR PORTABLE CHEST CLINICAL INFORMATION: Peripheral line placement COMPARISON: CXR from 06/22/2016 and 07/19/2017 TECHNIQUE: Portable frontal view of the chest was obtained. FINDINGS: The tip of the right arm peripherally inserted catheter is located within the distal superior vena cava. There are a few linear opacities of scarring or atelectasis at the left lung base. No pulmonary edema, consolidation or pleural effusion. Cardiomegaly. Surgical changes from remote coronary artery bypass grafting. The multiple sternotomy wires are chronically disrupted. Skeletal findings include chronic, severe osteoarthritis of the left glenohumeral joint. IMPRESSION: 1. The right arm peripherally inserted catheter is in satisfactory position. 2. Mild atelectasis or scarring at the left lung base. 3. Cardiomegaly without pulmonary edema.
[2017-07-22 16:48] VITALS: BP 150/90
== END 2017-07-22 20:05 | DRG 698 ==
LOC: ERH 09:26 → 1NO 11:36 → ERHI 11:36 → ENRESERV 12:57 → CANRESERV 12:57 → ENRESERV 12:58 → ENTRNSPT 14:12 → EDTRNSPTSTS 14:14 → EDTRNSPT 14:14 → 1NO 14:25 → CMPTRNSPT 14:39 → 1NO 07-21 11:35
PROVIDERS: Internal Medicine Adolescent Medicine; Physician Assistant Medical; Student in an Organized Health Care Education/Training Program
PROC: 02HV33Z Insertion of Infusion Device into Superior Vena Cava, Percutaneous Approach (ICD-10-PCS; principal; 2017-07-22)
DX: T83.511A Infection and inflammatory reaction due to indwelling urethral catheter, initial encounter (principal); A41.02 Sepsis due to Methicillin resistant Staphylococcus aureus; N17.9 Acute kidney failure, unspecified; E87.2 Acidosis; I95.9 Hypotension, unspecified; I48.2 Chronic atrial fibrillation; Z95.1 Presence of aortocoronary bypass graft; R31.0 Gross hematuria; M41.9 Scoliosis, unspecified; N39.0 Urinary tract infection, site not specified; I25.10 Atherosclerotic heart disease of native coronary artery without angina pectoris; E78.5 Hyperlipidemia, unspecified; Z90.49 Acquired absence of other specified parts of digestive tract; I10 Essential (primary) hypertension; S72.001D Fracture of unspecified part of neck of right femur, subsequent encounter for closed fracture with routine healing; X58.XXXD Exposure to other specified factors, subsequent encounter; N40.0 Benign prostatic hyperplasia without lower urinary tract symptoms; N20.0 Calculus of kidney; Z87.442 Personal history of urinary calculi
CPT/HCPCS: 1NP; 1NSP; 87184; 36415; 36592; 71045; 74018; 76775; 81001; 82436; 87040; 87086; 87147; 93005; 93010; 97116-GO; 97161-GP; 99291; C1769; J0696; J0713; J3370; J7060

== ENCOUNTER 2017-08-27 03:20 | Inpatient (IN) | payer OTHER, MEDICARE ==
[~2017-08-27] VITALS: Ht 162.6 cm; Wt 76.3 kg
[~2017-08-27 03:20] MED LIST changes: +RED YEAST RICE600 M1; +VANCOMYCIN HCL1 G1 IV
--- NOTE | 2017-08-27 17:51 | Operative Report ---
Operative/Inv Procedure Report Surgery Date: 08/27/17 Name of Procedure: left ureter stone ESWL with fluoroscopy: Cystoscopy with standard TURP, and left stent removal. Pre-Operative Diagnosis: 10mm left ureter stone: BPH with urinary retention and gross hematuria Post-Operative Diagnosis: same Estimated Blood Loss: 50ml to 100ml Surgeon/Sales Representative Cash Registers: Esa Paige MD Anesthesia: laryngeal mask airway Drains: 22fr 3-way florian with NS CBI Specimens: prostate chips Complications: none Operative/Procedure Note Note: The patient was taken to the operating room and placed on the ESWL table in supine position. Time out was performed, with the patient awake, to confirm identity, procedure, laterality, and other pertinent hermelinda-operative information. After adequate anesthesia, the patient was positioned so that the left flank was placed over the ESWL table cut-out, and overlying the dome of the shockwave generator. C-arm fluroscopy, as well as renal US was used to locate the stone, and evaluate the left kidney. The stone was visible on fluroloscopy at the distal-left ureter. Renal US confirmed no hydronephrosis, with no additional stone seen in the left kidney. The left ureter stone was approximate 7 mm in size, and faintly visible with fluoroscopy. Using fluoroscopy, the position of the ureter stone was optimized for ESWL, using AP, and oblique views of the stone. Subsequently, E.S.W.L. was initiated at low power levels x 200 shocks. After noting the patient's tolerance to the shockwaves, the shock wave power level was quickly maximized. At the end of the procedure, the composition of the stone had changed significantly indicating the pulverization of the ureter stone. A total of 3000 shockwaves were delivered to the stone in order to achieve adequate lithotrypsy. The patient was then transferred with monitors, via stretcher, to the operating room in stable condition. He was then transferred to the OR table without difficulty. After adequate anesthesia, the old Florian catheter was removed. The patient was then draped and prepped in the usual surgical fashion. The patient was then placed in lithotomy stirrups using yellowfin stirrups. A 22 Fr. cystoscope sheath, with a 30 degree joy lense was then inserted into the bladder. The left stent was visualized, then grasped with an alligator cystoscope grasper. The entire scope and stent was removed without difficulty. A 26 [place] Islander standard TURP resectoscope sheath with a 30 angle lens, and the 24 [place] Islander loop was inserted into the urethra, and then advanced into the bladder without difficulty. A FEW small clots, and bladder stones, were noted in the bladder, and were Ellix evacuated out. With a clearer vision, the prostate was noted to have an irregular and ratty surface with severely coapting lobes. Additionally, the prostate was hypervascular consistent with regrowth of prostate tissue from prior TURP may years ago. Upon entering the bladder, it was thoroughly and systematically surveyed revealing no evidence of tumor, no evidence of stone. Both orifices were difficult to view due to the severe trabeculation, but were eventually identified in their orthotopic position with clear yellow reflux. The resectoscope was then retracted to the level of the pedro montanum. Under direct visualization the 24 [place] Islander loop was then extended beyond the scope. Under direct visualization, and using the cutting current, the left lobe of the prostate was resected from the 2:00 to the 6 o'clock position to the level of the fibromuscular capsule. Using coag current, spot cauterization was performed in order to achieve good hemostasis of the prostate. The loop was then extended once again using cutting current to resect the right side of the prostate from the 10:00 to the 6 o'clock position to the level of the fibromuscular capsule. Spot cauterization using coag current was then performed in order to achieve good hemostasis. Maintaining the position of the resectoscope at the level of the vera montanum the apical tissue was resected as well on both sides. The external sphincter was preserved. The bladder was then re-entered via the resectoscope, and the prostate chips were irrigated out using tumey evacuation. Once all the prostate chips were removed, the bladder was re- evaluating and noted to have no untoward injury. Additionally, the prostate channel was noted to have good hemostasis, with a wide open channel. The resectoscope was removed with the bladder full. A 22 [place]er couvalier three-way Florian catheter was inserted without difficulty, draining clear fluid. The bladder was again copiously irrigated via the florian to ensure patency/ The 30 mL balloon was then filled, and continuous bladder irrigation with normal saline was initiated. Clear and easy drainage of NS from the main port was confirmed with CBI. All sponge needle and instrument count were correct at the end of the case. The patient tolerated the procedure well and was then taken to the recovery room in satisfactory condition. Discharge Disposition: PACU CC: Esa Paige MD
--- NOTE | 2017-08-27 18:22 | Cons- Urology ---
General Information and HPI Consulting Request Date of Consult: 08/27/17 Requested By: Esa Paige MD Reason for Consult: LEFT STONE, bph RETENTION Source of Information: patient Exam Limitations: no limitations History of Present Illness: 82 YR OLD WITH LEFT 10MM STONE AND BPH: HERE FOR LEFT ESWL AND TURP Allergies/Medications Allergies: Coded Allergies: Penicillins (HIVES - PER PT'S FAMILY 08/14/17) meperidine (From Demerol) (NAUSEA / VOMITING 08/14/17) Home Med List: Ascorbic Acid (Vitamin C) 1,000 MG TABLET 2,000 MG PO BID IMMUNITY (Reported) Aspirin (Ecotrin*) 81 MG TABLET.DR 1 TAB PO DAILY HEART HEALTH (Reported) Cholecalciferol (Vitamin D3) (Vitamin D) 5,000 UNIT TABLET 1 TAB PO DAILY SUPPLEMENT (Reported) Cyanocobalamin/Cobamamide (B-12 5,000 Mcg Sublingual Tab) 5,000 MCG-100 MCG TAB.SUBL 5,000 MCG SL DAILY SUPPLEMENT (Reported) Fesoterodine Fumarate (Toviaz) 8 MG TAB.ER.24H 1 TAB PO DAILY BLADDER ( Reported) Finasteride 5 MG TABLET 5 MG PO DAILY BPH Furosemide 20 MG TABLET 0.5 TAB PO EOD DIURETIC (Reported) Metoprolol Succ XL (Toprol XL) 25 MG TAB 1 TAB PO DAILY A.fib Mvi, Adult No.2 Without Vit K (M.v.i.-12) 200-600/10 VIAL 1 TAB PO DAILY VITAMIN SUPPORT (Reported) Oxybutynin Chloride 5 MG TABLET 1 TAB PO BID BLADDER (Reported) Red Yeast Rice 600 MG CAPSULE SUPPLEMENT (Reported) Tamsulosin HCl (Flomax) 0.4 MG CAP.ER.24H 0.4 MG PO DAILY BPH Current Medications: Current Medications Sig/Graciela Start time Last Medication Dose Route Stop Time Status Admin Ciprofloxacin 500 MG ONCE 08/27 0000 NR PO 08/27 0549 Past History Medical History Neurological: NONE EENT: NONE Cardiovascular: AFIB, CAD, hypertension, hyperlipidemia, syncope, QUAD BIPASS Respiratory: NONE Gastrointestinal: SML BOWEL RESECTION HERNIA Hepatic: NONE Renal: benign prost hyperplasia, hematuria, KIDNEY STONES Musculoskeletal: SCOLIOSIS ARTHRITIS Psychiatric: NONE Endocrine: NONE Blood Disorders: NONE Cancer(s): NONE MENTAL HYGIENIST/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 spouse, child Services at Home: Home Health Aide Primary Language: Armenian Functional Ability ADLs Independent: dressing, eating, toileting, bathing. Ambulation: cane, walker IADLs Needs Assist: shopping, housework, finances, food prep, telephone, transportation, medication admin. Employment History Retired? yes Review of Systems Review of Systems Constitutional: Reports: malaise. EENTM: Denies: no symptoms. Cardiovascular: Denies: no symptoms. Respiratory: Denies: no symptoms. GI: Reports: bloating. Genitourinary: Reports: dysuria, hematuria. Musculoskeletal: Denies: no symptoms. Neurological/Psychological: Reports: no symptoms. Exam & Diagnostic Data Vital Signs and I&O VSS AFEBRILE Physical Exam General Appearance: well developed/nourished Head: atraumatic Eyes: Bilateral: normal appearance. Ears, Nose, Throat: normal pharynx Neck: normal inspection Respiratory: normal breath sounds Cardiovascular: regular rate/rhythm Gastrointestinal: normal bowel sounds Back: CVA tenderness (L) Extremities: normal inspection Reproductive: Normal male genitalia Imaging Results: PATIENT: HUY CHAPMAN PRESENT AGE: 82 PATIENT ACCOUNT NO: [id number] : 35 LOCATION: [facility] ORDERING PHYSICIAN: Siddhartha Mckinnon MD SERVICE DATE: 07/05/17 EXAM TYPE: CAT - CT ABD & PELVIS W/O IV CONTRAS EXAMINATION: CT ABDOMEN AND PELVIS WITHOUT CONTRAST CLINICAL INFORMATION: Rule out pyelonephrosis/hydronephrosis. Acute kidney injury. COMPARISON: CT abdomen 08/14/2015. TECHNIQUE: Multidetector volumetric imaging was performed from the superior aspect of the liver through the pubic symphysis. Sagittal and coronal reformatted images were obtained on the technologist's workstation. DLP: 918 mGy-cm FINDINGS: LUNG BASES: Mild subsegmental atelectasis at the lung bases. No pleural effusion. LIVER, GALLBLADDER, AND BILIARY TREE: The liver is normal in size, shape, and attenuation. No focal hepatic lesion or biliary ductal dilatation is present. Cholelithiasis without evidence of cholecystitis. PANCREAS: Unremarkable. SPLEEN: Unremarkable. ADRENAL GLANDS: Unremarkable. KIDNEYS AND URETERS: There is left-sided hydronephrosis extending to a 1 cm ureteral calculus at the L3-L4 level. The calculus measures 1400 Hounsfield units, and is not consistent with a uric acid composition. There are a couple other subcentimeter nonobstructing left renal calculi. No suspicious renal mass. Asymmetric left perinephric stranding. BLADDER: Unremarkable. GASTROINTESTINAL TRACT: Bowel gas pattern is nonobstructive. No evidence of acute bowel inflammation. The appendix is normal. There are a few scattered clonic diverticula. ABDOMINAL WALL: Surgical materials in the left inguinal region. LYMPH NODES: No adenopathy. VASCULAR: Diffuse atherosclerotic calcification including coronary artery calcification. PELVIC VISCERA: Prominent prostatomegaly. Seminal vesicles are unremarkable. No free pelvic fluid. OSSEOUS STRUCTURES: There is an age-indeterminate nondisplaced fracture of the right femoral neck. Multilevel degenerative changes of the spine, including grade 2 anterolisthesis of L4 on L5. Convex leftward lumbar scoliosis. Sternotomy wires. IMPRESSION: 1. An obstructing left ureteral 1 cm calculus at the L3-L4 level with proximal hydroureteronephrosis. Cannot exclude an infected obstructed left genitourinary system. Please correlate with urinalysis. 2. A couple other subcentimeter nonobstructing calculi in the left kidney. 3. Age-indeterminate nondisplaced right femoral neck fracture. Please correlate for any corresponding clinical symptoms. 4. Significant prostatomegaly. 5. Other findings as above. DICTATED BY: Dontrell Mccallum MD DATE/TIME DICTATED:07/06/171546 PLANT MACHINIST:AVELINO DATE/TIME TRANSCRIBED:07/06/171546 CONFIDENTIAL, DO NOT COPY WITHOUT APPROPRIATE AUTHORIZATION. <Electronically signed in Other Vendor System> SIGNED BY: Dontrell Mccallum MD 07/06/17 5028 Assessment/Plan Assessment/Plan LEFT URETER STONE/BPH-RETENTION: LEFT URETER ESWL AND CYSTO-TURP Copies To: Esa Paige MD Consult Acknowledgment - Thank you for your consult request. Attending MD Review Statement Attending Statement Attending MD Statement: examined this patient, discuss w/resident/PA/SYSTEMS CONSULTANT Attending Assessment/Plan: LEFT ESWL, TURP.
[2017-08-27 20:39] VITALS: BP 110/60
[2017-08-27 22:40] VITALS: BP 140/82
[2017-08-28 00:59] VITALS: BP 112/68
[2017-08-28 02:30] VITALS: BP 140/90
[2017-08-28 06:09] VITALS: BP 126/82
[2017-08-28 08:53] LABS: ABSOLUTE BASOPHIL COUNT 0 /CUMM (0.0-0.2); ABSOLUTE EOSINOPHIL COUNT 0 /CUMM (0.0-0.7); ABSOLUTE GRANULOCYTE CT 7.7 /CUMM (1.4-6.5); ABSOLUTE LYMPH COUNT 0.7 /CUMM (1.2-3.4); ABSOLUTE MONOCYTE COUNT 0.4 /CUMM (0.10-0.60); BASOPHIL % 0.1 % (0.0-2.0); EOSINOPHIL % 0 % (0-5); HEMATOCRIT 32.9 % (42-52); MEAN CORPUSCULAR HGB 28.3 PG (27.0-31.0); MEAN CORPUSCULAR HGB CONC 33.3 G/DL (33.0-37.0); RBC DISTRIBUTION WIDTH 14.4 % (11.5-14.5); RED BLOOD CELL CT 3.88 /CUMM (4.70-6.10); WHITE BLOOD CELL COUNT 8.8 /CUMM (4.8-10.8)
[2017-08-28 10:41] LABS: GRANULOCYTE % 87.1 % (42.2-75.2); PLATELET COUNT 134 /CUMM (130-400)
[2017-08-28 14:48] VITALS: BP 138/94
[2017-08-28 22:22] VITALS: BP 110/80
[2017-08-29 06:20] VITALS: BP 118/64
[2017-08-29] MEDS ORDERED: PERCOCET 5-3251 EACH PO (07:41)
[2017-08-29] MEDS ORDERED: PROMETHAZI25 MG/1 M1 IV (07:42)
--- NOTE | 2017-08-29 10:18 | Surgical Discharge Summary ---
Visit Information Visit Dates Admission Date: 08/27/17 Discharge Date: 08/29/17 History of Present Illness Chief Complaint: pt with gross hematuria: urinary retention; left ureter stone with stent. 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 Group Home Facility Who Do You Live With? Spouse Services at Home: Home Health Aide What is Your Primary Language? Malawian Tobacco History: denied ETOH Use: denies use Illicit Drug Use History: denies Review of Systems: n/c except in h/p Physical Exam: wd/wn NAD vss afebrile heent: wnl lungs: clear bilat CV: rrr abd soft non tender NO CVAT bilat U/o with florian clear. ext: no CCE Hospital Course Course Attending Physician: Esa Paige MD Primary Care Physician: Rhett Bird MD Hospital Course: pt had left ESWL, cysto with stent removal (left), and standard TURP (from prostate regrowth and obstruction): well tolerated. Kept in hospital for observation and brief CBI course: now with clear output without CBI. Ready for DC to Rehab with florian (to be dc'd on f/u visit 2-4 weeks). Complications: none Allergies: Coded Allergies: Penicillins (HIVES - PER PT'S FAMILY 08/14/17) meperidine (From Demerol) (NAUSEA / VOMITING 08/14/17) Significant Procedures: left renal ESWL Cysto: left stent removal Cysto: TURP (standard) with CBI Disposition Summary Disposition Principal Diagnosis: left kidney stone: bph-retention Additional Diagnosis: gross hematuria Discharge Disposition: SNF Discharge Instructions General Discharge Information Code Status: Full Code Patient's Diet: regular Patient's Activity: as tolerated with PT Follow-Up Instructions/Appts: f/u 2-4 weeks after rehab to be seen in office for voiding trial Medications at Discharge Discharge Medications: Stop taking the following medications: Oxybutynin Chloride (Oxybutynin Chloride) 5 MG TABLET ORAL TWICE DAILY Qty = 180 Fesoterodine Fumarate (Toviaz) 8 MG TAB.ER.24H ORAL DAILY Tamsulosin HCl (Flomax) 0.4 MG CAP.ER.24H ORAL DAILY Qty = 30 Finasteride (Finasteride) 5 MG TABLET ORAL DAILY Qty = 30 Continue taking these medications: Aspirin (Ecotrin*) 81 MG TABLET.DR 1 Tablet ORAL DAILY Comments: NOT GIVEN IN HOSPITAL Metoprolol Succ XL (Toprol XL) 25 MG TAB 1 Tablet ORAL DAILY Qty = 30 Comments: Last Taken: 07/22/17 Time: 10:30 AM Ascorbic Acid (Vitamin C) 1,000 MG TABLET 2,000 Milligram ORAL TWICE DAILY Comments: NOT GIVEN IN HOSPITAL Cyanocobalamin/Cobamamide (B-12 5,000 Mcg Sublingual Tab) 5,000 MCG-100 MCG TAB.SUBL 5,000 Microgram SUBLINGUAL DAILY Comments: NOT GIVEN IN HOSPITAL Mvi, Adult No.2 Without Vit K (M.v.i.-12) 200-600/10 VIAL 1 Tablet ORAL DAILY Comments: NOT GIVEN IN HOSPITAL Cholecalciferol (Vitamin D3) (Vitamin D) 5,000 UNIT TABLET 1 Tablet ORAL DAILY Comments: NOT GIVEN IN HOSPITAL Furosemide (Furosemide) 20 MG TABLET 0.5 Tablet ORAL Every other day Qty = 90 Comments: NOT GIVEN IN HOSPITAL Red Yeast Rice (Red Yeast Rice) 600 MG CAPSULE Start taking the following new medications: Oxycodone HCl/Acetaminophen (Percocet 5-325 MG Tablet) 5 MG-325 MG TABLET 1 Tablet ORAL EVERY 4 HOURS NEEDED as needed for PAIN SCALE 4-6 (MODERATE ) Qty = 30 No Refills Promethazine HCl (Promethazine HCl) 25 MG/ML AMPUL 12.5 Milligram INTRAVEN EVERY SIX HOURS NEEDED as needed for NAUSEA/ VOMITING Qty = 1 No Refills Copies To: Esa Paige MD Attending Review Statement Attending Statement Attending MD Statement: examined this patient, discuss w/resident/PA/WATER REGISTRAR Attending Assessment/Plan: return to rehab with anival
[2017-08-29 13:40] VITALS: BP 124/70
[2017-08-29 14:22] VITALS: BP 124/70
== END 2017-08-29 14:55 | DRG 713 ==
LOC: STS 03:20 → 2NA 18:26 → PACUH 18:26 → ENRESERV 19:22 → CANRESERV 19:22 → ENRESERV 19:41 → 2NA 19:47 → ENTRNSPT 20:09 → EDTRNSPTSTS 20:26 → EDTRNSPT 20:26 → 2NA 20:31 → CMPTRNSPT 20:35 → 2NA 08-28 14:48 → ENPENDDIS 08-29 13:23 → 2NA 08-29 14:55
PROVIDERS: Physician Assistant Surgical
PROC: 0TC78ZZ Extirpation of Matter from Left Ureter, Via Natural or Artificial Opening Endoscopic (ICD-10-PCS; principal; 2017-08-27)
PROC: 0VB08ZZ Excision of Prostate, Via Natural or Artificial Opening Endoscopic (ICD-10-PCS; 2017-08-27)
PROC: 0TP98DZ Removal of Intraluminal Device from Ureter, Via Natural or Artificial Opening Endoscopic (ICD-10-PCS; 2017-08-27)
DX: N40.1 Benign prostatic hyperplasia with lower urinary tract symptoms (principal); N20.1 Calculus of ureter; I11.9 Hypertensive heart disease without heart failure; I48.91 Unspecified atrial fibrillation; M41.9 Scoliosis, unspecified; R31.0 Gross hematuria; R33.8 Other retention of urine; Z95.1 Presence of aortocoronary bypass graft; Z87.442 Personal history of urinary calculi; I25.10 Atherosclerotic heart disease of native coronary artery without angina pectoris; E78.5 Hyperlipidemia, unspecified; Z90.49 Acquired absence of other specified parts of digestive tract; Z88.0 Allergy status to penicillin; Z88.8 Allergy status to other drugs, medicaments and biological substances
CPT/HCPCS: 2NAP; 6030; 36592; 88305; G0378; J0131; J0696; J1100; J1644; J1885; J2405; J2550; J3490; J7042